=== PATIENT | male | born 1980 | race Caucasian/White ===

== ENCOUNTER 2018-07-23 23:06 | Inpatient (IN) | payer MEDICAID, OTHER ==
--- NOTE | 2018-07-23 23:46 | ED ---
General Adult HPI - General Chief complaint: Psychiatric Symptoms Stated complaint: Mental Health Time Seen by Provider: 07/23/18 23:26 Source: patient, RN notes reviewed Mode of arrival: ambulatory Limitations: no limitations - History of Present Illness Initial comments: 37-year-old male without any significant past medical history presents to the emergency department for a chief complaint of increased aggression and hallucinations. History is very fragmented and difficult to follow. Patient states over the past several months he has had increased stress in his life secondary to his significant other. States that this has caused him much stress in his life and has increased aggression. States that when he is arguing he feels like he is going to become physically aggressive but denies any other thoughts of harming anyone. Denies thoughts of harming himself. Does admit to suicidal thoughts on and off but does not think he would actually do this. Denies having a plan. Also states he has been hearing auditory hallucinations. States he has been hearing voices that have been insulting him. States he also feels like people are breaking into his house. His mother states that patient is frequently checking locks on all the doors and looking at the house to scan it for intruders. Patient has no other complaints at this time including shortness of breath, chest pain, abdominal pain, nausea or vomiting, headache, or visual changes. - Related Data Home Medications Medication Instructions Recorded Confirmed Multivitamins, Thera [Multivitamin 1 tab PO DAILY 07/24/18 07/24/18 (formulary)] Allergies Allergy/AdvReac Type Severity Reaction Status Date / Time amoxicillin Allergy Rash/Hives Verified 07/24/18 02:25 Review of Systems ROS Statement: Those systems with pertinent positive or pertinent negative responses have been documented in the HPI. ROS Other: All systems not noted in ROS Statement are negative. Past Medical History Past Medical History: No Reported History History of Any Multi-Drug Resistant Organisms: None Reported Additional Past Surgical History / Comment(s): cyst removed from chest Past Psychological History: No Psychological Hx Reported Smoking Status: Current every day smoker Past Alcohol Use History: Rare Past Drug Use History: Heroin, Opiates - Past Family History Mother Sister(s) Family Medical History: Cancer Additional Family Medical History / Comment(s): mother metastatic bone ca,. sister best away from breast, uterine ovarian 2014. Brother has colon CA General Exam Limitations: no limitations General appearance: alert, in no apparent distress Head exam: Present: atraumatic, normocephalic, normal inspection Eye exam: Present: normal appearance, PERRL, EOMI. Absent: scleral icterus, conjunctival injection, periorbital swelling ENT exam: Present: normal exam, mucous membranes moist Neck exam: Present: normal inspection, full ROM. Absent: tenderness, meningismus, lymphadenopathy Respiratory exam: Present: normal lung sounds bilaterally. Absent: respiratory distress, wheezes, rales, rhonchi, stridor Cardiovascular Exam: Present: regular rate, normal rhythm, normal heart sounds. Absent: systolic murmur, diastolic murmur, rubs, gallop, clicks Neurological exam: Present: alert, oriented X3, CN II-XII intact Psychiatric exam: Present: other (Disorganize conversation) Course Vital Signs 07/23/18 07/24/18 23:09 02:24 Temperature 98.5 F 96.7 F L Pulse Rate 113 H 90 Respiratory 20 16 Rate Blood Pressure 134/79 123/94 O2 Sat by Pulse 98 98 Oximetry Medical Decision Making - Medical Decision Making 37-year-old male presents to the emergency department for several complaints. Patient has been having auditory hallucinations as well as thoughts of people intruding into his house. Care was signed out to Dr. Mcnamara at midnight an EPS evaluation. - Lab Data Result diagrams: 07/25/18 08:00 07/25/18 08:00 Lab Results 07/24/18 Range/Units 00:22 Urine Opiates Screen Not Detected (NotDetected) Ur Oxycodone Screen Not Detected (NotDetected) Urine Methadone Screen Not Detected (NotDetected) Ur Propoxyphene Screen Not Detected (NotDetected) Ur Barbiturates Screen Not Detected (NotDetected) U Tricyclic Antidepress Not Detected (NotDetected) Ur Phencyclidine Scrn Not Detected (NotDetected) Ur Amphetamines Screen Detected H (NotDetected) U Methamphetamines Scrn Detected H (NotDetected) U Benzodiazepines Scrn Not Detected (NotDetected) Urine Cocaine Screen Not Detected (NotDetected) U Marijuana (THC) Screen Not Detected (NotDetected) Disposition Clinical Impression: Auditory hallucinations Disposition: ADMITTED IP TO THIS HOSP Condition: Fair Time of Disposition: 00:06
[2018-07-24 00:55] LABS: Amphetamine Screen,Urine Detected (NotDetected); Barbiturate Screen,Urine Not Detected (NotDetected); Benzodiazepines Screen,Urine Not Detected (NotDetected); Cocaine Screen,Urine Not Detected (NotDetected); Methadone Screen, Urine Not Detected (NotDetected); Opiate Screen,Urine Not Detected (NotDetected); Oxycodone Screen, Urine Not Detected (NotDetected); Phencyclidine Screen,Urine Not Detected (NotDetected); Tricyclic Antidepressant,Urine Not Detected (NotDetected); Urn Cannabinoid Scrn Not Detected (NotDetected)
[2018-07-24] MEDS ORDERED: ZIPRASIDONE 20 MG VIAL IM PRN (02:16)
[2018-07-24] MEDS ORDERED: MAGNESIUM HYDROXIDE 2,400 MG/10 ML CUP PO PRN (02:16)
[2018-07-24] MEDS ORDERED: LORazepam 1 MG TAB PO PRN (02:16)
[2018-07-24] MEDS ORDERED: MAG HYDROX/AL HYDROX/SIMETH 30 ML CUP PO PRN (02:16)
[2018-07-24] MEDS ORDERED: OLANZapine 5 MG TAB PO PRN (02:22)
[2018-07-24] MEDS ORDERED: OLANZapine 10 MG TAB PO SCH ×2 (02:22→21:00)
[2018-07-24] MEDS ORDERED: PNEUMOCOCCAL VACC-PNEUMOVAX 23 25 MCG/0.5 ML VIAL IM ONE (07:48)
[2018-07-24] MEDS: NICOTINE 21MG/24HR PATCH TRANSDERM SCH (09:41)
[2018-07-24] MEDS: MULTIVITAMINS, THERA 1 EACH TAB PO SCH (09:41)
[2018-07-24 13:03] VITALS: BMI 23.7
--- NOTE | 2018-07-24 14:31 | P.HPMEDMHU ---
History of Present Illness H&P Date: 07/24/18 Chief Complaint: MHU HPI The patient is a 37-year-old male with a past medical history of substance abuse with methamphetamines was admitted to the mental health unit after he presented to the ER with increased aggression and hallucinations, apparently the patient is complaining of increased stresses in his life with regards to the family and his job, he reports being increasingly paranoid about his partner having affairs, and increasingly paranoid that his neighbors are watching him. The patient reports increasing manic behaviors followed by depression. The patient denies any chronic medical issues he denies any chest pain or shortness of breath, denies any subjective fevers chills night sweats or cough. Denies any abdominal pain nausea or vomiting or change in bowel habits. Currently the patient denies any hallucinations or feeling paranoid, only complaining of Fatigue. In the ER the patient had a UDS was positive for methamphetamine. Review of Systems Pertinent positives per HPI, all other review of systems otherwise negative Past Medical History Past Medical History: No Reported History History of Any Multi-Drug Resistant Organisms: None Reported Additional Past Surgical History / Comment(s): cyst removed from chest Past Psychological History: No Psychological Hx Reported Smoking Status: Current every day smoker Past Alcohol Use History: Rare Past Drug Use History: Heroin, Opiates - Past Family History Mother Sister(s) Family Medical History: Cancer Additional Family Medical History / Comment(s): mother metastatic bone ca,. sis ter best away from breast, uterine ovarian 2014. Brother has colon CA Medications and Allergies Home Medications Medication Instructions Recorded Confirmed Type Multivitamins, Thera [Multivitamin 1 tab PO DAILY 07/24/18 07/24/18 History (formulary)] Allergies Allergy/AdvReac Type Severity Reaction Status Date / Time amoxicillin Allergy Rash/Hives Verified 07/24/18 02:25 Physical Exam Vitals: Vital Signs Temp Pulse Pulse Resp BP BP Pulse Ox 07/24/18 02:57 98.0 F 85 16 118/71 07/24/18 02:24 96.7 F L 90 16 123/94 98 07/23/18 23:09 98.5 F 113 H 20 134/79 98 Intake and Output 07/23/18 07/24/18 07/24/18 22:59 06:59 14:59 Other: Weight 79.379 kg 79.379 kg Constitutional: No acute distress, conversant, pleasant Eyes: Anicteric sclerae, moist conjunctiva, no lid-lag, PERRLA ENMT: NC/AT,Oropharynx clear, no erythema, exudates Neck:Supple, FROM, no masses, or JVD, No carotid bruits; No thyromegaly Lungs: Clear to auscultation, Clear to percussion, Normal respiratory effort, no accessory muscle use Cardiovascular: Heart regular in rate and rhythm, No murmurs, gallops, or rubs no peripheral edema Abdominal: Soft Nontender, nom distended, no guarding, no rebound or rigidity, Normoactive bowel sounds No hepatomegaly, No splenomegaly, No palpable mass No abdominal wall hernia noted Skin: Normal temperature, tone, texture, turgor, No induration No subcutaneous nodules, No rash, lesions, No ulcers Extremities:No digital cyanosis No clubbing, Pedal pulses intact and symmetrical Radial pulses intact and symmetrical Normal gait and station, No calf tenderness Psychiatric: Alert and oriented to person, place and time, flat affect Neuro: Muscles Strength 5/5 in all 4 extremities, Sensation to light touch grossly present throughout, Cranial nerves II-XII grossly intact. No focal sensory deficits Cranial Nerve Examination - Cranial Nerves Cranial Nerve II- Optic: Intact Cranial Nerve III- Oculomotor: Intact Cranial Nerve IV- Trochlear: Intact Cranial Nerve V- Trigeminal: Intact Cranial Nerve - Abducens: Intact Cranial Nerve VII- Facial: Intact Cranial Nerve VIII- Auditory: Intact Cranial Nerve IX- Glossopharyngeal: Intact Cranial Nerve X- Vagus: Intact Cranial Nerve XI- Accessory: Intact Cranial Nerve XII- Hypoglossal: Intact Results Labs: Abnormal Lab Results - Last 24 Hours (Table) 07/24/18 Range/Units 00:22 Ur Amphetamines Screen Detected H (NotDetected) U Methamphetamines Scrn Detected H (NotDetected) Thrombosis Risk Factor Assmnt - Choose All That Apply Any of the Below Risk Factors Present?: No Other Risk Factors: No Other congenital or acquired thrombophilia - If yes, enter type in comment: No Thrombosis Risk Factor Assessment Level: Very Low Risk Assessment and Plan (1) Methamphetamine abuse Current Visit: Yes Status: Acute Code(s): F15.10 - OTHER STIMULANT ABUSE, UNCOMPLICATED SNOMED Code(s): 509637977 (2) Methamphetamine-induced psychotic disorder Current Visit: Yes Status: Acute Code(s): F15.959 - OTH STIMULANT USE, UNSP W STIM-INDUCE PSYCH DISORDER, UNSP SNOMED Code(s): 50407105945675650 (3) Schizoaffective disorder Current Visit: Yes Status: Acute Code(s): F25.9 - SCHIZOAFFECTIVE DISORDER, UNSPECIFIED SNOMED Code(s): 51088361 Plan: The patient is admitted to the mental health unit we'll defer treatment to the acute inpatient psychiatry team regarding ongoing psychotropic medications and possible cognitive behavioral therapy for his 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 Initiate labs are still pending, the patient appears to be hemodynamically stable and is coming out of his methamphetamine toxemia. We will plan to sign off on this patient today. I appreciate the opportunity to be evolving ongoing care for this patient, for further questions please do not hesitate to contact the [facility] inpatient team
[2018-07-24] MEDS ORDERED: OLANZapine 5 MG TAB PO SCH (17:00)
[2018-07-24] MEDS ORDERED: OLANZapine 5 MG TAB PO ONE (17:35)
[2018-07-24] MEDS: OLANZapine 10 MG TAB PO SCH (20:59)
[2018-07-24] MEDS: ACETAMINOPHEN TAB 325 MG TAB PO PRN (21:02)
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
[2018-07-25 08:24] LABS: Anisocytosis Slight; Basophils % (A) 1 %; Eosinophils # (A) 0.2 k/uL (0-0.7); Eosinophils % (A) 2 %; HCT 44.2 % (39.0-53.0); HGB 14.3 gm/dL (13.0-17.5); Lymphocytes # (A) 1.1 k/uL (1.0-4.8); Lymphocytes % (A) 15 %; MCH 29.4 pg (25.0-35.0); MCHC 32.4 g/dL (31.0-37.0); MCV 90.7 fL (80.0-100.0); Mean Platelet Volume 7.9; Monocytes # (A) 0.3 k/uL (0-1.0); Monocytes % (A) 4 %; Neutrophils # (A) 5.5 k/uL (1.3-7.7); Neutrophils % (A) 76 %; Platelet Count 177 k/uL (150-450); RBC 4.87 m/uL (4.30-5.90); RDW 16.5 % (11.5-15.5); WBC 7.2 k/uL (3.8-10.6)
[2018-07-25] MEDS: NICOTINE 21MG/24HR PATCH TRANSDERM SCH (08:33)
[2018-07-25] MEDS: MULTIVITAMINS, THERA 1 EACH TAB PO SCH (08:33)
[2018-07-25] MEDS: OLANZapine 10 MG TAB PO SCH ×2 (08:33→21:17)
[2018-07-25] MEDS: ACETAMINOPHEN TAB 325 MG TAB PO PRN (08:35)
[2018-07-25 08:38] LABS: ALT 10 U/L (21-72); AST 12 U/L (17-59); African American GFR (CKD) >90 (>60 ml/min/1.73 sqM); Albumin 4.3 g/dL (3.5-5.0); Alkaline Phosphatase 53 U/L (38-126); Anion Gap 7 mmol/L; Blood Urea Nitrogen 17 mg/dL (9-20); Calcium 9.5 mg/dL (8.4-10.2); Carbon Dioxide 25 mmol/L (22-30); Chloride 109 mmol/L (98-107); Cholesterol 123 mg/dL (<200); Glucose 92 mg/dL (74-99); HDL Cholesterol 35 mg/dL (40-60); LDL Cholesterol,Calculated 72 mg/dL (0-99); Potassium 4.3 mmol/L (3.5-5.1); Sodium 141 mmol/L (137-145); Total Bilirubin 0.7 mg/dL (0.2-1.3); Triglycerides 80 mg/dL (<150)
--- NOTE | 2018-07-25 21:48 | PN ---
PROGRESS NOTE DATE OF SERVICE: 07/25/2018. CHIEF COMPLAINT: The patient had hallucinations and paranoid delusions, which he feels were set off by use of crystal meth over the last 3 months. INTERVAL HISTORY: Patient has been doing fair. He had a quiet evening last night. He tends to keep to himself. He does come out in the day area, though he does not interact too much with others. He slept fair last night. Today he has been up. Again, he tends to keep to himself. He has been cooperative with care. He notes no problems with his medications. He says that he thinks the Zyprexa has helped him feel a little calmer and a little clearer in his thoughts. It is noted that he continues to be fairly ambivalent about the issues relating to his home situation. We talked about the option of setting up a family meeting given that he has spent more time than not living with his mother over the last 3 months. The plan would be to try to set up a family meeting with her first. The next step might be to set up a family meeting with the patient's fiancee. He is struggling in that relationship. He has not had any issue of hallucinations or delusional thoughts. He tolerates his psychotropic medication. MENTAL STATUS: Patient gave fair eye contact. Psychomotor activity was slow. Speech was monotone and soft. He answered questions with brief responses. He did not say a lot. His thoughts were clear and coherent. His affect was flat. His mood depressed. He seemed moderately distressed. There was no outward evidence of thought disorder. Cognition was clear. ASSESSMENT: I will continue the current diagnosis and treatment plan. I will continue psychotropic medications the same. We will look to look to set up a family meeting with the patient's mother as a first step in addressing the discharge planning issues. We will continue to focus on stabilization and coordinating for outpatient followup. MMODL / IJN: [id number] /
[2018-07-26 08:57] LABS: Hemoglobin A1C 5.5 % (4.0-6.0)
[2018-07-26] MEDS: NICOTINE 21MG/24HR PATCH TRANSDERM SCH (09:11)
[2018-07-26] MEDS: MULTIVITAMINS, THERA 1 EACH TAB PO SCH (09:11)
[2018-07-26] MEDS: OLANZapine 10 MG TAB PO SCH (09:11)
[2018-07-26 09:16] LABS: T4, Free (Free Thyroxine) 1.5 ng/dL (0.78-2.19)
--- NOTE | 2018-07-26 11:19 | P.PN ---
Progress Note - Text Progress Note Date: 07/26/18 Interval History: Patient is a 37-year-old male who was seen today after being admitted due to increasing paranoia after using IV methamphetamine over the last 3 months. Patient states that he began using about a half a gram every other day IV for the last 3 months due to increasing stress at home. He states he was becoming increasingly depressed and tired and thought that the methamphetamine would increase his energy level. He states that over the last year he has thought that his fiance has been cheating on him but now no longer has those concerns. He states that he has a history of being addicted to opiates and has not used for the last 7 years and was using for 8 years IV heroin. Patient states that he is also been treated in the past for depression the first time was after he stopped his opiate use and he has been on Wellbutrin, Zoloft, Paxil and Celexa and complained of no energy on all of them and was uncertain what his response to Wellbutrin was. Patient states that he also set up an intake at [facility] for July 29 prior to his coming to the hospital. He reports that currently he is still feeling tired and depressed he is no longer having any paranoid ideation or auditory hallucinations but is now feeling sleepy and has not been attending groups but has been eating. He states that he sleeping most of the day and night Mental Status: Appearance/Attitude: Patient is neatly and appropriately dressed, makes good eye contact appears tired and is cooperative Behavior: Patient does not exhibit any psychomotor agitation or retardation Speech/Language: Patient's speech is spontaneous and normal volume and rhythm and he is coherent Thought Process: Patient is goal-directed there is no evidence of loose associations or flight of ideas Thought Content: Patient denies any current auditory or visual hallucinations and no delusions or paranoid ideation or elicited. Patient states he is no longer hearing voices or having paranoid ideation. He reports that he is currently feeling sedated during the day and has been sleeping day and night. He has not been attending groups but has been eating. States that he had been feeling depressed prior to coming into the hospital and tired and had also been suspicious that his fiance been having an affair. Suicidal/Homicidal Ideation: Patient denies any current suicidal or homicidal ideation Sensorium/Cognition: Patient is alert and oriented to person, place, and time and his recent and remote memory are grossly intact Mood/Affect: Patient's mood is depressed he appears somewhat sleepy and his affect is appropriate to his mood Insight/Judgment: Patient's insight and judgment are fair Assessment: Patient reports is no longer having paranoid thoughts or auditory hallucinations, he reports that he's been sleeping day and night and is feeling overly sedated during the day. He has been eating and states that he had set up an intake for July 29 at [facility], he reports having started using methamphetamine IV 3 months ago due to feeling depressed and tired as well as suspicious of his fiance having any an affair, patient states that he has now plan to live with his mother as he had been living with his fiance and her mother. 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 Patient has a history of prior opiate addiction as well as treatment for depression in the past. Plan: Will decrease the patient's Zyprexa to 7-1/2 mg at bedtime and continue to slowly taper this, as the patient's paranoid and auditory hallucinations have ceased and he is overly sedated during the day. Patient and I discussed his response to antidepressants in the past and he felt that the SSRIs made him too sleepy and so we will start Wellbutrin extended release 150 mg in the morning and I reviewed the use and side effects of the medication with him. Patient is still considering whether he wishes to follow-up with the intake at [facility] on July 29. Patient continues to require hospitalization to further stabilize h is mood.
[2018-07-26] MEDS: buPROPion XL 150 MG TAB.ER.24H PO SCH (12:14)
[2018-07-26] MEDS ORDERED: OLANZapine 2.5 MG TAB PO SCH (21:00)
[2018-07-27] MEDS: ACETAMINOPHEN TAB 325 MG TAB PO PRN ×2 (01:30→15:17)
[2018-07-27 01:47] VITALS: TEMP 98.4
[2018-07-27] MEDS: MULTIVITAMINS, THERA 1 EACH TAB PO SCH (09:04)
[2018-07-27] MEDS: buPROPion XL 150 MG TAB.ER.24H PO SCH (09:04)
[2018-07-27] MEDS: NICOTINE 21MG/24HR PATCH TRANSDERM SCH (09:04)
--- NOTE | 2018-07-27 12:41 | P.PN ---
Progress Note - Text Progress Note Date: 07/27/18 Interval History: Patient is a 37-year-old male who was seen today and reports that he is feeling less groggy however continues to feel sleepy. Patient states that he did sleep well and has had no return of the auditory hallucinations or paranoid ideation that he had at the time of admission. Patient states that he is unsure whether he wants to go to the intake at [facility] on stating that he was depressed and that was partly why he began using methamphetamines on the outside. He denies any suicidal ideation at this time. Mental Status: Appearance/Attitude: Patient is neatly and appropriately dressed, appears still slightly groggy, makes eye contact and is cooperative. Behavior: Patient does not display any psychomotor agitation or retardation. Speech/Language: Patient's speech is spontaneous of normal volume and rhythm and he is coherent Thought Process: Patient is goal-directed there is no evidence of loose association or flight of ideas Thought Content: Patient denies any auditory or visual hallucinations and no delusions or paranoid ideation or elicited. Patient states that he is still feeling slightly groggy during the day and states that he began using methamphetamine because he had been feeling depressed before he was admitted. Patient states that he still feeling that way. Patient has been sleeping and eating but has not been attending any groups. Suicidal/Homicidal Ideation: Patient denied any current suicidal or homicidal ideation Sensorium/Cognition: Patient is alert and oriented to person, place, and time and his recent and remote memory are grossly intact Mood/Affect: Patient's mood remains slightly depressed and his affect blunted Insight/Judgment: Patient's insight and judgment are fair Assessment: Patient and I discussed his going to [facility] and he is now delaying that stating that he was feeling depressed before and wants to stay in the hospital. Patient is not expressing any suicidal ideation. Expressing any psychotic symptoms at this time and continues to spend the day in bed stating that he is too sedated. Patient is sleeping and eating but not attending any groups or activities. Plan: Will decrease the patient's Zyprexa to 2-1/2 mg tonight and then discontinue the medication as he is no longer having any psychotic symptoms, will increase the patient's Wellbutrin to 300 mg extended-release tomorrow morning as the patient reports that he had been beneficial to him in the past and he states that he had been feeling depressed and one of the reasons that he had begun using methamphetamines. Patient was encouraged to attend groups and activities and we discussed a discharge later this week once his mood is more stable and I continue to encourage the patient to attend his intake at [facility]. Patient requires hospitalization to further stabilize his mood and observe off the antipsychotic for return of any psychotic symptoms.
[2018-07-27] MEDS ORDERED: OLANZapine 2.5 MG TAB PO SCH (21:00)
[2018-07-28] MEDS: ACETAMINOPHEN TAB 325 MG TAB PO PRN (00:53)
[2018-07-28 06:53] VITALS: BP 118/67; PULSE 76; RESP 16
[2018-07-28] MEDS: NICOTINE 21MG/24HR PATCH TRANSDERM SCH (08:30)
[2018-07-28] MEDS: MULTIVITAMINS, THERA 1 EACH TAB PO SCH (08:30)
[2018-07-28] MEDS ORDERED: buPROPion XL 300 MG TAB.ER.24H PO SCH (09:00)
--- NOTE | 2018-07-28 10:56 | P.DS ---
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 Patient states that he began using about a half a gram every other day for last 3 months due to increasing stress at home. He states that he had been increasingly depressed and tired and thought that methamphetamine would increase his energy level. He states that over the last year is also had concerns that his fiance was cheating on him but these concerns no longer exist. Patient states that he became increasingly aggressive and was having hallucinations. Patient reported hearing auditory hallucinations that are derogatory in nature, patient felt that people were breaking into his house and he is mother reported that he had been checking the locks and doors at the house looking for intruders. Patient states that he also had suicidal thoughts as well as a fear becoming aggressive. Patient reported that the paranoid delusions are becoming worse he had not been sleeping or eating. Patient states that he had moved in with his mother due to arguments with his fiance. Patient also been feeling increasingly depressed and had arranged as an outpatient prior to coming to the hospital for an intake at [place] for July 29. Patient reported that he had been feeling depressed about stress due to his relationship with his fiance, is having suicidal ideation had begun using methamphetamine because he was tired and then began to have auditory hallucinations as well as paranoid ideation. Patient reported that he had been treated in the past for depression. Patient had been an opiate user in the past but has not used for the last 7 years and stated that after he became sober off of his opiate use he had been on antidepressants for depression. He has not currently been on any medication. Hospital Course: Patient was admitted on a voluntary basis, placed on routine observation and group and activity therapy were ordered. Patient had routine laboratory studies ordered as well as a medical consultation. Patient was initially begun on Zyprexa to target his paranoid ideation and auditory hallucinations. Patient responded well to the medication was reporting feeling overly sedated and so the Zyprexa was slowly decreased to a dose of 2.5 mg on the night prior to his discharge. Patient reported no further auditory hallucinations or delusional ideation. Patient then discussed feeling depressed, with a lack of energy, he reported no current suicidal ideation but stated that he had been depressed feeling tired and unmotivated, not eating well or sleeping well. Patient reported that he had a good response to Wellbutrin in the past and not to the SSRIs. Patient was then started on Wellbutrin 150 mg extended release in the morning which was increased to 300 mg in the morning. Patient reported that he felt no side effects from the medication and as the dose of Zyprexa was decreased he reported less grogginess during the day. Patient signed a three-day notice on July 27 stating that he wished to leave the hospital so that he could keep his intake appointment on July 29 but wanted to spend the night at home before going to [facility]. Patient reported no furth er complaints of psychotic symptoms and felt that he was responding to the Wellbutrin. Patient states that he will go on living with his fiance for the one night prior to going to [place] to the intake that he had set up prior to coming to the hospital on July 29. As patient was no longer having any psychotic symptoms, denied any current suicidal ideation patient will be discharged to return home prior to going to [place] tomorrow for his intake. Allergies amoxicillin Allergy (Verified 07/24/18 02:25) Rash/Hives Laboratory Last Values WBC 7.2 k/uL (3.8-10.6) 07/25/18 08:00 RBC 4.87 m/uL (4.30-5.90) 07/25/18 08:00 Hgb 14.3 gm/dL (13.0-17.5) 07/25/18 08:00 Hct 44.2 % (39.0-53.0) 07/25/18 08:00 MCV 90.7 fL (80.0-100.0) 07/25/18 08:00 MCH 29.4 pg (25.0-35.0) 07/25/18 08:00 MCHC 32.4 g/dL (31.0-37.0) 07/25/18 08:00 RDW 16.5 % (11.5-15.5) H 07/25/18 08:00 Plt Count 177 k/uL (150-450) 07/25/18 08:00 Neutrophils % 76 % 07/25/18 08:00 Lymphocytes % 15 % 07/25/18 08:00 Monocytes % 4 % 07/25/18 08:00 Eosinophils % 2 % 07/25/18 08:00 Basophils % 1 % 07/25/18 08:00 Neutrophils # 5.5 k/uL (1.3-7.7) 07/25/18 08:00 Lymphocytes # 1.1 k/uL (1.0-4.8) 07/25/18 08:00 Monocytes # 0.3 k/uL (0-1.0) 07/25/18 08:00 Eosinophils # 0.2 k/uL (0-0.7) 07/25/18 08:00 Basophils # 0.0 k/uL (0-0.2) 07/25/18 08:00 Anisocytosis Slight 07/25/18 08:00 Sodium 141 mmol/L (137-145) 07/25/18 08:00 Potassium 4.3 mmol/L (3.5-5.1) 07/25/18 08:00 Chloride 109 mmol/L (98-107) H 07/25/18 08:00 Carbon Dioxide 25 mmol/L (22-30) 07/25/18 08:00 Anion Gap 7 mmol/L 07/25/18 08:00 BUN 17 mg/dL (9-20) 07/25/18 08:00 Creatinine 0.79 mg/dL (0.66-1.25) 07/25/18 08:00 Est GFR (CKD-EPI)AfAm >90 (>60 ml/min/1.73 sqM) 07/25/18 08:00 Est GFR (CKD-EPI)NonAf >90 (>60 ml/min/1.73 sqM) 07/25/18 08:00 Glucose 92 mg/dL (74-99) 07/25/18 08:[address] Glu mg/dL 111 07/25/18 08:00 Hemoglobin A1c 5.5 % (4.0-6.0) 07/25/18 08:00 Calcium 9.5 mg/dL (8.4-10.2) 07/25/18 08:00 Total Bilirubin 0.7 mg/dL (0.2-1.3) 07/25/18 08:00 AST 12 U/L (17-59) L 07/25/18 08:00 ALT 10 U/L (21-72) L 07/25/18 08:00 Alkaline Phosphatase 53 U/L (38-126) 07/25/18 08:00 Total Protein 7.0 g/dL (6.3-8.2) 07/25/18 08:00 Albumin 4.3 g/dL (3.5-5.0) 07/25/18 08:00 Triglycerides 80 mg/dL (<150) 07/25/18 08:00 Cholesterol 123 mg/dL (<200) 07/25/18 08:00 LDL Cholesterol, Calc 72 mg/dL (0-99) 07/25/18 08:00 HDL Cholesterol 35 mg/dL (40-60) L 07/25/18 08:00 TSH 0.248 mIU/L (0.465-4.680) L 07/25/18 08:00 Total T4 9.2 ug/dL (4.5 - 10.9) 07/25/18 08:00 Free T4 1.50 ng/dL (0.78-2.19) 07/25/18 08:00 Free T3 pg/mL 4.5 pg/ml (2.8-5.3) 07/25/18 08:00 Total T3 116.0 ng/dL (60.0-180.0) 07/25/18 08:00 Urine Opiates Screen Not Detected (NotDetected) 07/24/18 00:22 Ur Oxycodone Screen Not Detected (NotDetected) 07/24/18 00:22 Urine Methadone Screen Not Detected (NotDetected) 07/24/18 00:22 Ur Propoxyphene Screen Not Detected (NotDetected) 07/24/18 00:22 Ur Barbiturates Screen Not Detected (NotDetected) 07/24/18 00:22 U Tricyclic Antidepress Not Detected (NotDetected) 07/24/18 00:22 Ur Phencyclidine Scrn Not Detected (NotDetected) 07/24/18 00:22 Ur Amphetamines Screen Detected (NotDetected) H 07/24/18 00:22 U Methamphetamines Scrn Detected (NotDetected) H 07/24/18 00:22 U Benzodiazepines Scrn Not Detected (NotDetected) 07/24/18 00:22 Urine Cocaine Screen Not Detected (NotDetected) 07/24/18 00:22 U Marijuana (THC) Screen Not Detected (NotDetected) 07/24/18 00:22 Discharge Mental Status: Appearance/Attitude: Patient is neatly and appropriately dressed, makes good eye contact and is cooperative. Behavior: Patient does not exhibit any psychomotor agitation or retardation. Speech/Language: Patient's speech is spontaneous of normal volume and rhythm and he is coherent. Thought Process: Patient is goal-directed there is no evidence of loose association or flight of ideas Thought Content: Patient denies any auditory or visual hallucinations and no delusions or paranoid ideation or elicited. Patient reports that he is no longer having psychotic symptoms, is no longer feeling agitated or aggressive. He reports that he is feeling much less sedated on the lower dose of Zyprexa and has been eating and sleeping well. Patient has been intermittently attending groups. Patient states that he wants to go home before going to [facility] tomorrow for his intake. Suicidal/Homicidal Ideation: Patient denied any current suicidal or homicidal ideation Sensorium/Cognition: Patient is alert and oriented to person, place, and time and his recent and remote memory are grossly intact Mood/Affect: Patient's mood remains slightly depressed and his affect is appropriate to his mood Insight/Judgment: Patient's insight and judgment are fair Risk Assessment: Patient's risk for readmission was moderate should he return to using drugs and not be compliant with follow-up care and medications Discharge Plan: Patient will return to live with his fiance, he states he will keep his intake appointment tomorrow at [place], July 29. Patient will continue on Wellbutrin 300 mg extended release in the morning and was given a prescription for this. Patient was advised to be compliant with follow-up care and medications and to avoid all alcohol and drugs. Patient Condition at Discharge: Stable Plan - Discharge Summary Discharge Rx Participant: No New Discharge Prescriptions: New buPROPion XL [Wellbutrin XL] 300 mg PO DAILY #14 tab.er.24h Continue Multivitamins, Thera [Multivitamin (formulary)] 1 tab PO DAILY Discharge Medication List Multivitamins, Thera [Multivitamin (formulary)] 1 tab PO DAILY 07/24/18 [History] buPROPion XL [Wellbutrin XL] 300 mg PO DAILY #14 tab.er.24h 07/28/18 [Rx] Follow up Appointment(s)/Referral(s): [facility] [Outside] - 1 Week [facility] [NON-STAFF] - 07/29/18 10:15 am (07/29/18 at 1015 am with intake) Patient Instructions/Handouts: Schizoaffective Disorder (DC), Methamphetamine Abuse (DC), Suicide Prevention (DC) Activity/Diet/Wound Care/Special Instructions: Activity and diet as tolerated. Avoid the use of street drugs and alcohol. Take all medications as prescribed. When you are in need of refills on your medications please contact your medical provider and/or outpatient psychiatrist to have this done. Please go to scheduled outpatient appointment for aftercare treatment. If symptoms return or become worse, call the crisis line at and/or go to the nearest emergency room for evaluation. Discharge Disposition: HOME SELF-CARE
== END 2018-07-28 13:20 | disposition home or self-care (01) | DRG 897 ==
LOC: EC 23:06 → 3MHU 07-24 02:02
PROVIDERS: ADMIT Psychiatry & Neurology Psychiatry; ATTEND Psychiatry & Neurology Psychiatry
DX: F15.951 Other stimulant use, unspecified with stimulant-induced psychotic disorder with hallucinations (principal); F33.9 Major depressive disorder, recurrent, unspecified; R45.851 Suicidal ideations; F11.21 Opioid dependence, in remission; F15.950 Other stimulant use, unspecified with stimulant-induced psychotic disorder with delusions; F17.200 Nicotine dependence, unspecified, uncomplicated; F41.0 Panic disorder [episodic paroxysmal anxiety]; Z88.0 Allergy status to penicillin; Z59.8 Other problems related to housing and economic circumstances; Z80.0 Family history of malignant neoplasm of digestive organs; Z80.8 Family history of malignant neoplasm of other organs or systems
CPT/HCPCS: 80053; 80061; 80306; 82075; 83036; 84436; 84439; 84443; 84480; 84481; 85025; 90732; 99285

== ENCOUNTER 2021-11-21 21:39 | Inpatient (IN) | payer OTHER ==
[2021-11-21] MEDS ORDERED: ONDANSETRON 4 MG TAB PO STA (22:28)
[2021-11-21] MEDS ORDERED: LORazepam 1 MG TAB PO STA (22:28)
--- NOTE | 2021-11-21 22:33 | ED ---
General Adult HPI - General Chief complaint: Nausea/Vomiting/Diarrhea Stated complaint: Fall,Withdrawal, Mental Health Time Seen by Provider: 11/21/21 21:55 Source: patient Mode of arrival: wheelchair Limitations: no limitations - History of Present Illness Initial comments: Patient is a 41-year-old male presenting with withdrawal symptoms. Patient used heroin at 6 AM today. He is complaining of paresthesias, nausea, vomiting. Patient denies any recent injury or loss of consciousness. On nurse's reassessment, patient reveals that he had a fall down the stairs today. No abdominal pain, difficulty breathing, fever, chills, unilateral weakness, d ysphasia, difficulty swallowing, vision or hearing changes, headache, neck pain or stiffness. - Related Data Home Medications Medication Instructions Recorded Confirmed Ergocalciferol [Vitamin D2 (1250 1,250 mcg PO TU 12/06/21 12/06/21 Mcg = 58162 Iu)] Previous Rx's Medication Instructions Recorded Docusate [Colace] 100 mg PO BID PRN cap 12/02/21 Nicotine 21Mg/24Hr Patch [Habitrol] 1 patch TRANSDERM DAILY patch 12/02/21 Torsemide [Demadex] 40 mg PO DAILY tab 12/02/21 Famotidine [Pepcid] 20 mg PO BID #60 tablet 12/06/21 Heparin Sodium,Porcine [Heparin 5,000 unit SQ Q12HR 30 Days #60 12/06/21 Sodium] each Melatonin 3 mg PO HS tab 12/06/21 Ondansetron Odt [Zofran ODT] 4 mg PO Q8HR PRN #9 tab 12/06/21 Gabapentin [Neurontin] 100 mg PO TID #9 cap 12/10/21 HYDROcodone/APAP 5-325MG [[place] 1 tab PO Q6HR PRN 3 Days #6 tab 12/10/21 5-325] Allergies Allergy/AdvReac Type Severity Reaction Status Date / Time amoxicillin Allergy Rash/Hives Verified 12/06/21 19:40 Review of Systems ROS Statement: Those systems with pertinent positive or pertinent negative responses have been documented in the HPI. ROS Other: All systems not noted in ROS Statement are negative. Past Medical History Past Medical History: No Reported History History of Any Multi-Drug Resistant Organisms: None Reported Additional Past Surgical History / Comment(s): cyst removed from chest Past Psychological History: No Psychological Hx Reported Smoking Status: Current every day smoker Past Alcohol Use History: Rare Past Drug Use History: Heroin, Methamphetamine, Opiates - Past Family History Mother Sister(s) Family Medical History: Cancer Additional Family Medical History / Comment(s): mother metastatic bone ca,. sister best away from breast, uterine ovarian 2014. Brother has colon CA General Exam Limitations: no limitations General appearance: alert, anxious Head exam: Present: atraumatic, normocephalic, normal inspection Eye exam: Present: normal appearance, PERRL, EOMI. Absent: scleral icterus, conjunctival injection, periorbital swelling Neck exam: Present: normal inspection Respiratory exam: Present: normal lung sounds bilaterally. Absent: respiratory distress, wheezes, rales, rhonchi, stridor Cardiovascular Exam: Present: regular rate, normal rhythm, normal heart sounds. Absent: systolic murmur, diastolic murmur, rubs, gallop, clicks GI/Abdominal exam: Present: soft. Absent: distended, tenderness, guarding, rebound, rigid Extremities exam: Present: normal inspection, full ROM, normal capillary refill Neurological exam: Present: alert, oriented X3, CN II-XII intact Psychiatric exam: Present: normal affect, normal mood Skin exam: Present: warm, dry, intact, normal color. Absent: rash Course Vital Signs 11/21/21 11/21/21 11/22/21 21:45 23:20 06:00 Temperature 97.6 F Pulse Rate 98 92 109 H Respiratory 18 18 18 Rate Blood Pressure 110/82 129/87 161/101 O2 Sat by Pulse 100 97 100 Oximetry 11/22/21 11/22/21 11/22/21 07:10 08:10 09:00 Temperature 97.2 F L Pulse Rate 102 H 101 H 103 H Respiratory 20 16 11 L Rate Blood Pressure 181/94 175/105 150/92 O2 Sat by Pulse 100 100 99 Oximetry 11/22/21 11/22/21 11/22/21 10:00 11:00 12:00 Temperature Pulse Rate 103 H 101 H 105 H Respiratory 19 20 6 L Rate Blood Pressure 168/98 174/103 155/109 O2 Sat by Pulse 99 100 100 Oximetry 11/22/21 11/22/21 13:00 14:00 Temperature Pulse Rate 108 H 104 H Respiratory 3 L 18 Rate Blood Pressure 143/95 169/117 O2 Sat by Pulse 100 100 Oximetry Medical Decision Making - Medical Decision Making Patient is a 41-year-old female presenting with chief complaint of nausea, vomiting, paresthesias. Patient used heroin at 6 AM today. Physical examination is unremarkable. Patient will be given medications for symptoms. Patient's at bedside is requesting to petition the patient that he may be s een by psychiatry. Patient is petitioned and awaiting EPS evaluation. EMR was in downtime for the remainder of time. Patient later revealed to nurse that he fell down several stairs today, head and neck CT is ordered. Patient is endorsed to my attending Dr. Simon, at 00:00. - Lab Data Result diagrams: 11/28/21 18:00 12/05/21 07:36 Lab Results 11/22/21 11/22/21 11/22/21 Range/Units 01:18 02:30 02:30 WBC (3.8-10.6) k/uL RBC (4.30-5.90) m/uL Hgb (13.0-17.5) gm/dL Hct (39.0-53.0) % MCV (80.0-100.0) fL MCH (25.0-35.0) pg MCHC (31.0-37.0) g/dL RDW (11.5-15.5) % Plt Count (150-450) k/uL MPV Neutrophils % % Lymphocytes % % Monocytes % % Eosinophils % % Basophils % % Neutrophils # (1.3-7.7) k/uL Lymphocytes # (1.0-4.8) k/uL Monocytes # (0-1.0) k/uL Eosinophils # (0-0.7) k/uL Basophils # (0-0.2) k/uL Hypochromasia D-Dimer (<0.60) mg/L FEU Sodium 129 L (137-145) mmol/L Potassium 8.4 H* (3.5-5.1) mmol/L Chloride 94 L (98-107) mmol/L Carbon Dioxide 9 L* (22-30) mmol/L Anion Gap 26 mmol/L BUN 50 H (9-20) mg/dL Creatinine 5.37 H (0.66-1.25) mg/dL Est GFR (CKD-EPI)AfAm 14 (>60 ml/min/1.73 sqM) Est GFR (CKD-EPI)NonAf 12 (>60 ml/min/1.73 sqM) Glucose 155 H (74-99) mg/dL Calcium 6.6 L (8.4-10.2) mg/dL Phosphorus >13.0 H* (2.5-4.5) mg/dL Magnesium 3.1 H (1.6-2.3) mg/dL Total Bilirubin 1.3 (0.2-1.3) mg/dL Alkaline Phosphatase 100 (38-126) U/L CK-MB (CK-2) >400.0 H (0.0-2.4) ng/mL Troponin I 0.930 H* (0.000-0.034) ng/mL Total Protein 8.0 (6.3-8.2) g/dL Albumin 4.7 (3.5-5.0) g/dL Lipase 288 (23-300) U/L Urine Color Dark Brown Urine Appearance Turbid (Clear) Urine RBC 20 H (0-5) /hpf Urine WBC 56 H (0-5) /hpf Amorphous Sediment Many H (None) /hpf Urine Bacteria Many H (None) /hpf Hyaline Casts 47 H (0-2) /lpf Urine Mucus Moderate H (None) /hpf Urine Opiates Screen Not Detected (NotDetected) Ur Oxycodone Screen Not Detected (NotDetected) Urine Methadone Screen Not Detected (NotDetected) Ur Propoxyphene Screen Not Detected (NotDetected) Ur Barbiturates Screen Not Detected (NotDetected) U Tricyclic Antidepress Not Detected (NotDetected) Ur Phencyclidine Scrn Not Detected (NotDetected) Ur Amphetamines Screen Not Detected (NotDetected) U Methamphetamines Scrn Not Detected (NotDetected) U Benzodiazepines Scrn Not Detected (NotDetected) Urine Cocaine Screen Not Detected (NotDetected) U Marijuana (THC) Screen Not Detected (NotDetected) 11/22/21 11/22/21 Range/Units 02:30 04:14 WBC 11.3 H (3.8-10.6) k/uL RBC 4.75 (4.30-5.90) m/uL Hgb 14.9 (13.0-17.5) gm/dL Hct 45.5 (39.0-53.0) % MCV 95.7 (80.0-100.0) fL MCH 31.3 (25.0-35.0) pg MCHC 32.7 (31.0-37.0) g/dL RDW 14.8 (11.5-15.5) % Plt Count 166 (150-450) k/uL MPV 10.6 Neutrophils % 93 % Lymphocytes % 5 % Monocytes % 2 % Eosinophils % 0 % Basophils % 0 % Neutrophils # 10.5 H (1.3-7.7) k/uL Lymphocytes # 0.6 L (1.0-4.8) k/uL Monocytes # 0.2 (0-1.0) k/uL Eosinophils # 0.0 (0-0.7) k/uL Basophils # 0.0 (0-0.2) k/uL Hypochromasia Slight D-Dimer 6.18 H (<0.60) mg/L FEU Sodium (137-145) mmol/L Potassium (3.5-5.1) mmol/L Chloride (98-107) mmol/L Carbon Dioxide (22-30) mmol/L Anion Gap mmol/L BUN (9-20) mg/dL Creatinine (0.66-1.25) mg/dL Est GFR (CKD-EPI)AfAm (>60 ml/min/1.73 sqM) Est GFR (CKD-EPI)NonAf (>60 ml/min/1.73 sqM) Glucose (74-99) mg/dL Calcium (8.4-10.2) mg/dL Phosphorus (2.5-4.5) mg/dL Magnesium (1.6-2.3) mg/dL Total Bilirubin (0.2-1.3) mg/dL Alkaline Phosphatase (38-126) U/L CK-MB (CK-2) (0.0-2.4) ng/mL Troponin I (0.000-0.034) ng/mL Total Protein (6.3-8.2) g/dL Albumin (3.5-5.0) g/dL Lipase (23-300) U/L Urine Color Urine Appearance (Clear) Urine RBC (0-5) /hpf Urine WBC (0-5) /hpf Amorphous Sediment (None) /hpf Urine Bacteria (None) /hpf Hyaline Casts (0-2) /lpf Urine Mucus (None) /hpf Urine Opiates Screen (NotDetected) Ur Oxycodone Screen (NotDetected) Urine Methadone Screen (NotDetected) Ur Propoxyphene Screen (NotDetected) Ur Barbiturates Screen (NotDetected) U Tricyclic Antidepress (NotDetected) Ur Phencyclidine Scrn (NotDetected) Ur Amphetamines Screen (NotDetected) U Methamphetamines Scrn (NotDetected) U Benzodiazepines Scrn (NotDetected) Urine Cocaine Screen (NotDetected) U Marijuana (THC) Screen (NotDetected) Disposition Clinical Impression: Acute renal failure, Rhabdomyolysis Disposition: ADMITTED IP TO THIS [facility] Condition: Stable Is patient prescribed a controlled substance at d/c from ED?: No
[2021-11-21] MEDS: cloNIDine 0.2 MG/24HR PATCH TRANSDERM SCH (22:53)
[2021-11-22 06:05] LABS: Amorphous Sediment,Urine Many /hpf; Appearance,Urine Turbid (Clear); Bacteria,Urine Many /hpf; Color,Urine Dark Brown; Hyaline Casts,Urine 47 /lpf (0-2); Mucus,Urine Moderate /hpf; RBC,Urine 20 /hpf (0-5); WBC,Urine 56 /hpf (0-5)
[2021-11-22 06:07] LABS: Amphetamine Screen,Urine Not Detected (NotDetected); Barbiturate Screen,Urine Not Detected (NotDetected); Benzodiazepines Screen,Urine Not Detected (NotDetected); Cocaine Screen,Urine Not Detected (NotDetected); Methadone Screen, Urine Not Detected (NotDetected); Opiate Screen,Urine Not Detected (NotDetected); Oxycodone Screen, Urine Not Detected (NotDetected); Phencyclidine Screen,Urine Not Detected (NotDetected); Tricyclic Antidepressant,Urine Not Detected (NotDetected); Urn Cannabinoid Scrn Not Detected (NotDetected)
[2021-11-22 06:27] LABS: ALT 1146 U/L (4-49); AST 3484 U/L (17-59)
[2021-11-22 06:29] LABS: Creatine Kinase >160000 U/L (55-170)
[2021-11-22 06:34] LABS: Basophils % (A) 0 %; Eosinophils % (A) 0 %; HCT 45.5 % (39.0-53.0); HGB 14.9 gm/dL (13.0-17.5); Hypochromasia Slight; Lymphocytes # (A) 0.6 k/uL (1.0-4.8); Lymphocytes % (A) 5 %; MCH 31.3 pg (25.0-35.0); MCHC 32.7 g/dL (31.0-37.0); MCV 95.7 fL (80.0-100.0); Mean Platelet Volume 10.6; Monocytes # (A) 0.2 k/uL (0-1.0); Monocytes % (A) 2 %; Neutrophils # (A) 10.5 k/uL (1.3-7.7); Neutrophils % (A) 93 %; Platelet Count 166 k/uL (150-450); RBC 4.75 m/uL (4.30-5.90); RDW 14.8 % (11.5-15.5); WBC 11.3 k/uL (3.8-10.6)
[2021-11-22 06:42] LABS: Creatine Kinase MB >400.0 ng/mL (0.0-2.4)
[2021-11-22 06:44] LABS: African American GFR (CKD) 14 (>60 ml/min/1.73 sqM); Albumin 4.7 g/dL (3.5-5.0); Anion Gap 26 mmol/L; Blood Urea Nitrogen 50 mg/dL (9-20); Calcium 6.6 mg/dL (8.4-10.2); Chloride 94 mmol/L (98-107); Glucose 155 mg/dL (74-99); Lipase 288 U/L (23-300); Non-African American GFR(CKD) 12 (>60 ml/min/1.73 sqM); Sodium 129 mmol/L (137-145); Total Bilirubin 1.3 mg/dL (0.2-1.3)
[2021-11-22 06:45] LABS: Carbon Dioxide 9 mmol/L (22-30); Potassium 8.4 mmol/L (3.5-5.1)
[2021-11-22 06:47] LABS: Phosphorus >13.0 mg/dL (2.5-4.5)
[2021-11-22 06:48] LABS: Alkaline Phosphatase 100 U/L (38-126); Magnesium 3.1 mg/dL (1.6-2.3)
[2021-11-22] MEDS ORDERED: SODIUM BICARB 8.4% 50 ML SYR (1 MEQ/ML) IV STA ×2 (07:34→09:28)
[2021-11-22] MEDS ORDERED: SODIUM ZIRCONIUM CYCLOSILICATE 10 GM PACKET PO ONE ×2 (07:34→20:30)
[2021-11-22] MEDS: DEXTROSE 5% IN WATER 1,000 ML with SODIUM BICARB (1 MEQ/ML) 150 ML IV SCH ×3 (08:05→20:33)
[2021-11-22 08:33] LABS: INR 1.2 (<1.2)
[2021-11-22 08:34] LABS: Partial Thromboplastin Time 23.5 sec (22.0-30.0); Prothrombin Time 12.7 sec (9.0-12.0)
[2021-11-22 08:38] LABS: Albumin 3.2 g/dL (3.5-5.0); Alkaline Phosphatase 71 U/L (38-126); Anion Gap 14 mmol/L; Blood Urea Nitrogen 59 mg/dL (9-20); Carbon Dioxide 16 mmol/L (22-30); Chloride 100 mmol/L (98-107); Glucose 66 mg/dL (74-99); Sodium 130 mmol/L (137-145); Total Bilirubin 0.9 mg/dL (0.2-1.3); Total Protein 5.5 g/dL (6.3-8.2)
--- NOTE | 2021-11-22 08:41 | P.HPIM ---
History of Present Illness Pleasant 41 years old male with no significant past medical history presents with some withdrawal symptoms Patient is confused, opens eyes spontaneously and go back to sleep, does not follow commands and he is on restrains. Patient cannot provide history and information was obtained from his is here at bedside. Patient's states that he has history of depression, hallucinations, and sometimes he talks to the wall even when he is not on a drugs. He has history of drug addict with her when where he injects in his both forearms for the last 2 years on and off. His mother about 2 years ago. Over the last 3 months he was cleaned from any other drug abuse but he relapsed over the last 3 weeks when he has his sister and he went to visit his niece. Patient looks more with her daughter for babysitting her grandkids. She saw him 3 times over the last 3 months and all times he was high She talked to him night before asking her to come and visit him but she could not do so until 3 PM yesterday when she found him on the floor/stairs, and she brought him to the emergency room where he told her and emergency room staff he was been using her when since o'clock in the morning. No one knows what happened between 6 AM and 3 PM. denies 's previous history of suicidal attempts orientation but he has history of overdose. He has Collins catheter with darker brown muddy colored urine. Vitals are stable and patient is afebrile. Labs showing mild leukocytosis of 11.3. Evaluated d-dimer 6.18 Sodium is 129, potassium elevated 8.4. Creatinine elevated 5.3. Glucose 155. Lactic acid elevated 3.9. Low collar some 6.6. High phosphorus more than 13. Magnesium elevated to 3.1. Total bilirubin is normal 1.3. Elevated AST 348 for an ALT 1146. Elevated troponin 0.9. High creatinine kinase more than [id number]. Urine analysis showed RBCs elevated to 20 and WBCs elevated 56. Urine drug screen is negative EKG showing sinus tachycardia at 102. No significant ST-T changes. There is no imaging done Review of Systems ROS unobtainable: due to mental status Past Medical History Past Medical History: No Reported History History of Any Multi-Drug Resistant Organisms: None Reported Additional Past Surgical History / Comment(s): cyst removed from chest Past Psychological History: No Psychological Hx Reported Smoking Status: Current every day smoker Past Alcohol Use History: Rare Past Drug Use History: Heroin, Methamphetamine, Opiates - Past Family History Mother Sister(s) Family Medical History: Cancer Additional Family Medical History / Comment(s): mother metastatic bone ca,. sister best away from breast, uterine ovarian 2014. Brother has c olon CA Medications and Allergies Home Medications Medication Instructions Recorded Confirmed Type No Known Home Medications 11/22/21 11/22/21 History Allergies Allergy/AdvReac Type Severity Reaction Status Date / Time amoxicillin Allergy Rash/Hives Verified 11/22/21 07:28 Physical Exam Vitals: Vital Signs Temp Pulse Resp BP Pulse Ox 11/22/21 06:00 109 H 18 161/101 100 11/21/21 23:20 92 18 129/87 97 11/21/21 21:45 97.6 F 98 18 110/82 100 Intake and Output 11/21/21 11/21/21 11/22/21 14:59 22:59 06:59 Other: Weight 88.451 kg -GENERAL: The patient is confused and obtunded and could not provide information, not in any acute distress. Well developed, well nourished. Patient is in restraints HEENT: Pupils are round and equally reacting to light. EOMI. No scleral icterus. No conjunctival pallor. Normocephalic, atraumatic. No pharyngeal erythema. No thyromegaly. CARDIOVASCULAR: S1 and S2 present. No murmurs, rubs, or gallops. PULMONARY: Chest is clear to auscultation, no wheezing or crackles. ABDOMEN: Soft, nontender, nondistended, normoactive bowel sounds. No palpable organomegaly. MUSCULOSKELETAL: No joint swelling or deformity. EXTREMITIES: No cyanosis, clubbing, or pedal edema. NEUROLOGICAL: Gross neurological examination did not reveal any focal deficits. SKIN: No rashes. no petechiae. Results CBC & Chem 7: 11/22/21 04:14 11/22/21 02:30 Labs: Abnormal Lab Results - Last 24 Hours (Table) 11/22/21 11/22/21 11/22/21 Range/Units 01:18 02:30 02:30 WBC (3.8-10.6) k/uL Neutrophils # (1.3-7.7) k/uL Lymphocytes # (1.0-4.8) k/uL D-Dimer (<0.60) mg/L FEU Sodium 129 L (137-145) mmol/L Potassium 8.4 H* (3.5-5.1) mmol/L Chloride 94 L (98-107) mmol/L Carbon Dioxide 9 L* (22-30) mmol/L BUN 50 H (9-20) mg/dL Creatinine 5.37 H (0.66-1.25) mg/dL Glucose 155 H (74-99) mg/dL Plasma Lactic Acid Ranjeet (0.7-2.0) mmol/L Calcium 6.6 L (8.4-10.2) mg/dL Phosphorus >13.0 H* (2.5-4.5) mg/dL Magnesium 3.1 H (1.6-2.3) mg/dL AST (17-59) U/L ALT (4-49) U/L Creatine Kinase (55-170) U/L CK-MB (CK-2) >400.0 H (0.0-2.4) ng/mL Troponin I 0.930 H* (0.000-0.034) ng/mL Urine RBC 20 H (0-5) /hpf Urine WBC 56 H (0-5) /hpf Amorphous Sediment Many H (None) /hpf Urine Bacteria Many H (None) /hpf Hyaline Casts 47 H (0-2) /lpf Urine Mucus Moderate H (None) /hpf 11/22/21 11/22/21 11/22/21 Range/Units 02:30 04:14 04:49 WBC 11.3 H (3.8-10.6) k/uL Neutrophils # 10.5 H (1.3-7.7) k/uL Lymphocytes # 0.6 L (1.0-4.8) k/uL D-Dimer 6.18 H (<0.60) mg/L FEU Sodium (137-145) mmol/L Potassium (3.5-5.1) mmol/L Chloride (98-107) mmol/L Carbon Dioxide (22-30) mmol/L BUN (9-20) mg/dL Creatinine (0.66-1.25) mg/dL Glucose (74-99) mg/dL Plasma Lactic Acid Ranjeet 3.9 H* (0.7-2.0) mmol/L Calcium (8.4-10.2) mg/dL Phosphorus (2.5-4.5) mg/dL Magnesium (1.6-2.3) mg/dL AST (17-59) U/L ALT (4-49) U/L Creatine Kinase (55-170) U/L CK-MB (CK-2) (0.0-2.4) ng/mL Troponin I (0.000-0.034) ng/mL Urine RBC (0-5) /hpf Urine WBC (0-5) /hpf Amorphous Sediment (None) /hpf Urine Bacteria (None) /hpf Hyaline Casts (0-2) /lpf Urine Mucus (None) /hpf 11/22/21 Range/Units 04:49 WBC (3.8-10.6) k/uL Neutrophils # (1.3-7.7) k/uL Lymphocytes # (1.0-4.8) k/uL D-Dimer (<0.60) mg/L FEU Sodium (137-145) mmol/L Potassium (3.5-5.1) mmol/L Chloride (98-107) mmol/L Carbon Dioxide (22-30) mmol/L BUN (9-20) mg/dL Creatinine (0.66-1.25) mg/dL Glucose (74-99) mg/dL Plasma Lactic Acid Ranjeet (0.7-2.0) mmol/L Calcium (8.4-10.2) mg/dL Phosphorus (2.5-4.5) mg/dL Magnesium (1.6-2.3) mg/dL AST 3484 H (17-59) U/L ALT 1146 H (4-49) U/L Creatine Kinase >811845 H* (55-170) U/L CK-MB (CK-2) (0.0-2.4) ng/mL Troponin I (0.000-0.034) ng/mL Urine RBC (0-5) /hpf Urine WBC (0-5) /hpf Amorphous Sediment (None) /hpf Urine Bacteria (None) /hpf Hyaline Casts (0-2) /lpf Urine Mucus (None) /hpf Assessment and Plan Assessment: Altered mental status secondary to Metabolic/toxic encephalopathy, rule out intracranial lesions Acute kidney injury and hyperkalemia Drug abuse and heroin withdrawal depression with recent loss and family Nicotine dependence Rhabdomyolysis Transaminitis Elevated troponin, mild Plan: This is a pleasant 41 years old male who presents with acute kidney injury and heroin withdrawal and abuse Continue with IV hydration and monitor creatinine and electrolytes and input and output Symptomatic treatment for withdrawal symptoms Nephrology consult with plan for possible emergent dialysis follow-up hepatitis panel Follow-up CT of the brain, CT of the chest abdomen and pelvis. Psychiatric consulted Labs and medication were reviewed.. Continue same treatment. Continue with symptomatic treatment. Resume home medication. Monitor lytes and vitals. DVT and GI prophylaxis. Further recommendations as per clinical course of the patient DVT prophylaxis: Subcutaneous heparin ( if ct of brain is negative ) GI Prophylaxis: Pepcid Prognosis is guarded
[2021-11-22 08:44] LABS: African American GFR (CKD) 15 (>60 ml/min/1.73 sqM); Non-African American GFR(CKD) 13 (>60 ml/min/1.73 sqM)
[2021-11-22] MEDS ORDERED: FAMOTIDINE 20 MG/2 ML VIAL IV SCH (09:00)
[2021-11-22 09:01] LABS: ALT 1366 U/L (4-49); Calcium 6.3 mg/dL (8.4-10.2); Potassium 6.6 mmol/L (3.5-5.1)
[2021-11-22 09:14] LABS: AST 3780 U/L (17-59)
--- NOTE | 2021-11-22 09:17 | P.GSCN ---
History of Present Illness History of present illness: 41-year-old gentleman patient came to the emergency room with history of nausea vomiting anesthesia patient has a dark urine Eschen also has been using a running he he took 6 in the morning and he fell down using for a long time patient was seen by nephrology recommended urgent dialysis catheter No history of diabetes hypertension coronary artery disease Patient was seen in the emergency room patient is confused responding to painful stimuli Neck is supple no bruit appreciated Chest is clear good and both lungs first and second sound present Abdomen soft nontender Femorals are 1+ bilateral Plan is placement of urgent dialysis catheter risk and complication discussed Past Medical History Past Medical History: No Reported History History of Any Multi-Drug Resistant Organisms: None Reported Additional Past Surgical History / Comment(s): cyst removed from chest Past Psychological History: No Psychological Hx Reported Smoking Status: Current every day smoker Past Alcohol Use History: Rare Past Drug Use History: Heroin, Methamphetamine, Opiates - Past Family History Mother Sister(s) Family Medical History: Cancer Additional Family Medical History / Comment(s): mother metastatic bone ca,. sister best away from breast, uterine ovarian 2014. Brother has colon CA Medications and Allergies Home Medications Medication Instructions Recorded Confirmed Type No Known Home Medications 11/22/21 11/22/21 History Allergies Allergy/AdvReac Type Severity Reaction Status Date / Time amoxicillin Allergy Rash/Hives Verified 11/22/21 07:28 Surgical - Exam Vital Signs Temp Pulse Resp BP Pulse Ox 97.6 F 98 18 110/82 100 11/21/21 21:45 11/21/21 21:45 11/21/21 21:45 11/21/21 21:45 11/21/21 21:45 Results - Labs 11/22/21 04:14 11/22/21 08:00 Abnormal Lab Results - Last 24 Hours (Table) 11/22/21 11/22/21 11/22/21 Range/Units 01:18 02:30 02:30 WBC (3.8-10.6) k/uL Neutrophils # (1.3-7.7) k/uL Lymphocytes # (1.0-4.8) k/uL PT (9.0-12.0) sec INR (<1.2) D-Dimer (<0.60) mg/L FEU Sodium 129 L (137-145) mmol/L Potassium 8.4 H* (3.5-5.1) mmol/L Chloride 94 L (98-107) mmol/L Carbon Dioxide 9 L* (22-30) mmol/L BUN 50 H (9-20) mg/dL Creatinine 5.37 H (0.66-1.25) mg/dL Glucose 155 H (74-99) mg/dL Plasma Lactic Acid Ranjeet (0.7-2.0) mmol/L Calcium 6.6 L (8.4-10.2) mg/dL Phosphorus >13.0 H* (2.5-4.5) mg/dL Magnesium 3.1 H (1.6-2.3) mg/dL AST (17-59) U/L ALT (4-49) U/L Creatine Kinase (55-170) U/L CK-MB (CK-2) >400.0 H (0.0-2.4) ng/mL Troponin I 0.930 H* (0.000-0.034) ng/mL Total Protein (6.3-8.2) g/dL Albumin (3.5-5.0) g/dL TSH (0.465-4.680) mIU/L Urine RBC 20 H (0-5) /hpf Urine WBC 56 H (0-5) /hpf Amorphous Sediment Many H (None) /hpf Urine Bacteria Many H (None) /hpf Hyaline Casts 47 H (0-2) /lpf Urine Mucus Moderate H (None) /hpf 11/22/21 11/22/21 11/22/21 Range/Units 02:30 04:14 04:49 WBC 11.3 H (3.8-10.6) k/uL Neutrophils # 10.5 H (1.3-7.7) k/uL Lymphocytes # 0.6 L (1.0-4.8) k/uL PT (9.0-12.0) sec INR (<1.2) D-Dimer 6.18 H (<0.60) mg/L FEU Sodium (137-145) mmol/L Potassium (3.5-5.1) mmol/L Chloride (98-107) mmol/L Carbon Dioxide (22-30) mmol/L BUN (9-20) mg/dL Creatinine (0.66-1.25) mg/dL Glucose (74-99) mg/dL Plasma Lactic Acid Ranjeet 3.9 H* (0.7-2.0) mmol/L Calcium (8.4-10.2) mg/dL Phosphorus (2.5-4.5) mg/dL Magnesium (1.6-2.3) mg/dL AST (17-59) U/L ALT (4-49) U/L Creatine Kinase (55-170) U/L CK-MB (CK-2) (0.0-2.4) ng/mL Troponin I (0.000-0.034) ng/mL Total Protein (6.3-8.2) g/dL Albumin (3.5-5.0) g/dL TSH (0.465-4.680) mIU/L Urine RBC (0-5) /hpf Urine WBC (0-5) /hpf Amorphous Sediment (None) /hpf Urine Bacteria (None) /hpf Hyaline Casts (0-2) /lpf Urine Mucus (None) /hpf 11/22/21 11/22/21 11/22/21 Range/Units 04:49 08:00 08:00 WBC (3.8-10.6) k/uL Neutrophils # (1.3-7.7) k/uL Lymphocytes # (1.0-4.8) k/uL PT 12.7 H (9.0-12.0) sec INR 1.2 H (<1.2) D-Dimer (<0.60) mg/L FEU Sodium 130 L (137-145) mmol/L Potassium 6.6 H* (3.5-5.1) mmol/L Chloride (98-107) mmol/L Carbon Dioxide 16 L (22-30) mmol/L BUN 59 H (9-20) mg/dL Creatinine 5.13 H (0.66-1.25) mg/dL Glucose 66 L (74-99) mg/dL Plasma Lactic Acid Ranjeet (0.7-2.0) mmol/L Calcium 6.3 L* (8.4-10.2) mg/dL Phosphorus (2.5-4.5) mg/dL Magnesium (1.6-2.3) mg/dL AST 3484 H (17-59) U/L ALT 1146 H 1366 H (4-49) U/L Creatine Kinase >623362 H* (55-170) U/L CK-MB (CK-2) (0.0-2.4) ng/mL Troponin I (0.000-0.034) ng/mL Total Protein 5.5 L (6.3-8.2) g/dL Albumin 3.2 L (3.5-5.0) g/dL TSH 7.070 H (0.465-4.680) mIU/L Urine RBC (0-5) /hpf Urine WBC (0-5) /hpf Amorphous Sediment (None) /hpf Urine Bacteria (None) /hpf Hyaline Casts (0-2) /lpf Urine Mucus (None) /hpf 11/22/21 Range/Units 08:00 WBC (3.8-10.6) k/uL Neutrophils # (1.3-7.7) k/uL Lymphocytes # (1.0-4.8) k/uL PT (9.0-12.0) sec INR (<1.2) D-Dimer (<0.60) mg/L FEU Sodium (137-145) mmol/L Potassium (3.5-5.1) mmol/L Chloride (98-107) mmol/L Carbon Dioxide (22-30) mmol/L BUN (9-20) mg/dL Creatinine (0.66-1.25) mg/dL Glucose (74-99) mg/dL Plasma Lactic Acid Ranjeet (0.7-2.0) mmol/L Calcium (8.4-10.2) mg/dL Phosphorus (2.5-4.5) mg/dL Magnesium (1.6-2.3) mg/dL AST (17-59) U/L ALT (4-49) U/L Creatine Kinase (55-170) U/L CK-MB (CK-2) (0.0-2.4) ng/mL Troponin I 0.632 H* (0.000-0.034) ng/mL Total Protein (6.3-8.2) g/dL Albumin (3.5-5.0) g/dL TSH (0.465-4.680) mIU/L Urine RBC (0-5) /hpf Urine WBC (0-5) /hpf Amorphous Sediment (None) /hpf Urine Bacteria (None) /hpf Hyaline Casts (0-2) /lpf Urine Mucus (None) /hpf Diabetes panel 11/22/21 11/22/21 11/22/21 Range/Units 02:30 04:49 08:00 Sodium 129 L 130 L (137-145) mmol/L Potassium 8.4 H* 6.6 H* (3.5-5.1) mmol/L Chloride 94 L 100 (98-107) mmol/L Carbon Dioxide 9 L* 16 L (22-30) mmol/L BUN 50 H 59 H (9-20) mg/dL Creatinine 5.37 H 5.13 H (0.66-1.25) mg/dL Glucose 155 H 66 L (74-99) mg/dL Calcium 6.6 L 6.3 L* (8.4-10.2) mg/dL AST 3484 H (17-59) U/L ALT 1146 H 1366 H (4-49) U/L Alkaline Phosphatase 100 71 (38-126) U/L Total Protein 8.0 5.5 L (6.3-8.2) g/dL Albumin 4.7 3.2 L (3.5-5.0) g/dL Thyroid panel 11/22/21 Range/Units 08:00 TSH 7.070 H (0.465-4.680) mIU/L Calcium panel 11/22/21 11/22/21 Range/Units 02:30 08:00 Calcium 6.6 L 6.3 L* (8.4-10.2) mg/dL Phosphorus >13.0 H* (2.5-4.5) mg/dL Albumin 4.7 3.2 L (3.5-5.0) g/dL Pituitary panel 11/22/21 11/22/21 Range/Units 02:30 08:00 Sodium 129 L 130 L (137-145) mmol/L Potassium 8.4 H* 6.6 H* (3.5-5.1) mmol/L Chloride 94 L 100 (98-107) mmol/L Carbon Dioxide 9 L* 16 L (22-30) mmol/L BUN 50 H 59 H (9-20) mg/dL Creatinine 5.37 H 5.13 H (0.66-1.25) mg/dL Glucose 155 H 66 L (74-99) mg/dL Calcium 6.6 L 6.3 L* (8.4-10.2) mg/dL TSH 7.070 H (0.465-4.680) mIU/L Adrenal panel 11/22/21 11/22/21 11/22/21 Range/Units 02:30 04:49 08:00 Sodium 129 L 130 L (137-145) mmol/L Potassium 8.4 H* 6.6 H* (3.5-5.1) mmol/L Chloride 94 L 100 (98-107) mmol/L Carbon Dioxide 9 L* 16 L (22-30) mmol/L BUN 50 H 59 H (9-20) mg/dL Creatinine 5.37 H 5.13 H (0.66-1.25) mg/dL Glucose 155 H 66 L (74-99) mg/dL Calcium 6.6 L 6.3 L* (8.4-10.2) mg/dL Total Bilirubin 1.3 0.9 (0.2-1.3) mg/dL AST 3484 H (17-59) U/L ALT 1146 H 1366 H (4-49) U/L Alkaline Phosphatase 100 71 (38-126) U/L Total Protein 8.0 5.5 L (6.3-8.2) g/dL Albumin 4.7 3.2 L (3.5-5.0) g/dL
[2021-11-22] MEDS ORDERED: LIDOCAINE 1% INJ 10MG/ML (30 ML VIAL-PF) IV ONE (09:23)
[2021-11-22] MEDS ORDERED: DEXTROSE 50% SYRINGE 50 ML IVP STA ×2 (09:24→19:59)
[2021-11-22] MEDS ORDERED: DEXTROSE 50% SYRINGE 50 ML IVP PRN (09:25)
[2021-11-22] MEDS ORDERED: CALCIUM GLUCONATE IN NACL 1 GM in SALINE 1 100ML.BAG IVPB ONE (09:28)
--- NOTE | 2021-11-22 09:33 | CT ---
EXAM: CT Head Without Intravenous Contrast CLINICAL HISTORY: FALL TECHNIQUE: Axial computed tomography images of the head/brain without intravenous contrast. CTDI is 45.2 mGy and DLP is 1059 mGy-cm. This CT exam was performed using one or more of the following dose reduction techniques: automated exposure control, adjustment of the mA and/or kV according to patient size, and/or use of iterative reconstruction technique. COMPARISON: No previous studies. FINDINGS: Brain: No abnormal extra-axial collection is noted. No hemorrhage. No significant white matter disease. Ventricles: The ventricular system is age appropriate. Bones/joints: Calvarium is within normal limits. No acute fracture. Soft tissues: 2.5 x 1 cm scalp hematoma noted at the vertex. Sinuses: Visualized sinuses are unremarkable. Mastoid air cells: Mastoid air cells are well pneumatized. IMPRESSION: 1. Scalp hematoma at the vertex. 2. Age appropriate changes. 3. No acute intracranial pathology is detected. 4. If there is concern for etiology such as early acute lacunar infarcts, MRI imaging of the brain with diffusion-weighted sequences should be performed. EXAM: CT Cervical Spine Without Intravenous Contrast CLINICAL HISTORY: FALL TECHNIQUE: Axial computed tomography images of the cervical spine without intravenous contrast. CTDI is 14.6 mGy and DLP is 409.5 mGy-cm. This CT exam was performed using one or more of the following dose reduction techniques: automated exposure control, adjustment of the mA and/or kV according to patient size, and/or use of iterative reconstruction technique. COMPARISON: No previous studies. FINDINGS: Vertebrae: Alignment of the cervical spine is within normal limits. Cervical and visualized thoracic vertebral bodies are maintained in height. Dextroscoliosis of the cervical spine. There is a normal relationship of C1 and C2. No acute fracture. Discs/spinal canal/neural foramina: Mild degenerative disc disease. Transaxial images of the cervical spine reveals posterior facet hypertrophy and disc osteophyte complexes. No spinal canal stenosis. Soft tissues: Paraspinal and regional soft tissues are unremarkable. Lung apices: Mild COPD. Other findings: Spinous processes are unremarkable. IMPRESSION: 1. Dextroscoliosis. 2. No acute injury to the cervical spine is detected.
--- NOTE | 2021-11-22 09:34 | P.PCN ---
Description of Procedure: Preoperative diagnoses is acute chronic renal failure Procedure placement of dialysis catheter ultrasound-guided right femoral approac h Patient brought to the [facility] right groin was prepped and draped applied sterile manner 1% lidocaine were infiltrated the groin area. Micropuncture guidewire was passed and 4-Portuguese dilator AND sharp scissor there will postero- regular guidewire and dilator were advanced top the guidewire then replaced a triple-lumen dialysis catheter flushed with heparin saline and Hep-Lock secured with 3-0 nylon dressing applied patient for the procedure well thank you very much
--- NOTE | 2021-11-22 09:36 | CT ---
EXAM: CT Chest Without Intravenous Contrast CLINICAL HISTORY: fall and withdrawal TECHNIQUE: Axial computed tomography images of the chest without intravenous contrast. CTDI is 15 mGy and DLP is 1047 mGy-cm. This CT exam was performed using one or more of the following dose reduction techniques: automated exposure control, adjustment of the mA and/or kV according to patient size, and/or use of iterative reconstruction technique. COMPARISON: No relevant prior studies available. FINDINGS: Lungs: Minimal dependent atelectasis. Pleural space: Unremarkable. No pneumothorax. No significant effusion. Heart: Unremarkable. No cardiomegaly. No significant pericardial effusion. No significant coronary artery calcifications. Bones/joints: No fracture visualized. No dislocation. Soft tissues: Unremarkable. Vasculature: Unremarkable. No thoracic aortic aneurysm. Lymph nodes: Unremarkable. No enlarged lymph nodes. Tubes, lines and devices: Soft tissue gas in the right neck supraclavicular region may relate to right IJ central venous catheter placement. Catheter tip is in the right atrium. IMPRESSION: 1. No evidence of internal traumatic injury based on somewhat limited noncontrast study. 2. Soft tissue gas in the right neck supraclavicular region may relate to right IJ central venous catheter placement. Catheter tip is in the right atrium. EXAM: CT Abdomen and Pelvis Without Intravenous Contrast CLINICAL HISTORY: fall and withdrawal TECHNIQUE: Axial computed tomography images of the abdomen and pelvis without intravenous contrast. CTDI is 15 mGy and DLP is 1047 mGy-cm. This CT exam was performed using one or more of the following dose reduction techniques: automated exposure control, adjustment of the mA and/or kV according to patient size, and/or use of iterative reconstruction technique. COMPARISON: No relevant prior studies available. FINDINGS: Artifacts: Artifact from patient's arms. Lung bases: Unremarkable. No mass. No consolidation. ABDOMEN: Liver: Unremarkable. Gallbladder and bile ducts: Unremarkable. No calcified stones. No ductal dilation. Pancreas: Unremarkable. No ductal dilation. Spleen: Unremarkable. No splenomegaly. Adrenals: Unremarkable. No mass. Kidneys and ureters: Unremarkable. No obstructing stones. No hydronephrosis. Stomach and bowel: Unremarkable. No obstruction. No mucosal thickening. PELVIS: Appendix: Normal appendix. Bladder: Collins catheter within decompressed urinary bladder. No stones. Reproductive: Unremarkable as visualized. ABDOMEN and PELVIS: Intraperitoneal space: Unremarkable. No free air. No significant fluid collection. Bones/joints: No acute fracture. No dislocation. Soft tissues: Unremarkable. Vasculature: Unremarkable. No abdominal aortic aneurysm. Lymph nodes: Unremarkable. No enlarged lymph nodes. IMPRESSION: No evidence of acute internal traumatic injury on somewhat limited noncontrast study.
--- NOTE | 2021-11-22 09:36 | P.NPCON ---
History of Present Illness - Reason for Consult acute renal failure, hyperkalemia - History of Present Illness Reason for consultation: Acute kidney injury and hyperkalemia History of present illness: Patient is a 41-year-old male seen in renal consultation for acute kidney injury and hyperkalemia. Patient was seen and examined in the emergency room. Patient presented to the hospital with nausea vomiting. It is noted the patient did heroin prior to admission. Patient is currently resting in bed and is quite drowsy. He is not a reliable historian. From the charting it is noted that patient does IV drugs on and off and has been doing so for the last 2 years. He did quit for 3 months but again started a few weeks ago after his sister . Patient's creatinine was 5.37 on admission and 5.13 this morning. Creatinine in July 2018 was 0.79. Potassium was elevated at 8.4 on admission and was medically treated. It is now 6.6. Patient was also noted to be severely acidotic with a bicarb level of 9 and is up to 16. Phosphorus was noted to be greater than 13. Patient's CK level was greater than 160,000. Collins catheter has been placed. Minimal urine output. Blood pressure is high. Unknown home medications. He is currently receiving bicarb drip running at 200 mL an hour. Patient is unable to take oral meds at this time. He did receive IV calcium, sodium bicarb IV push, IV insulin with D50 for hyperkalemia management. Vascular surgery has been consulted for emergent hemodialysis treatment. Vital signs are stable. General: Resting in bed. HEENT: On nasal cannula. LUNGS: Breath sounds decreased. HEART: Tachycardic. ABDOMEN: Soft, no distention. EXTREMITITES: No edema. Past Medical History Past Medical History: No Reported History History of Any Multi-Drug Resistant Organisms: None Reported Additional Past Surgical History / Comment(s): cyst removed from chest Past Psychological History: No Psychological Hx Reported Smoking Status: Current every day smoker Past Alcohol Use History: Rare Past Drug Use History: Heroin, Methamphetamine, Opiates - Past Family History Mother Sister(s) Family Medical History: Cancer Additional Family Medical History / Comment(s): mother metastatic bone ca,. sister best away from breast, uterine ovarian 2014. Brother has colon CA Medications and Allergies Home Medications Medication Instructions Recorded Confirmed Type No Known Home Medications 11/22/21 11/22/21 History Allergies Allergy/AdvReac Type Severity Reaction Status Date / Time amoxicillin Allergy Rash/Hives Verified 11/22/21 07:28 Physical Exam Vitals: Vital Signs Temp Pulse Resp BP Pulse Ox 11/22/21 08:10 97.2 F L 101 H 16 175/105 100 11/22/21 07:10 102 H 20 181/94 100 11/22/21 06:00 109 H 18 161/101 100 11/21/21 23:20 92 18 129/87 97 11/21/21 21:45 97.6 F 98 18 110/82 100 Intake and Output 11/21/21 11/22/21 11/22/21 22:59 06:59 14:59 Other: Weight 88.451 kg Results - Lab Results Most recent lab results Calcium 6.3 mg/dL (8.4-10.2) L* 11/22/21 08:00 Phosphorus >13.0 mg/dL (2.5-4.5) H* 11/22/21 02:30 Magnesium 3.1 mg/dL (1.6-2.3) H 11/22/21 02:30 11/22/21 04:14 11/22/21 08:00 Assessment and Plan Plan: Assessment: 1. Acute kidney injury secondary to ATN secondary to rhabdomyolysis. Creatinine 5.37 on admission and 5.13 as of this morning. Creatinine July 2018 was 0.79. Rule out obstructive uropathy. 2. Hyperkalemia secondary to acute kidney injury and metabolic acidosis. 3. Hyponatremia secondary to acute kidney injury. 4. Metabolic acidosis secondary to acute kidney injury and lactic acidosis. 5. Hyperphosphatemia secondary to acute kidney injury. 6. Hypocalcemia secondary to acute kidney injury. 7. IV drug abuse. 8. Rhabdomyolysis secondary to IV drug abuse and immobility. CK level greater than 160,000. 9. Transaminitis likely secondary to rhabdomyolysis. Plan: Maintain bicarb drip at 200 mL an hour. Repeat potassium 6.6. I will him 1 g of IV calcium gluconate and 2 A of sodium bicarb IV push now. Femoral catheter being placed now. Dialysis will be started within the next 15- 20 minutes. Repeat BMP 2 hours after dialysis. Plan for second treatment of hemodialysis tomorrow. Monitor CK levels. Check renal ultrasound. Strict I's and O's. Thank you for the consultation. I will continue to follow the patient with you during his hospital stay.
--- NOTE | 2021-11-22 09:36 | XR ---
EXAM: XR Chest, 1 View CLINICAL HISTORY: central line placement TECHNIQUE: Frontal view of the chest. COMPARISON: No relevant prior studies available. FINDINGS: Lungs: Unremarkable. No consolidation. Pleural space: Unremarkable. No pneumothorax. Heart: Unremarkable. No cardiomegaly. Mediastinum: Unremarkable. Bones/joints: Unremarkable. Tubes, lines and devices: Right IJ venous catheter with the tip at the cavoatrial junction. IMPRESSION: Right IJ venous catheter with the tip at the cavoatrial junction.
[2021-11-22 09:38] LABS: T4, Free (Free Thyroxine) 1.44 ng/dL (0.78-2.19)
[2021-11-22 11:09] LABS: Hepatitis A Antibody IgM Nonreactive (Nonreactive); Hepatitis B Core IgM Nonreactive (Nonreactive); Hepatitis B Surface Antigen Nonreactive (Nonreactive); Hepatitis C IgG Antibody Reactive (Nonreactive)
--- NOTE | 2021-11-22 12:07 | IR ---
EXAMINATION TYPE: IR cvc insert non tunneled DATE OF EXAM: 11/22/2021 COMPARISON: NONE HISTORY: Kidney failure Fluoroscopy support supplied to the referring clinician. See dictated report from vascular surgery, 0.1 minutes fluoroscopy time, 39 intraoperative images document the procedure
[2021-11-22 14:38] LABS: Glucose,Whole Blood 139 mg/dL (70-110)
[2021-11-22 15:30] LABS: Calcium 6.5 mg/dL (8.4-10.2)
[2021-11-22 15:37] LABS: Potassium 5.9 mmol/L (3.5-5.1)
--- NOTE | 2021-11-22 16:27 | P.CNPUL ---
History of Present Illness Consult date: 11/22/21 Chief complaint: Acute rhabdomyolysis History of present illness: This is a 41-year-old male patient, longtime heroin user, who came in with an a cute heroin overdose and the patient was found to be on the floor by the of an unknown time. The patient is not a reliable historian. He does IV heroin for many years. In the emergency, the patient was found to have an acute kidney injury. The patient's creatinine was at 5.37. The patient also had significant disturbance of electrolytes of the patient was found to have a sodium level of 129, potassium of 8.4, serum bicarb of 19, BUN of 50 with a creatinine of 5.37. Initial lactic acid level was 3.9. Phosphorus was 413. Calcium was 6.6. The patient had severe rhabdomyolysis with a significant level of more than 160,000. The troponin was at 0.5 pounds 0.6. The TSH was 7 with a free T4 of 1.4. Albumin was at 4.7 with a total protein of 8.0. D-dimer was at 6.12. Normal coagulation profile. The white cell count was 11.3 with hemoglobin of 14.9. The patient was treated with IV fluids and he received 4 L of normal saline in the emergency department and apparently is on a bicarbonate infusion running at 200 mL an hour. He received also bicarb a total of 4 doses of 25 mEq and also received some gluconate. Dialysis catheter was inserted in the emergency department and the patient was given his first session of hemodialysis. Subsequent values showed improvement in his potassium down to 5.9, creatinine is currently down to 4.4. Serum bicarb is up to 24. He turnout to have positive antibodies for hepatitis C. He is gradually waking up and he is much more awake at this point in time as he is being monitored in intensive care unit. He has not required any pressors. No reported aspiration. His Oxygen at Room Air. CAT Scan of the Chest Abdomen and Pelvis Was Done in the ED and It Showed No Acute Abnormalities. No Evidence of Any Trauma. CAT Scan of the Brain and the C-Spine Was Also Done That Showed No Acute Abnormalities Other Than a Scalp Hematoma at the Vertex. Is at the Bedside. The patient has not produced any urine output yet. He has a Collins catheter in place. Review of Systems ROS unobtainable: due to mental status Past Medical History Past Medical History: No Reported History Additional Past Medical History / Comment(s): Depression, Drug abuse (heroin, methamphetamine) History of Any Multi-Drug Resistant Organisms: None Reported Additional Past Surgical History / Comment(s): cyst removed from chest Past Psychological History: No Psychological Hx Reported Smoking Status: Current every day smoker Past Alcohol Use History: Rare Past Drug Use History: Heroin, Methamphetamine, Opiates - Past Family History Mother Sister(s) Family Medical History: Cancer Additional Family Medical History / Comment(s): mother metastatic bone ca,. sister best away from breast, uterine ovarian 2014. Brother has colon CA Medications and Allergies Home Medications Medication Instructions Recorded Confirmed Type No Known Home Medications 11/22/21 11/22/21 History Allergies Allergy/AdvReac Type Severity Reaction Status Date / Time amoxicillin Allergy Rash/Hives Verified 11/22/21 07:28 Physical Exam Vitals: Vital Signs Temp Pulse Resp BP Pulse Ox 11/22/21 15:00 99 22 146/98 98 11/22/21 14:00 104 H 18 169/117 100 11/22/21 13:00 108 H 3 L 143/95 100 11/22/21 12:00 105 H 6 L 155/109 100 11/22/21 11:00 101 H 20 174/103 100 11/22/21 10:00 103 H 19 168/98 99 11/22/21 09:00 103 H 11 L 150/92 99 11/22/21 08:10 97.2 F L 101 H 16 175/105 100 11/22/21 07:10 102 H 20 181/94 100 11/22/21 06:00 109 H 18 161/101 100 11/21/21 23:20 92 18 129/87 97 11/21/21 21:45 97.6 F 98 18 110/82 100 Intake and Output 11/22/21 11/22/21 11/22/21 06:59 14:59 22:59 Intake Total 500 Output Total 500 Balance 0 Intake: Hemodialysis 500 Output: Hemodialysis 500 Other: Weight 88.451 kg General appearance the patient is lethargic, easily arousable. He is regaining his consciousness back slowly. Head exam was generally normal. There was no scleral icterus or corneal arcus. Mucous membranes were moist. Neck was supple and without jugular venous distension, thyromegaly, or carotid bruits. Carotids were easily palpable bilaterally. There was no adenopathy. Lungs sounds are diminished bilaterally otherwise clear. Cardiac exam revealed the PMI to be normally situated and sized. The rhythm was regular and no extrasystoles were noted during several minutes of auscultation. The first and second heart sounds were normal and physiologic splitting of the second heart sound was noted. There were no murmurs, rubs, clicks, or gallops. Abdominal exam revealed normal bowel sounds. The abdomen was soft, non-tender, and without masses, organomegaly, or appreciable enlargement of the abdominal aorta. Examination of the extremities revealed easily palpable radial, femoral and pedal pulses. There was no cyanosis, clubbing or edema. The patient has track reyes in his antecubital areas bilaterally Examination of the skin revealed no evidence of significant rashes, suspicious appearing nevi or other concerning lesions. Neurologically he is withdrawing to painful stimulation all 4 extremities. He is lethargic . He does have some metabolic encephalopathy also. Neurologic exam is nonfocal. Results - Laboratory Findings CBC and BMP: 11/22/21 04:14 11/22/21 15:00 PT/INR, D-dimer PT 12.7 sec (9.0-12.0) H 11/22/21 08:00 INR 1.2 (<1.2) H 11/22/21 08:00 D-Dimer 6.18 mg/L FEU (<0.60) H 11/22/21 02:30 Abnormal lab findings: Abnormal Labs 11/22/21 11/22/21 11/22/21 01:18 02:30 02:30 WBC Neutrophils # Lymphocytes # PT INR D-Dimer Sodium 129 L Potassium 8.4 H* Chloride 94 L Carbon Dioxide 9 L* BUN 50 H Creatinine 5.37 H Glucose 155 H POC Glucose (mg/dL) Plasma Lactic Acid Ranjeet Calcium 6.6 L Phosphorus >13.0 H* Magnesium 3.1 H AST ALT Creatine Kinase CK-MB (CK-2) >400.0 H Troponin I 0.930 H* Total Protein Albumin TSH Urine RBC 20 H Urine WBC 56 H Amorphous Sediment Many H Urine Bacteria Many H Hyaline Casts 47 H Urine Mucus Moderate H Hep C IgG Ab 11/22/21 11/22/21 11/22/21 02:30 04:14 04:49 WBC 11.3 H Neutrophils # 10.5 H Lymphocytes # 0.6 L PT INR D-Dimer 6.18 H Sodium Potassium Chloride Carbon Dioxide BUN Creatinine Glucose POC Glucose (mg/dL) Plasma Lactic Acid Ranjeet 3.9 H* Calcium Phosphorus Magnesium AST ALT Creatine Kinase CK-MB (CK-2) Troponin I Total Protein Albumin TSH Urine RBC Urine WBC Amorphous Sediment Urine Bacteria Hyaline Casts Urine Mucus Hep C IgG Ab 11/22/21 11/22/21 11/22/21 04:49 04:49 08:00 WBC Neutrophils # Lymphocytes # PT 12.7 H INR 1.2 H D-Dimer Sodium Potassium Chloride Carbon Dioxide BUN Creatinine Glucose POC Glucose (mg/dL) Plasma Lactic Acid Ranjeet Calcium Phosphorus Magnesium AST 3484 H ALT 1146 H Creatine Kinase >648382 H* CK-MB (CK-2) Troponin I Total Protein Albumin TSH Urine RBC Urine WBC Amorphous Sediment Urine Bacteria Hyaline Casts Urine Mucus Hep C IgG Ab Reactive A 11/22/21 11/22/21 11/22/21 08:00 08:00 14:36 WBC Neutrophils # Lymphocytes # PT INR D-Dimer Sodium 130 L Potassium 6.6 H* Chloride Carbon Dioxide 16 L BUN 59 H Creatinine 5.13 H Glucose 66 L POC Glucose (mg/dL) 139 H Plasma Lactic Acid Ranjeet Calcium 6.3 L* Phosphorus Magnesium AST 3780 H ALT 1366 H Creatine Kinase CK-MB (CK-2) Troponin I 0.632 H* Total Protein 5.5 L Albumin 3.2 L TSH 7.070 H Urine RBC Urine WBC Amorphous Sediment Urine Bacteria Hyaline Casts Urine Mucus Hep C IgG Ab 11/22/21 15:00 WBC Neutrophils # Lymphocytes # PT INR D-Dimer Sodium 132 L Potassium 5.9 H Chloride 94 L Carbon Dioxide BUN 54 H Creatinine 4.41 H Glucose 133 H POC Glucose (mg/dL) Plasma Lactic Acid Ranjeet Calcium 6.5 L Phosphorus Magnesium AST ALT Creatine Kinase CK-MB (CK-2) Troponin I Total Protein Albumin TSH Urine RBC Urine WBC Amorphous Sediment Urine Bacteria Hyaline Casts Urine Mucus Hep C IgG Ab Assessment and Plan Plan: Acute heroin overdose Acute rhabdomyolysis as the patient was on the floor for an unknown period of time Acute kidney injury. The patient presented to us with significant metabolic abnormalities with acute hyperkalemia, acute metabolic acidosis, acute hyperphosphatemia and the patient was also oliguric. Based on that, the patient was treated accordingly and he was given a session of hemodialysis in the emergency department. Electrolyte balance is improved since. Severe metabolic acidosis, been a bicarb infusion. Serum bicarbonate is improving Acute hypokalemia, improving and a potassium level has dropped off to 5.9. Acute hyponatremia, improving Troponin elevation, and leak secondary to above Hepatitis C positive status secondary to IVDA Mild lactic acidosis, improving Plan Continue the bicarb infusion for now Keep the Collins catheter in place Monitor electrolytes and may need another session of hemodialysis by tomorrow Monitor CPK Monitor for any signs of heroin withdrawal. We'll treat accordingly depending on his symptoms. He may need some Zofran for nausea. 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
[2021-11-22] MEDS ORDERED: ONDANSETRON 4 MG/2 ML VIAL IVP PRN (16:37)
[2021-11-22 17:39] LABS: Glucose,Whole Blood 148 mg/dL (70-110)
--- NOTE | 2021-11-22 19:47 | US ---
EXAMINATION TYPE: US venous doppler duplex LE DATE OF EXAM: 11/22/2021 7:32 PM COMPARISON: NONE CLINICAL HISTORY: leg swelling. leg swelling SIDE PERFORMED: Bilateral TECHNIQUE: The lower extremity deep venous system is examined utilizing real time linear array sonog joseph with graded compression, doppler sonography and color-flow sonography. VESSELS IMAGED: Common Femoral Vein Deep Femoral Vein Greater Saphenous Vein * Femoral Vein Popliteal Vein Small Saphenous Vein * Proximal Calf Veins (* superficial vessels) Right Leg: Negative for DVT Left Leg: Edema noted throughout leg making it difficult to compress veins. There seemed to be good flow throughout leg. IMPRESSION: No evidence of deep vein thrombosis in the right leg. There is subcutaneous edema.
--- NOTE | 2021-11-22 19:53 | US ---
EXAMINATION TYPE: US kidneys/renal and bladder DATE OF EXAM: 11/22/2021 COMPARISON: CT: Today CLINICAL HISTORY: [email or web address] EXAM MEASUREMENTS: Right Kidney: 12.5 x 5.9 x 5.3 cm Left Kidney: 10.5 x 6.0 x 6.2 cm Right Kidney: No hydronephrosis or masses seen Left Kidney: Limited due to pt being in restraints. No obvious pathology noted. Bladder: Not well visualized due to kruse Bilateral Jets seen: No IMPRESSION: No evidence of renal mass or obstruction. There is a Kruse catheter in the urinary bladder. Bladder n ot evaluated.
[2021-11-22] MEDS ORDERED: FUROSEMIDE 10 MG/ML 10 ML VIAL IV STA (20:01)
[2021-11-22] MEDS: DEXMEDETOMIDINE/0.9% NACL(PMX) 400 MCG in EMPTY BAG 1 BAG IV SCH (20:08)
[2021-11-22] MEDS ORDERED: INSULIN REGULAR 100 UNIT/ML VIAL (IV) IV ONE (20:30)
[2021-11-22 23:43] LABS: Glucose,Whole Blood 184 mg/dL (70-110)
--- NOTE | 2021-11-23 01:41 | CONS ---
DATE OF SERVICE: 11/22/2021 CONSULTATION PURPOSE FOR CONSULTATION: Evaluate for substance use issues and hallucinations. HISTORY OF PRESENTING ILLNESS: The patient was in a confused and sedated state. All the information provided was from his who was with him at bedside. Also, information was provided by the nurse. It is noted that the patient had overdosed on heroin to become unconscious. His believes that there is a reasonable chance that he this may have been a suicide attempt. The patient has had a mcc history of heroin dependence of at least 20 years. He has had limited periods at best where he has been free of heroin. He his states that she started a relationship with him about 12 years ago. She was unaware of the heroin use at that time, though after that it became clear the issues he had with it. In more recent years, he has shown increasing problems with depression. She says that at least in this year, he has been very depressed, things got to a point where she moved out of the house because of his depression and odd behavior. He has persistent hallucinations where he can carry on extended conversations with himself, apparently talking to someone else who is not there. There have been some deaths in the family, which have apparently led to some significant grief issues. The patient entered [facility] in July for 2 weeks. Since then, he had been clean from heroin until he relapsed over the last 3 weeks. Since she has not been in the house, she was not able to give details about his functioning. Apparently, what led to his coming to the hospital is that he had shot up heroin and then about 6 in the morning he fell down steps and laid at the base of the steps until 3 in the afternoon. He has a telephone capability on his watch and was able to call his who came and got him to the hospital. The best she was able to tell is that he just laid in that spot at the base of the stairs over those 9 hours. MENTAL STATUS EXAM: The patient was lying in bed. He was mostly in a sedated state during the interview. When I would ask some questions on occasion, he would moan a little bit, though never spoke a words. Towards the end of the interview, he started becoming restless and then was repeating that he wanted to sit up. He did make one statement that he said he did not know where he was. The nurse came in for assistance. He was able to follow directions, though was not able to communicate in any meaningful way. ASSESSMENT: This 41-year-old male is diagnosed with heroin dependence, acute heroin withdrawal and depression. He is in a significantly confused state. There are no immediate needs from a psychiatric standpoint until he is clear from the apparent overdose. I would re- referred to Psychiatry as appropriate. CHARBEL / OLIVIA: [id number] / SAYD
[2021-11-23] MEDS: DEXTROSE 5% IN WATER 1,000 ML with SODIUM BICARB (1 MEQ/ML) 150 ML IV SCH ×2 (05:39→16:24)
[2021-11-23 06:13] LABS: Appearance,Urine Cloudy (Clear); Bacteria,Urine Rare /hpf; Bilirubin,Urine Negative (Negative); Blood,Urine Large (Negative); Color,Urine Light Red; Glucose,Urine (UA) 2+ (Negative); Ketones,Urine Negative (Negative); Leukocyte Esterase,Urine Large (Negative); Nitrite,Urine Negative (Negative); PH, Urine 5.5 (5.0-8.0); Protein,Urine 2+ (Negative); RBC,Urine 5 /hpf (0-5); Specific Gravity,Urine 1.019 (1.001-1.035); Squamous Epithelial Cell,Urine <1 /hpf (0-4); Urobilinogen,Urine <2.0 mg/dL (<2.0); WBC,Urine 93 /hpf (0-5)
[2021-11-23 06:39] LABS: Glucose,Whole Blood 159 mg/dL (70-110)
[2021-11-23 08:06] LABS: African American GFR (CKD) 14 (>60 ml/min/1.73 sqM); Anion Gap 13 mmol/L; Blood Urea Nitrogen 70 mg/dL (9-20); Carbon Dioxide 30 mmol/L (22-30); Chloride 86 mmol/L (98-107); Glucose 151 mg/dL (74-99); Non-African American GFR(CKD) 12 (>60 ml/min/1.73 sqM); Phosphorus 5.8 mg/dL (2.5-4.5); Potassium 4.6 mmol/L (3.5-5.1); Sodium 129 mmol/L (137-145)
[2021-11-23 08:57] LABS: Calcium 5.2 mg/dL (8.4-10.2); Creatine Kinase >160000 U/L (55-170)
[2021-11-23] MEDS ORDERED: LEVOFLOXACIN 500MG-D5W PMX 500 MG in DEXTROSE/WATER 1 100ML.BAG IVPB SCH (09:00)
[2021-11-23 09:08] LABS: Albumin 2.5 g/dL (3.5-5.0); Alkaline Phosphatase 46 U/L (38-126); Total Bilirubin 0.9 mg/dL (0.2-1.3); Total Protein 4.5 g/dL (6.3-8.2)
--- NOTE | 2021-11-23 09:10 | P.PN ---
Subjective Progress Note Date: 11/23/21 This is a 41-year-old male patient, longtime heroin user, who came in with an acute heroin overdose and the patient was found to be on the floor by the of an unknown time. The patient is not a reliable historian. He does IV heroin for many years. In the emergency, the patient was found to have an acute kidney injury. The patient's creatinine was at 5.37. The patient also had significant disturbance of electrolytes of the patient was found to have a sodium level of 129, potassium of 8.4, serum bicarb of 19, BUN of 50 with a creatinine of 5.37. Initial lactic acid level was 3.9. Phosphorus was 413. Calcium was 6.6. The patient had severe rhabdomyolysis with a significant level of more than 160,000. The troponin was at 0.5 pounds 0.6. The TSH was 7 with a free T4 of 1.4. Albumin was at 4.7 with a total protein of 8.0. D-dimer was at 6.12. Normal coagulation profile. The white cell count was 11.3 with hemoglobin of 14.9. The patient was treated with IV fluids and he received 4 L of normal saline in the emergency department and apparently is on a bicarbonate infusion running at 200 mL an hour. He received also bicarb a total of 4 doses of 25 mEq and also received some gluconate. Dialysis catheter was inserted in the emergency department and the patient was given his first session of hemodialysis. Subsequent values showed improvement in his potassium down to 5.9, creatinine is currently down to 4.4. Serum bicarb is up to 24. He turnout to have positive antibodies for hepatitis C. He is gradually waking up and he is much more awake at this point in time as he is being monitored in intensive care unit. He has not required any pressors. No reported aspiration. His Oxygen at Room Air. CAT Scan of the Chest Abdomen and Pelvis Was Done in the ED and It Showed No Acute Abnormalities. No Evidence of Any Trauma. CAT Scan of the Brain and the C-Spine Was Also Done That Showed No Acute Abnormalities Other Than a Scalp Hematoma at the Vertex. Is at the Bedside. The patient has not produced any urine output yet. He has a Collins catheter in place. On today's evaluation of 11/23/2021, the patient is lethargic yet arousable. Overnight, he became slightly agitated. I was going to start him on Precedex. Nevertheless, he improved and he became more calm and Precedex was not utilized. He is resting comfortably in bed. He is hemodynamically stable. He has a tense left thigh which is consistent with rhabdomyolysis and the patient has some limited pain in his left thigh. Pulses in the left lower extremity are present. Collins cath is in place. No urine output or marginal urine output for now. Meanwhile, he underwent a session of hemodialysis yesterday. CPK remains very high above 160,000. His sodium level is at 129, potassium is 4.6, serum bicarb is at 30, BUN is at 70 with a creatinine of 5.48. The calcium level is 5.2 which is low. Phosphorus level is at 5.8 which is up since yesterday. No signs of tetany or muscle cramps at this point in time. Pro-calcitonin is elevated probably related to underlying renal failure. UA showed +2 protein, large blood, 93 WBCs, 5 RBCs and urine drug screen is negative. He is currently on room air oxygen. Objective - Vital Signs Vital signs: Vital Signs Temp 98.2 F 11/23/21 08:00 Pulse 78 11/23/21 08:00 Resp 17 11/23/21 08:00 BP 129/73 11/23/21 08:00 Pulse Ox 97 11/23/21 08:00 FiO2 Intake & Output 11/22/21 11/23/21 11/23/21 18:59 06:59 18:59 Intake Total 1100 2600 320 Output Total 500 0 25 Balance 600 2600 295 Weight 101.1 kg Intake: IV 200 Dextrose 5% in Water 1, 200 000 ml @ 200 mls/hr IV . Q5H45M PATRICIO with Sodium Bicarb (1 Meq/ml) 150 ml Rx#:[id number] Intake, IV Titration 600 2600 Amount Dextrose 5% in Water 1, 600 2600 000 ml @ 200 mls/hr IV . Q5H45M PATRICIO with Sodium Bicarb (1 Meq/ml) 150 ml Rx#:[id number] Oral 120 Hemodialysis 500 Output: Urine 0 0 25 Hemodialysis 500 Other: Voiding Method Indwelling Catheter - Exam General appearance the patient is lethargic, easily arousable. He is regaining his consciousness back slowly. Head exam was generally normal. There was no scleral icterus or corneal arcus. Mucous membranes were moist. Neck was supple and without jugular venous distension, thyromegaly, or carotid bruits. Carotids were easily palpable bilaterally. There was no adenopathy. Lungs sounds are diminished bilaterally otherwise clear. Cardiac exam revealed the PMI to be normally situated and sized. The rhythm was regular and no extrasystoles were noted during several minutes of auscultation. The first and second heart sounds were normal and physiologic splitting of the second heart sound was noted. There were no murmurs, rubs, clicks, or gallops. Abdominal exam revealed normal bowel sounds. The abdomen was soft, non-tender, and without masses, organomegaly, or appreciable enlargement of the abdominal aorta. Examination of the extremities revealed easily palpable radial, femoral and pedal pulses. There was no cyanosis, clubbing or edema. The patient has track reyes in his antecubital areas bilaterally. The left thigh is quite tense compared to the right thigh. There is adequate pulses in lower exam is bilaterally involving the left foot. Examination of the skin revealed no evidence of significant rashes, suspicious appearing nevi or other concerning lesions. Neurologically he is withdrawing to painful stimulation all 4 extremities. He is lethargic . He does have some metabolic encephalopathy also. Neurologic exam is nonfocal. - Labs CBC & Chem 7: 11/22/21 04:14 11/23/21 07:12 Labs: Abnormal Lab Results - Last 24 Hours (Table) 11/22/21 11/22/21 11/22/21 Range/Units 04:49 08:00 08:00 Sodium 130 L (137-145) mmol/L Potassium 6.6 H* (3.5-5.1) mmol/L Chloride (98-107) mmol/L Carbon Dioxide 16 L (22-30) mmol/L BUN 59 H (9-20) mg/dL Creatinine 5.13 H (0.66-1.25) mg/dL Glucose 66 L (74-99) mg/dL POC Glucose (mg/dL) (70-110) mg/dL Calcium 6.3 L* (8.4-10.2) mg/dL AST 3780 H (17-59) U/L ALT 1366 H (4-49) U/L Troponin I 0.632 H* (0.000-0.034) ng/mL Total Protein 5.5 L (6.3-8.2) g/dL Albumin 3.2 L (3.5-5.0) g/dL Procalcitonin (0.02-0.09) ng/mL TSH 7.070 H (0.465-4.680) mIU/L Urine Protein (Negative) Urine Glucose (UA) (Negative) Urine Blood (Negative) Ur Leukocyte Esterase (Negative) Urine WBC (0-5) /hpf Urine WBC Clumps (None) /hpf Urine Bacteria (None) /hpf Hep C IgG Ab Reactive A (Nonreactive) 11/22/21 11/22/21 11/22/21 Range/Units 08:00 14:36 15:00 Sodium 132 L (137-145) mmol/L Potassium 5.9 H (3.5-5.1) mmol/L Chloride 94 L (98-107) mmol/L Carbon Dioxide (22-30) mmol/L BUN 54 H (9-20) mg/dL Creatinine 4.41 H (0.66-1.25) mg/dL Glucose 133 H (74-99) mg/dL POC Glucose (mg/dL) 139 H (70-110) mg/dL Calcium 6.5 L (8.4-10.2) mg/dL AST (17-59) U/L ALT (4-49) U/L Troponin I (0.000-0.034) ng/mL Total Protein (6.3-8.2) g/dL Albumin (3.5-5.0) g/dL Procalcitonin >100.00 H (0.02-0.09) ng/mL TSH (0.465-4.680) mIU/L Urine Protein (Negative) Urine Glucose (UA) (Negative) Urine Blood (Negative) Ur Leukocyte Esterase (Negative) Urine WBC (0-5) /hpf Urine WBC Clumps (None) /hpf Urine Bacteria (None) /hpf Hep C IgG Ab (Nonreactive) 11/22/21 11/22/21 11/22/21 Range/Units 16:45 17:38 23:42 Sodium (137-145) mmol/L Potassium 5.9 H (3.5-5.1) mmol/L Chloride (98-107) mmol/L Carbon Dioxide (22-30) mmol/L BUN (9-20) mg/dL Creatinine (0.66-1.25) mg/dL Glucose (74-99) mg/dL POC Glucose (mg/dL) 148 H 184 H (70-110) mg/dL Calcium (8.4-10.2) mg/dL AST (17-59) U/L ALT (4-49) U/L Troponin I (0.000-0.034) ng/mL Total Protein (6.3-8.2) g/dL Albumin (3.5-5.0) g/dL Procalcitonin (0.02-0.09) ng/mL TSH (0.465-4.680) mIU/L Urine Protein (Negative) Urine Glucose (UA) (Negative) Urine Blood (Negative) Ur Leukocyte Esterase (Negative) Urine WBC (0-5) /hpf Urine WBC Clumps (None) /hpf Urine Bacteria (None) /hpf Hep C IgG Ab (Nonreactive) 11/23/21 11/23/21 Range/Units 05:40 06:37 Sodium (137-145) mmol/L Potassium (3.5-5.1) mmol/L Chloride (98-107) mmol/L Carbon Dioxide (22-30) mmol/L BUN (9-20) mg/dL Creatinine (0.66-1.25) mg/dL Glucose (74-99) mg/dL POC Glucose (mg/dL) 159 H (70-110) mg/dL Calcium (8.4-10.2) mg/dL AST (17-59) U/L ALT (4-49) U/L Troponin I (0.000-0.034) ng/mL Total Protein (6.3-8.2) g/dL Albumin (3.5-5.0) g/dL Procalcitonin (0.02-0.09) ng/mL TSH (0.465-4.680) mIU/L Urine Protein 2+ H (Negative) Urine Glucose (UA) 2+ H (Negative) Urine Blood Large H (Negative) Ur Leukocyte Esterase Large H (Negative) Urine WBC 93 H (0-5) /hpf Urine WBC Clumps Few H (None) /hpf Urine Bacteria Rare H (None) /hpf Hep C IgG Ab (Nonreactive) Assessment and Plan Plan: Acute heroin overdose Acute rhabdomyolysis as the patient was on the floor for an unknown period of time, the patient has a very tense left thigh. No evidence of any compartmental syndrome. The CPK remains quite elevated above 160,000 indicative of ongoing rhabdomyolysis. The patient remained in a bicarb infusion. Acute kidney injury. The patient presented to us with significant metabolic abnormalities with acute hyperkalemia, acute metabolic acidosis, acute hyperphosphatemia and the patient was also oliguric. Based on that, the patient was treated accordingly and he was given a session of hemodialysis in the emergency department. Electrolyte balance is improved since. The patient remains on a bicarb infusion. Serum bicarb is up to 30. Nevertheless, the creatinine is on the rise and the patient remains anorexic at this point in time. Severe metabolic acidosis, been a bicarb infusion. Serum bicarbonate is improving Acute hypokalemia, improving and a potassium level has dropped off to 4.6 Acute hyponatremia, improving Troponin elevation, and leak secondary to above Hepatitis C positive status secondary to IVDA Mild lactic acidosis, improving Plan Continue the bicarb infusion for ongoing rhabdomyolysis Keep the Collins catheter in place Monitor electrolytes and may need another session of hemodialysis today Monitor CPK, levels remain high and there is no evidence of any compartmental syndrome and the patient has adequate pulses in the left lower extremity. Monitor for any signs of heroin withdrawal. We'll treat accordingly depending on his symptoms. He may need some Zofran for nausea. Precedex was ordered and was never used Give 2 mg of calcium gluconate Monitor neurologic functions size cutter on the case Heparin subcu for DVT prophylaxis May need another session of hemodialysis today. Case will be discussed with nephrology. There is ongoing rhabdomyolysis Monitor mental status Clonidine patch We'll continue to follow
[2021-11-23] MEDS ORDERED: CALCIUM GLUCONATE IN NACL 2 GM in SALINE 1 100ML.BAG IVPB ONE (09:33)
[2021-11-23] MEDS: HEPARIN SODIUM,PORCINE/PF 5,000 UNIT/0.5 ML SYRINGE SQ SCH ×2 (09:35→20:29)
[2021-11-23] MEDS: FAMOTIDINE 20 MG/2 ML VIAL IV SCH (09:35)
[2021-11-23 09:59] LABS: ALT 905 U/L (4-49); AST 1939 U/L (17-59)
--- NOTE | 2021-11-23 10:01 | US ---
EXAMINATION TYPE: US liver DATE OF EXAM: 11/23/2021 COMPARISON: CT 11/22/2021 CLINICAL HISTORY: HIGH ENZ. elevated liver enzymes TECHNIQUE: Multiple sonographic images of the right upper quadrant are obtained. FINDINGS: EXAM MEASUREMENTS: Liver Length: 17.1 cm Gallbladder Wall: 0.2 cm CBD: 0.6 cm Right Kidney: 12.4 x 4.7 x 5.5 cm RN HEMODIALYSIS CHARGE NOTES:*technical limitations due to large amount of overlying bowel content Pancreas: Obscured by bowel gas Liver: visualized portions appear wnl Gallbladder: no evidence of stones Evidence for sonographic Jackson's sign: no CBD: Mildly dilated Right Kidney: no evidence of hydronephrosis or mass There is no ascites. IMPRESSION: Exam is limited technically. Common bile duct appears mildly dilated.
[2021-11-23 10:42] LABS: HCT 42.3 % (39.0-53.0); HGB 14.4 gm/dL (13.0-17.5); MCH 30.9 pg (25.0-35.0); MCHC 34.1 g/dL (31.0-37.0); Mean Platelet Volume 9.7; Platelet Count 126 k/uL (150-450); RBC 4.68 m/uL (4.30-5.90); RDW 14.6 % (11.5-15.5)
[2021-11-23 10:58] LABS: MCV 90.5 fL (80.0-100.0)
[2021-11-23 11:55] LABS: Glucose,Whole Blood 136 mg/dL (70-110)
--- NOTE | 2021-11-23 12:05 | P.PN ---
Subjective Progress Note Date: 11/23/21 Principal diagnosis: This is a 41-year-old male seen in consultation because of rhabdomyolysis secondary to substance abuse and is on dialysis as of yesterday. Additionally had hyperkalemia. Remains and Anuric, sodium 129 potassium 4.6 bicarb 30 BUN is 70 creatinine 5.48. Calcium is 5.2 CK is greater than 160,000. Subjectively feeling fine except for aching muscles. No nausea vomiting no chest pain shortness of breath Objective - Vital Signs Vital signs: Vital Signs Temp 98.2 F 11/23/21 08:00 Pulse 77 11/23/21 11:00 Resp 19 11/23/21 11:00 BP 122/78 11/23/21 11:00 Pulse Ox 98 11/23/21 11:00 FiO2 Intake & Output 11/22/21 11/23/21 11/23/21 18:59 06:59 18:59 Intake Total 1100 2600 920 Output Total 500 0 35 Balance 600 2600 885 Weight 101.1 kg Intake: IV 800 Dextrose 5% in Water 1, 800 000 ml @ 200 mls/hr IV . Q5H45M PATRICIO with Sodium Bicarb (1 Meq/ml) 150 ml Rx#:[id number] Intake, IV Titration 600 2600 Amount Dextrose 5% in Water 1, 600 2600 000 ml @ 200 mls/hr IV . Q5H45M PATRICIO with Sodium Bicarb (1 Meq/ml) 150 ml Rx#:[id number] Oral 120 Hemodialysis 500 Output: Urine 0 0 35 Hemodialysis 500 Other: Voiding Method Indwelling Catheter Indwelling Catheter HEENT exam no JVP neck is supple no facial asymmetry Awake alert oriented Lungs clear to auscultation good air entry bilaterally Heart sounds unremarkable for any murmur rub gallop Abdomen soft nontender Extremity exam was no edema Neurologically awake alert oriented Muscle aches and tenderness - Labs CBC & Chem 7: 11/23/21 07:12 11/23/21 07:12 Labs: Abnormal Lab Results - Last 24 Hours (Table) 11/22/21 11/22/21 11/22/21 Range/Units 08:00 14:36 15:00 Plt Count (150-450) k/uL Sodium 132 L (137-145) mmol/L Potassium 5.9 H (3.5-5.1) mmol/L Chloride 94 L (98-107) mmol/L BUN 54 H (9-20) mg/dL Creatinine 4.41 H (0.66-1.25) mg/dL Glucose 133 H (74-99) mg/dL POC Glucose (mg/dL) 139 H (70-110) mg/dL Calcium 6.5 L (8.4-10.2) mg/dL Phosphorus (2.5-4.5) mg/dL AST (17-59) U/L ALT (4-49) U/L Creatine Kinase (55-170) U/L Total Protein (6.3-8.2) g/dL Albumin (3.5-5.0) g/dL Procalcitonin >100.00 H (0.02-0.09) ng/mL Urine Protein (Negative) Urine Glucose (UA) (Negative) Urine Blood (Negative) Ur Leukocyte Esterase (Negative) Urine WBC (0-5) /hpf Urine WBC Clumps (None) /hpf Urine Bacteria (None) /hpf 11/22/21 11/22/21 11/22/21 Range/Units 16:45 17:38 23:42 Plt Count (150-450) k/uL Sodium (137-145) mmol/L Potassium 5.9 H (3.5-5.1) mmol/L Chloride (98-107) mmol/L BUN (9-20) mg/dL Creatinine (0.66-1.25) mg/dL Glucose (74-99) mg/dL POC Glucose (mg/dL) 148 H 184 H (70-110) mg/dL Calcium (8.4-10.2) mg/dL Phosphorus (2.5-4.5) mg/dL AST (17-59) U/L ALT (4-49) U/L Creatine Kinase (55-170) U/L Total Protein (6.3-8.2) g/dL Albumin (3.5-5.0) g/dL Procalcitonin (0.02-0.09) ng/mL Urine Protein (Negative) Urine Glucose (UA) (Negative) Urine Blood (Negative) Ur Leukocyte Esterase (Negative) Urine WBC (0-5) /hpf Urine WBC Clumps (None) /hpf Urine Bacteria (None) /hpf 11/23/21 11/23/21 11/23/21 Range/Units 05:40 06:37 07:12 Plt Count (150-450) k/uL Sodium 129 L (137-145) mmol/L Potassium (3.5-5.1) mmol/L Chloride 86 L (98-107) mmol/L BUN 70 H (9-20) mg/dL Creatinine 5.48 H (0.66-1.25) mg/dL Glucose 151 H (74-99) mg/dL POC Glucose (mg/dL) 159 H (70-110) mg/dL Calcium 5.2 L* (8.4-10.2) mg/dL Phosphorus 5.8 H (2.5-4.5) mg/dL AST 1939 H (17-59) U/L ALT 905 H (4-49) U/L Creatine Kinase >691069 H* (55-170) U/L Total Protein 4.5 L (6.3-8.2) g/dL Albumin 2.5 L (3.5-5.0) g/dL Procalcitonin (0.02-0.09) ng/mL Urine Protein 2+ H (Negative) Urine Glucose (UA) 2+ H (Negative) Urine Blood Large H (Negative) Ur Leukocyte Esterase Large H (Negative) Urine WBC 93 H (0-5) /hpf Urine WBC Clumps Few H (None) /hpf Urine Bacteria Rare H (None) /hpf 11/23/21 11/23/21 Range/Units 07:12 11:42 Plt Count 126 L (150-450) k/uL Sodium (137-145) mmol/L Potassium (3.5-5.1) mmol/L Chloride (98-107) mmol/L BUN (9-20) mg/dL Creatinine (0.66-1.25) mg/dL Glucose (74-99) mg/dL POC Glucose (mg/dL) 136 H (70-110) mg/dL Calcium (8.4-10.2) mg/dL Phosphorus (2.5-4.5) mg/dL AST (17-59) U/L ALT (4-49) U/L Creatine Kinase (55-170) U/L Total Protein (6.3-8.2) g/dL Albumin (3.5-5.0) g/dL Procalcitonin (0.02-0.09) ng/mL Urine Protein (Negative) Urine Glucose (UA) (Negative) Urine Blood (Negative) Ur Leukocyte Esterase (Negative) Urine WBC (0-5) /hpf Urine WBC Clumps (None) /hpf Urine Bacteria (None) /hpf Microbiology - Last 24 Hours (Table) 11/23/21 05:40 Urine Culture - Preliminary Urine,Voided 11/22/21 08:00 Blood Culture - Preliminary Blood No Growth after 24 hours Assessment and Plan Assessment: Assessment: 1. Acute kidney injury secondary to ATN secondary to rhabdomyolysis. Started on dialysis yesterday 11/22/2021 Urine output is oliguric. CK remains high greater than 1 60,000 will be dialyzed today 2. Hyperkalemia secondary to acute kidney injury and metabolic acidosis. Resolved 3. Hyponatremia secondary to acute kidney injury. 129 today and will improve after dialysis 4. Metabolic acidosis secondary to acute kidney injury and lactic acidosis. Bicarbonate is 30, acidosis resolved 5. Hyperphosphatemia secondary to acute kidney injury. Phosphorus is improved to 5.8 asked to dialysis 6. Hypocalcemia secondary to acute kidney injury. Calcium remains low at 5.2 expected to improve after dialysis. Watch for rebound 7. IV drug abuse. 8. Rhabdomyolysis secondary to IV drug abuse and immobility. CK level greater than 160,000. 9. Transaminitis likely secondary to rhabdomyolysis. Plan: Discontinue bicarb drip Hemodialysis today. Monitor CK levels. Strict I's and O's. Monitor calcium and phosphorus tomorrow
[2021-11-23 12:23] LABS: Band Neutrophils % 5 %; Lymphocytes # (M) 0.98 k/uL (1.0-4.8); Neutrophils % (M) 71 %; Nucleated Red Blood Cells 0 /100 WBC (0-0); Total Cells Counted 100
[2021-11-23] MEDS ORDERED: LIDOCAINE 1% INJ 10MG/ML (20 ML MDV) ONE (14:38)
[2021-11-23] MEDS: DEXMEDETOMIDINE/0.9% NACL(PMX) 400 MCG in EMPTY BAG 1 BAG IV SCH (20:26)
[2021-11-23] MEDS: NICOTINE 21MG/24HR PATCH TRANSDERM SCH (20:29)
[2021-11-23 20:47] LABS: Glucose,Whole Blood 130 mg/dL (70-110)
--- NOTE | 2021-11-23 21:45 | P.PN ---
Subjective Pleasant 41 years old male with no significant past medical history presents with some withdrawal symptoms Patient is confused, opens eyes spontaneously and go back to sleep, does not follow commands and he is on restrains. Patient cannot provide history and information was obtained from his is here at bedside. Patient's states that he has history of depression, hallucinations, and sometimes he talks to the wall even when he is not on a drugs. He has history of drug addict with her when where he injects in his both forearms for the last 2 years on and off. His mother about 2 years ago. Over the last 3 months he was cleaned from any other drug abuse but he relapsed over the last 3 weeks when he has his sister and he went to visit his niece. Patient looks more with her daughter for babysitting her grandkids. She saw him 3 times over the last 3 months and all times he was high She talked to him night before asking her to come and visit him but she could not do so until 3 PM yesterday when she found him on the floor/stairs, and she brought him to the emergency room where he told her and emergency room staff he was been using her when since o'clock in the morning. No one knows what happene d between 6 AM and 3 PM. denies 's previous history of suicidal attempts orientation but he has history of overdose. He has Collins catheter with darker brown muddy colored urine. Vitals are stable and patient is afebrile. Labs showing mild leukocytosis of 11.3. Evaluated d-dimer 6.18 Sodium is 129, potassium elevated 8.4. Creatinine elevated 5.3. Glucose 155. Lactic acid elevated 3.9. Low collar some 6.6. High phosphorus more than 13. Magnesium elevated to 3.1. Total bilirubin is normal 1.3. Elevated AST 348 for an ALT 1146. Elevated troponin 0.9. High creatinine kinase more than [id number]. Urine analysis showed RBCs elevated to 20 and WBCs elevated 56. Urine drug screen is negative EKG showing sinus tachycardia at 102. No significant ST-T changes. There is no imaging done 11-23-21 A clinically awake and alert, no evidence of cellulitis, patient does not have specific complaints. No significant hematoma of the scalp. He still has elevated creatine kinase with rhabdomyolysis with acute kidney injury requiring hemodialysis. Patient may need to go for another hemodialysis today per her drag out worker. He is an anuric and making very little urine output No chest pain or dyspnea no other specific complaints. His urine analysis is slightly abnormal, no urinary symptoms, Pro-calcitonin is elevated but is trending down. His liver enzymes significantly improving, liver ultrasound showing no specific abnormality. Most likely secondary to his rhabdomyolysis. Patient and are aware of patient diagnosis of hep C IgG positive Patient does not looks depressed or suicidal. Objective - Vital Signs Vital signs: Vital Signs Temp 97.6 F 11/23/21 12:00 Pulse 82 11/23/21 12:00 Resp 10 L 11/23/21 12:00 BP 122/69 11/23/21 12:00 Pulse Ox 97 11/23/21 12:00 FiO2 Intake & Output 11/22/21 11/23/21 11/23/21 18:59 06:59 18:59 Intake Total 1100 2600 1120 Output Total 500 0 47 Balance 600 2600 1073 Weight 101.1 kg Intake: IV 1000 Dextrose 5% in Water 1, 1000 000 ml @ 200 mls/hr IV . Q5H45M PATRICIO with Sodium Bicarb (1 Meq/ml) 150 ml Rx#:[id number] Intake, IV Titration 600 2600 Amount Dextrose 5% in Water 1, 600 2600 000 ml @ 200 mls/hr IV . Q5H45M PATRICIO with Sodium Bicarb (1 Meq/ml) 150 ml Rx#:[id number] Oral 120 Hemodialysis 500 Output: Urine 0 0 47 Hemodialysis 500 Other: Voiding Method Indwelling Catheter Indwelling Catheter - Exam GENERAL: The patient is alert and oriented x3, not in any acute distress. Well developed, well nourished. HEENT: Pupils are round and equally reacting to light. EOMI. No scleral icterus. No conjunctival pallor. Normocephalic, atraumatic. No pharyngeal erythema. No thyromegaly. CARDIOVASCULAR: S1 and S2 present. No murmurs, rubs, or gallops. PULMONARY: Chest is clear to auscultation, no wheezing or crackles. ABDOMEN: Soft, nontender, nondistended, normoactive bowel sounds. No palpable organomegaly. MUSCULOSKELETAL: No joint swelling or deformity. EXTREMITIES: No cyanosis, clubbing, or pedal edema. NEUROLOGICAL: Gross neurological examination did not reveal any focal deficits. SKIN: No rashes. no petechiae. - Labs CBC & Chem 7: 11/23/21 07:12 11/23/21 07:12 Labs: Abnormal Lab Results - Last 24 Hours (Table) 11/22/21 11/22/21 11/22/21 Range/Units 08:00 14:36 15:00 Plt Count (150-450) k/uL Lymphocytes # (Manual) (1.0-4.8) k/uL Sodium 132 L (137-145) mmol/L Potassium 5.9 H (3.5-5.1) mmol/L Chloride 94 L (98-107) mmol/L BUN 54 H (9-20) mg/dL Creatinine 4.41 H (0.66-1.25) mg/dL Glucose 133 H (74-99) mg/dL POC Glucose (mg/dL) 139 H (70-110) mg/dL Calcium 6.5 L (8.4-10.2) mg/dL Phosphorus (2.5-4.5) mg/dL AST (17-59) U/L ALT (4-49) U/L Creatine Kinase (55-170) U/L Total Protein (6.3-8.2) g/dL Albumin (3.5-5.0) g/dL Procalcitonin >100.00 H (0.02-0.09) ng/mL Urine Protein (Negative) Urine Glucose (UA) (Negative) Urine Blood (Negative) Ur Leukocyte Esterase (Negative) Urine WBC (0-5) /hpf Urine WBC Clumps (None) /hpf Urine Bacteria (None) /hpf 11/22/21 11/22/21 11/22/21 Range/Units 16:45 17:38 23:42 Plt Count (150-450) k/uL Lymphocytes # (Manual) (1.0-4.8) k/uL Sodium (137-145) mmol/L Potassium 5.9 H (3.5-5.1) mmol/L Chloride (98-107) mmol/L BUN (9-20) mg/dL Creatinine (0.66-1.25) mg/dL Glucose (74-99) mg/dL POC Glucose (mg/dL) 148 H 184 H (70-110) mg/dL Calcium (8.4-10.2) mg/dL Phosphorus (2.5-4.5) mg/dL AST (17-59) U/L ALT (4-49) U/L Creatine Kinase (55-170) U/L Total Protein (6.3-8.2) g/dL Albumin (3.5-5.0) g/dL Procalcitonin (0.02-0.09) ng/mL Urine Protein (Negative) Urine Glucose (UA) (Negative) Urine Blood (Negative) Ur Leukocyte Esterase (Negative) Urine WBC (0-5) /hpf Urine WBC Clumps (None) /hpf Urine Bacteria (None) /hpf 11/23/21 11/23/21 11/23/21 Range/Units 05:40 06:37 07:12 Plt Count (150-450) k/uL Lymphocytes # (Manual) (1.0-4.8) k/uL Sodium 129 L (137-145) mmol/L Potassium (3.5-5.1) mmol/L Chloride 86 L (98-107) mmol/L BUN 70 H (9-20) mg/dL Creatinine 5.48 H (0.66-1.25) mg/dL Glucose 151 H (74-99) mg/dL POC Glucose (mg/dL) 159 H (70-110) mg/dL Calcium 5.2 L* (8.4-10.2) mg/dL Phosphorus 5.8 H (2.5-4.5) mg/dL AST 1939 H (17-59) U/L ALT 905 H (4-49) U/L Creatine Kinase >186656 H* (55-170) U/L Total Protein 4.5 L (6.3-8.2) g/dL Albumin 2.5 L (3.5-5.0) g/dL Procalcitonin (0.02-0.09) ng/mL Urine Protein 2+ H (Negative) Urine Glucose (UA) 2+ H (Negative) Urine Blood Large H (Negative) Ur Leukocyte Esterase Large H (Negative) Urine WBC 93 H (0-5) /hpf Urine WBC Clumps Few H (None) /hpf Urine Bacteria Rare H (None) /hpf 11/23/21 11/23/21 Range/Units 07:12 11:42 Plt Count 126 L (150-450) k/uL Lymphocytes # (Manual) 0.98 L (1.0-4.8) k/uL Sodium (137-145) mmol/L Potassium (3.5-5.1) mmol/L Chloride (98-107) mmol/L BUN (9-20) mg/dL Creatinine (0.66-1.25) mg/dL Glucose (74-99) mg/dL POC Glucose (mg/dL) 136 H (70-110) mg/dL Calcium (8.4-10.2) mg/dL Phosphorus (2.5-4.5) mg/dL AST (17-59) U/L ALT (4-49) U/L Creatine Kinase (55-170) U/L Total Protein (6.3-8.2) g/dL Albumin (3.5-5.0) g/dL Procalcitonin (0.02-0.09) ng/mL Urine Protein (Negative) Urine Glucose (UA) (Negative) Urine Blood (Negative) Ur Leukocyte Esterase (Negative) Urine WBC (0-5) /hpf Urine WBC Clumps (None) /hpf Urine Bacteria (None) /hpf Microbiology - Last 24 Hours (Table) 11/23/21 05:40 Urine Culture - Preliminary Urine,Voided 11/22/21 08:00 Blood Culture - Preliminary Blood No Growth after 24 hours Assessment and Plan Assessment: Rhabdomyolysis Altered mental status secondary to Metabolic/toxic encephalopathy, improved Acute kidney injury and hyperkalemia secondary to rhabdomyolysis Drug abuse and heroin withdrawal depression with recent loss and family Nicotine dependence Transaminitis, improving Elevated troponin, mild Plan: This is a pleasant 41 years old male who presents with acute kidney injury and heroin withdrawal and abuse Continue with IV hydration and monitor creatinine and electrolytes and input and output Symptomatic treatment for withdrawal symptoms Nephrology consult with plan for possible more hemodialysis Start patient on Levaquin, suspicion of infection is low. We will discontinue biotic if urine culture is negative Labs and medication were reviewed.. Continue same treatment. Continue with symptomatic treatment. Resume home medication. Monitor lytes and vitals. DVT and GI prophylaxis. Further recommendations as per clinical course of the patient DVT prophylaxis: Subcutaneous heparin ( if ct of brain is negative ) GI Prophylaxis: Pepcid Prognosis is guarded
[2021-11-23] MEDS ORDERED: ACETAMINOPHEN TAB 325 MG TAB PO PRN (23:40)
[2021-11-23] MEDS: ONDANSETRON 4 MG/2 ML VIAL IVP PRN (23:56)
[2021-11-24 05:56] LABS: Basophils % (A) 0 %; Eosinophils % (A) 1 %; HCT 35.5 % (39.0-53.0); HGB 12.4 gm/dL (13.0-17.5); Lymphocytes # (A) 0.8 k/uL (1.0-4.8); Lymphocytes % (A) 15 %; MCH 31.1 pg (25.0-35.0); MCHC 34.8 g/dL (31.0-37.0); MCV 89.2 fL (80.0-100.0); Mean Platelet Volume 9.3; Monocytes # (A) 0.5 k/uL (0-1.0); Monocytes % (A) 10 %; Neutrophils # (A) 3.5 k/uL (1.3-7.7); Neutrophils % (A) 70 %; RBC 3.98 m/uL (4.30-5.90); RDW 14.5 % (11.5-15.5)
[2021-11-24 06:10] LABS: Albumin 2.5 g/dL (3.5-5.0); Magnesium 2.1 mg/dL (1.6-2.3); Phosphorus 5.8 mg/dL (2.5-4.5); Potassium 4.2 mmol/L (3.5-5.1); Total Bilirubin 0.8 mg/dL (0.2-1.3); Total Protein 4.4 g/dL (6.3-8.2)
[2021-11-24 06:44] LABS: Glucose,Whole Blood 126 mg/dL (70-110)
[2021-11-24 06:47] LABS: Calcium 5.4 mg/dL (8.4-10.2)
[2021-11-24 06:53] LABS: Platelet Count 95 k/uL (150-450)
[2021-11-24] MEDS ORDERED: CALCIUM GLUCONATE IN NACL 2 GM in SALINE 1 100ML.BAG IVPB ONE (07:00)
--- NOTE | 2021-11-24 07:31 | XR ---
EXAMINATION TYPE: XR chest 1V portable DATE OF EXAM: 11/24/2021 COMPARISON: Chest x-ray 11/22/2021, CT chest 11/22/2021 HISTORY: Trauma, withdrawal, abnormal chest CT, rule out pneumonia TECHNIQUE: Single frontal view of the chest is obtained. FINDINGS: There is no focal air space opacity, pleural effusion, or pneumothorax seen. The cardiac silhouette size is within normal limits. Right internal jugular central venous catheter shows the dis zan tip at the cavoatrial junction level. There are overlying leads. The osseous structures are inta ct. IMPRESSION: No acute process.
[2021-11-24] MEDS: MIDAZOLAM 2 MG/2 ML VIAL IV ONE ×2 (07:44→07:56)
[2021-11-24] MEDS ORDERED: LIDOCAINE 1% INJ 10MG/ML (30 ML VIAL-PF) SQ ONE (07:45)
[2021-11-24] MEDS ORDERED: IOPAMIDOL-250 100ML BTL IV ONE (07:48)
[2021-11-24] MEDS ORDERED: CLINDAMYCIN 900 MG in DEXTROSE 5% IN WATER 50 ML IVPB STA ×2 (07:50)
[2021-11-24] MEDS ORDERED: IV FLUID CONTINUATION 400 ML IV ONE (07:56)
[2021-11-24] MEDS: FAMOTIDINE 20 MG/2 ML VIAL IV SCH (08:38)
[2021-11-24] MEDS: NICOTINE 21MG/24HR PATCH TRANSDERM SCH (08:38)
[2021-11-24] MEDS: HEPARIN SODIUM,PORCINE/PF 5,000 UNIT/0.5 ML SYRINGE SQ SCH ×2 (08:38→20:35)
--- NOTE | 2021-11-24 09:00 | IR ---
EXAMINATION TYPE: IR cvc insert non tunneled DATE OF EXAM: 11/24/2021 COMPARISON: NONE HISTORY: Dialysis catheter placement Fluoroscopy support supplied to the referring clinician. See dictated report from vascular surgery, 0.2 minutes fluoroscopy time, 151 intraoperative images document the procedure
--- NOTE | 2021-11-24 09:36 | P.PN ---
Subjective Progress Note Date: 11/24/21 This is a 41-year-old male patient, longtime heroin user, who came in with an acute heroin overdose and the patient was found to be on the floor by the of an unknown time. The patient is not a reliable historian. He does IV heroin for many years. In the emergency, the patient was found to have an acute kidney injury. The patient's creatinine was at 5.37. The patient also had significant disturbance of electrolytes of the patient was found to have a sodium level of 129, potassium of 8.4, serum bicarb of 19, BUN of 50 with a creatinine of 5.37. Initial lactic acid level was 3.9. Phosphorus was 413. Calcium was 6.6. The patient had severe rhabdomyolysis with a significant level of more than 160,000. The troponin was at 0.5 pounds 0.6. The TSH was 7 with a free T4 of 1.4. Albumin was at 4.7 with a total protein of 8.0. D-dimer was at 6.12. Normal coagulation profile. The white cell count was 11.3 with hemoglobin of 14.9. The patient was treated with IV fluids and he received 4 L of normal saline in the emergency department and apparently is on a bicarbonate infusion running at 200 mL an hour. He received also bicarb a total of 4 doses of 25 mEq and also received some gluconate. Dialysis catheter was inserted in the emergency department and the patient was given his first session of hemodialysis. Subsequent values showed improvement in his potassium down to 5.9, creatinine is currently down to 4.4. Serum bicarb is up to 24. He turnout to have positive antibodies for hepatitis C. He is gradually waking up and he is much more awake at this point in time as he is being monitored in intensive care unit. He has not required any pressors. No reported aspiration. His Oxygen at Room Air. CAT Scan of the Chest Abdomen and Pelvis Was Done in the ED and It Showed No Acute Abnormalities. No Evidence of Any Trauma. CAT Scan of the Brain and the C-Spine Was Also Done That Showed No Acute Abnormalities Other Than a Scalp Hematoma at the Vertex. Is at the Bedside. The patient has not produced any urine output yet. He has a Collins catheter in place. On today's evaluation of 11/23/2021, the patient is lethargic yet arousable. Overnight, he became slightly agitated. I was going to start him on Precedex. Nevertheless, he improved and he became more calm and Precedex was not utilized. He is resting comfortably in bed. He is hemodynamically stable. He has a tense left thigh which is consistent with rhabdomyolysis and the patient has some limited pain in his left thigh. Pulses in the left lower extremity are present. Collins cath is in place. No urine output or marginal urine output for now. Meanwhile, he underwent a session of hemodialysis yesterday. CPK remains very high above 160,000. His sodium level is at 129, potassium is 4.6, serum bicarb is at 30, BUN is at 70 with a creatinine of 5.48. The calcium level is 5.2 which is low. Phosphorus level is at 5.8 which is up since yesterday. No signs of tetany or muscle cramps at this point in time. Pro-calcitonin is elevated probably related to underlying renal failure. UA showed +2 protein, large blood, 93 WBCs, 5 RBCs and urine drug screen is negative. He is currently on room air oxygen. 11/24/2021, the patient is a session of the same, lethargic yet arousable. Ches t x-ray remains clear. He remains on room air oxygen. Unable to complete hemodialysis yesterday due to catheter-related complications. Annual longer hemodialysis catheter was inserted today without any major complications and hemodialysis is to follow. The left thigh is still swollen and it is quite tense. A repeat CPK still pending for now. Meanwhile, his blood work electrolytes reveal a rise in his creatinine which is up to 7.1 with a BUN of 84. His sodium level down to 126, potassium is at 4.2. His AST is still elevated at 1605. His white cell count as of 5 with a hemoglobin of 12.4 and a platelet count of 95. Does not show any signs of any allopurinol. He was tolerating his diet. He was taken off the right carb infusion yesterday. Objective - Vital Signs Vital signs: Vital Signs Temp 98 F 11/24/21 08:50 Pulse 73 11/24/21 08:50 Resp 12 11/24/21 08:50 BP 119/99 11/24/21 08:50 Pulse Ox 98 11/24/21 08:50 FiO2 Intake & Output 11/23/21 11/24/21 11/24/21 18:59 06:59 18:59 Intake Total 1540 240 176 Output Total 79 130 35 Balance 1461 110 141 Weight 100.6 kg Intake: IV 1120 240 176 0.9 Sodium Chloride 120 240 70 Dextrose 5% in Water 1, 1000 000 ml @ 200 mls/hr IV . Q5H45M PATRICIO with Sodium Bicarb (1 Meq/ml) 150 ml Rx#:[id number] Oral 120 Hemodialysis 300 Output: Urine 79 130 35 Hemodialysis 0 Other: Voiding Method Indwelling Catheter Indwelling Catheter Indwelling Catheter # Bowel Movements 1 - Exam General appearance the patient is lethargic, easily arousable. He is regaining his consciousness back slowly. Head exam was generally normal. There was no scleral icterus or corneal arcus. Mucous membranes were moist. Neck was supple and without jugular venous distension, thyromegaly, or carotid bruits. Carotids were easily palpable bilaterally. There was no adenopathy. Lungs sounds are diminished bilaterally otherwise clear. Cardiac exam revealed the PMI to be normally situated and sized. The rhythm was regular and no extrasystoles were noted during several minutes of auscultation. The first and second heart sounds were normal and physiologic splitting of the second heart sound was noted. There were no murmurs, rubs, clicks, or gallops. Abdominal exam revealed normal bowel sounds. The abdomen was soft, non-tender, and without masses, organomegaly, or appreciable enlargement of the abdominal aorta. Examination of the extremities revealed easily palpable radial, femoral and pedal pulses. There was no cyanosis, clubbing or edema. The patient has track reyes in his antecubital areas bilaterally. The left thigh is quite tense compared to the right thigh. There is adequate pulses in lower exam is bilaterally involving the left foot. Examination of the skin revealed no evidence of significant rashes, suspicious appearing nevi or other concerning lesions. Neurologically he is withdrawing to painful stimulation all 4 extremities. He is lethargic . He does have some metabolic encephalopathy also. Neurologic exam is nonfocal. - Labs CBC & Chem 7: 11/24/21 05:05 11/24/21 05:05 Labs: Abnormal Lab Results - Last 24 Hours (Table) 11/23/21 11/23/21 11/23/21 Range/Units 02:10 07:12 07:12 RBC (4.30-5.90) m/uL Hgb (13.0-17.5) gm/dL Hct (39.0-53.0) % Plt Count 126 L (150-450) k/uL Lymphocytes # (1.0-4.8) k/uL Lymphocytes # (Manual) 0.98 L (1.0-4.8) k/uL Sodium (137-145) mmol/L Chloride (98-107) mmol/L Carbon Dioxide (22-30) mmol/L BUN (9-20) mg/dL Creatinine (0.66-1.25) mg/dL Glucose (74-99) mg/dL POC Glucose (mg/dL) (70-110) mg/dL Calcium (8.4-10.2) mg/dL Phosphorus (2.5-4.5) mg/dL AST 1939 H (17-59) U/L ALT 905 H (4-49) U/L Total Protein (6.3-8.2) g/dL Albumin (3.5-5.0) g/dL Procalcitonin 74.90 H (0.02-0.09) ng/mL 11/23/21 11/23/21 11/24/21 Range/Units 11:42 20:45 05:05 RBC (4.30-5.90) m/uL Hgb (13.0-17.5) gm/dL Hct (39.0-53.0) % Plt Count (150-450) k/uL Lymphocytes # (1.0-4.8) k/uL Lymphocytes # (Manual) (1.0-4.8) k/uL Sodium 126 L (137-145) mmol/L Chloride 82 L (98-107) mmol/L Carbon Dioxide 31 H (22-30) mmol/L BUN 84 H (9-20) mg/dL Creatinine 7.13 H* (0.66-1.25) mg/dL Glucose 107 H (74-99) mg/dL POC Glucose (mg/dL) 136 H 130 H (70-110) mg/dL Calcium 5.4 L* (8.4-10.2) mg/dL Phosphorus 5.8 H (2.5-4.5) mg/dL AST 1605 H (17-59) U/L ALT 689 H (4-49) U/L Total Protein 4.4 L (6.3-8.2) g/dL Albumin 2.5 L (3.5-5.0) g/dL Procalcitonin (0.02-0.09) ng/mL 11/24/21 11/24/21 Range/Units 05:05 06:43 RBC 3.98 L (4.30-5.90) m/uL Hgb 12.4 L (13.0-17.5) gm/dL Hct 35.5 L (39.0-53.0) % Plt Count 95 L (150-450) k/uL Lymphocytes # 0.8 L (1.0-4.8) k/uL Lymphocytes # (Manual) (1.0-4.8) k/uL Sodium (137-145) mmol/L Chloride (98-107) mmol/L Carbon Dioxide (22-30) mmol/L BUN (9-20) mg/dL Creatinine (0.66-1.25) mg/dL Glucose (74-99) mg/dL POC Glucose (mg/dL) 126 H (70-110) mg/dL Calcium (8.4-10.2) mg/dL Phosphorus (2.5-4.5) mg/dL AST (17-59) U/L ALT (4-49) U/L Total Protein (6.3-8.2) g/dL Albumin (3.5-5.0) g/dL Procalcitonin (0.02-0.09) ng/mL Microbiology - Last 24 Hours (Table) 11/23/21 05:40 Urine Culture - Preliminary Urine,Voided 11/22/21 08:00 Blood Culture - Preliminary Blood No Growth after 24 hours Assessment and Plan Plan: Acute heroin overdose, no signs of any withdrawals other than diarrhea Acute rhabdomyolysis as the patient was on the floor for an unknown period of time, the patient has a very tense left thigh. No evidence of any compartmental syndrome. The CPK remains quite elevated above 160,000 indicative of ongoing rhabdomyolysis. The patient is currently off the bicarbonate infusion and repeat CPK level is pending Acute kidney injury. The patient had another dialysis catheter inserted and the patient will need another session of hemodialysis today. They're not with remains low Severe metabolic acidosis, been a bicarb infusion. Serum bicarbonate is improving Acute hypokalemia, improving and a potassium level has dropped Acute hyponatremia, improving Troponin elevation, and leak secondary to above Hepatitis C positive status secondary to IVDA Mild lactic acidosis, improving Plan Repeat CPK levels Keep the Collins catheter in place Hemodialysis catheter was inserted Monitor electrolytes and may need another session of hemodialysis today Monitor CPK, levels remain high and there is no evidence of any compartmental syndrome and the patient has adequate pulses in the left lower extremity. Monitor for any signs of heroin withdrawal. We'll treat accordingly depending on his symptoms. He may need some Zofran for nausea. give him a Give 2 mg of calcium gluconate Monitor neurologic functions yard conductor on the case Heparin subcu for DVT prophylaxis May need another session of hemodialysis today. Case will be discussed with nephrology. There is ongoing rhabdomyolysis Monitor mental status Clonidine patch We'll continue to follow
--- NOTE | 2021-11-24 11:06 | P.PN ---
Subjective Progress Note Date: 11/24/21 Principal diagnosis: This is a 41-year-old male seen in consultation because of rhabdomyolysis secondary to substance abuse and is on dialysis starting 11/22/2021 and was dialyzed yesterday as well, 2 days in a row. Subjectively feeling fine except for aching muscles. No nausea vomiting no chest pain shortness of breath. Urine output is 209 mL. He is on room air otherwise comfortable poor appetite Objective - Vital Signs Vital signs: Vital Signs Temp 98 F 11/24/21 08:50 Pulse 73 11/24/21 08:50 Resp 12 11/24/21 08:50 BP 119/99 11/24/21 08:50 Pulse Ox 98 11/24/21 08:50 FiO2 Intake & Output 11/23/21 11/24/21 11/24/21 18:59 06:59 18:59 Intake Total 1540 240 176 Output Total 79 130 35 Balance 1461 110 141 Weight 100.6 kg Intake: IV 1120 240 176 0.9 Sodium Chloride 120 240 70 Dextrose 5% in Water 1, 1000 000 ml @ 200 mls/hr IV . Q5H45M PATRICIO with Sodium Bicarb (1 Meq/ml) 150 ml Rx#:[id number] Oral 120 Hemodialysis 300 Output: Urine 79 130 35 Hemodialysis 0 Other: Voiding Method Indwelling Catheter Indwelling Catheter Indwelling Catheter # Bowel Movements 1 HEENT exam no JVP neck is supple no facial asymmetry Awake alert oriented Lungs clear to auscultation good air entry bilaterally Heart sounds unremarkable for any murmur rub gallop Abdomen soft nontender Extremity exam was no edema Neurologically awake alert oriented Muscle aches and tenderness - Labs CBC & Chem 7: 11/24/21 05:05 11/24/21 05:05 Labs: Abnormal Lab Results - Last 24 Hours (Table) 11/23/21 11/23/21 11/23/21 Range/Units 02:10 07:12 11:42 RBC (4.30-5.90) m/uL Hgb (13.0-17.5) gm/dL Hct (39.0-53.0) % Plt Count 126 L (150-450) k/uL Lymphocytes # (1.0-4.8) k/uL Lymphocytes # (Manual) 0.98 L (1.0-4.8) k/uL Sodium (137-145) mmol/L Chloride (98-107) mmol/L Carbon Dioxide (22-30) mmol/L BUN (9-20) mg/dL Creatinine (0.66-1.25) mg/dL Glucose (74-99) mg/dL POC Glucose (mg/dL) 136 H (70-110) mg/dL Calcium (8.4-10.2) mg/dL Phosphorus (2.5-4.5) mg/dL AST (17-59) U/L ALT (4-49) U/L Total Protein (6.3-8.2) g/dL Albumin (3.5-5.0) g/dL Procalcitonin 74.90 H (0.02-0.09) ng/mL 11/23/21 11/24/21 11/24/21 Range/Units 20:45 05:05 05:05 RBC 3.98 L (4.30-5.90) m/uL Hgb 12.4 L (13.0-17.5) gm/dL Hct 35.5 L (39.0-53.0) % Plt Count 95 L (150-450) k/uL Lymphocytes # 0.8 L (1.0-4.8) k/uL Lymphocytes # (Manual) (1.0-4.8) k/uL Sodium 126 L (137-145) mmol/L Chloride 82 L (98-107) mmol/L Carbon Dioxide 31 H (22-30) mmol/L BUN 84 H (9-20) mg/dL Creatinine 7.13 H* (0.66-1.25) mg/dL Glucose 107 H (74-99) mg/dL POC Glucose (mg/dL) 130 H (70-110) mg/dL Calcium 5.4 L* (8.4-10.2) mg/dL Phosphorus 5.8 H (2.5-4.5) mg/dL AST 1605 H (17-59) U/L ALT 689 H (4-49) U/L Total Protein 4.4 L (6.3-8.2) g/dL Albumin 2.5 L (3.5-5.0) g/dL Procalcitonin (0.02-0.09) ng/mL 11/24/21 Range/Units 06:43 RBC (4.30-5.90) m/uL Hgb (13.0-17.5) gm/dL Hct (39.0-53.0) % Plt Count (150-450) k/uL Lymphocytes # (1.0-4.8) k/uL Lymphocytes # (Manual) (1.0-4.8) k/uL Sodium (137-145) mmol/L Chloride (98-107) mmol/L Carbon Dioxide (22-30) mmol/L BUN (9-20) mg/dL Creatinine (0.66-1.25) mg/dL Glucose (74-99) mg/dL POC Glucose (mg/dL) 126 H (70-110) mg/dL Calcium (8.4-10.2) mg/dL Phosphorus (2.5-4.5) mg/dL AST (17-59) U/L ALT (4-49) U/L Total Protein (6.3-8.2) g/dL Albumin (3.5-5.0) g/dL Procalcitonin (0.02-0.09) ng/mL Microbiology - Last 24 Hours (Table) 11/23/21 05:40 Urine Culture - Final Urine,Voided 11/22/21 08:00 Blood Culture - Preliminary Blood No Growth after 48 hours Assessment and Plan Assessment: Assessment: 1. Acute kidney injury secondary to ATN secondary to rhabdomyolysis. Started on dialysis on 11/22/2021, also dialyze yesterday 11/23/2021 Urine output is oliguric. CK remains high greater than 1 60,000 as of yester day, 2. Hyperkalemia secondary to acute kidney injury and metabolic acidosis. Resolved 3. Hyponatremia secondary to acute kidney injury. 129 > 126 today 4. Metabolic acidosis secondary to acute kidney injury and lactic acidosis. Bicarbonate is 31, acidosis resolved 5. Hyperphosphatemia secondary to acute kidney injury. Phosphorus is improved to 5.8 post dialysis 6. Hypocalcemia secondary to acute kidney injury. Calcium remains low at 5.2 > 5.4 expected to improve after dialysis. Watch for rebound increase as his rhabdomyolysis resolves 7. IV drug abuse. 8. Rhabdomyolysis secondary to IV drug abuse and immobility. CK level greater than 160,000. 9. Transaminitis likely secondary to rhabdomyolysis. Plan: Dialysis tomorrow. Monitor CK levels. Strict I's and O's. Monitor calcium and phosphorus tomorrow
[2021-11-24 11:39] LABS: Glucose,Whole Blood 94 mg/dL (70-110)
[2021-11-24] MEDS: ACETAMINOPHEN IV (For NPO) 1,000 MG in EMPTY BAG 1 BAG IVPB PRN ×3 (12:18→23:39)
[2021-11-24] MEDS: ONDANSETRON 4 MG/2 ML VIAL IVP PRN ×2 (12:23→23:51)
--- NOTE | 2021-11-24 15:01 | CA ---
Transthoracic Echo Report Name: Alonzo Cole Age: 41 Gender: M : 1980 Exam Date: 11/23/2021 11:24 Exam Location: [place] [facility] Ht (in): 73 Wt (lb): 222 Ordering Physician: Kamar Billings MD Attending/Referring Phys: [id number], [employer] Aisha Livingston, RDCS Procedure CPT: Indications: IVDA , suspect infection Cardiac Hx: Technical Quality: Good Contrast 1: Total Dose (mL): Contrast 2: Total Dose (mL): MEASUREMENTS (Male / Female) Normal Values 2D ECHO LV Diastolic Diameter PLAX 4.4 cm 4.2 - 5.9 / 3.9 - 5.3 cm LV Systolic Diameter PLAX 2.6 cm IVS Diastolic Thickness 1.5 cm 0.6 - 1.0 / 0.6 - 0.9 cm LVPW Diastolic Thickness 1.3 cm 0.6 - 1.0 / 0.6 - 0.9 cm LV Relative Wall Thickness 0.6 RV Internal Dim ED PLAX 3.6 cm LA Systolic Diameter LX 3.6 cm 3.0 - 4.0 / 2.7 - 3.8 cm LA Volume 35.0 cm??? 18 - 58 / 22 - 52 cm??? M-MODE Aortic Root Diameter MM 3.5 cm MV E Point Septal Separation 0.7 cm AV Cusp Separation MM 2.7 cm DOPPLER AV Peak Velocity 136.2 cm/s AV Peak Gradient 7.4 mmHg MV Area PHT 2.2 cm??? Mitral E Point Velocity 51.3 cm/s Mitral A Point Velocity 58.3 cm/s Mitral E to A Ratio 0.9 MV Deceleration Time 343.1 ms MV E' Velocity 8.5 cm/s Mitral E to MV E' Ratio 6.0 TR Peak Velocity 176.7 cm/s TR Peak Gradient 12.5 mmHg Right Ventricular Systolic Press 17.5 mmHg FINDINGS Left Ventricle Left ventricular ejection fraction is estimated at 60-65 %. Left ventricular cavity size normal. Moderately increased septal wall thickness. Right Ventricle Mild right ventricular dilatation. Right ventricular systolic pressure within normal limits. Right Atrium Normal right atrial size. Left Atrium Normal left atrial size. No evidence for an atrial septal defect. Mitral Valve Structurally normal mitral valve. No evidence for mitral valve prolapse. Trace mitral regurgitation. Aortic Valve Trileaflet aortic valve. No aortic valve stenosis or regurgitation. Tricuspid Valve Trace to mild tricuspid regurgitation. Pulmonic Valve Structurally normal pulmonic valve. Pericardium Normal pericardium. No pericardial effusion. Aorta Normal size aortic root and proximal ascending aorta. CONCLUSIONS LVH with preserved systolic function Mildly dilated right ventricle with preserved systolic function Previewed by: Dr. Johan Evans MD (Electronically Signed) Final Date: 24 November 2021 15:00
[2021-11-24] MEDS: DEXMEDETOMIDINE/0.9% NACL(PMX) 400 MCG in EMPTY BAG 1 BAG IV SCH (20:02)
[2021-11-24] MEDS: MORPHINE SULFATE 2 MG/ML SYRINGE IVP PRN (20:35)
[2021-11-24] MEDS: MELATONIN 3 MG TABLET PO SCH ×2 (20:41→23:39)
--- NOTE | 2021-11-24 22:09 | PCN ---
PROCEDURE NOTE PREOPERATIVE DIAGNOSES: Acute on chronic renal failure, malfunctioning right femoral dialysis catheter. PROCEDURES PERFORMED: 1. Inferior vena cavogram. 2. Placement of a 28 cm dialysis catheter, permanent through the right femoral vein. DESCRIPTION OF PROCEDURE: This patient was brought to the label printer. Right groin was prepped and draped in appropriate sterile manner. 500 mg of clindamycin given IV. After that, right groin was prepped and draped in appropriate sterile manner. The patient had a dialysis catheter placed, which was not functioning. We passed a guidewire and placed a dilator on the top of the guidewire, and an inferior vena cavogram was performed. Iliac veins were patent. Vena cava was found to be patent. After that, we created a tunnel, and through the tunnel, we brought 28 cm cuffed catheter. A guidewire was passed and the sheath was advanced on top of the guidewire. Through the sheath, we introduced catheter. Tip of the catheter was in the inferior vena cava, flushed with heparin saline and hep-locked, secured with 3-0 nylon. The patient tolerated the procedure well. MMODL / IJN: [id number] /
[2021-11-25] MEDS: MORPHINE SULFATE 2 MG/ML SYRINGE IVP PRN ×3 (01:20→21:02)
[2021-11-25] MEDS: ONDANSETRON 4 MG/2 ML VIAL IVP PRN ×3 (05:59→17:01)
[2021-11-25] MEDS ORDERED: MORPHINE SULFATE 4 MG/ML SYRINGE IVP STA (07:21)
--- NOTE | 2021-11-25 08:11 | P.PN ---
Subjective Pleasant 41 years old male with no significant past medical history presents with some withdrawal symptoms Patient is confused, opens eyes spontaneously and go back to sleep, does not follow commands and he is on restrains. Patient cannot provide history and information was obtained from his is here at bedside. Patient's states that he has history of depression, hallucinations, and sometimes he talks to the wall even when he is not on a drugs. He has history of drug addict with her when where he injects in his both forearms for the last 2 years on and off. His mother about 2 years ago. Over the last 3 months he was cleaned from any other drug abuse but he relapsed over the last 3 weeks when he has his sister and he went to visit his niece. Patient looks more with her daughter for babysitting her grandkids. She saw him 3 times over the last 3 months and all times he was high She talked to him night before asking her to come and visit him but she could not do so until 3 PM yesterday when she found him on the floor/stairs, and she brought him to the emergency room where he told her and emergency room staff he was been using her when since o'clock in the morning. No one knows what happene d between 6 AM and 3 PM. denies 's previous history of suicidal attempts orientation but he has history of overdose. He has Collins catheter with darker brown muddy colored urine. Vitals are stable and patient is afebrile. Labs showing mild leukocytosis of 11.3. Evaluated d-dimer 6.18 Sodium is 129, potassium elevated 8.4. Creatinine elevated 5.3. Glucose 155. Lactic acid elevated 3.9. Low collar some 6.6. High phosphorus more than 13. Magnesium elevated to 3.1. Total bilirubin is normal 1.3. Elevated AST 348 for an ALT 1146. Elevated troponin 0.9. High creatinine kinase more than [id number]. Urine analysis showed RBCs elevated to 20 and WBCs elevated 56. Urine drug screen is negative EKG showing sinus tachycardia at 102. No significant ST-T changes. There is no imaging done 11-23-21 A clinically awake and alert, no evidence of cellulitis, patient does not have specific complaints. No significant hematoma of the scalp. He still has elevated creatine kinase with rhabdomyolysis with acute kidney injury requiring hemodialysis. Patient may need to go for another hemodialysis today per her child welfare counselor. He is an anuric and making very little urine output No chest pain or dyspnea no other specific complaints. His urine analysis is slightly abnormal, no urinary symptoms, Pro-calcitonin is elevated but is trending down. His liver enzymes significantly improving, liver ultrasound showing no specific abnormality. Most likely secondary to his rhabdomyolysis. Patient and are aware of patient diagnosis of hep C IgG positive Patient does not looks depressed or suicidal. 11-25-21 Patient is awake and alert, however overnight started having severe pain in his left thigh, morphine 2 mg every 4 hours was added blood pain is not controlled this morning, does increase for milligram every 4 hours. Most likely patient has worsening lower extremity swelling secondary to renal failure. His left side looks more swollen and tense compared to the right side however there is no rash or discoloration, both extremities are warm to touch and left dorsalis pedis is present , however is not as sensitive measure and in view of persistent rhabdomyolysis we will need to rule out compartment syndrome, therefore x-ray of the left thigh and hip is ordered but compartment syndrome can happen even without fracture (leg is not shortened or rotated), however his left thigh is not like hard wood tense . Also there is no evidence of crush injury. Orthopedic team were consulted. Also patient increasing pain could be part of his heroine withdrawal. Patient reports increased loose stool and some abdominal discomfort but there is no increased lacrimation or vomiting, patient has dry mouth. He does not look anxious but is in distress due to thigh pain Patient clinically and see the patient he was gone for placement of dialysis catheter Plan for hemodialysis today. Active Medications Generic Name Dose Route Start Last Admin Trade Name Hetal PRN Reason Stop Dose Admin Clonidine HCl 1 patch 11/21/21 22:30 11/21/21 22:53 Clonidine 0.2 Mg/24hr Patch TRANSDERM 1 patch Q7D PATRICIO Administration Dextrose/Water 50 ml 11/22/21 09:25 Dextrose 50% Syringe 50 Ml IVP 12/02/21 09:26 ONCE PRN Blood Sugar - Low Famotidine 20 mg 11/23/21 09:00 11/24/21 08:38 Famotidine 20 Mg/2 Ml Vial IV 20 mg DAILY PATRICIO Administration Heparin Sodium (Porcine) 5,000 unit 11/23/21 09:15 11/24/21 20:35 Heparin Sodium,Porcine/Pf 5,000 Unit/0.5 Ml Syringe SQ 5,000 unit Q12HR PATRICIO Administration Dexmedetomidine HCl 400 mcg/ 100 mls @ 4.423 mls/hr 11/22/21 18:15 11/24/21 20:02 IV Solution IV Not Given .[id number] PATRICIO Protocol 0.2 MCG/KG/HR Melatonin 3 mg 11/24/21 21:00 11/24/21 23:39 Melatonin 3 Mg Tablet PO 3 mg HS PATRICIO Administration Morphine Sulfate 4 mg 11/25/21 07:20 Morphine Sulfate 4 Mg/Ml Syringe IVP Q4HR PRN Pain/Discomfort Nicotine 1 patch 11/23/21 20:30 11/24/21 08:38 Nicotine 21mg/24hr Patch TRANSDERM 1 patch DAILY PATRICIO Administration Ondansetron HCl 4 mg 11/23/21 23:40 11/25/21 05:59 Ondansetron 4 Mg/2 Ml Vial IVP 4 mg Q6HR PRN Administration Nausea And Vomiting Objective - Vital Signs Vital signs: Vital Signs Temp 97.9 F 11/25/21 00:00 Pulse 68 11/25/21 06:00 Resp 20 11/25/21 06:00 BP 120/85 11/25/21 06:00 Pulse Ox 96 11/25/21 06:00 FiO2 Intake & Output 11/24/21 11/25/21 11/25/21 18:59 06:59 18:59 Intake Total 606 360 Output Total 215 300 Balance 391 60 Weight 106.4 kg Intake: IV 356 360 0.9 Sodium Chloride 250 260 ACETAMINOPHEN IV (For NPO 100 ) 1,000 mg In Empty Bag 1 bag @ 400 mls/hr IVPB Q6HR PRN Rx#:[id number] Oral 250 Output: Urine 215 300 Other: Voiding Method Indwelling Catheter Indwelling Catheter # Bowel Movements 1 - Exam -GENERAL: The patient is alert and oriented x3, in mild distress due to left- sided pain . Well developed, well nourished. HEENT: Pupils are round and equally reacting to light. EOMI. No scleral icterus. No conjunctival pallor. Normocephalic, atraumatic. No pharyngeal erythema. No t hyromegaly. CARDIOVASCULAR: S1 and S2 present. No murmurs, rubs, or gallops. PULMONARY: Chest is clear to auscultation, no wheezing or crackles. ABDOMEN: Soft, nontender, nondistended, normoactive bowel sounds. No palpable organomegaly. MUSCULOSKELETAL: No joint swelling or deformity. -EXTREMITIES: No cyanosis, clubbing, . Left thigh swelling and tenderness, and to lesser extent right side. Dorsalis pedis is present NEUROLOGICAL: Gross neurological examination did not reveal any focal deficits. SKIN: No rashes. no petechiae. - Labs CBC & Chem 7: 11/24/21 05:05 11/24/21 05:05 Labs: Abnormal Lab Results - Last 24 Hours (Table) 11/24/21 Range/Units 05:05 Creatine Kinase >307737 H* (55-170) U/L Microbiology - Last 24 Hours (Table) 11/23/21 05:40 Urine Culture - Final Urine,Voided 11/22/21 08:00 Blood Culture - Preliminary Blood No Growth after 48 hours Assessment and Plan Assessment: Rhabdomyolysis Altered mental status secondary to Metabolic/toxic encephalopathy, improved Acute kidney injury and hyperkalemia secondary to rhabdomyolysis Left thigh as well as extremity swelling secondary to renal failure. Rule out left lower extremity compartment syndrome Drug abuse and heroin withdrawal depression with recent loss and family Nicotine dependence Transaminitis, improving Elevated troponin, mild Plan: This is a pleasant 41 years old male who presents with acute kidney injury and heroin withdrawal and abuse Continue hemodialysis as recommended by her child welfare counselor Continue monitoring creatinine kinase X-ray of the left femur and hip, consult orthopedic team Symptomatic treatment for withdrawal symptoms Nephrology consult with plan for possible more hemodialysis Start patient on Levaquin, suspicion of infection is low. We will discontinue biotic if urine culture is negative Labs and medication were reviewed.. Continue same treatment. Continue with s ymptomatic treatment. Resume home medication. Monitor lytes and vitals. DVT and GI prophylaxis. Further recommendations as per clinical course of the patient DVT prophylaxis: Already on Subcutaneous heparin GI Prophylaxis: Pepcid Prognosis is guarded
[2021-11-25] MEDS: NICOTINE 21MG/24HR PATCH TRANSDERM SCH (09:08)
[2021-11-25] MEDS: FAMOTIDINE 20 MG/2 ML VIAL IV SCH (09:08)
[2021-11-25] MEDS: HEPARIN SODIUM,PORCINE/PF 5,000 UNIT/0.5 ML SYRINGE SQ SCH ×2 (09:08→20:01)
[2021-11-25 09:28] LABS: HCT 36.7 % (39.0-53.0); HGB 12.8 gm/dL (13.0-17.5); MCH 31.1 pg (25.0-35.0); MCHC 34.8 g/dL (31.0-37.0); MCV 89.4 fL (80.0-100.0); Mean Platelet Volume 9.3; Platelet Count 116 k/uL (150-450); RBC 4.11 m/uL (4.30-5.90); RDW 14.5 % (11.5-15.5); WBC 6.4 k/uL (3.8-10.6)
[2021-11-25 09:45] LABS: Albumin 2.7 g/dL (3.5-5.0); Potassium 5.2 mmol/L (3.5-5.1); Total Protein 4.8 g/dL (6.3-8.2)
[2021-11-25] MEDS: SODIUM CHLORIDE 0.9% 1,000 ML IV SCH ×3 (10:09→20:04)
[2021-11-25 10:15] LABS: Calcium 6.1 mg/dL (8.4-10.2)
--- NOTE | 2021-11-25 10:41 | XR ---
Left hip Limited and left femur 2 views of the left hip, frontal lateral views of the left femur on 4 additional images No comparisons Bone mineralization, joint spaces and alignment are maintained. IMPRESSION: No fracture or dislocation.
[2021-11-25] MEDS: MORPHINE SULFATE 4 MG/ML SYRINGE IVP PRN ×3 (11:08→17:00)
--- NOTE | 2021-11-25 11:26 | P.PN ---
Subjective Progress Note Date: 11/25/21 Principal diagnosis: Acute rhabdomyolysis This is a 41-year-old male patient, longtime heroin user, who came in with an acute heroin overdose and the patient was found to be on the floor by the of an unknown time. The patient is not a reliable historian. He does IV heroin for many years. In the emergency, the patient was found to have an acute kidney injury. The patient's creatinine was at 5.37. The patient also had significant disturbance of electrolytes of the patient was found to have a sodium level of 129, potassium of 8.4, serum bicarb of 19, BUN of 50 with a creatinine of 5.37. Initial lactic acid level was 3.9. Phosphorus was 413. Calcium was 6.6. The patient had severe rhabdomyolysis with a significant level of more than 160,000. The troponin was at 0.5 pounds 0.6. The TSH was 7 with a free T4 of 1.4. Albumin was at 4.7 with a total protein of 8.0. D-dimer was at 6.12. Normal coagulation profile. The white cell count was 11.3 with hemoglobin of 14.9. The patient was treated with IV fluids and he received 4 L of normal saline in the emergency department and apparently is on a bicarbonate infusion running at 200 mL an hour. He received also bicarb a total of 4 doses of 25 mEq and also received some gluconate. Dialysis catheter was inserted in the emergency department and the patient was given his first session of hemodialysis. Subsequent values showed improvement in his potassium down to 5.9, creatinine is currently down to 4.4. Serum bicarb is up to 24. He turnout to have positive antibodies for hepatitis C. He is gradually waking up and he is much more awake at this point in time as he is being monitored in intensive care unit. He has not required any pressors. No reported aspiration. His Oxygen at Room Air. CA T Scan of the Chest Abdomen and Pelvis Was Done in the ED and It Showed No Acute Abnormalities. No Evidence of Any Trauma. CAT Scan of the Brain and the C- Spine Was Also Done That Showed No Acute Abnormalities Other Than a Scalp Hematoma at the Vertex. Is at the Bedside. The patient has not produced any urine output yet. He has a Collins catheter in place. On today's evaluation of 11/23/2021, the patient is lethargic yet arousable. Overnight, he became slightly agitated. I was going to start him on Precedex. Nevertheless, he improved and he became more calm and Precedex was not utilized. He is resting comfortably in bed. He is hemodynamically stable. He has a tense left thigh which is consistent with rhabdomyolysis and the patient has some limited pain in his left thigh. Pulses in the left lower extremity are present. Collins cath is in place. No urine output or marginal urine output for now. Meanwhile, he underwent a session of hemodialysis yesterday. CPK remains very high above 160,000. His sodium level is at 129, potassium is 4.6, serum bicarb is at 30, BUN is at 70 with a creatinine of 5.48. The calcium level is 5.2 which is low. Phosphorus level is at 5.8 which is up since yesterday. No signs of tetany or muscle cramps at this point in time. Pro-calcitonin is elevated probably related to underlying renal failure. UA showed +2 protein, large blood, 93 WBCs, 5 RBCs and urine drug screen is negative. He is currently on room air oxygen. 11/24/2021, the patient is a session of the same, lethargic yet arousable. Chest x-ray remains clear. He remains on room air oxygen. Unable to complete hemodialysis yesterday due to catheter-related complications. Annual longer hemodialysis catheter was inserted today without any major complications and hem odialysis is to follow. The left thigh is still swollen and it is quite tense. A repeat CPK still pending for now. Meanwhile, his blood work electrolytes reveal a rise in his creatinine which is up to 7.1 with a BUN of 84. His sodium level down to 126, potassium is at 4.2. His AST is still elevated at 1605. His white cell count as of 5 with a hemoglobin of 12.4 and a platelet count of 95. Does not show any signs of any allopurinol. He was tolerating his diet. He was taken off the right carb infusion yesterday. Reevaluated today on 11/25/21, patient remains in the ICU, continues to have pain and discomfort in the left thigh region. His left thigh remains swollen and edematous, tender to palpation, but no mottling, and no compromised distal circulation as a concealed his distal pulses/dorsalis pedis and posterior tibial pulse. Continues to have significantly elevated CPK, patient had a dialysis catheter placed, and he developed obviously is acute kidney injury from his rhabdomyolysis. Looking back at the history, patient had a down time of 9 hours after he fell down the stairs. And there is obviously documentation of heroin use. Patient is hemodynamically stable, he is on room air, he is off Precedex. Renal functioning seems to be worsening today. Sodium is still low at 127. Liver enzymes remain elevated but improving. Orthopedic consultation is pending Objective - Vital Signs Vital signs: Vital Signs Temp 97.9 F 11/25/21 08:00 Pulse 72 11/25/21 10:00 Resp 18 11/25/21 10:00 BP 122/70 11/25/21 10:00 Pulse Ox 96 11/25/21 10:00 FiO2 Intake & Output 11/24/21 11/25/21 11/25/21 18:59 06:59 18:59 Intake Total 606 360 140 Output Total 215 300 40 Balance 391 60 100 Weight 106.4 kg Intake: IV 356 360 140 0.9 Sodium Chloride 250 260 140 ACETAMINOPHEN IV (For NPO 100 ) 1,000 mg In Empty Bag 1 bag @ 400 mls/hr IVPB Q6HR PRN Rx#:[id number] Oral 250 Output: Urine 215 300 40 Other: Voiding Method Indwelling Catheter Indwelling Catheter # Bowel Movements 1 1 ABP, PAP, CO, CI - Last Documented Arterial Blood Pressure 139/42 - Exam Physical Exam: Revealed 41-year-old white male in no distress. Head: Atraumatic, normocephalic. HEENT:[Neck is supple.] [No neck masses.] [No thyromegaly.] [No JVD.] Chest: [Clear throughout, no crackles, no rhonchi, no wheezes.] Cardiac Exam: [Normal S1 and S2, no S3 gallop, no murmur.] Abdomen: [Soft, nontender, no megaly, no rebound, no guarding, normal bowel sounds.] Extremities: Continues to have swollen left thigh, slightly tender to palpation, no changes in color, no mottling, good distal pulses noted bilaterally. Neurological Exam: [No focal neurologic deficit.] Alert oriented 3 Psychiatric: Normal mood affect and normal mental status. Skin: No rashes - Labs CBC & Chem 7: 11/25/21 08:42 11/25/21 08:42 Labs: Abnormal Lab Results - Last 24 Hours (Table) 11/25/21 11/25/21 11/25/21 Range/Units 08:42 08:42 08:42 RBC 4.11 L (4.30-5.90) m/uL Hgb 12.8 L (13.0-17.5) gm/dL Hct 36.7 L (39.0-53.0) % Plt Count 116 L (150-450) k/uL Sodium 127 L (137-145) mmol/L Potassium 5.2 H (3.5-5.1) mmol/L Chloride 83 L (98-107) mmol/L Carbon Dioxide 32 H (22-30) mmol/L BUN 99 H (9-20) mg/dL Creatinine 9.28 H* (0.66-1.25) mg/dL Calcium 6.1 L* (8.4-10.2) mg/dL AST 1358 H (17-59) U/L ALT 621 H (4-49) U/L CK-MB (CK-2) 25.8 H (0.0-2.4) ng/mL Total Protein 4.8 L (6.3-8.2) g/dL Albumin 2.7 L (3.5-5.0) g/dL Microbiology - Last 24 Hours (Table) 11/22/21 08:00 Blood Culture - Preliminary Blood No Growth after 72 hours 11/23/21 05:40 Urine Culture - Final Urine,Voided Assessment and Plan Assessment: Impression: Acute rhabdomyolysis secondary to fall and left thigh injury Acute heroin overdose Hepatitis C positive secondary to IVDA Acute kidney injury Electrolytes imbalance secondary to acute kidney injury Severe metabolic acidosis secondary to acute kidney injury and acute rhabdomyolysis Recommendation: Continue to monitor in the ICU Start IV fluid at 100 mL per hour Consult orthopedics to evaluate for possible compartment syndrome, clinically felt to be less likely Continue DVT prophylaxis continue hemodialysis Address different abnormal electrolytes accordingly. Continue clonidine patch Continue to monitor mental status and watch for any potential heroin withdrawal. We will continue to follow. Prognosis is guarded. Time with Patient: Less than 30
--- NOTE | 2021-11-25 12:31 | P.PN ---
Subjective Patient is seen for follow-up for acute kidney injury currently hemodialysis dependent. Etiology is severe rhabdomyolysis. Patient was also severely hyperkalemic on initial admission. Started on hemodialysis on 11/22/2081. Seen on hemodialysis today. Tolerating his treatment well Urine output at 10-15 mL an hour Patient is awake, comfortable not in any acute distress. Complaining of nausea. Trying to increase oral intake. Objective - Vital Signs Vital signs: Vital Signs Temp 97.9 F 11/25/21 08:00 Pulse 68 11/25/21 11:00 Resp 14 11/25/21 11:00 BP 115/63 11/25/21 11:00 Pulse Ox 98 11/25/21 11:00 FiO2 Intake & Output 11/24/21 11/25/21 11/25/21 18:59 06:59 18:59 Intake Total 606 360 240 Output Total 215 300 55 Balance 391 60 185 Weight 106.4 kg Intake: IV 356 360 240 0.9 Sodium Chloride 250 260 240 ACETAMINOPHEN IV (For NPO 100 ) 1,000 mg In Empty Bag 1 bag @ 400 mls/hr IVPB Q6HR PRN Rx#:[id number] Oral 250 Output: Urine 215 300 55 Other: Voiding Method Indwelling Catheter Indwelling Catheter Indwelling Catheter # Bowel Movements 1 1 ABP, PAP, CO, CI - Last Documented Arterial Blood Pressure 139/42 - Exam Awake, comfortable, not in any acute distress Alert oriented 3 Examination of the heart S1 and S2 Examination lungs bilateral breath sounds are heard Abdomen is soft nontender Examination of lower extremities shows no significant edema 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 - Labs CBC & Chem 7: 11/25/21 08:42 11/25/21 08:42 Labs: Abnormal Lab Results - Last 24 Hours (Table) 11/25/21 11/25/21 11/25/21 Range/Units 08:42 08:42 08:42 RBC 4.11 L (4.30-5.90) m/uL Hgb 12.8 L (13.0-17.5) gm/dL Hct 36.7 L (39.0-53.0) % Plt Count 116 L (150-450) k/uL Sodium 127 L (137-145) mmol/L Potassium 5.2 H (3.5-5.1) mmol/L Chloride 83 L (98-107) mmol/L Carbon Dioxide 32 H (22-30) mmol/L BUN 99 H (9-20) mg/dL Creatinine 9.28 H* (0.66-1.25) mg/dL Calcium 6.1 L* (8.4-10.2) mg/dL AST 1358 H (17-59) U/L ALT 621 H (4-49) U/L CK-MB (CK-2) 25.8 H (0.0-2.4) ng/mL Total Protein 4.8 L (6.3-8.2) g/dL Albumin 2.7 L (3.5-5.0) g/dL Microbiology - Last 24 Hours (Table) 11/22/21 08:00 Blood Culture - Preliminary Blood No Growth after 72 hours 11/23/21 05:40 Urine Culture - Final Urine,Voided Assessment and Plan Assessment: 1. Acute kidney injury secondary to ATN secondary to rhabdomyolysis. Started on dialysis on 11/22/2021, also dialyze yesterday 11/23/2021 Urine output is oliguric. [place] at 976693 today 2. Hyperkalemia secondary to acute kidney injury and metabolic acidosis. Resolved 3. Hyponatremia secondary to acute kidney injury. 129 > 127 today 4. Metabolic acidosis secondary to acute kidney injury and lactic acidosis. Bicarbonate is 31, acidosis resolved 5. Hyperphosphatemia secondary to acute kidney injury. Phosphorus is improved to 5.8 post dialysis 6. Hypocalcemia secondary to acute kidney injury. Calcium remains low at 5.2 > 5.4 expected to improve after dialysis. Watch for rebound increase as his rhabdomyolysis resolves. Rule out nutritional vitamin D deficiency 7. IV drug abuse. 8. Rhabdomyolysis secondary to IV drug abuse and immobility. CK level greater than 160,000. 9. Transaminitis likely secondary to rhabdomyolysis with release of enzymes from muscle cells Plan: Hemodialysis today Evaluate for need for hemodialysis tomorrow otherwise we will maintain on a Thursday schedule Check 25-hydroxy vitamin D level
[2021-11-25 12:38] LABS: Glucose,Whole Blood 82 mg/dL (70-110)
--- NOTE | 2021-11-25 13:06 | P.CNOR ---
History of Present Illness - [facility] Consult date: 11/25/21 Consult reason: other (Left thigh swelling) History of present illness: This is a 41-year-old gentleman who was admitted and approximately 10:00 in the evening on 11/21/2021 after being found on the floor after a heroin overdose. The patient had been lying on his left side on the floor for approximately 9 hours before he was found by family. He reportedly had injected heroin at about 6 AM that day. On presentation to the emergency department he was found to be in rhabdomyolysis and was admitted to the intensive care unit. He has been experiencing some left thigh pain and swelling. We were consulted early this morning for possible compartment syndrome. It is now been 4 days since his admission. . Past Medical History Past Medical History: No Reported History Additional Past Medical History / Comment(s): Depression, Drug abuse (heroin, methamphetamine) History of Any Multi-Drug Resistant Organisms: None Reported Additional Past Surgical History / Comment(s): cyst removed from chest Past Psychological History: No Psychological Hx Reported Smoking Status: Current every day smoker Past Alcohol Use History: Rare Past Drug Use History: Heroin, Methamphetamine, Opiates - Past Family History Mother Sister(s) Family Medical History: Cancer Additional Family Medical History / Comment(s): mother metastatic bone ca,. sister best away from breast, uterine ovarian 2014. Brother has colon CA Medications and Allergies Home Medications Medication Instructions Recorded Confirmed Type No Known Home Medications 11/22/21 11/22/21 History Allergies Allergy/AdvReac Type Severity Reaction Status Date / Time amoxicillin Allergy Rash/Hives Verified 11/22/21 07:28 Physical Examination This is a pleasant 41-year-old in no acute distress. He is alert and oriented at this time. His is present at bedside. Exam of the left lower extremity reveals significant swelling. The compartments are compressible but tight. There is no erythema or ecchymosis to the thigh. Patient is able to actively flex his knee to about 30. He is unable to perform a straight leg raise. He is unable to dorsiflex the foot and ankle without assistance. Pedal pulses +2/4. Capillary refill to the toes is less than 3 seconds. Results X-rays of the pelvis and left femur reveal no obvious fracture. No bony abnormality is noted. Soft tissue swelling is noted on x-ray. - Labs Labs: Abnormal Lab Results - Last 24 Hours (Table) 11/25/21 11/25/21 11/25/21 Range/Units 08:42 08:42 08:42 RBC 4.11 L (4.30-5.90) m/uL Hgb 12.8 L (13.0-17.5) gm/dL Hct 36.7 L (39.0-53.0) % Plt Count 116 L (150-450) k/uL Sodium 127 L (137-145) mmol/L Potassium 5.2 H (3.5-5.1) mmol/L Chloride 83 L (98-107) mmol/L Carbon Dioxide 32 H (22-30) mmol/L BUN 99 H (9-20) mg/dL Creatinine 9.28 H* (0.66-1.25) mg/dL Calcium 6.1 L* (8.4-10.2) mg/dL AST 1358 H (17-59) U/L ALT 621 H (4-49) U/L Creatine Kinase (55-170) U/L CK-MB (CK-2) 25.8 H (0.0-2.4) ng/mL Total Protein 4.8 L (6.3-8.2) g/dL Albumin 2.7 L (3.5-5.0) g/dL 11/25/21 Range/Units 08:42 RBC (4.30-5.90) m/uL Hgb (13.0-17.5) gm/dL Hct (39.0-53.0) % Plt Count (150-450) k/uL Sodium (137-145) mmol/L Potassium (3.5-5.1) mmol/L Chloride (98-107) mmol/L Carbon Dioxide (22-30) mmol/L BUN (9-20) mg/dL Creatinine (0.66-1.25) mg/dL Calcium (8.4-10.2) mg/dL AST (17-59) U/L ALT (4-49) U/L Creatine Kinase 757113 H* (55-170) U/L CK-MB (CK-2) (0.0-2.4) ng/mL Total Protein (6.3-8.2) g/dL Albumin (3.5-5.0) g/dL Microbiology - Last 24 Hours (Table) 11/22/21 08:00 Blood Culture - Preliminary Blood No Growth after 72 hours 11/23/21 05:40 Urine Culture - Final Urine,Voided H & H 11/22/21 11/23/21 11/24/21 Range/Units 04:14 07:12 05:05 Hgb 14.9 14.4 12.4 L (13.0-17.5) gm/dL Hct 45.5 42.3 35.5 L (39.0-53.0) % 11/25/21 Range/Units 08:42 Hgb 12.8 L (13.0-17.5) gm/dL Hct 36.7 L (39.0-53.0) % Coagulation 11/22/21 Range/Units 08:00 INR 1.2 H (<1.2) Result Diagrams: 11/25/21 08:42 11/25/21 08:42 Assessment and Plan (1) Swelling of left lower extremity Current Visit: Yes Status: Acute Code(s): M79.89 - OTHER SPECIFIED SOFT TISSUE DISORDERS SNOMED Code(s): 997409335 (2) ARF (acute renal failure) Current Visit: Yes Status: Acute Code(s): N17.9 - ACUTE KIDNEY FAILURE, UNSPECIFIED SNOMED Code(s): 85443537 (3) Rhabdomyolysis Current Visit: Yes Status: Acute Code(s): M62.82 - RHABDOMYOLYSIS SNOMED Code(s): 465239765 (4) Methamphetamine abuse Current Visit: No Status: Acute Code(s): F15.10 - OTHER STIMULANT ABUSE, UNCOMPLICATED SNOMED Code(s): 822454925 Plan: The clinical and x-ray findings are discussed with the patient, his and nursing staff. He does seem to have significant swelling to the thigh, however, compartments are still compressible. Since it has been over 4 days since injury to the thigh, surgical intervention would be contraindicated for a possible compartment syndrome. I do not have a high suspicion for compartment syndrome at this time. I have wrapped the thigh in a compressive Dawood wrap for the swelling. We will continue to follow peripherally.
[2021-11-25] MEDS: DEXMEDETOMIDINE/0.9% NACL(PMX) 400 MCG in EMPTY BAG 1 BAG IV SCH (14:31)
[2021-11-25 16:35] LABS: Glucose,Whole Blood 80 mg/dL (70-110)
[2021-11-25] MEDS: MELATONIN 3 MG TABLET PO SCH (20:01)
[2021-11-26] MEDS: MORPHINE SULFATE 2 MG/ML SYRINGE IVP PRN ×6 (01:05→21:05)
[2021-11-26] MEDS: SODIUM CHLORIDE 0.9% 1,000 ML IV SCH (04:54)
[2021-11-26] MEDS: ONDANSETRON 4 MG/2 ML VIAL IVP PRN ×3 (05:05→20:11)
[2021-11-26 06:41] LABS: HCT 37.8 % (39.0-53.0); HGB 12.8 gm/dL (13.0-17.5); MCH 31.4 pg (25.0-35.0); MCHC 33.8 g/dL (31.0-37.0); MCV 92.9 fL (80.0-100.0); Mean Platelet Volume 8.7; Platelet Count 108 k/uL (150-450); RBC 4.07 m/uL (4.30-5.90); RDW 14.7 % (11.5-15.5); WBC 7.7 k/uL (3.8-10.6)
[2021-11-26 06:57] LABS: Albumin 2.2 g/dL (3.5-5.0); Calcium 6.9 mg/dL (8.4-10.2); Potassium 5.1 mmol/L (3.5-5.1); Total Bilirubin 0.9 mg/dL (0.2-1.3); Total Protein 4.2 g/dL (6.3-8.2)
[2021-11-26] MEDS: FAMOTIDINE 20 MG/2 ML VIAL IV SCH (08:25)
[2021-11-26] MEDS: HEPARIN SODIUM,PORCINE/PF 5,000 UNIT/0.5 ML SYRINGE SQ SCH ×2 (08:25→20:11)
[2021-11-26] MEDS: NICOTINE 21MG/24HR PATCH TRANSDERM SCH (08:25)
[2021-11-26] MEDS: ERGOCALCIFEROL 1,250 MCG (50,000 IU) CAPSULE PO SCH (10:51)
--- NOTE | 2021-11-26 11:11 | P.PN ---
Subjective Patient is seen for follow-up for acute kidney injury currently hemodialysis dependent. Etiology is severe rhabdomyolysis. Patient was also severely hyperkalemic on initial admission. Started on hemodialysis on 11/22/2081. Urine output at 10-15 mL an hour Tolerated dialysis well yesterday Patient is awake, comfortable not in any acute distress. Trying to increase oral intake. [place]a [place] [address] Objective - Vital Signs Vital signs: Vital Signs Temp 98.3 F 11/26/21 08:00 Pulse 63 11/26/21 11:00 Resp 18 11/26/21 08:00 BP 122/62 11/26/21 09:00 Pulse Ox 95 11/26/21 08:00 FiO2 Intake & Output 11/25/21 11/26/21 11/26/21 18:59 06:59 18:59 Intake Total 1340 1100 300 Output Total 1180 200 45 Balance 160 900 255 Weight 114 kg Intake: IV 1040 1100 300 0.9 Sodium Chloride 1040 1100 300 Hemodialysis 300 Output: Urine 180 200 45 Hemodialysis 1000 Other: Voiding Method Indwelling Catheter Indwelling Catheter Indwelling Catheter # Bowel Movements 1 ABP, PAP, CO, CI - Last Documented Arterial Blood Pressure 139/42 - Exam Awake, comfortable, not in any acute distress Alert oriented 3 Examination of the heart S1 and S2 Examination lungs bilateral breath sounds are heard Abdomen is soft nontender Examination of lower extremities shows trace edema 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 grossly intact - Labs CBC & Chem 7: 11/26/21 06:26 11/26/21 06:26 Labs: Abnormal Lab Results - Last 24 Hours (Table) 11/25/21 11/25/21 11/25/21 Range/Units 08:42 08:42 08:42 RBC (4.30-5.90) m/uL Hgb (13.0-17.5) gm/dL Hct (39.0-53.0) % Plt Count (150-450) k/uL Sodium (137-145) mmol/L Chloride (98-107) mmol/L BUN (9-20) mg/dL Creatinine (0.66-1.25) mg/dL Glucose (74-99) mg/dL Calcium (8.4-10.2) mg/dL AST (17-59) U/L ALT (4-49) U/L Creatine Kinase 083735 H* (55-170) U/L Total Protein (6.3-8.2) g/dL Albumin (3.5-5.0) g/dL Vitamin D 25-Hydroxy 24.0 L (30.0-100.0) ng/mL Procalcitonin 18.20 H (0.02-0.09) ng/mL 11/26/21 11/26/21 Range/Units 06:26 06:26 RBC 4.07 L (4.30-5.90) m/uL Hgb 12.8 L (13.0-17.5) gm/dL Hct 37.8 L (39.0-53.0) % Plt Count 108 L (150-450) k/uL Sodium 129 L (137-145) mmol/L Chloride 95 L (98-107) mmol/L BUN 72 H (9-20) mg/dL Creatinine 7.86 H* (0.66-1.25) mg/dL Glucose 110 H (74-99) mg/dL Calcium 6.9 L (8.4-10.2) mg/dL AST 746 H (17-59) U/L ALT 434 H (4-49) U/L Creatine Kinase 45566 H* (55-170) U/L Total Protein 4.2 L (6.3-8.2) g/dL Albumin 2.2 L (3.5-5.0) g/dL Vitamin D 25-Hydroxy (30.0-100.0) ng/mL Procalcitonin (0.02-0.09) ng/mL Microbiology - Last 24 Hours (Table) 11/22/21 08:00 Blood Culture - Preliminary Blood No Growth after 96 hours Assessment and Plan Assessment: 1. Acute kidney injury secondary to ATN secondary to rhabdomyolysis. Started on dialysis on 11/22/2021 [place] [address] today 2. Hyperkalemia secondary to acute kidney injury and metabolic acidosis. Resolved 3. Hyponatremia secondary to acute kidney injury. 4. Metabolic acidosis secondary to acute kidney injury and lactic acidosis, resolved 5. Hyperphosphatemia secondary to acute kidney injury. Phosphorus is improved 6. Hypocalcemia secondary to acute kidney injury. Calcium remains low at 5.2 > 5.4 expected to improve after dialysis. Watch for rebound increase as his rhabdomyolysis resolves. Rule out nutritional vitamin D deficiency 7. IV drug abuse. 8. Rhabdomyolysis secondary to IV drug abuse and immobility. CK level greater than 160,000. 9. Transaminitis likely secondary to rhabdomyolysis with release of enzymes from muscle cells Plan: Hemodialysis in a.m. Decrease IV fluids Continue to encourage increased oral intake Start vitamin D supplementation
--- NOTE | 2021-11-26 11:27 | P.PN ---
Subjective Progress Note Date: 11/26/21 Principal diagnosis: Acute rhabdomyolysis This is a 41-year-old male patient, longtime heroin user, who came in with an acute heroin overdose and the patient was found to be on the floor by the of an unknown time. The patient is not a reliable historian. He does IV heroin for many years. In the emergency, the patient was found to have an acute kidney injury. The patient's creatinine was at 5.37. The patient also had significant disturbance of electrolytes of the patient was found to have a sodium level of 129, potassium of 8.4, serum bicarb of 19, BUN of 50 with a creatinine of 5.37. Initial lactic acid level was 3.9. Phosphorus was 413. Calcium was 6.6. The patient had severe rhabdomyolysis with a significant level of more than 160,000. The troponin was at 0.5 pounds 0.6. The TSH was 7 with a free T4 of 1.4. Albumin was at 4.7 with a total protein of 8.0. D-dimer was at 6.12. Normal coagulation profile. The white cell count was 11.3 with hemoglobin of 14.9. The patient was treated with IV fluids and he received 4 L of normal saline in the emergency department and apparently is on a bicarbonate infusion running at 200 mL an hour. He received also bicarb a total of 4 doses of 25 mEq and also received some gluconate. Dialysis catheter was inserted in the emergency department and the patient was given his first session of hemodialysis. Subsequent values showed improvement in his potassium down to 5.9, creatinine is currently down to 4.4. Serum bicarb is up to 24. He turnout to have positive antibodies for hepatitis C. He is gradually waking up and he is much more awake at this point in time as he is being monitored in intensive care unit. He has not required any pressors. No reported aspiration. His Oxygen at Room Air. CA T Scan of the Chest Abdomen and Pelvis Was Done in the ED and It Showed No Acute Abnormalities. No Evidence of Any Trauma. CAT Scan of the Brain and the C- Spine Was Also Done That Showed No Acute Abnormalities Other Than a Scalp Hematoma at the Vertex. Is at the Bedside. The patient has not produced any urine output yet. He has a Collins catheter in place. On today's evaluation of 11/23/2021, the patient is lethargic yet arousable. Overnight, he became slightly agitated. I was going to start him on Precedex. Nevertheless, he improved and he became more calm and Precedex was not utilized. He is resting comfortably in bed. He is hemodynamically stable. He has a tense left thigh which is consistent with rhabdomyolysis and the patient has some limited pain in his left thigh. Pulses in the left lower extremity are present. Collins cath is in place. No urine output or marginal urine output for now. Meanwhile, he underwent a session of hemodialysis yesterday. CPK remains very high above 160,000. His sodium level is at 129, potassium is 4.6, serum bicarb is at 30, BUN is at 70 with a creatinine of 5.48. The calcium level is 5.2 which is low. Phosphorus level is at 5.8 which is up since yesterday. No signs of tetany or muscle cramps at this point in time. Pro-calcitonin is elevated probably related to underlying renal failure. UA showed +2 protein, large blood, 93 WBCs, 5 RBCs and urine drug screen is negative. He is currently on room air oxygen. 11/24/2021, the patient is a session of the same, lethargic yet arousable. Chest x-ray remains clear. He remains on room air oxygen. Unable to complete hemodialysis yesterday due to catheter-related complications. Annual longer hemodialysis catheter was inserted today without any major complications and hem odialysis is to follow. The left thigh is still swollen and it is quite tense. A repeat CPK still pending for now. Meanwhile, his blood work electrolytes reveal a rise in his creatinine which is up to 7.1 with a BUN of 84. His sodium level down to 126, potassium is at 4.2. His AST is still elevated at 1605. His white cell count as of 5 with a hemoglobin of 12.4 and a platelet count of 95. Does not show any signs of any allopurinol. He was tolerating his diet. He was taken off the right carb infusion yesterday. Reevaluated today on 11/25/21, patient remains in the ICU, continues to have pain and discomfort in the left thigh region. His left thigh remains swollen and edematous, tender to palpation, but no mottling, and no compromised distal circulation as a concealed his distal pulses/dorsalis pedis and posterior tibial pulse. Continues to have significantly elevated CPK, patient had a dialysis catheter placed, and he developed obviously is acute kidney injury from his rhabdomyolysis. Looking back at the history, patient had a down time of 9 hours after he fell down the stairs. And there is obviously documentation of heroin use. Patient is hemodynamically stable, he is on room air, he is off Precedex. Renal functioning seems to be worsening today. Sodium is still low at 127. Liver enzymes remain elevated but improving. Orthopedic consultation is pending Reevaluated today on 11/26/21, patient is doing better today, continues to have pain in his left thigh, patient was started on IV fluid yesterday, remains on hemodialysis, his CPK is down to 63,000 compared to over 160,000 yesterday. WBC count is 7.7 hemoglobin is 12.8, sodium is 129 BUN is 72 creatinine 7.86. Liver enzymes are also improving, seems to be trending down. Objective - Vital Signs Vital signs: Vital Signs Temp 98.3 F 11/26/21 08:00 Pulse 63 11/26/21 11:00 Resp 18 11/26/21 08:00 BP 122/62 11/26/21 09:00 Pulse Ox 95 11/26/21 08:00 FiO2 Intake & Output 11/25/21 11/26/21 11/26/21 18:59 06:59 18:59 Intake Total 1340 1100 300 Output Total 1180 200 45 Balance 160 900 255 Weight 114 kg Intake: IV 1040 1100 300 0.9 Sodium Chloride 1040 1100 300 Hemodialysis 300 Output: Urine 180 200 45 Hemodialysis 1000 Other: Voiding Method Indwelling Catheter Indwelling Catheter Indwelling Catheter # Bowel Movements 1 ABP, PAP, CO, CI - Last Documented Arterial Blood Pressure 139/42 - Exam Physical Exam: Revealed 41-year-old white male in no distress. Head: Atraumatic, normocephalic. HEENT:[Neck is supple.] [No neck masses.] [No thyromegaly.] [No JVD.] Chest: [Clear throughout, no crackles, no rhonchi, no wheezes.] Cardiac Exam: [Normal S1 and S2, no S3 gallop, no murmur.] Abdomen: [Soft, nontender, no megaly, no rebound, no guarding, normal bowel sounds.] Extremities: Continues to have swollen left thigh, and slightly tender Neurological Exam: [No focal neurologic deficit.] Alert oriented 3 Psychiatric: Normal mood affect and normal mental status. Skin: No rashes - Labs CBC & Chem 7: 11/26/21 06:26 11/26/21 06:26 Labs: Abnormal Lab Results - Last 24 Hours (Table) 11/25/21 11/25/21 11/25/21 Range/Units 08:42 08:42 08:42 RBC (4.30-5.90) m/uL Hgb (13.0-17.5) gm/dL Hct (39.0-53.0) % Plt Count (150-450) k/uL Sodium (137-145) mmol/L Chloride (98-107) mmol/L BUN (9-20) mg/dL Creatinine (0.66-1.25) mg/dL Glucose (74-99) mg/dL Calcium (8.4-10.2) mg/dL AST (17-59) U/L ALT (4-49) U/L Creatine Kinase [id number] H* (55-170) U/L Total Protein (6.3-8.2) g/dL Albumin (3.5-5.0) g/dL Vitamin D 25-Hydroxy 24.0 L (30.0-100.0) ng/mL Procalcitonin 18.20 H (0.02-0.09) ng/mL 11/26/21 11/26/21 Range/Units 06:26 06:26 RBC 4.07 L (4.30-5.90) m/uL Hgb 12.8 L (13.0-17.5) gm/dL Hct 37.8 L (39.0-53.0) % Plt Count 108 L (150-450) k/uL Sodium 129 L (137-145) mmol/L Chloride 95 L (98-107) mmol/L BUN 72 H (9-20) mg/dL Creatinine 7.86 H* (0.66-1.25) mg/dL Glucose 110 H (74-99) mg/dL Calcium 6.9 L (8.4-10.2) mg/dL AST 746 H (17-59) U/L ALT 434 H (4-49) U/L Creatine Kinase 82195 H* (55-170) U/L Total Protein 4.2 L (6.3-8.2) g/dL Albumin 2.2 L (3.5-5.0) g/dL Vitamin D 25-Hydroxy (30.0-100.0) ng/mL Procalcitonin (0.02-0.09) ng/mL Microbiology - Last 24 Hours (Table) 11/22/21 08:00 Blood Culture - Preliminary Blood No Growth after 96 hours Assessment and Plan Assessment: Impression: Acute rhabdomyolysis secondary to fall and left thigh injury Acute heroin overdose Hepatitis C positive secondary to IVDA Acute kidney injury Electrolytes imbalance secondary to acute kidney injury Severe metabolic acidosis secondary to acute kidney injury and acute rhabdomyolysis Recommendation: Transfer patient to regular medical floor today. And continue to monitor CPK daily as well as renal profile daily Continue IV fluids, 0.9 normal saline at 1 25 mL per hour Transfer patient out of the ICU to regular medical floor Orthopedic consultation was noted and appreciated. Continue DVT prophylaxis continue hemodialysis Continue to monitor mental status and watch for any potential heroin withdrawal. We will continue to follow. Time with Patient: Less than 30
[2021-11-26] MEDS: MELATONIN 3 MG TABLET PO SCH (20:11)
--- NOTE | 2021-11-26 22:41 | P.PN ---
Subjective Pleasant 41 years old male with no significant past medical history presents with some withdrawal symptoms Patient is confused, opens eyes spontaneously and go back to sleep, does not follow commands and he is on restrains. Patient cannot provide history and information was obtained from his is here at bedside. Patient's states that he has history of depression, hallucinations, and sometimes he talks to the wall even when he is not on a drugs. He has history of drug addict with her when where he injects in his both forearms for the last 2 years on and off. His mother about 2 years ago. Over the last 3 months he was cleaned from any other drug abuse but he relapsed over the last 3 weeks when he has his sister and he went to visit his niece. Patient looks more with her daughter for babysitting her grandkids. She saw him 3 times over the last 3 months and all times he was high She talked to him night before asking her to come and visit him but she could not do so until 3 PM yesterday when she found him on the floor/stairs, and she brought him to the emergency room where he told her and emergency room staff he was been using her when since o'clock in the morning. No one knows what happene d between 6 AM and 3 PM. denies 's previous history of suicidal attempts orientation but he has history of overdose. He has Collins catheter with darker brown muddy colored urine. Vitals are stable and patient is afebrile. Labs showing mild leukocytosis of 11.3. Evaluated d-dimer 6.18 Sodium is 129, potassium elevated 8.4. Creatinine elevated 5.3. Glucose 155. Lactic acid elevated 3.9. Low collar some 6.6. High phosphorus more than 13. Magnesium elevated to 3.1. Total bilirubin is normal 1.3. Elevated AST 348 for an ALT 1146. Elevated troponin 0.9. High creatinine kinase more than [id number]. Urine analysis showed RBCs elevated to 20 and WBCs elevated 56. Urine drug screen is negative EKG showing sinus tachycardia at 102. No significant ST-T changes. There is no imaging done 11-23-21 A clinically awake and alert, no evidence of cellulitis, patient does not have specific complaints. No significant hematoma of the scalp. He still has elevated creatine kinase with rhabdomyolysis with acute kidney injury requiring hemodialysis. Patient may need to go for another hemodialysis today per her spareribs trimmer. He is an anuric and making very little urine output No chest pain or dyspnea no other specific complaints. His urine analysis is slightly abnormal, no urinary symptoms, Pro-calcitonin is elevated but is trending down. His liver enzymes significantly improving, liver ultrasound showing no specific abnormality. Most likely secondary to his rhabdomyolysis. Patient and are aware of patient diagnosis of hep C IgG positive Patient does not looks depressed or suicidal. 11-25-21 Patient is awake and alert, however overnight started having severe pain in his left thigh, morphine 2 mg every 4 hours was added blood pain is not controlled this morning, does increase for milligram every 4 hours. Most likely patient has worsening lower extremity swelling secondary to renal failure. His left side looks more swollen and tense compared to the right side however there is no rash or discoloration, both extremities are warm to touch and left dorsalis pedis is present , however is not as sensitive measure and in view of persistent rhabdomyolysis we will need to rule out compartment syndrome, therefore x-ray of the left thigh and hip is ordered but compartment syndrome can happen even without fracture (leg is not shortened or rotated), however his left thigh is not like hard wood tense . Also there is no evidence of crush injury. Orthopedic team were consulted. Also patient increasing pain could be part of his heroine withdrawal. Patient reports increased loose stool and some abdominal discomfort but there is no increased lacrimation or vomiting, patient has dry mouth. He does not look anxious but is in distress due to thigh pain Patient clinically and see the patient he was gone for placement of dialysis catheter Plan for hemodialysis today. 11/26/2021 Patient continued to improve and he feels better today his pain is better controlled and his left thigh is is wrapped and placed a swollen Patient has no compartment syndrome, per orthopedic team Patient continues undergoing hemodialysis, creatinine is still elevated 7.8. Liver enzymes and creatinine kinase are trending down, creatinine kinase 63,000. Vision continue on IV fluids Patient will be transferred to general medical floor today Objective - Vital Signs Vital signs: Vital Signs Temp 98.3 F 11/26/21 08:00 Pulse 69 11/26/21 12:00 Resp 14 11/26/21 12:00 BP 122/62 11/26/21 09:00 Pulse Ox 96 11/26/21 12:00 FiO2 Intake & Output 11/25/21 11/26/21 11/26/21 18:59 06:59 18:59 Intake Total 1340 1100 300 Output Total 1180 200 45 Balance 160 900 255 Weight 114 kg Intake: IV 1040 1100 300 0.9 Sodium Chloride 1040 1100 300 Hemodialysis 300 Output: Urine 180 200 45 Hemodialysis 1000 Other: Voiding Method Indwelling Catheter Indwelling Catheter Indwelling Catheter # Bowel Movements 1 ABP, PAP, CO, CI - Last Documented Arterial Blood Pressure 139/42 - Exam -GENERAL: The patient is alert and oriented x3, in mild distress due to left- sided pain . Well developed, well nourished. HEENT: Pupils are round and equally reacting to light. EOMI. No scleral icterus. No conjunctival pallor. Normocephalic, atraumatic. No pharyngeal erythema. No thyromegaly. CARDIOVASCULAR: S1 and S2 present. No murmurs, rubs, or gallops. PULMONARY: Chest is clear to auscultation, no wheezing or crackles. ABDOMEN: Soft, nontender, nondistended, normoactive bowel sounds. No palpable organomegaly. MUSCULOSKELETAL: No joint swelling or deformity. -EXTREMITIES: No cyanosis, clubbing, . Left thigh swelling and tenderness, and to lesser extent right side. Dorsalis pedis is present NEUROLOGICAL: Gross neurological examination did not reveal any focal deficits. SKIN: No rashes. no petechiae. - Labs CBC & Chem 7: 11/26/21 06:26 11/26/21 06:26 Labs: Abnormal Lab Results - Last 24 Hours (Table) 11/25/21 11/25/21 11/26/21 Range/Units 08:42 08:42 06:26 RBC 4.07 L (4.30-5.90) m/uL Hgb 12.8 L (13.0-17.5) gm/dL Hct 37.8 L (39.0-53.0) % Plt Count 108 L (150-450) k/uL Sodium (137-145) mmol/L Chloride (98-107) mmol/L BUN (9-20) mg/dL Creatinine (0.66-1.25) mg/dL Glucose (74-99) mg/dL Calcium (8.4-10.2) mg/dL AST (17-59) U/L ALT (4-49) U/L Creatine Kinase (55-170) U/L Total Protein (6.3-8.2) g/dL Albumin (3.5-5.0) g/dL Vitamin D 25-Hydroxy 24.0 L (30.0-100.0) ng/mL Procalcitonin 18.20 H (0.02-0.09) ng/mL 11/26/21 Range/Units 06:26 RBC (4.30-5.90) m/uL Hgb (13.0-17.5) gm/dL Hct (39.0-53.0) % Plt Count (150-450) k/uL Sodium 129 L (137-145) mmol/L Chloride 95 L (98-107) mmol/L BUN 72 H (9-20) mg/dL Creatinine 7.86 H* (0.66-1.25) mg/dL Glucose 110 H (74-99) mg/dL Calcium 6.9 L (8.4-10.2) mg/dL AST 746 H (17-59) U/L ALT 434 H (4-49) U/L Creatine Kinase 65543 H* (55-170) U/L Total Protein 4.2 L (6.3-8.2) g/dL Albumin 2.2 L (3.5-5.0) g/dL Vitamin D 25-Hydroxy (30.0-100.0) ng/mL Procalcitonin (0.02-0.09) ng/mL Microbiology - Last 24 Hours (Table) 11/22/21 08:00 Blood Culture - Preliminary Blood No Growth after 96 hours Assessment and Plan Assessment: Rhabdomyolysis Altered mental status secondary to Metabolic/toxic encephalopathy, improved Acute kidney injury and hyperkalemia secondary to rhabdomyolysis Left thigh as well as extremity swelling secondary to renal failure. Compartment syndrome ruled out Drug abuse and heroin withdrawal depression with recent loss and family Nicotine dependence Transaminitis, improving Elevated troponin, mild, secondary to leak troponin, acute coronary syndrome rul ed out. Patient with no chest pain Plan: This is a pleasant 41 years old male who presents with acute kidney injury and heroin withdrawal and abuse Continue hemodialysis as recommended by her spareribs trimmer Continue monitoring creatinine kinase X-ray of the left femur and hip, consult orthopedic team Symptomatic treatment for withdrawal symptoms Nephrology consult with plan for possible more hemodialysis Start patient on Levaquin, suspicion of infection is low. We will discontinue biotic if urine culture is negative Labs and medication were reviewed.. Continue same treatment. Continue with symptomatic treatment. Resume home medication. Monitor lytes and vitals. DVT and GI prophylaxis. Further recommendations as per clinical course of the patient DVT prophylaxis: Already on Subcutaneous heparin GI Prophylaxis: Pepcid Prognosis is guarded
[2021-11-27] MEDS: SODIUM CHLORIDE 0.9% 1,000 ML IV SCH ×2 (01:14→15:17)
[2021-11-27] MEDS: MORPHINE SULFATE 2 MG/ML SYRINGE IVP PRN ×6 (01:14→22:29)
[2021-11-27 08:29] LABS: HCT 39.7 % (39.0-53.0); HGB 13.9 gm/dL (13.0-17.5); MCH 30.9 pg (25.0-35.0); MCHC 34.9 g/dL (31.0-37.0); MCV 88.4 fL (80.0-100.0); Platelet Count 96 k/uL (150-450); RBC 4.49 m/uL (4.30-5.90); RDW 14.7 % (11.5-15.5); WBC 8.3 k/uL (3.8-10.6)
[2021-11-27] MEDS: NICOTINE 21MG/24HR PATCH TRANSDERM SCH (08:51)
[2021-11-27] MEDS: HEPARIN SODIUM,PORCINE/PF 5,000 UNIT/0.5 ML SYRINGE SQ SCH ×2 (08:51→19:59)
[2021-11-27] MEDS: FAMOTIDINE 20 MG/2 ML VIAL IV SCH (08:51)
[2021-11-27 11:41] LABS: Albumin 2.2 g/dL (3.5-5.0); Total Bilirubin 1.2 mg/dL (0.2-1.3); Total Protein 4.1 g/dL (6.3-8.2)
[2021-11-27 12:11] LABS: Potassium 6.2 mmol/L (3.5-5.1)
--- NOTE | 2021-11-27 12:55 | P.PN ---
Subjective Progress Note Date: 11/27/21 Principal diagnosis: Left thigh swelling. Renal failure. This is a 41-year-old male who we are following regarding his left leg swelling. He continues to receive dialysis treatments for his acute renal failure. He states that his leg is feeling better. He has no new complaints or concerns today. Vital signs are stable. Objective - Vital Signs Vital signs: Vital Signs Temp 97.4 F L 11/27/21 09:02 Pulse 76 11/27/21 09:02 Resp 18 11/27/21 09:02 BP 149/65 11/27/21 09:02 Pulse Ox 97 11/27/21 09:02 FiO2 Intake & Output 11/26/21 11/27/21 11/27/21 18:59 06:59 18:59 Intake Total 1100 225 118 Output Total 200 3150 Balance 900 -2925 118 Intake: IV 1100 0.9 Sodium Chloride 1100 Intake, IV Titration 225 Amount Sodium Chloride 0.9% 1, 225 000 ml @ 70 mls/hr IV . [id number] [facility] Rx#:[id number] Oral 118 Output: Urine 200 3150 Other: Voiding Method Indwelling Catheter Indwelling Catheter Indwelling Catheter ABP, PAP, CO, CI - Last Documented Arterial Blood Pressure 139/42 - Exam This is a pleasant 41-year-old male in no acute distress. He is alert and oriented 3. Exam of the left lower extremity reveals soft tissue swelling which is improving. Compartments are compressible. He is able to flex and extend the knee from about 40-0. He continues to lack dorsiflexion of the foot. Pedal pulse is +2/4. He has normal sensation to the toes. - Labs CBC & Chem 7: 11/27/21 07:57 11/27/21 11:01 Labs: Abnormal Lab Results - Last 24 Hours (Table) 11/27/21 11/27/21 Range/Units 07:57 11:01 Plt Count 96 L (150-450) k/uL Sodium 125 L (137-145) mmol/L Potassium 6.2 H* (3.5-5.1) mmol/L Chloride 92 L (98-107) mmol/L BUN 91 H (9-20) mg/dL Creatinine 9.58 H* (0.66-1.25) mg/dL Glucose 103 H (74-99) mg/dL Calcium 7.0 L (8.4-10.2) mg/dL AST 544 H (17-59) U/L ALT 341 H (4-49) U/L Total Protein 4.1 L (6.3-8.2) g/dL Albumin 2.2 L (3.5-5.0) g/dL Microbiology - Last 24 Hours (Table) 11/22/21 08:00 Blood Culture - Preliminary Blood No Growth after 120 hours Assessment and Plan (1) Swelling of left lower extremity Current Visit: Yes Status: Acute Code(s): M79.89 - OTHER SPECIFIED SOFT TISSUE DISORDERS SNOMED Code(s): 807003339 (2) ARF (acute renal failure) Current Visit: Yes Status: Acute Code(s): N17.9 - ACUTE KIDNEY FAILURE, UNSPECIFIED SNOMED Code(s): 39344556 (3) Rhabdomyolysis Current Visit: Yes Status: Acute Code(s): M62.82 - RHABDOMYOLYSIS SNOMED Code(s): 076302630 (4) Methamphetamine abuse Current Visit: No Status: Acute Code(s): F15.10 - OTHER STIMULANT ABUSE, UNCOMPLICATED SNOMED Code(s): 763781224 Plan: The clinical findings are discussed with the patient. We discussed the potential for slow progression of function Return to the left lower extremity. We will not know for quite some time as to the extent of muscle and nerve damage from the injury. We'll continue follow peripherally. When he improves medically and would recommend physical therapy.
--- NOTE | 2021-11-27 13:25 | P.PN ---
Subjective Progress Note Date: 11/27/21 Principal diagnosis: Acute rhabdomyolysis This is a 41-year-old male patient, longtime heroin user, who came in with an acute heroin overdose and the patient was found to be on the floor by the of an unknown time. The patient is not a reliable historian. He does IV heroin for many years. In the emergency, the patient was found to have an acute kidney injury. The patient's creatinine was at 5.37. The patient also had significant disturbance of electrolytes of the patient was found to have a sodium level of 129, potassium of 8.4, serum bicarb of 19, BUN of 50 with a creatinine of 5.37. Initial lactic acid level was 3.9. Phosphorus was 413. Calcium was 6.6. The patient had severe rhabdomyolysis with a significant level of more than 160,000. The troponin was at 0.5 pounds 0.6. The TSH was 7 with a free T4 of 1.4. Albumin was at 4.7 with a total protein of 8.0. D-dimer was at 6.12. Normal coagulation profile. The white cell count was 11.3 with hemoglobin of 14.9. The patient was treated with IV fluids and he received 4 L of normal saline in the emergency department and apparently is on a bicarbonate infusion running at 200 mL an hour. He received also bicarb a total of 4 doses of 25 mEq and also received some gluconate. Dialysis catheter was inserted in the emergency department and the patient was given his first session of hemodialysis. Subsequent values showed improvement in his potassium down to 5.9, creatinine is currently down to 4.4. Serum bicarb is up to 24. He turnout to have positive antibodies for hepatitis C. He is gradually waking up and he is much more awake at this point in time as he is being monitored in intensive care unit. He has not required any pressors. No reported aspiration. His Oxygen at Room Air. CA T Scan of the Chest Abdomen and Pelvis Was Done in the ED and It Showed No Acute Abnormalities. No Evidence of Any Trauma. CAT Scan of the Brain and the C- Spine Was Also Done That Showed No Acute Abnormalities Other Than a Scalp Hematoma at the Vertex. Is at the Bedside. The patient has not produced any urine output yet. He has a Collins catheter in place. On today's evaluation of 11/23/2021, the patient is lethargic yet arousable. Overnight, he became slightly agitated. I was going to start him on Precedex. Nevertheless, he improved and he became more calm and Precedex was not utilized. He is resting comfortably in bed. He is hemodynamically stable. He has a tense left thigh which is consistent with rhabdomyolysis and the patient has some limited pain in his left thigh. Pulses in the left lower extremity are present. Collins cath is in place. No urine output or marginal urine output for now. Meanwhile, he underwent a session of hemodialysis yesterday. CPK remains very high above 160,000. His sodium level is at 129, potassium is 4.6, serum bicarb is at 30, BUN is at 70 with a creatinine of 5.48. The calcium level is 5.2 which is low. Phosphorus level is at 5.8 which is up since yesterday. No signs of tetany or muscle cramps at this point in time. Pro-calcitonin is elevated probably related to underlying renal failure. UA showed +2 protein, large blood, 93 WBCs, 5 RBCs and urine drug screen is negative. He is currently on room air oxygen. 11/24/2021, the patient is a session of the same, lethargic yet arousable. Chest x-ray remains clear. He remains on room air oxygen. Unable to complete hemodialysis yesterday due to catheter-related complications. Annual longer hemodialysis catheter was inserted today without any major complications and hem odialysis is to follow. The left thigh is still swollen and it is quite tense. A repeat CPK still pending for now. Meanwhile, his blood work electrolytes reveal a rise in his creatinine which is up to 7.1 with a BUN of 84. His sodium level down to 126, potassium is at 4.2. His AST is still elevated at 1605. His white cell count as of 5 with a hemoglobin of 12.4 and a platelet count of 95. Does not show any signs of any allopurinol. He was tolerating his diet. He was taken off the right carb infusion yesterday. Reevaluated today on 11/25/21, patient remains in the ICU, continues to have pain and discomfort in the left thigh region. His left thigh remains swollen and edematous, tender to palpation, but no mottling, and no compromised distal circulation as a concealed his distal pulses/dorsalis pedis and posterior tibial pulse. Continues to have significantly elevated CPK, patient had a dialysis catheter placed, and he developed obviously is acute kidney injury from his rhabdomyolysis. Looking back at the history, patient had a down time of 9 hours after he fell down the stairs. And there is obviously documentation of heroin use. Patient is hemodynamically stable, he is on room air, he is off Precedex. Renal functioning seems to be worsening today. Sodium is still low at 127. Liver enzymes remain elevated but improving. Orthopedic consultation is pending Reevaluated today on 11/26/21, patient is doing better today, continues to have pain in his left thigh, patient was started on IV fluid yesterday, remains on hemodialysis, his CPK is down to 63,000 compared to over 160,000 yesterday. WBC count is 7.7 hemoglobin is 12.8, sodium is 129 BUN is 72 creatinine 7.86. Liver enzymes are also improving, seems to be trending down. Reevaluated today on 11/27/21, patient is feeling better, continues to have some pain in the left thigh, but improved compared to his initial presentation. No pulmonary symptoms no cough no wheezing no shortness of breath. However the patient was noted to have worsening renal profile, elevated potassium and low sodium that being addressed by nephrology on the case, CPK is coming down to 41,006, liver enzymes are also improving. Hence I will sign off and see the patient on when necessary basis. Objective - Vital Signs Vital signs: Vital Signs Temp 97.4 F L 11/27/21 13:19 Pulse 75 11/27/21 13:19 Resp 18 11/27/21 13:19 BP 146/72 11/27/21 13:19 Pulse Ox 96 11/27/21 13:19 FiO2 Intake & Output 11/26/21 11/27/21 11/27/21 18:59 06:59 18:59 Intake Total 1100 225 118 Output Total 200 3150 Balance 900 -2925 118 Intake: IV 1100 0.9 Sodium Chloride 1100 Intake, IV Titration 225 Amount Sodium Chloride 0.9% 1, 225 000 ml @ 70 mls/hr IV . [id number] [facility] Rx#:[id number] Oral 118 Output: Urine 200 3150 Other: Voiding Method Indwelling Catheter Indwelling Catheter Indwelling Catheter ABP, PAP, CO, CI - Last Documented Arterial Blood Pressure 139/42 - Exam Physical Exam: Revealed 41-year-old white male in no distress. Head: Atraumatic, normocephalic. HEENT:[Neck is supple.] [No neck masses.] [No thyromegaly.] [No JVD.] Chest: [Clear throughout, no crackles, no rhonchi, no wheezes.] Cardiac Exam: [Normal S1 and S2, no S3 gallop, no murmur.] Abdomen: [Soft, nontender, no megaly, no rebound, no guarding, normal bowel sounds.] Extremities: Continues to have swollen left thigh, and slightly tender Neurological Exam: [No focal neurologic deficit.] Alert oriented 3 Psychiatric: Normal mood affect and normal mental status. Skin: No rashes - Labs CBC & Chem 7: 11/27/21 07:57 11/27/21 11:01 Labs: Abnormal Lab Results - Last 24 Hours (Table) 11/27/21 11/27/21 Range/Units 07:57 11:01 Plt Count 96 L (150-450) k/uL Sodium 125 L (137-145) mmol/L Potassium 6.2 H* (3.5-5.1) mmol/L Chloride 92 L (98-107) mmol/L BUN 91 H (9-20) mg/dL Creatinine 9.58 H* (0.66-1.25) mg/dL Glucose 103 H (74-99) mg/dL Calcium 7.0 L (8.4-10.2) mg/dL AST 544 H (17-59) U/L ALT 341 H (4-49) U/L Creatine Kinase 20531 H* (55-170) U/L Total Protein 4.1 L (6.3-8.2) g/dL Albumin 2.2 L (3.5-5.0) g/dL Microbiology - Last 24 Hours (Table) 11/22/21 08:00 Blood Culture - Preliminary Blood No Growth after 120 hours Assessment and Plan Assessment: Impression: Acute rhabdomyolysis secondary to fall and left thigh injury Acute heroin overdose Hepatitis C positive secondary to IVDA Acute kidney injury Electrolytes imbalance secondary to acute kidney injury Severe metabolic acidosis secondary to acute kidney injury and acute rhabdomyolysis Recommendation: Nephrology to address his abnormal electrolytes including low sodium and high potassium continue hemodialysis Continue to monitor mental status and watch for any potential heroin withdrawal. We'll sign off and see the patient on when necessary basis Time with Patient: Less than 30
[2021-11-27] MEDS: ONDANSETRON 4 MG/2 ML VIAL IVP PRN (13:46)
--- NOTE | 2021-11-27 16:05 | P.PN ---
Subjective Patient is seen for follow-up for acute kidney injury currently hemodialysis dependent. Etiology is severe rhabdomyolysis. Patient was also severely hyperkalemic on initial admission. Started on hemodialysis on 11/22/2081. Urine output charted at 3.3 L for 24 hours. I'm not sure if this is accurate. This is significant improvement in urine output Patient is awake, comfortable not in any acute distress. Trying to increase oral intake. [place] [address] Objective - Vital Signs Vital signs: Vital Signs Temp 97.4 F L 11/27/21 13:19 Pulse 75 11/27/21 13:19 Resp 18 11/27/21 13:19 BP 146/72 11/27/21 13:19 Pulse Ox 96 11/27/21 13:19 FiO2 Intake & Output 11/26/21 11/27/21 11/27/21 18:59 06:59 18:59 Intake Total 1100 225 118 Output Total 200 3150 Balance 900 -2925 118 Intake: IV 1100 0.9 Sodium Chloride 1100 Intake, IV Titration 225 Amount Sodium Chloride 0.9% 1, 225 000 ml @ 70 mls/hr IV . [id number] [facility] Rx#:[id number] Oral 118 Output: Urine 200 3150 Other: Voiding Method Indwelling Catheter Indwelling Catheter Indwelling Catheter ABP, PAP, CO, CI - Last Documented Arterial Blood Pressure 139/42 - Exam Awake, comfortable, not in any acute distress Alert oriented 3 Examination of the heart S1 and S2 Examination lungs bilateral breath sounds are heard Abdomen is soft nontender Examination of lower extremities shows trace edema [employer] exam grossly intact - Labs CBC & Chem 7: 11/27/21 07:57 11/27/21 11:01 Labs: Abnormal Lab Results - Last 24 Hours (Table) 11/27/21 11/27/21 Range/Units 07:57 11:01 Plt Count 96 L (150-450) k/uL Sodium 125 L (137-145) mmol/L Potassium 6.2 H* (3.5-5.1) mmol/L Chloride 92 L (98-107) mmol/L BUN 91 H (9-20) mg/dL Creatinine 9.58 H* (0.66-1.25) mg/dL Glucose 103 H (74-99) mg/dL Calcium 7.0 L (8.4-10.2) mg/dL AST 544 H (17-59) U/L ALT 341 H (4-49) U/L Creatine Kinase 83112 H* (55-170) U/L Total Protein 4.1 L (6.3-8.2) g/dL Albumin 2.2 L (3.5-5.0) g/dL Microbiology - Last 24 Hours (Table) 11/22/21 08:00 Blood Culture - Preliminary Blood No Growth after 120 hours Assessment and Plan Assessment: 1. Acute kidney injury secondary to ATN secondary to rhabdomyolysis. Started on dialysis on 11/22/2021 [place] [address] today 2. Hyperkalemia secondary to acute kidney injury and metabolic acidosis. Resolved 3. Hyponatremia secondary to acute kidney injury. 4. Metabolic acidosis secondary to acute kidney injury and lactic acidosis, resolved 5. Hyperphosphatemia secondary to acute kidney injury. Phosphorus is improved 6. Hypocalcemia secondary to acute kidney injury. Calcium remains low at 5.2 > 5.4 expected to improve after dialysis. Watch for rebound increase as his rhabdomyolysis resolves. Rule out nutritional vitamin D deficiency 7. IV drug abuse. 8. Rhabdomyolysis secondary to IV drug abuse and immobility. CK level greater than 160,000. 9. Transaminitis likely secondary to rhabdomyolysis with release of enzymes from muscle cells Plan: Hemodialysis today Patient may need it again tomorrow as his creatinine has increased significantly since yesterday.
[2021-11-27] MEDS: MELATONIN 3 MG TABLET PO SCH (19:59)
--- NOTE | 2021-11-27 20:01 | P.PN ---
Subjective Pleasant 41 years old male with no significant past medical history presents with some withdrawal symptoms Patient is confused, opens eyes spontaneously and go back to sleep, does not follow commands and he is on restrains. Patient cannot provide history and information was obtained from his is here at bedside. Patient's states that he has history of depression, hallucinations, and sometimes he talks to the wall even when he is not on a drugs. He has history of drug addict with her when where he injects in his both forearms for the last 2 years on and off. His mother about 2 years ago. Over the last 3 months he was cleaned from any other drug abuse but he relapsed over the last 3 weeks when he has his sister and he went to visit his niece. Patient looks more with her daughter for babysitting her grandkids. She saw him 3 times over the last 3 months and all times he was high She talked to him night before asking her to come and visit him but she could not do so until 3 PM yesterday when she found him on the floor/stairs, and she brought him to the emergency room where he told her and emergency room staff he was been using her when since o'clock in the morning. No one knows what happene d between 6 AM and 3 PM. denies 's previous history of suicidal attempts orientation but he has history of overdose. He has Collins catheter with darker brown muddy colored urine. Vitals are stable and patient is afebrile. Labs showing mild leukocytosis of 11.3. Evaluated d-dimer 6.18 Sodium is 129, potassium elevated 8.4. Creatinine elevated 5.3. Glucose 155. Lactic acid elevated 3.9. Low collar some 6.6. High phosphorus more than 13. Magnesium elevated to 3.1. Total bilirubin is normal 1.3. Elevated AST 348 for an ALT 1146. Elevated troponin 0.9. High creatinine kinase more than 903163. Urine analysis showed RBCs elevated to 20 and WBCs elevated 56. Urine drug screen is negative EKG showing sinus tachycardia at 102. No significant ST-T changes. There is no imaging done 11-23-21 A clinically awake and alert, no evidence of cellulitis, patient does not have specific complaints. No significant hematoma of the scalp. He still has elevated creatine kinase with rhabdomyolysis with acute kidney injury requiring hemodialysis. Patient may need to go for another hemodialysis today per her director of emergency nursing. He is an anuric and making very little urine output No chest pain or dyspnea no other specific complaints. His urine analysis is slightly abnormal, no urinary symptoms, Pro-calcitonin is elevated but is trending down. His liver enzymes significantly improving, liver ultrasound showing no specific abnormality. Most likely secondary to his rhabdomyolysis. Patient and are aware of patient diagnosis of hep C IgG positive Patient does not looks depressed or suicidal. 11-25-21 Patient is awake and alert, however overnight started having severe pain in his left thigh, morphine 2 mg every 4 hours was added blood pain is not controlled this morning, does increase for milligram every 4 hours. Most likely patient has worsening lower extremity swelling secondary to renal failure. His left side looks more swollen and tense compared to the right side however there is no rash or discoloration, both extremities are warm to touch and left dorsalis pedis is present , however is not as sensitive measure and in view of persistent rhabdomyolysis we will need to rule out compartment syndrome, therefore x-ray of the left thigh and hip is ordered but compartment syndrome can happen even without fracture (leg is not shortened or rotated), however his left thigh is not like hard wood tense . Also there is no evidence of crush injury. Orthopedic team were consulted. Also patient increasing pain could be part of his heroine withdrawal. Patient reports increased loose stool and some abdominal discomfort but there is no increased lacrimation or vomiting, patient has dry mouth. He does not look anxious but is in distress due to thigh pain Patient clinically and see the patient he was gone for placement of dialysis catheter Plan for hemodialysis today. 11/26/2021 Patient continued to improve and he feels better today his pain is better controlled and his left thigh is is wrapped and placed a swollen Patient has no compartment syndrome, per orthopedic team Patient continues undergoing hemodialysis, creatinine is still elevated 7.8. Liver enzymes and creatinine kinase are trending down, creatinine kinase 63,000. Vision continue on IV fluids Patient will be transferred to general medical floor 11/28/2019 Pain and swelling of his lower extremity is improving History of complaining of from some pain mostly secondary to his medical problems on the top of his heroine withdrawal. Risks and benefits explained for him. Continue with hemodialysis Objective - Vital Signs Vital signs: Vital Signs Temp 97.4 F L 11/27/21 13:19 Pulse 75 11/27/21 13:19 Resp 18 11/27/21 13:19 BP 146/72 11/27/21 13:19 Pulse Ox 96 11/27/21 13:19 FiO2 Intake & Output 11/26/21 11/27/21 11/27/21 18:59 06:59 18:59 Intake Total 1100 225 118 Output Total 200 3150 Balance 900 -2925 118 Intake: IV 1100 0.9 Sodium Chloride 1100 Intake, IV Titration 225 Amount Sodium Chloride 0.9% 1, 225 000 ml @ 70 mls/hr IV . [id number] [facility] Rx#:[id number] Oral 118 Output: Urine 200 3150 Other: Voiding Method Indwelling Catheter Indwelling Catheter Indwelling Catheter ABP, PAP, CO, CI - Last Documented Arterial Blood Pressure 139/42 - Exam -GENERAL: The patient is alert and oriented x3, in mild distress due to left- sided pain . Well developed, well nourished. HEENT: Pupils are round and equally reacting to light. EOMI. No scleral icterus. No conjunctival pallor. Normocephalic, atraumatic. No pharyngeal erythema. No thyromegaly. CARDIOVASCULAR: S1 and S2 present. No murmurs, rubs, or gallops. PULMONARY: Chest is clear to auscultation, no wheezing or crackles. ABDOMEN: Soft, nontender, nondistended, normoactive bowel sounds. No palpable organomegaly. MUSCULOSKELETAL: No joint swelling or deformity. -EXTREMITIES: No cyanosis, clubbing, . Left thigh swelling and tenderness, and to lesser extent right side. Dorsalis pedis is present NEUROLOGICAL: Gross neurological examination did not reveal any focal deficits. SKIN: No rashes. no petechiae. - Labs CBC & Chem 7: 11/27/21 07:57 11/27/21 11:01 Labs: Abnormal Lab Results - Last 24 Hours (Table) 11/27/21 11/27/21 Range/Units 07:57 11:01 Plt Count 96 L (150-450) k/uL Sodium 125 L (137-145) mmol/L Potassium 6.2 H* (3.5-5.1) mmol/L Chloride 92 L (98-107) mmol/L BUN 91 H (9-20) mg/dL Creatinine 9.58 H* (0.66-1.25) mg/dL Glucose 103 H (74-99) mg/dL Calcium 7.0 L (8.4-10.2) mg/dL AST 544 H (17-59) U/L ALT 341 H (4-49) U/L Creatine Kinase 45279 H* (55-170) U/L Total Protein 4.1 L (6.3-8.2) g/dL Albumin 2.2 L (3.5-5.0) g/dL Microbiology - Last 24 Hours (Table) 11/22/21 08:00 Blood Culture - Preliminary Blood No Growth after 120 hours Assessment and Plan Assessment: Rhabdomyolysis Altered mental status secondary to Metabolic/toxic encephalopathy, improved Acute kidney injury and hyperkalemia secondary to rhabdomyolysis Left thigh as well as extremity swelling secondary to renal failure. Compartment syndrome ruled out Drug abuse and heroin withdrawal depression with recent loss and family Nicotine dependence Transaminitis, improving Elevated troponin, mild, secondary to leak troponin, acute coronary syndrome ruled out. Patient with no chest pain Plan: This is a pleasant 41 years old male who presents with acute kidney injury and heroin withdrawal and abuse Continue hemodialysis as recommended by her director of emergency nursing Continue monitoring creatinine kinase X-ray of the left femur and hip, consult orthopedic team Symptomatic treatment for withdrawal symptoms Nephrology consult with plan for possible more hemodialysis Start patient on Levaquin, suspicion of infection is low. We will discontinue biotic if urine culture is negative Labs and medication were reviewed.. Continue same treatment. Continue with symptomatic treatment. Resume home medication. Monitor lytes and vitals. DVT and GI prophylaxis. Further recommendations as per clinical course of the patient DVT prophylaxis: Already on Subcutaneous heparin GI Prophylaxis: Pepcid Prognosis is guarded
[2021-11-28] MEDS: SODIUM CHLORIDE 0.9% 1,000 ML IV SCH (02:58)
[2021-11-28] MEDS: MORPHINE SULFATE 2 MG/ML SYRINGE IVP PRN ×5 (02:58→20:34)
[2021-11-28] MEDS: HEPARIN SODIUM,PORCINE/PF 5,000 UNIT/0.5 ML SYRINGE SQ SCH ×2 (08:39→20:34)
[2021-11-28] MEDS: FAMOTIDINE 20 MG/2 ML VIAL IV SCH (08:40)
[2021-11-28] MEDS: NICOTINE 21MG/24HR PATCH TRANSDERM SCH (08:40)
[2021-11-28] MEDS: ONDANSETRON 4 MG/2 ML VIAL IVP PRN ×2 (11:44→20:34)
[2021-11-28 12:15] LABS: Calcium 7.3 mg/dL (8.4-10.2)
--- NOTE | 2021-11-28 13:31 | P.PN ---
Subjective Patient is seen for follow-up for acute kidney injury currently hemodialysis dependent. Etiology is severe rhabdomyolysis. Patient was also severely hyperkalemic on initial admission. Started on hemodialysis on 11/22/2081. Urine output has improved. Patient is awake, comfortable not in any acute distress. Trying to increase oral intake. Nausea has improved. CK level is decreasing. Complaining of significant scrotal swelling. Objective - Vital Signs Vital signs: Vital Signs Temp 98.6 F 11/28/21 08:35 Pulse 75 11/28/21 08:35 Resp 18 11/28/21 08:35 BP 147/74 11/28/21 08:35 Pulse Ox 97 11/28/21 08:35 FiO2 Intake & Output 11/27/21 11/28/21 11/28/21 18:59 06:59 18:59 Intake Total 503 0 Output Total 150 Balance 503 -150 0 Weight 114 kg Intake: IV 385 0.9 Sodium Chloride 385 Oral 118 0 Output: Urine 150 Other: Voiding Method Indwelling Catheter Indwelling Catheter Indwelling Catheter # Bowel Movements 1 ABP, PAP, CO, CI - Last Documented Arterial Blood Pressure 139/42 - Exam Awake, comfortable, not in any acute distress Alert oriented 3 Examination of the heart S1 and S2 Examination lungs bilateral breath sounds are heard Abdomen is soft nontender Examination of lower extremities shows 2+ edema with significant scrotal edema HIMS CODER exam grossly intact - Labs CBC & Chem 7: 11/27/21 07:57 11/28/21 11:39 Labs: Abnormal Lab Results - Last 24 Hours (Table) 11/28/21 Range/Units 11:39 Sodium 126 L (137-145) mmol/L Potassium 6.0 H (3.5-5.1) mmol/L Chloride 95 L (98-107) mmol/L BUN 77 H (9-20) mg/dL Creatinine 8.15 H* (0.66-1.25) mg/dL Glucose 105 H (74-99) mg/dL Calcium 7.3 L (8.4-10.2) mg/dL Microbiology - Last 24 Hours (Table) 11/22/21 08:00 Blood Culture - Final Blood No Growth after 144 hours Assessment and Plan Assessment: 1. Acute kidney injury secondary to ATN secondary to rhabdomyolysis. Started on dialysis on 11/22/2021 [place] [address] today 2. Hyperkalemia secondary to acute kidney injury and metabolic acidosis. Resolved 3. Hyponatremia secondary to acute kidney injury. 4. Metabolic acidosis secondary to acute kidney injury and lactic acidosis, resolved 5. Hyperphosphatemia secondary to acute kidney injury. Phosphorus is improved 6. Hypocalcemia secondary to acute kidney injury. Calcium remains low at 5.2 > 5.4 expected to improve after dialysis. Watch for rebound increase as his rha bdomyolysis resolves. Rule out nutritional vitamin D deficiency 7. IV drug abuse. 8. Rhabdomyolysis secondary to IV drug abuse and immobility. CK level greater than 160,000. 9. Transaminitis likely secondary to rhabdomyolysis with release of enzymes from muscle cells Plan: DC IV fluids Hemodialysis today and then again in a.m. Add IV Lasix
[2021-11-28] MEDS ORDERED: DOCUSATE 100 MG CAP PO PRN (16:18)
--- NOTE | 2021-11-28 16:22 | P.PN ---
Subjective Pleasant 41 years old male with no significant past medical history presents with some withdrawal symptoms Patient is confused, opens eyes spontaneously and go back to sleep, does not follow commands and he is on restrains. Patient cannot provide history and information was obtained from his is here at bedside. Patient's states that he has history of depression, hallucinations, and sometimes he talks to the wall even when he is not on a drugs. He has history of drug addict with her when where he injects in his both forearms for the last 2 years on and off. His mother about 2 years ago. Over the last 3 months he was cleaned from any other drug abuse but he relapsed over the last 3 weeks when he has his sister and he went to visit his niece. Patient looks more with her daughter for babysitting her grandkids. She saw him 3 times over the last 3 months and all times he was high She talked to him night before asking her to come and visit him but she could not do so until 3 PM yesterday when she found him on the floor/stairs, and she brought him to the emergency room where he told her and emergency room staff he was been using her when since o'clock in the morning. No one knows what happene d between 6 AM and 3 PM. denies 's previous history of suicidal attempts orientation but he has history of overdose. He has Collins catheter with darker brown muddy colored urine. Vitals are stable and patient is afebrile. Labs showing mild leukocytosis of 11.3. Evaluated d-dimer 6.18 Sodium is 129, potassium elevated 8.4. Creatinine elevated 5.3. Glucose 155. Lactic acid elevated 3.9. Low collar some 6.6. High phosphorus more than 13. Magnesium elevated to 3.1. Total bilirubin is normal 1.3. Elevated AST 348 for an ALT 1146. Elevated troponin 0.9. High creatinine kinase more than 146297. Urine analysis showed RBCs elevated to 20 and WBCs elevated 56. Urine drug screen is negative EKG showing sinus tachycardia at 102. No significant ST-T changes. There is no imaging done 11-23-21 A clinically awake and alert, no evidence of cellulitis, patient does not have specific complaints. No significant hematoma of the scalp. He still has elevated creatine kinase with rhabdomyolysis with acute kidney injury requiring hemodialysis. Patient may need to go for another hemodialysis today per her software configuration specialist. He is an anuric and making very little urine output No chest pain or dyspnea no other specific complaints. His urine analysis is slightly abnormal, no urinary symptoms, Pro-calcitonin is elevated but is trending down. His liver enzymes significantly improving, liver ultrasound showing no specific abnormality. Most likely secondary to his rhabdomyolysis. Patient and are aware of patient diagnosis of hep C IgG positive Patient does not looks depressed or suicidal. 11-25-21 Patient is awake and alert, however overnight started having severe pain in his left thigh, morphine 2 mg every 4 hours was added blood pain is not controlled this morning, does increase for milligram every 4 hours. Most likely patient has worsening lower extremity swelling secondary to renal failure. His left side looks more swollen and tense compared to the right side however there is no rash or discoloration, both extremities are warm to touch and left dorsalis pedis is present , however is not as sensitive measure and in view of persistent rhabdomyolysis we will need to rule out compartment syndrome, therefore x-ray of the left thigh and hip is ordered but compartment syndrome can happen even without fracture (leg is not shortened or rotated), however his left thigh is not like hard wood tense . Also there is no evidence of crush injury. Orthopedic team were consulted. Also patient increasing pain could be part of his heroine withdrawal. Patient reports increased loose stool and some abdominal discomfort but there is no increased lacrimation or vomiting, patient has dry mouth. He does not look anxious but is in distress due to thigh pain Patient clinically and see the patient he was gone for placement of dialysis catheter Plan for hemodialysis today. 11/26/2021 Patient continued to improve and he feels better today his pain is better controlled and his left thigh is is wrapped and placed a swollen Patient has no compartment syndrome, per orthopedic team Patient continues undergoing hemodialysis, creatinine is still elevated 7.8. Liver enzymes and creatinine kinase are trending down, creatinine kinase 63,000. Vision continue on IV fluids Patient will be transferred to general medical floor 11/28/2019 Pain and swelling of his lower extremity is improving History of complaining of from some pain mostly secondary to his medical problems on the top of his heroine withdrawal. Risks and benefits explained for him. Continue with hemodialysis 11/28/2021 Patient is awake and alert Distal complaining of from pain and swelling in his both lower extremities related to his rhabdomyolysis,. It is extensive but improving gradually and slowly. CK is trending down Patient creatinine and potassium still elevated despite hemodialysis, he underw ent hemodialysis today and one more tomorrow. He had no bowel movement 2 days. We will add Colace as needed. Objective - Vital Signs Vital signs: Vital Signs Temp 98.6 F 11/28/21 08:35 Pulse 75 11/28/21 08:35 Resp 18 11/28/21 08:35 BP 147/74 11/28/21 08:35 Pulse Ox 97 11/28/21 08:35 FiO2 Intake & Output 11/27/21 11/28/21 11/28/21 18:59 06:59 18:59 Intake Total 503 0 Output Total 150 175 Balance 503 -150 -175 Weight 114 kg Intake: IV 385 0.9 Sodium Chloride 385 Oral 118 0 Output: Urine 150 175 Other: Voiding Method Indwelling Catheter Indwelling Catheter Indwelling Catheter # Bowel Movements 1 ABP, PAP, CO, CI - Last Documented Arterial Blood Pressure 139/42 - Exam -GENERAL: The patient is alert and oriented x3, in mild distress due to left- sided pain . Well developed, well nourished. HEENT: Pupils are round and equally reacting to light. EOMI. No scleral icterus. No conjunctival pallor. Normocephalic, atraumatic. No pharyngeal erythema. No thyromegaly. CARDIOVASCULAR: S1 and S2 present. No murmurs, rubs, or gallops. PULMONARY: Chest is clear to auscultation, no wheezing or crackles. ABDOMEN: Soft, nontender, nondistended, normoactive bowel sounds. No palpable organomegaly. MUSCULOSKELETAL: No joint swelling or deformity. -EXTREMITIES: No cyanosis, clubbing, . Left thigh swelling and tenderness, and to lesser extent right side. Dorsalis pedis is present NEUROLOGICAL: Gross neurological examination did not reveal any focal deficits. SKIN: No rashes. no petechiae. - Labs CBC & Chem 7: 11/27/21 07:57 11/28/21 11:39 Labs: Abnormal Lab Results - Last 24 Hours (Table) 11/28/21 Range/Units 11:39 Sodium 126 L (137-145) mmol/L Potassium 6.0 H (3.5-5.1) mmol/L Chloride 95 L (98-107) mmol/L BUN 77 H (9-20) mg/dL Creatinine 8.15 H* (0.66-1.25) mg/dL Glucose 105 H (74-99) mg/dL Calcium 7.3 L (8.4-10.2) mg/dL Microbiology - Last 24 Hours (Table) 11/22/21 08:00 Blood Culture - Final Blood No Growth after 144 hours Assessment and Plan Assessment: Rhabdomyolysis Altered mental status secondary to Metabolic/toxic encephalopathy, improved Acute kidney injury and hyperkalemia secondary to rhabdomyolysis Left thigh as well as extremity swelling secondary to renal failure. Compartment syndrome ruled out Drug abuse and heroin withdrawal depression with recent loss and family Nicotine dependence Transaminitis, improving Elevated troponin, mild, secondary to leak troponin, acute coronary syndrome ruled out. Patient with no chest pain Plan: This is a pleasant 41 years old male who presents with acute kidney injury and heroin withdrawal and abuse Continue hemodialysis as recommended by her software configuration specialist Continue monitoring creatinine kinase X-ray of the left femur and hip, consult orthopedic team Start Colace Continue with IV Lasix Labs and medication were reviewed.. Continue same treatment. Continue with symptomatic treatment. Resume home medication. Monitor lytes and vitals. DVT and GI prophylaxis. Further recommendations as per clinical course of the patient DVT prophylaxis: Already on Subcutaneous heparin GI Prophylaxis: Pepcid Prognosis is guarded
[2021-11-28 18:58] LABS: HCT 38.3 % (39.0-53.0); HGB 13.3 gm/dL (13.0-17.5); MCHC 34.9 g/dL (31.0-37.0); MCV 88.8 fL (80.0-100.0); Mean Platelet Volume 9.5; Platelet Count 108 k/uL (150-450); RBC 4.31 m/uL (4.30-5.90); RDW 15.6 % (11.5-15.5); WBC 12.7 k/uL (3.8-10.6)
[2021-11-28 19:05] LABS: Calcium 7.5 mg/dL (8.4-10.2); Potassium 4.6 mmol/L (3.5-5.1)
[2021-11-28] MEDS: FUROSEMIDE 10 MG/ML 10 ML VIAL IV SCH (20:33)
[2021-11-28] MEDS: MELATONIN 3 MG TABLET PO SCH (20:34)
[2021-11-28] MEDS: cloNIDine 0.2 MG/24HR PATCH TRANSDERM SCH (22:11)
[2021-11-29] MEDS: MORPHINE SULFATE 2 MG/ML SYRINGE IVP PRN ×6 (00:40→22:23)
[2021-11-29] MEDS: ONDANSETRON 4 MG/2 ML VIAL IVP PRN (08:35)
--- NOTE | 2021-11-29 10:26 | P.PN ---
Subjective Pleasant 41 years old male with no significant past medical history presents with some withdrawal symptoms Patient is confused, opens eyes spontaneously and go back to sleep, does not follow commands and he is on restrains. Patient cannot provide history and information was obtained from his is here at bedside. Patient's states that he has history of depression, hallucinations, and sometimes he talks to the wall even when he is not on a drugs. He has history of drug addict with her when where he injects in his both forearms for the last 2 years on and off. His mother about 2 years ago. Over the last 3 months he was cleaned from any other drug abuse but he relapsed over the last 3 weeks when he has his sister and he went to visit his niece. Patient looks more with her daughter for babysitting her grandkids. She saw him 3 times over the last 3 months and all times he was high She talked to him night before asking her to come and visit him but she could not do so until 3 PM yesterday when she found him on the floor/stairs, and she brought him to the emergency room where he told her and emergency room staff he was been using her when since o'clock in the morning. No one knows what happene d between 6 AM and 3 PM. denies 's previous history of suicidal attempts orientation but he has history of overdose. He has Collins catheter with darker brown muddy colored urine. Vitals are stable and patient is afebrile. Labs showing mild leukocytosis of 11.3. Evaluated d-dimer 6.18 Sodium is 129, potassium elevated 8.4. Creatinine elevated 5.3. Glucose 155. Lactic acid elevated 3.9. Low collar some 6.6. High phosphorus more than 13. Magnesium elevated to 3.1. Total bilirubin is normal 1.3. Elevated AST 348 for an ALT 1146. Elevated troponin 0.9. High creatinine kinase more than [id number]. Urine analysis showed RBCs elevated to 20 and WBCs elevated 56. Urine drug screen is negative EKG showing sinus tachycardia at 102. No significant ST-T changes. There is no imaging done 11-23-21 A clinically awake and alert, no evidence of cellulitis, patient does not have specific complaints. No significant hematoma of the scalp. He still has elevated creatine kinase with rhabdomyolysis with acute kidney injury requiring hemodialysis. Patient may need to go for another hemodialysis today per her financial compliance examiner. He is an anuric and making very little urine output No chest pain or dyspnea no other specific complaints. His urine analysis is slightly abnormal, no urinary symptoms, Pro-calcitonin is elevated but is trending down. His liver enzymes significantly improving, liver ultrasound showing no specific abnormality. Most likely secondary to his rhabdomyolysis. Patient and are aware of patient diagnosis of hep C IgG positive Patient does not looks depressed or suicidal. 11-25-21 Patient is awake and alert, however overnight started having severe pain in his left thigh, morphine 2 mg every 4 hours was added blood pain is not controlled this morning, does increase for milligram every 4 hours. Most likely patient has worsening lower extremity swelling secondary to renal failure. His left side looks more swollen and tense compared to the right side however there is no rash or discoloration, both extremities are warm to touch and left dorsalis pedis is present , however is not as sensitive measure and in view of persistent rhabdomyolysis we will need to rule out compartment syndrome, therefore x-ray of the left thigh and hip is ordered but compartment syndrome can happen even without fracture (leg is not shortened or rotated), however his left thigh is not like hard wood tense . Also there is no evidence of crush injury. Orthopedic team were consulted. Also patient increasing pain could be part of his heroine withdrawal. Patient reports increased loose stool and some abdominal discomfort but there is no increased lacrimation or vomiting, patient has dry mouth. He does not look anxious but is in distress due to thigh pain Patient clinically and see the patient he was gone for placement of dialysis catheter Plan for hemodialysis today. 11/26/2021 Patient continued to improve and he feels better today his pain is better controlled and his left thigh is is wrapped and placed a swollen Patient has no compartment syndrome, per orthopedic team Patient continues undergoing hemodialysis, creatinine is still elevated 7.8. Liver enzymes and creatinine kinase are trending down, creatinine kinase 63,000. Vision continue on IV fluids Patient will be transferred to general medical floor 11/28/2019 Pain and swelling of his lower extremity is improving History of complaining of from some pain mostly secondary to his medical problems on the top of his heroine withdrawal. Risks and benefits explained for him. Continue with hemodialysis 11/28/2021 Patient is awake and alert Distal complaining of from pain and swelling in his both lower extremities related to his rhabdomyolysis,. It is extensive but improving gradually and slowly. CK is trending down Patient creatinine and potassium still elevated despite hemodialysis, he underw ent hemodialysis today and one more tomorrow. He had no bowel movement 2 days. We will add Colace as needed. 11/29/2021 Patient is improving every day slowly and gradually. He still have significant pain in his lower extremity more on the left side than the right side however patient states that is improving Swelling also in the left lower extremity is also coming down. Patient still have difficulty moving his left leg because of severe pain in the thigh when he tries to do that of the muscle area. Most likely related to his significant severe rhabdomyolysis. His pain and tenderness more on the left side but it is bilateral and symmetrical. Associated with numbness in both toes and both fingers. There is no evidence of back pain. Patient could move his lower extremity but is limited by significant pain and tenderness which limits examination as well. Patient is having bowel movement once a day. He continue on IV Lasix and getting hemodialysis. Objective - Vital Signs Vital signs: Vital Signs Temp 97.7 F 11/29/21 04:43 Pulse 72 11/29/21 09:39 Resp 16 11/29/21 08:00 BP 130/60 11/29/21 08:00 Pulse Ox 97 11/29/21 08:00 FiO2 Intake & Output 11/28/21 11/29/21 11/29/21 18:59 06:59 18:59 Intake Total 1078 240 118 Output Total 175 150 Balance 903 90 118 Weight 114 kg Intake: Oral 1078 240 118 Output: Urine 175 150 Other: Voiding Method Indwelling Catheter Indwelling Catheter Indwelling Catheter # Bowel Movements 1 ABP, PAP, CO, CI - Last Documented Arterial Blood Pressure 139/42 - Exam -GENERAL: The patient is alert and oriented x3, in mild distress due to left- sided pain . Well developed, well nourished. HEENT: Pupils are round and equally reacting to light. EOMI. No scleral icterus. No conjunctival pallor. Normocephalic, atraumatic. No pharyngeal erythema. No thyromegaly. CARDIOVASCULAR: S1 and S2 present. No murmurs, rubs, or gallops. PULMONARY: Chest is clear to auscultation, no wheezing or crackles. ABDOMEN: Soft, nontender, nondistended, normoactive bowel sounds. No palpable organomegaly. MUSCULOSKELETAL: No joint swelling or deformity. -EXTREMITIES: No cyanosis, clubbing, . Left thigh swelling and tenderness, and to lesser extent right side. Dorsalis pedis is present NEUROLOGICAL: Gross neurological examination did not reveal any focal deficits. SKIN: No rashes. no petechiae. - Labs CBC & Chem 7: 11/28/21 18:00 11/28/21 18:00 Labs: Abnormal Lab Results - Last 24 Hours (Table) 11/28/21 11/28/21 11/28/21 Range/Units 11:39 18:00 18:00 WBC 12.7 H (3.8-10.6) k/uL Hct 38.3 L (39.0-53.0) % RDW 15.6 H (11.5-15.5) % Plt Count 108 L (150-450) k/uL Sodium 126 L 130 L (137-145) mmol/L Potassium 6.0 H (3.5-5.1) mmol/L Chloride 95 L 95 L (98-107) mmol/L BUN 77 H 47 H (9-20) mg/dL Creatinine 8.15 H* 5.46 H (0.66-1.25) mg/dL Glucose 105 H 113 H (74-99) mg/dL Calcium 7.3 L 7.5 L (8.4-10.2) mg/dL Creatine Kinase (55-170) U/L 11/28/21 Range/Units 18:00 WBC (3.8-10.6) k/uL Hct (39.0-53.0) % RDW (11.5-15.5) % Plt Count (150-450) k/uL Sodium (137-145) mmol/L Potassium (3.5-5.1) mmol/L Chloride (98-107) mmol/L BUN (9-20) mg/dL Creatinine (0.66-1.25) mg/dL Glucose (74-99) mg/dL Calcium (8.4-10.2) mg/dL Creatine Kinase 49836 H* (55-170) U/L Microbiology - Last 24 Hours (Table) 11/22/21 08:00 Blood Culture - Final Blood No Growth after 144 hours Assessment and Plan Assessment: Severe Rhabdomyolysis, present on admission Altered mental status secondary to Metabolic/toxic encephalopathy, improved Acute kidney injury and hyperkalemia secondary to rhabdomyolysis Left thigh as well as extremity swelling secondary to renal failure. Compart ment syndrome ruled out Drug abuse and heroin withdrawal depression with recent loss and family Nicotine dependence Transaminitis, improving Elevated troponin, mild, secondary to leak troponin, acute coronary syndrome ruled out. Patient with no chest pain Plan: This is a pleasant 41 years old male who presents with acute kidney injury and heroin withdrawal and abuse Continue hemodialysis as recommended by her financial compliance examiner Continue monitoring creatinine kinase Continue with IV Lasix Labs and medication were reviewed.. Continue same treatment. Continue with sym ptomatic treatment. Resume home medication. Monitor lytes and vitals. DVT and GI prophylaxis. Further recommendations as per clinical course of the patient DVT prophylaxis: Already on Subcutaneous heparin GI Prophylaxis: Pepcid Prognosis is guarded
--- NOTE | 2021-11-29 11:49 | P.PN ---
Subjective Patient is seen for follow-up for acute kidney injury currently hemodialysis dependent. Etiology is severe rhabdomyolysis. Patient was also severely hyperkalemic on initial admission. Started on hemodialysis on 11/22/2081. Urine output has improved. Patient is awake, comfortable not in any acute distress. Trying to increase oral intake. Nausea has improved. CK level is decreasing. Complaining of significant scrotal swelling. Seen on hemodialysis today. Tolerating treatment well. Objective - Vital Signs Vital signs: Vital Signs Temp 97.7 F 11/29/21 04:43 Pulse 72 11/29/21 09:39 Resp 16 11/29/21 08:00 BP 130/60 11/29/21 08:00 Pulse Ox 97 11/29/21 08:00 FiO2 Intake & Output 11/28/21 11/29/21 11/29/21 18:59 06:59 18:59 Intake Total 1078 240 118 Output Total 175 150 Balance 903 90 118 Weight 114 kg Intake: Oral 1078 240 118 Output: Urine 175 150 Other: Voiding Method Indwelling Catheter Indwelling Catheter Indwelling Catheter # Bowel Movements 1 ABP, PAP, CO, CI - Last Documented Arterial Blood Pressure 139/42 - Exam Awake, comfortable, not in any acute distress Alert oriented 3 Examination of the heart S1 and S2 Examination lungs bilateral breath sounds are heard Abdomen is soft nontender Examination of lower extremities shows 2+ edema with significant scrotal edema PLATE INSPECTOR exam grossly intact - Labs CBC & Chem 7: 11/28/21 18:00 11/28/21 18:00 Labs: Abnormal Lab Results - Last 24 Hours (Table) 11/28/21 11/28/21 11/28/21 Range/Units 11:39 18:00 18:00 WBC 12.7 H (3.8-10.6) k/uL Hct 38.3 L (39.0-53.0) % RDW 15.6 H (11.5-15.5) % Plt Count 108 L (150-450) k/uL Sodium 126 L 130 L (137-145) mmol/L Potassium 6.0 H (3.5-5.1) mmol/L Chloride 95 L 95 L (98-107) mmol/L BUN 77 H 47 H (9-20) mg/dL Creatinine 8.15 H* 5.46 H (0.66-1.25) mg/dL Glucose 105 H 113 H (74-99) mg/dL Calcium 7.3 L 7.5 L (8.4-10.2) mg/dL Creatine Kinase (55-170) U/L 11/28/21 Range/Units 18:00 WBC (3.8-10.6) k/uL Hct (39.0-53.0) % RDW (11.5-15.5) % Plt Count (150-450) k/uL Sodium (137-145) mmol/L Potassium (3.5-5.1) mmol/L Chloride (98-107) mmol/L BUN (9-20) mg/dL Creatinine (0.66-1.25) mg/dL Glucose (74-99) mg/dL Calcium (8.4-10.2) mg/dL Creatine Kinase [id number] H* (55-170) U/L Microbiology - Last 24 Hours (Table) 11/22/21 08:00 Blood Culture - Final Blood No Growth after 144 hours Assessment and Plan Assessment: 1. Acute kidney injury secondary to ATN secondary to rhabdomyolysis. Started on dialysis on 11/22/2021 [place] [id number] today 2. Hyperkalemia secondary to acute kidney injury and metabolic acidosis. Resolved 3. Hyponatremia secondary to acute kidney injury. 4. Metabolic acidosis secondary to acute kidney injury and lactic acidosis, resolved 5. Hyperphosphatemia secondary to acute kidney injury. Phosphorus is improved 6. Hypocalcemia secondary to acute kidney injury. Calcium remains low at 5.2 > 5.4 expected to improve after dialysis. Watch for rebound increase as his rhabdomyolysis resolves. Rule out nutritional vitamin D deficiency 7. IV drug abuse. 8. Rhabdomyolysis secondary to IV drug abuse and immobility. CK level greater than 160,000. 9. Transaminitis likely secondary to rhabdomyolysis with release of enzymes from muscle cells Plan: Hemodialysis in a.m. for volume overload. Continue with IV Lasix
[2021-11-29] MEDS: NICOTINE 21MG/24HR PATCH TRANSDERM SCH (12:39)
[2021-11-29] MEDS: FAMOTIDINE 20 MG/2 ML VIAL IV SCH (12:40)
[2021-11-29] MEDS: FUROSEMIDE 10 MG/ML 10 ML VIAL IV SCH ×2 (12:40→20:30)
[2021-11-29] MEDS: HEPARIN SODIUM,PORCINE/PF 5,000 UNIT/0.5 ML SYRINGE SQ SCH ×2 (12:40→20:30)
[2021-11-29] MEDS: MELATONIN 3 MG TABLET PO SCH (20:30)
[2021-11-30] MEDS: MORPHINE SULFATE 2 MG/ML SYRINGE IVP PRN ×5 (03:53→22:42)
[2021-11-30] MEDS: HEPARIN SODIUM,PORCINE/PF 5,000 UNIT/0.5 ML SYRINGE SQ SCH ×2 (08:16→19:44)
[2021-11-30] MEDS: FAMOTIDINE 20 MG/2 ML VIAL IV SCH (08:17)
[2021-11-30] MEDS: FUROSEMIDE 10 MG/ML 10 ML VIAL IV SCH ×2 (08:17→19:44)
[2021-11-30] MEDS: NICOTINE 21MG/24HR PATCH TRANSDERM SCH (08:18)
--- NOTE | 2021-11-30 11:22 | P.PN ---
Subjective Patient is seen in follow-up for acute kidney injury, currently hemodialysis dependent. Tolerating dialysis well. CK levels trending down. Awake and alert. Denies chest pain or shortness of breath. Urine output documented as 350 mL in the last 24 hours. Vital signs are stable. General: Awake. No acute distress. HEENT: Head exam is unremarkable. LUNGS: Breath sounds decreased. HEART: Rate and Rhythm are regular. ABDOMEN: Soft, no distention. EXTREMITITES: 1+ edema. Objective - Vital Signs Vital signs: Vital Signs Temp 98.3 F 11/30/21 00:11 Pulse 86 11/30/21 08:31 Resp 16 11/30/21 08:31 BP 115/55 11/30/21 08:31 Pulse Ox 98 11/30/21 08:31 FiO2 Intake & Output 11/29/21 11/30/21 11/30/21 18:59 06:59 18:59 Intake Total 472 180 Output Total 3000 350 Balance -2528 -350 180 Weight 116 kg Intake: Oral 472 180 Output: Urine 350 Hemodialysis 3000 Other: Voiding Method Indwelling Catheter Indwelling Catheter Indwelling Catheter # Bowel Movements 0 ABP, PAP, CO, CI - Last Documented Arterial Blood Pressure 139/42 - Labs CBC & Chem 7: 11/28/21 18:00 11/28/21 18:00 Assessment and Plan Plan: Assessment: 1. Acute kidney injury secondary to ATN secondary to rhabdomyolysis. Started on hemodialysis November 22, 2021. Creatinine July 2018 was 0.79. Rule out obstructive uropathy. 2. Hyperkalemia secondary to acute kidney injury and metabolic acidosis. Improved postdialysis. 3. Hyponatremia secondary to acute kidney injury. Improved postdialysis. Hypervolemic. 4. Metabolic acidosis secondary to acute kidney injury and lactic acidosis. Better. 5. Hyperphosphatemia secondary to acute kidney injury. Phosphorus 5.8 dated 11/24/2021. 6. Hypocalcemia secondary to acute kidney injury. Replaced. Better. 7. IV drug abuse. 8. Rhabdomyolysis secondary to IV drug abuse and immobility. CK level greater than 160,000 initially. Trending down. 9. Transaminitis likely secondary to rhabdomyolysis. Improving. 10. Volume overload. Plan: Maintain IV Lasix. Currently seen while undergoing hemodialysis. Next treatment on Thursday. Repeat phosphorus level. Continue to monitor renal function and urine output. Monitor for renal recovery.
[2021-11-30] MEDS: MELATONIN 3 MG TABLET PO SCH (19:44)
[2021-11-30] MEDS: GABAPENTIN 100 MG CAP PO SCH (19:44)
--- NOTE | 2021-11-30 21:23 | P.PN ---
Subjective Pleasant 41 years old male with no significant past medical history presents with some withdrawal symptoms Patient is confused, opens eyes spontaneously and go back to sleep, does not follow commands and he is on restrains. Patient cannot provide history and information was obtained from his is here at bedside. Patient's states that he has history of depression, hallucinations, and sometimes he talks to the wall even when he is not on a drugs. He has history of drug addict with her when where he injects in his both forearms for the last 2 years on and off. His mother about 2 years ago. Over the last 3 months he was cleaned from any other drug abuse but he relapsed over the last 3 weeks when he has his sister and he went to visit his niece. Patient looks more with her daughter for babysitting her grandkids. She saw him 3 times over the last 3 months and all times he was high She talked to him night before asking her to come and visit him but she could not do so until 3 PM yesterday when she found him on the floor/stairs, and she brought him to the emergency room where he told her and emergency room staff he was been using her when since o'clock in the morning. No one knows what happene d between 6 AM and 3 PM. denies 's previous history of suicidal attempts orientation but he has history of overdose. He has Collins catheter with darker brown muddy colored urine. Vitals are stable and patient is afebrile. Labs showing mild leukocytosis of 11.3. Evaluated d-dimer 6.18 Sodium is 129, potassium elevated 8.4. Creatinine elevated 5.3. Glucose 155. Lactic acid elevated 3.9. Low collar some 6.6. High phosphorus more than 13. Magnesium elevated to 3.1. Total bilirubin is normal 1.3. Elevated AST 348 for an ALT 1146. Elevated troponin 0.9. High creatinine kinase more than [id number]. Urine analysis showed RBCs elevated to 20 and WBCs elevated 56. Urine drug screen is negative EKG showing sinus tachycardia at 102. No significant ST-T changes. There is no imaging done 11-23-21 A clinically awake and alert, no evidence of cellulitis, patient does not have specific complaints. No significant hematoma of the scalp. He still has elevated creatine kinase with rhabdomyolysis with acute kidney injury requiring hemodialysis. Patient may need to go for another hemodialysis today per her location manager. He is an anuric and making very little urine output No chest pain or dyspnea no other specific complaints. His urine analysis is slightly abnormal, no urinary symptoms, Pro-calcitonin is elevated but is trending down. His liver enzymes significantly improving, liver ultrasound showing no specific abnormality. Most likely secondary to his rhabdomyolysis. Patient and are aware of patient diagnosis of hep C IgG positive Patient does not looks depressed or suicidal. 11-25-21 Patient is awake and alert, however overnight started having severe pain in his left thigh, morphine 2 mg every 4 hours was added blood pain is not controlled this morning, does increase for milligram every 4 hours. Most likely patient has worsening lower extremity swelling secondary to renal failure. His left side looks more swollen and tense compared to the right side however there is no rash or discoloration, both extremities are warm to touch and left dorsalis pedis is present , however is not as sensitive measure and in view of persistent rhabdomyolysis we will need to rule out compartment syndrome, therefore x-ray of the left thigh and hip is ordered but compartment syndrome can happen even without fracture (leg is not shortened or rotated), however his left thigh is not like hard wood tense . Also there is no evidence of crush injury. Orthopedic team were consulted. Also patient increasing pain could be part of his heroine withdrawal. Patient reports increased loose stool and some abdominal discomfort but there is no increased lacrimation or vomiting, patient has dry mouth. He does not look anxious but is in distress due to thigh pain Patient clinically and see the patient he was gone for placement of dialysis catheter Plan for hemodialysis today. 11/26/2021 Patient continued to improve and he feels better today his pain is better controlled and his left thigh is is wrapped and placed a swollen Patient has no compartment syndrome, per orthopedic team Patient continues undergoing hemodialysis, creatinine is still elevated 7.8. Liver enzymes and creatinine kinase are trending down, creatinine kinase 63,000. Vision continue on IV fluids Patient will be transferred to general medical floor 11/28/2019 Pain and swelling of his lower extremity is improving History of complaining of from some pain mostly secondary to his medical problems on the top of his heroine withdrawal. Risks and benefits explained for him. Continue with hemodialysis 11/28/2021 Patient is awake and alert Distal complaining of from pain and swelling in his both lower extremities related to his rhabdomyolysis,. It is extensive but improving gradually and slowly. CK is trending down Patient creatinine and potassium still elevated despite hemodialysis, he underw ent hemodialysis today and one more tomorrow. He had no bowel movement 2 days. We will add Colace as needed. 11/29/2021 Patient is improving every day slowly and gradually. He still have significant pain in his lower extremity more on the left side than the right side however patient states that is improving Swelling also in the left lower extremity is also coming down. Patient still have difficulty moving his left leg because of severe pain in the thigh when he tries to do that of the muscle area. Most likely related to his significant severe rhabdomyolysis. His pain and tenderness more on the left side but it is bilateral and symmetrical. Associated with numbness in both toes and both fingers. There is no evidence of back pain. Patient could move his lower extremity but is limited by significant pain and tenderness which limits examination as well. Patient is having bowel movement once a day. He continue on IV Lasix and getting hemodialysis. 11/30/2021 Patient looks comfortable in bed. Distal complaining from pain in his legs especially the left leg but not as severe as the first few days. He is still complaining from weakness in his lower extremity, he's barely can move his legs off the bed, he barely could move his toes and this is since admission and actually it is improving every day. Most likely secondary to severe rhabdomyolysis which was more severe swelling from the beginning on the left lower extremity. Because of the slow improvement he wanted to rule out any neurological contributing factor therefore I consult a neurologist today. Who added tran pentin. And I discussed the case with him and most likely secondary to severe rhabdomyolysis from heroin overdose. We will continue monitoring Objective - Vital Signs Vital signs: Vital Signs Temp 97.7 F 11/30/21 15:01 Pulse 77 11/30/21 15:01 Resp 16 11/30/21 15:01 BP 101/54 11/30/21 15:01 Pulse Ox 99 11/30/21 14:18 FiO2 Intake & Output 11/29/21 11/30/21 11/30/21 18:59 06:59 18:59 Intake Total 472 680 Output Total 3000 350 2700 Weight 116 kg Intake: Oral 472 180 Hemodialysis 500 Output: Urine 350 200 Hemodialysis 3000 2500 Other: Voiding Method Indwelling Catheter Indwelling Catheter Indwelling Catheter # Bowel Movements 0 ABP, PAP, CO, CI - Last Documented Arterial Blood Pressure 139/42 - Exam -GENERAL: The patient is alert and oriented x3, in mild distress due to left- sided pain . Well developed, well nourished. HEENT: Pupils are round and equally reacting to light. EOMI. No scleral icterus. No conjunctival pallor. Normocephalic, atraumatic. No pharyngeal erythema. No thyromegaly. CARDIOVASCULAR: S1 and S2 present. No murmurs, rubs, or gallops. PULMONARY: Chest is clear to auscultation, no wheezing or crackles. ABDOMEN: Soft, nontender, nondistended, normoactive bowel sounds. No palpable organomegaly. MUSCULOSKELETAL: No joint swelling or deformity. -EXTREMITIES: No cyanosis, clubbing, . Left thigh swelling and tenderness, and to lesser extent right side. Dorsalis pedis is present NEUROLOGICAL: Gross neurological examination did not reveal any focal deficits. SKIN: No rashes. no petechiae. - Labs CBC & Chem 7: 11/28/21 18:00 11/28/21 18:00 Assessment and Plan Assessment: Severe Rhabdomyolysis, present on admission Altered mental status secondary to Metabolic/toxic encephalopathy, improved Acute kidney injury and hyperkalemia secondary to rhabdomyolysis Left thigh as well as extremity swelling secondary to renal failure. Compartment syndrome ruled out Drug abuse and heroin withdrawal depression with recent loss and family Nicotine dependence Transaminitis, improving Elevated troponin, mild, secondary to leak troponin, acute coronary syndrome ruled out. Patient with no chest pain Plan: This is a pleasant 41 years old male who presents with acute kidney injury and heroin withdrawal and abuse Continue hemodialysis as recommended by her location manager Continue monitoring creatinine kinase Continue with IV Lasix Labs and medication were reviewed.. Continue same treatment. Continue with symptomatic treatment. Resume home medication. Monitor lytes and vitals. DVT and GI prophylaxis. Further recommendations as per clinical course of the patient DVT prophylaxis: Already on Subcutaneous heparin GI Prophylaxis: Pepcid Prognosis is guarded
[2021-12-01] MEDS: MORPHINE SULFATE 2 MG/ML SYRINGE IVP PRN ×4 (05:03→20:29)
[2021-12-01] MEDS: HEPARIN SODIUM,PORCINE/PF 5,000 UNIT/0.5 ML SYRINGE SQ SCH ×2 (09:10→20:29)
[2021-12-01] MEDS: FAMOTIDINE 20 MG/2 ML VIAL IV SCH (09:10)
[2021-12-01] MEDS: GABAPENTIN 100 MG CAP PO SCH ×2 (09:10→20:28)
[2021-12-01] MEDS: NICOTINE 21MG/24HR PATCH TRANSDERM SCH (09:10)
[2021-12-01] MEDS: FUROSEMIDE 10 MG/ML 10 ML VIAL IV SCH ×2 (09:11→23:29)
--- NOTE | 2021-12-01 10:15 | P.PN ---
Subjective Patient is seen in follow-up for acute kidney injury, currently hemodialysis dependent. Tolerated dialysis well yesterday with 2.5 L ultrafiltration. CK levels trending down. Awake and alert. Denies chest pain or shortness of breath. Urine output documented as 550 mL in the last 24 hours. Vital signs are stable. General: Awake. No acute distress. HEENT: Head exam is unremarkable. LUNGS: Breath sounds decreased. HEART: Rate and Rhythm are regular. ABDOMEN: Soft, no distention. EXTREMITITES: 1+ edema. Objective - Vital Signs Vital signs: Vital Signs Temp 99.2 F 12/01/21 09:29 Pulse 76 12/01/21 09:29 Resp 16 12/01/21 09:29 BP 107/57 12/01/21 09:29 Pulse Ox 100 12/01/21 09:29 FiO2 Intake & Output 11/30/21 12/01/21 12/01/21 18:59 06:59 18:59 Intake Total 680 Output Total 2700 300 Balance -[id number] Intake: Oral 180 Hemodialysis 500 Output: Urine 200 300 Hemodialysis 2500 Other: Voiding Method Indwelling Catheter Indwelling Catheter ABP, PAP, CO, CI - Last Documented Arterial Blood Pressure 139/42 - Labs CBC & Chem 7: 11/28/21 18:00 11/28/21 18:00 Assessment and Plan Plan: Assessment: 1. Acute kidney injury secondary to ATN secondary to rhabdomyolysis. Started on hemodialysis November 22, 2021. Creatinine July 2018 was 0.79. No hydronephrosis noted on kidney ultrasound. Left kidney was not properly visualized. 2. Hyperkalemia secondary to acute kidney injury and metabolic acidosis. Improved postdialysis. 3. Hyponatremia secondary to acute kidney injury. Improved postdialysis. Hypervolemic. 4. Metabolic acidosis secondary to acute kidney injury and lactic acidosis. Better. 5. Hyperphosphatemia secondary to acute kidney injury. Phosphorus 5.8 dated 11/24/2021. Phosphorus level 4.3 dated 11/30/2021. 6. Hypocalcemia secondary to acute kidney injury. Replaced. Better. 7. IV drug abuse. 8. Rhabdomyolysis secondary to IV drug abuse and immobility. CK level greater than 160,000 initially. Trending down. 9. Transaminitis likely secondary to rhabdomyolysis. Improving. 10. Volume overload. 11. Hep C IgG Ab reactive. Consider GI eval. Plan: Maintain IV Lasix. Hemodialysis tomorrow. Continue to monitor renal function and urine output. Monitor for renal recovery. Awaits Pcath insertion and removal of femoral catheter. Due to history of IV drug abuse, check serologies as well. Will also consider kidney biopsy if no recovery of renal function.
[2021-12-01] MEDS ORDERED: CLINDAMYCIN 600 MG in DEXTROSE 5% IN WATER 50 ML IVPB STA ×2 (12:00)
[2021-12-01] MEDS ORDERED: SODIUM CHLORIDE 0.9% 1,000 ML IV ONE (12:19)
--- NOTE | 2021-12-01 12:26 | P.CNNES ---
History of Present Illness Consult date: 11/30/21 Requesting physician: Kamar Billings Reason for Consult: b/l lower ext weakness History of Present Illness: Patient is a 41-year-old right-handed male with history of substance abuse, came to the hospital after he fell off stairs, and laid there for 9 hours before his found him and brought him to the hospital on 11/21/2021 at 9:39 PM. Patient states that at around 6 AM earlier that day he did IV drug use, which he believes was heroin. Subsequently he fell down carpeted stairs to the bottom of the stairs and then passed out. When he came to, he found himself laying on the floor in a position on left side, and his hands and feet for purple. He couldn't get up. He crawled to the bedroom by scooting backwards. Patient's came in at 3 PM and it took some extra time for him to come to the hospital as she could not convincing. She lifted him on her back and help him get into the car and brought to the ER. He had significant swelling of his left leg more than the right. Patient in the ER developed black color urine and was diagnosed with acute rhabdomyolysis and acute kidney injury. His initial blood test shows normal hemoglobin with a BC 11.3. D-dimer was 6.18. Sodium 129, potassium 8.4, BUN 50, creatinine 5.37. Calcium was 6.6, phosphorous > 13, CK-MB > 400, troponin was elevated 0.930. Urine drug screen negative. Blood alcohol level not checked. Hepatitis panel was positive for IgG antibodies. CK was > 160,000. Patient's most recent CK was 74.90. Patient had hypocalcemia with calcium 5.2 on 11/23/2021. Patient's BUN went up to 99 and creatinine 9.28. Patient was started on hemodialysis 11/22/2021. His CPK is coming down, and most recent was 19,617 on 11/28/2021. TSH is elevated 7.07 with normal free T4 of 1.44. Most recent calcium is much improved 7.5. Leg ultrasound negative for DVT although the left leg was difficult study because of significant edema. 2-D echo revealed left ventricular hypertrophy with preserved systolic function 60-65%. Moderately increased septal wall thickness. Left atrial size is normal. Mildly dilated right ventricle with preserved systolic function. X-ray of the hip and femur reported as no fracture. Patient's CT head showed scalp hematoma in the vertex. Age appropriate changes. No acute intracranial process. CT of the cervical spine showed dextroscoliosis. No acute injury.. CT of abdomen pelvis was negative. Patient developed very significant swelling of the entire left leg, more than the right leg. Also involves swelling involving the lower abdominal region, and scrotal region. The swelling is getting better. At present patient states that when he moves his legs, is painful, left more than right. It hurts to touch on his foot. Patient states his legs are numb from knees down to the foot, part icularly ankles down. His thigh region is painful to touch bilaterally. Left side is worse. Patient also has pain in lower abdominal region besides the thighs. His testicles are swollen. Patient has history of drug abuse with heroin IV, fentanyl. He states that he did ice in the past, none for last 5 years. He does cocaine once in a great while, not done since last 6 months. Also does smoke pot once or twice a year only. He states that he has been doing IV heroin off and on for last 20 years. He states that he does heroin almost daily. He has no history of drinking Patient has some diarrhea, C. difficile antibodies negative. Denies any incontinence. He has been catheterized. Review of Systems Constitutional: Denies chills, Denies fever Eyes: denies blurred vision, denies pain Ears, nose, mouth and throat: Denies headache, Denies sore throat Cardiovascular: Denies chest pain, Denies shortness of breath Respiratory: Denies cough, Denies hemoptysis Gastrointestinal: Reports diarrhea, Denies abdominal pain, Denies nausea, Denies vomiting Genitourinary: Reports genital pain, Reports testicular pain Musculoskeletal: Reports leg numbness/tingling, Reports muscle weakness, Reports myalgias, Reports shooting leg pain, Denies low back pain, Denies neck pain Integumentary: Denies pruritus, Denies rash Neurological: Reports as per HPI Psychiatric: Denies anxiety, Denies depression Endocrine: Reports weight change, Denies fatigue Hematologic/Lymphatic: Denies easy bruising Past Medical History Past Medical History: No Reported History Additional Past Medical History / Comment(s): Depression, Drug abuse (heroin, methamphetamine) History of Any Multi-Drug Resistant Organisms: None Reported Additional Past Surgical History / Comment(s): cyst removed from chest Past Psychological History: No Psychological Hx Reported Smoking Status: Current every day smoker Past Alcohol Use History: Rare Past Drug Use History: Heroin, Methamphetamine, Opiates - Past Family History Mother Sister(s) Family Medical History: Cancer Additional Family Medical History / Comment(s): mother metastatic bone ca,. sister best away from breast, uterine ovarian 2014. Brother has colon CA Medications and Allergies Home Medications Medication Instructions Recorded Confirmed Type No Known Home Medications 11/22/21 11/22/21 History Allergies Allergy/AdvReac Type Severity Reaction Status Date / Time amoxicillin Allergy Rash/Hives Verified 11/22/21 07:28 Physical Examination - Vital Signs Vital Signs: Vital Signs Temp Pulse Resp BP Pulse Ox 11/30/21 15:01 97.7 F 77 16 101/54 11/30/21 14:18 77 14 117/52 99 11/30/21 08:31 86 16 115/55 98 11/30/21 08:15 86 16 11/30/21 00:11 98.3 F 78 16 110/64 97 11/29/21 20:45 18 11/29/21 20:06 98.3 F 85 16 107/55 98 11/29/21 16:59 96.6 F L 85 18 120/58 Intake and Output 11/30/21 11/30/21 11/30/21 06:59 14:59 22:59 Intake Total 180 500 Output Total 350 2500 Balance -350 180 -2000 Intake: Oral 180 Hemodialysis 500 Output: Urine 350 Hemodialysis 2500 Other: Voiding Method Indwelling Catheter Weight 116 kg Patient is a young male, in no acute distress. Patient is alert awake oriented to time place and person. Speech and language functions are normal. Patient can name and repeat very well. No aphasia or dysarthria. Attention, concentration and fund of knowledge is adequate. On cranial nerve examination, pupils are equal, round and reacting to light, visual syed are full on confrontation, with no neglect on double simultaneous stimulation. Extraocular muscles are intact with no nystagmus. Face is symmetric, tongue protrudes to the midline. Palatal elevation and sensation normal, hearing and shoulder shrug normal, facial sensation normal. On muscle strength testing, there is no pronator drift and the strength is normal in arms distally and proximally. In the lower limbs (right/left) hip flexion 4+/2, knee extension 5/3, ankle dorsiflexion 0/0, inversion trace/0, pernei 0/0, toe extension 1/0, toe flexion 1/0. Deep tendon reflexes are symmetric biceps 2, brachioradialis 2, knees 3, ankles 0 and plantar is downgoing on the right, flat on the left. Sensory to touch is decreased in bilateral lower limbs from knees down, particularly the right L4 dermatome, and circumferentially involving the left lower leg knee down. Cerebellar function showed no ataxia for [id number] testing. Cannot perform [id number] testing on either side. Tone and bulk of muscles normal. Left thigh is swollen. Gait deferred.. On general examination, there is no carotid bruit or murmur, S1-S2 audible. Chest is clear on consultation. Abdomen is soft nontender. No organomegaly, bowel sounds present. Patient has significant peripheral edema. Significant scrotal swelling. Results - Laboratory Findings CBC and BMP: 11/28/21 18:00 11/28/21 18:00 Abnormal Lab Findings: Abnormal Labs 11/22/21 11/22/21 11/22/21 01:18 02:30 02:30 WBC RBC Hgb Hct RDW Plt Count Neutrophils # Lymphocytes # Lymphocytes # (Manual) PT INR D-Dimer Sodium 129 L Potassium 8.4 H* Chloride 94 L Carbon Dioxide 9 L* BUN 50 H Creatinine 5.37 H Glucose 155 H POC Glucose (mg/dL) Plasma Lactic Acid Ranjeet Calcium 6.6 L Phosphorus >13.0 H* Magnesium 3.1 H AST ALT Creatine Kinase CK-MB (CK-2) >400.0 H Troponin I 0.930 H* Total Protein Albumin Vitamin D 25-Hydroxy Procalcitonin TSH Urine Protein Urine Glucose (UA) Urine Blood Ur Leukocyte Esterase Urine RBC 20 H Urine WBC 56 H Urine WBC Clumps Amorphous Sediment Many H Urine Bacteria Many H Hyaline Casts 47 H Urine Mucus Moderate H Hep C IgG Ab 11/22/21 11/22/21 11/22/21 02:30 04:14 04:49 WBC 11.3 H RBC Hgb Hct RDW Plt Count Neutrophils # 10.5 H Lymphocytes # 0.6 L Lymphocytes # (Manual) PT INR D-Dimer 6.18 H Sodium Potassium Chloride Carbon Dioxide BUN Creatinine Glucose POC Glucose (mg/dL) Plasma Lactic Acid Ranjeet 3.9 H* Calcium Phosphorus Magnesium AST ALT Creatine Kinase CK-MB (CK-2) Troponin I Total Protein Albumin Vitamin D 25-Hydroxy Procalcitonin TSH Urine Protein Urine Glucose (UA) Urine Blood Ur Leukocyte Esterase Urine RBC Urine WBC Urine WBC Clumps Amorphous Sediment Urine Bacteria Hyaline Casts Urine Mucus Hep C IgG Ab 11/22/21 11/22/21 11/22/21 04:49 04:49 08:00 WBC RBC Hgb Hct RDW Plt Count Neutrophils # Lymphocytes # Lymphocytes # (Manual) PT 12.7 H INR 1.2 H D-Dimer Sodium Potassium Chloride Carbon Dioxide BUN Creatinine Glucose POC Glucose (mg/dL) Plasma Lactic Acid Rajneet Calcium Phosphorus Magnesium AST 3484 H ALT 1146 H Creatine Kinase >069857 H* CK-MB (CK-2) Troponin I Total Protein Albumin Vitamin D 25-Hydroxy Procalcitonin TSH Urine Protein Urine Glucose (UA) Urine Blood Ur Leukocyte Esterase Urine RBC Urine WBC Urine WBC Clumps Amorphous Sediment Urine Bacteria Hyaline Casts Urine Mucus Hep C IgG Ab Reactive A 11/22/21 11/22/21 11/22/21 08:00 08:00 08:00 WBC RBC Hgb Hct RDW Plt Count Neutrophils # Lymphocytes # Lymphocytes # (Manual) PT INR D-Dimer Sodium 130 L Potassium 6.6 H* Chloride Carbon Dioxide 16 L BUN 59 H Creatinine 5.13 H Glucose 66 L POC Glucose (mg/dL) Plasma Lactic Acid Ranjeet Calcium 6.3 L* Phosphorus Magnesium AST 3780 H ALT 1366 H Creatine Kinase CK-MB (CK-2) Troponin I 0.632 H* Total Protein 5.5 L Albumin 3.2 L Vitamin D 25-Hydroxy Procalcitonin >100.00 H TSH 7.070 H Urine Protein Urine Glucose (UA) Urine Blood Ur Leukocyte Esterase Urine RBC Urine WBC Urine WBC Clumps Amorphous Sediment Urine Bacteria Hyaline Casts Urine Mucus Hep C IgG Ab 11/22/21 11/22/21 11/22/21 14:36 15:00 16:45 WBC RBC Hgb Hct RDW Plt Count Neutrophils # Lymphocytes # Lymphocytes # (Manual) PT INR D-Dimer Sodium 132 L Potassium 5.9 H 5.9 H Chloride 94 L Carbon Dioxide BUN 54 H Creatinine 4.41 H Glucose 133 H POC Glucose (mg/dL) 139 H Plasma Lactic Acid Ranjeet Calcium 6.5 L Phosphorus Magnesium AST ALT Creatine Kinase CK-MB (CK-2) Troponin I Total Protein Albumin Vitamin D 25-Hydroxy Procalcitonin TSH Urine Protein Urine Glucose (UA) Urine Blood Ur Leukocyte Esterase Urine RBC Urine WBC Urine WBC Clumps Amorphous Sediment Urine Bacteria Hyaline Casts Urine Mucus Hep C IgG Ab 11/22/21 11/22/21 11/23/21 17:38 23:42 02:10 WBC RBC Hgb Hct RDW Plt Count Neutrophils # Lymphocytes # Lymphocytes # (Manual) PT INR D-Dimer Sodium Potassium Chloride Carbon Dioxide BUN Creatinine Glucose POC Glucose (mg/dL) 148 H 184 H Plasma Lactic Acid Ranjeet Calcium Phosphorus Magnesium AST ALT Creatine Kinase CK-MB (CK-2) Troponin I Total Protein Albumin Vitamin D 25-Hydroxy Procalcitonin 74.90 H TSH Urine Protein Urine Glucose (UA) Urine Blood Ur Leukocyte Esterase Urine RBC Urine WBC Urine WBC Clumps Amorphous Sediment Urine Bacteria Hyaline Casts Urine Mucus Hep C IgG Ab 11/23/21 11/23/21 11/23/21 05:40 06:37 07:12 WBC RBC Hgb Hct RDW Plt Count Neutrophils # Lymphocytes # Lymphocytes # (Manual) PT INR D-Dimer Sodium 129 L Potassium Chloride 86 L Carbon Dioxide BUN 70 H Creatinine 5.48 H Glucose 151 H POC Glucose (mg/dL) 159 H Plasma Lactic Acid Ranjeet Calcium 5.2 L* Phosphorus 5.8 H Magnesium AST 1939 H ALT 905 H Creatine Kinase >407545 H* CK-MB (CK-2) Troponin I Total Protein 4.5 L Albumin 2.5 L Vitamin D 25-Hydroxy Procalcitonin TSH Urine Protein 2+ H Urine Glucose (UA) 2+ H Urine Blood Large H Ur Leukocyte Esterase Large H Urine RBC Urine WBC 93 H Urine WBC Clumps Few H Amorphous Sediment Urine Bacteria Rare H Hyaline Casts Urine Mucus Hep C IgG Ab 11/23/21 11/23/21 11/23/21 07:12 11:42 20:45 WBC RBC Hgb Hct RDW Plt Count 126 L Neutrophils # Lymphocytes # Lymphocytes # (Manual) 0.98 L PT INR D-Dimer Sodium Potassium Chloride Carbon Dioxide BUN Creatinine Glucose POC Glucose (mg/dL) 136 H 130 H Plasma Lactic Acid Ranjeet Calcium Phosphorus Magnesium AST ALT Creatine Kinase CK-MB (CK-2) Troponin I Total Protein Albumin Vitamin D 25-Hydroxy Procalcitonin TSH Urine Protein Urine Glucose (UA) Urine Blood Ur Leukocyte Esterase Urine RBC Urine WBC Urine WBC Clumps Amorphous Sediment Urine Bacteria Hyaline Casts Urine Mucus Hep C IgG Ab 11/24/21 11/24/21 11/24/21 05:05 05:05 05:05 WBC RBC 3.98 L Hgb 12.4 L Hct 35.5 L RDW Plt Count 95 L Neutrophils # Lymphocytes # 0.8 L Lymphocytes # (Manual) PT INR D-Dimer Sodium 126 L Potassium Chloride 82 L Carbon Dioxide 31 H BUN 84 H Creatinine 7.13 H* Glucose 107 H POC Glucose (mg/dL) Plasma Lactic Acid Ranjeet Calcium 5.4 L* Phosphorus 5.8 H Magnesium AST 1605 H ALT 689 H Creatine Kinase >373749 H* CK-MB (CK-2) Troponin I Total Protein 4.4 L Albumin 2.5 L Vitamin D 25-Hydroxy Procalcitonin TSH Urine Protein Urine Glucose (UA) Urine Blood Ur Leukocyte Esterase Urine RBC Urine WBC Urine WBC Clumps Amorphous Sediment Urine Bacteria Hyaline Casts Urine Mucus Hep C IgG Ab 11/24/21 11/25/21 11/25/21 06:43 08:42 08:42 WBC RBC 4.11 L Hgb 12.8 L Hct 36.7 L RDW Plt Count 116 L Neutrophils # Lymphocytes # Lymphocytes # (Manual) PT INR D-Dimer Sodium 127 L Potassium 5.2 H Chloride 83 L Carbon Dioxide 32 H BUN 99 H Creatinine 9.28 H* Glucose POC Glucose (mg/dL) 126 H Plasma Lactic Acid Ranjeet Calcium 6.1 L* Phosphorus Magnesium AST 1358 H ALT 621 H Creatine Kinase CK-MB (CK-2) Troponin I Total Protein 4.8 L Albumin 2.7 L Vitamin D 25-Hydroxy Procalcitonin TSH Urine Protein Urine Glucose (UA) Urine Blood Ur Leukocyte Esterase Urine RBC Urine WBC Urine WBC Clumps Amorphous Sediment Urine Bacteria Hyaline Casts Urine Mucus Hep C IgG Ab 11/25/21 11/25/21 11/25/21 08:42 08:42 08:42 WBC RBC Hgb Hct RDW Plt Count Neutrophils # Lymphocytes # Lymphocytes # (Manual) PT INR D-Dimer Sodium Potassium Chloride Carbon Dioxide BUN Creatinine Glucose POC Glucose (mg/dL) Plasma Lactic Acid Ranjeet Calcium Phosphorus Magnesium AST ALT Creatine Kinase 752700 H* CK-MB (CK-2) 25.8 H Troponin I Total Protein Albumin Vitamin D 25-Hydroxy Procalcitonin 18.20 H TSH Urine Protein Urine Glucose (UA) Urine Blood Ur Leukocyte Esterase Urine RBC Urine WBC Urine WBC Clumps Amorphous Sediment Urine Bacteria Hyaline Casts Urine Mucus Hep C IgG Ab 11/25/21 11/26/21 11/26/21 08:42 06:26 06:26 WBC RBC 4.07 L Hgb 12.8 L Hct 37.8 L RDW Plt Count 108 L Neutrophils # Lymphocytes # Lymphocytes # (Manual) PT INR D-Dimer Sodium 129 L Potassium Chloride 95 L Carbon Dioxide BUN 72 H Creatinine 7.86 H* Glucose 110 H POC Glucose (mg/dL) Plasma Lactic Acid Ranjeet Calcium 6.9 L Phosphorus Magnesium AST 746 H ALT 434 H Creatine Kinase 16969 H* CK-MB (CK-2) Troponin I Total Protein 4.2 L Albumin 2.2 L Vitamin D 25-Hydroxy 24.0 L Procalcitonin TSH Urine Protein Urine Glucose (UA) Urine Blood Ur Leukocyte Esterase Urine RBC Urine WBC Urine WBC Clumps Amorphous Sediment Urine Bacteria Hyaline Casts Urine Mucus Hep C IgG Ab 11/27/21 11/27/21 11/28/21 07:57 11:01 11:39 WBC RBC Hgb Hct RDW Plt Count 96 L Neutrophils # Lymphocytes # Lymphocytes # (Manual) PT INR D-Dimer Sodium 125 L 126 L Potassium 6.2 H* 6.0 H Chloride 92 L 95 L Carbon Dioxide BUN 91 H 77 H Creatinine 9.58 H* 8.15 H* Glucose 103 H 105 H POC Glucose (mg/dL) Plasma Lactic Acid Ranjeet Calcium 7.0 L 7.3 L Phosphorus Magnesium AST 544 H ALT 341 H Creatine Kinase 83552 H* CK-MB (CK-2) Troponin I Total Protein 4.1 L Albumin 2.2 L Vitamin D 25-Hydroxy Procalcitonin TSH Urine Protein Urine Glucose (UA) Urine Blood Ur Leukocyte Esterase Urine RBC Urine WBC Urine WBC Clumps Amorphous Sediment Urine Bacteria Hyaline Casts Urine Mucus Hep C IgG Ab 11/28/21 11/28/21 11/28/21 18:00 18:00 18:00 WBC 12.7 H RBC Hgb Hct 38.3 L RDW 15.6 H Plt Count 108 L Neutrophils # Lymphocytes # Lymphocytes # (Manual) PT INR D-Dimer Sodium 130 L Potassium Chloride 95 L Carbon Dioxide BUN 47 H Creatinine 5.46 H Glucose 113 H POC Glucose (mg/dL) Plasma Lactic Acid Ranjeet Calcium 7.5 L Phosphorus Magnesium AST ALT Creatine Kinase 10612 H* CK-MB (CK-2) Troponin I Total Protein Albumin Vitamin D 25-Hydroxy Procalcitonin TSH Urine Protein Urine Glucose (UA) Urine Blood Ur Leukocyte Esterase Urine RBC Urine WBC Urine WBC Clumps Amorphous Sediment Urine Bacteria Hyaline Casts Urine Mucus Hep C IgG Ab Assessment and Plan Assessment: * Bilateral lower extremity weakness, distally and proximally, left more than right. Probably due to acute rhabdomyolysis, myoedema. * Acute renal failure due to rhabdomyolysis, on hemodialysis * Significant electrolyte imbalance, improved. * Elevated cardiac enzymes, cardiology on board. * Hypothyroidism * Hepatitis C positive * Polysubstance abuse. * Transaminitis, improving Plan: * Patient has bilateral leg weakness, left more than right. Appears to be due to acute muscle injury due to rhabdomyolysis. Knee reflexes are preserved. However ankle reflexes are absent. Possible some degree of lumbosacral plexopathy cannot be ruled out from prolonged extrinsic compression. * Patient has significant pain in bilateral lower limbs, especially with movement. We will start low-dose Neurontin 100 mg twice a day (adjusted for renal failure) to see if it helps with the pain. * We will consider EEG for prolonged episode of unresponsiveness. * Patient may need EMG and nerve conductions of lower extremities as an outpatient. * Follow serial CKs. * We will follow clinically. Thank you for the consult. Time with Patient: Greater than 30
[2021-12-01] MEDS ORDERED: MIDAZOLAM 2 MG/2 ML VIAL IV ONE ×2 (12:31→12:43)
[2021-12-01] MEDS ORDERED: LIDOCAINE 1% INJ 10MG/ML (30 ML VIAL-PF) SQ ONE ×3 (12:31→13:12)
[2021-12-01] MEDS ORDERED: HEPARIN SODIUM 1,000 UN/ML (10ML VL) IV ONE (12:56)
--- NOTE | 2021-12-01 13:58 | IR ---
EXAMINATION TYPE: IR cvc insert central tunneled DATE OF EXAM: 12/01/2021 CLINICAL HISTORY: Failed dialysis TECHNIQUE: Fluoroscopy. COMPARISON: None. FINDINGS: Fluoroscopic guidance was provided during right internal jugular dialysis catheter inserti on procedure performed by Dr. Franco. A total of 120 seconds of fluoroscopic time was utilized duri ng the procedure and 1000 spot images was acquired. Images acquired show eventual placement of right internal jugular large bore central venous catheter and smaller left groin femoral venous catheter. IMPRESSION: As Above.
--- NOTE | 2021-12-01 14:46 | XR ---
EXAMINATION TYPE: XR chest 1V confirm line [facility] DATE OF EXAM: 12/01/2021 COMPARISON: 11/24/2021 HISTORY: Line placement TECHNIQUE: FINDINGS: Heart and mediastinum are normal. Lungs are clear of infiltrate. There is right jugular cat heter with tip in the superior vena cava. No pleural effusion. No pneumothorax. There are chest leads . IMPRESSION: No active cardiopulmonary disease. Normal heart. No change.
--- NOTE | 2021-12-01 17:02 | P.PN ---
Subjective Pleasant 41 years old male with no significant past medical history presents with some withdrawal symptoms Patient is confused, opens eyes spontaneously and go back to sleep, does not follow commands and he is on restrains. Patient cannot provide history and information was obtained from his is here at bedside. Patient's states that he has history of depression, hallucinations, and sometimes he talks to the wall even when he is not on a drugs. He has history of drug addict with her when where he injects in his both forearms for the last 2 years on and off. His mother about 2 years ago. Over the last 3 months he was cleaned from any other drug abuse but he relapsed over the last 3 weeks when he has his sister and he went to visit his niece. Patient looks more with her daughter for babysitting her grandkids. She saw him 3 times over the last 3 months and all times he was high She talked to him night before asking her to come and visit him but she could not do so until 3 PM yesterday when she found him on the floor/stairs, and she brought him to the emergency room where he told her and emergency room staff he was been using her when since o'clock in the morning. No one knows what happene d between 6 AM and 3 PM. denies 's previous history of suicidal attempts orientation but he has history of overdose. He has Collins catheter with darker brown muddy colored urine. Vitals are stable and patient is afebrile. Labs showing mild leukocytosis of 11.3. Evaluated d-dimer 6.18 Sodium is 129, potassium elevated 8.4. Creatinine elevated 5.3. Glucose 155. Lactic acid elevated 3.9. Low collar some 6.6. High phosphorus more than 13. Magnesium elevated to 3.1. Total bilirubin is normal 1.3. Elevated AST 348 for an ALT 1146. Elevated troponin 0.9. High creatinine kinase more than [id number]. Urine analysis showed RBCs elevated to 20 and WBCs elevated 56. Urine drug screen is negative EKG showing sinus tachycardia at 102. No significant ST-T changes. There is no imaging done 11-23-21 A clinically awake and alert, no evidence of cellulitis, patient does not have specific complaints. No significant hematoma of the scalp. He still has elevated creatine kinase with rhabdomyolysis with acute kidney injury requiring hemodialysis. Patient may need to go for another hemodialysis today per her publications writer. He is an anuric and making very little urine output No chest pain or dyspnea no other specific complaints. His urine analysis is slightly abnormal, no urinary symptoms, Pro-calcitonin is elevated but is trending down. His liver enzymes significantly improving, liver ultrasound showing no specific abnormality. Most likely secondary to his rhabdomyolysis. Patient and are aware of patient diagnosis of hep C IgG positive Patient does not looks depressed or suicidal. 11-25-21 Patient is awake and alert, however overnight started having severe pain in his left thigh, morphine 2 mg every 4 hours was added blood pain is not controlled this morning, does increase for milligram every 4 hours. Most likely patient has worsening lower extremity swelling secondary to renal failure. His left side looks more swollen and tense compared to the right side however there is no rash or discoloration, both extremities are warm to touch and left dorsalis pedis is present , however is not as sensitive measure and in view of persistent rhabdomyolysis we will need to rule out compartment syndrome, therefore x-ray of the left thigh and hip is ordered but compartment syndrome can happen even without fracture (leg is not shortened or rotated), however his left thigh is not like hard wood tense . Also there is no evidence of crush injury. Orthopedic team were consulted. Also patient increasing pain could be part of his heroine withdrawal. Patient reports increased loose stool and some abdominal discomfort but there is no increased lacrimation or vomiting, patient has dry mouth. He does not look anxious but is in distress due to thigh pain Patient clinically and see the patient he was gone for placement of dialysis catheter Plan for hemodialysis today. 11/26/2021 Patient continued to improve and he feels better today his pain is better controlled and his left thigh is is wrapped and placed a swollen Patient has no compartment syndrome, per orthopedic team Patient continues undergoing hemodialysis, creatinine is still elevated 7.8. Liver enzymes and creatinine kinase are trending down, creatinine kinase 63,000. Vision continue on IV fluids Patient will be transferred to general medical floor 11/28/2019 Pain and swelling of his lower extremity is improving History of complaining of from some pain mostly secondary to his medical problems on the top of his heroine withdrawal. Risks and benefits explained for him. Continue with hemodialysis 11/28/2021 Patient is awake and alert Distal complaining of from pain and swelling in his both lower extremities related to his rhabdomyolysis,. It is extensive but improving gradually and slowly. CK is trending down Patient creatinine and potassium still elevated despite hemodialysis, he underw ent hemodialysis today and one more tomorrow. He had no bowel movement 2 days. We will add Colace as needed. 11/29/2021 Patient is improving every day slowly and gradually. He still have significant pain in his lower extremity more on the left side than the right side however patient states that is improving Swelling also in the left lower extremity is also coming down. Patient still have difficulty moving his left leg because of severe pain in the thigh when he tries to do that of the muscle area. Most likely related to his significant severe rhabdomyolysis. His pain and tenderness more on the left side but it is bilateral and symmetrical. Associated with numbness in both toes and both fingers. There is no evidence of back pain. Patient could move his lower extremity but is limited by significant pain and tenderness which limits examination as well. Patient is having bowel movement once a day. He continue on IV Lasix and getting hemodialysis. 11/30/2021 Patient looks comfortable in bed. Distal complaining from pain in his legs especially the left leg but not as severe as the first few days. He is still complaining from weakness in his lower extremity, he's barely can move his legs off the bed, he barely could move his toes and this is since admission and actually it is improving every day. Most likely secondary to severe rhabdomyolysis which was more severe swelling from the beginning on the left lower extremity. Because of the slow improvement he wanted to rule out any neurological contributing factor therefore I consult a neurologist today. Who added tran pentin. And I discussed the case with him and most likely secondary to severe rhabdomyolysis from heroin overdose. We will continue monitoring 12/01/2021 patient improving slowly and gradually He still having renal failure and dialysis catheter to be placed today by surgery team Plan for hemodialysis tomorrow Also on the posterior considering renal biopsy if no improvement Patient have severe weakness in the lower extremities more on the left leg secondary to severe rhabdomyolysis, neurological causes ruled out Of note his urine drug screen was negative on admission because he was anuric de spite his extensive history of heroin abuse on admission. Case discussed with the neurologist service to the Objective - Vital Signs Vital signs: Vital Signs Temp 99.2 F 12/01/21 09:29 Pulse 76 12/01/21 09:29 Resp 16 12/01/21 09:29 BP 107/57 12/01/21 09:29 Pulse Ox 100 12/01/21 09:29 FiO2 Intake & Output 11/30/21 12/01/21 12/01/21 18:59 06:59 18:59 Intake Total 680 Output Total 2700 300 Balance -2019 - Intake: Oral 180 Hemodialysis 500 Output: Urine 200 300 Hemodialysis 2500 Other: Voiding Method Indwelling Catheter Indwelling Catheter Indwelling Catheter ABP, PAP, CO, CI - Last Documented Arterial Blood Pressure 139/42 - Exam -GENERAL: The patient is alert and oriented x3, in mild distress due to left- sided pain . Well developed, well nourished. HEENT: Pupils are round and equally reacting to light. EOMI. No scleral icterus. No conjunctival pallor. Normocephalic, atraumatic. No pharyngeal erythema. No thyromegaly. CARDIOVASCULAR: S1 and S2 present. No murmurs, rubs, or gallops. PULMONARY: Chest is clear to auscultation, no wheezing or crackles. ABDOMEN: Soft, nontender, nondistended, normoactive bowel sounds. No palpable organomegaly. MUSCULOSKELETAL: No joint swelling or deformity. -EXTREMITIES: No cyanosis, clubbing, . Left thigh swelling and tenderness, and to lesser extent right side. Dorsalis pedis is present NEUROLOGICAL: Gross neurological examination did not reveal any focal deficits. SKIN: No rashes. no petechiae. - Labs CBC & Chem 7: 11/28/21 18:00 11/28/21 18:00 Assessment and Plan Assessment: Severe Rhabdomyolysis, present on admission Altered mental status secondary to Metabolic/toxic encephalopathy, improved Acute kidney injury and hyperkalemia secondary to rhabdomyolysis Left thigh as well as extremity swelling secondary to renal failure. Compartment syndrome ruled out Drug abuse and heroin withdrawal depression with recent loss and family Nicotine dependence Transaminitis, improving Elevated troponin, mild, secondary to leak troponin, acute coronary syndrome ruled out. Patient with no chest pain Plan: This is a pleasant 41 years old male who presents with acute kidney injury and heroin withdrawal and abuse Continue hemodialysis as recommended by her publications writer Continue monitoring creatinine kinase Continue with IV Lasix Labs and medication were reviewed.. Continue same treatment. Continue with symptomatic treatment. Resume home medication. Monitor lytes and vitals. DVT and GI prophylaxis. Further recommendations as per clinical course of the patient DVT prophylaxis: Already on Subcutaneous heparin GI Prophylaxis: Pepcid Prognosis is guarded
[2021-12-01] MEDS: MELATONIN 3 MG TABLET PO SCH (20:28)
[2021-12-01 21:02] LABS: Protein, Total 4.3 g/dL (6.2-8.2)
[2021-12-02] MEDS: MORPHINE SULFATE 2 MG/ML SYRINGE IVP PRN ×4 (00:52→20:49)
--- NOTE | 2021-12-02 00:58 | P.PN ---
Subjective Progress Note Date: 12/01/21 Patient was seen for a follow-up. Patient states his feeling better day by day. His right leg is getting stronger. Even able to move his left knee better than yesterday. Pain is improved. No new neurological symptoms. Patient denies any low back pain. No neck or mid back pain. The swelling has improved. Objective - Vital Signs Vital signs: Vital Signs Temp 98.5 F 12/01/21 20:00 Pulse 76 12/01/21 09:29 Resp 16 12/01/21 20:00 BP 121/58 12/01/21 20:00 Pulse Ox 100 12/01/21 20:00 FiO2 Intake & Output 12/01/21 12/01/21 12/02/21 06:59 18:59 06:59 Intake Total 154 318 Output Total 300 300 550 Balance -300 -146 -232 Intake: IV 154 Oral 318 Output: Urine 300 300 550 Uretheral (Collins) 550 Other: Voiding Method Indwelling Catheter Indwelling Catheter Indwelling Catheter ABP, PAP, CO, CI - Last Documented Arterial Blood Pressure 139/42 - Exam Patient is a young male, in no acute distress. Patient is alert awake oriented to time place and person. Speech and language functions are normal. Patient can name and repeat very well. No aphasia or dysarthria. Attention, concentration and fund of knowledge is adequate. On cranial nerve examination, pupils are equal, round and reacting to light, visual syed are full on confrontation, with no neglect on double simultaneous stimulation. Extraocular muscles are intact with no nystagmus. Face is symmetric, tongue protrudes to the midline. Palatal elevation and sensation normal, hearing and shoulder shrug normal, facial sensation normal. On muscle strength testing, there is no pronator drift and the strength is normal in arms distally and proximally. In the lower limbs (right/left) hip flexion 4+/2, knee extension 5/3, ankle dorsiflexion 0/0, inversion trace/0, pernei 0/0, toe extension 1-2/0, toe flexion 1-2/0. Deep tendon reflexes are symmetric biceps 2, brachioradialis 2, knees 3, ankles 0 and plantar is downgoing on the right, flat on the left. Sensory to touch is decreased in bilateral lower limbs from knees down, particularly the right L4 dermatome, and circumferentially involving the left lower leg knee down. Vibration is absent at the toes, almost normal at the ankles bilaterally. No obvious sensory level noted on the trunk, front or the back. Cerebellar function showed no ataxia for [id number] testing. Cannot perform [id number] testing on either side. Tone and bulk of muscles normal. Bilateral thighs are sore and, left more than right. Gait patient not ambulatory at this time. On general examination, there is no carotid bruit or murmur, S1-S2 audible. Chest is clear on consultation. Abdomen is soft nontender. No organomegaly, bowel sounds present. Patient has significant peripheral edema. Significant scrotal swelling. - Labs CBC & Chem 7: 11/28/21 18:00 11/28/21 18:00 Labs: Abnormal Lab Results - Last 24 Hours (Table) 12/01/21 Range/Units 11:34 Total Protein (PEP) 4.3 L (6.2-8.2) g/dL Assessment and Plan Assessment: * Bilateral lower extremity weakness, distally and proximally, left more than right. Probably due to acute rhabdomyolysis, myoedema. * Prolonged episode of loss of consciousness (for hours) following IV drug use, resulting in rhabdomyolysis. * Acute renal failure due to rhabdomyolysis, on hemodialysis * Significant electrolyte imbalance, improved. * Elevated cardiac enzymes, cardiology on board. * Hypothyroidism * Hepatitis C positive * Polysubstance abuse. * Transaminitis, improving Plan: * Patient has bilateral leg weakness, left more than right. Appears to be due to acute muscle injury due to rhabdomyolysis. Knee reflexes are preserved. However ankle reflexes are absent. Possible some degree of lumbosacral plexopathy cannot be ruled out from prolonged extrinsic compression. * Patient has significant pain in bilateral lower limbs, especially with movement. We will start low-dose Neurontin 100 mg twice a day (adjusted for renal failure) to see if it helps with the pain. * Check EEG for prolonged episode of unresponsiveness. * Patient may need EMG and nerve conductions of lower extremities as an outpatie nt. * Follow serial CKs. Repeat Chem-7. * Dr. Shayne Munoz Will resume neurology service in the morning.
[2021-12-02] MEDS: ONDANSETRON 4 MG/2 ML VIAL IVP PRN (04:11)
[2021-12-02 07:49] LABS: Calcium 7.4 mg/dL (8.4-10.2); Magnesium 2.2 mg/dL (1.6-2.3); Potassium 5.1 mmol/L (3.5-5.1)
[2021-12-02] MEDS: HEPARIN SODIUM,PORCINE/PF 5,000 UNIT/0.5 ML SYRINGE SQ SCH ×2 (08:33→20:49)
[2021-12-02] MEDS: GABAPENTIN 100 MG CAP PO SCH ×2 (08:33→20:48)
[2021-12-02] MEDS: FAMOTIDINE 20 MG/2 ML VIAL IV SCH (08:33)
[2021-12-02] MEDS: FUROSEMIDE 10 MG/ML 10 ML VIAL IV SCH (08:33)
[2021-12-02] MEDS: NICOTINE 21MG/24HR PATCH TRANSDERM SCH (08:34)
--- NOTE | 2021-12-02 09:43 | P.PN ---
Subjective Patient is seen in follow-up for acute kidney injury, currently hemodialysis dependent. CK levels trending down. Awake and alert. Denies chest pain or shortness of breath. Urine output about 600 mL in the last 24 hours. On IV Lasix. Still states unable to walk due to weakness. Vital signs are stable. General: Awake. No acute distress. HEENT: Head exam is unremarkable. LUNGS: Breath sounds decreased. HEART: Rate and Rhythm are regular. ABDOMEN: Soft, no distention. EXTREMITITES: 1+ edema. Objective - Vital Signs Vital signs: Vital Signs Temp 97.8 F 12/02/21 02:00 Pulse 76 12/01/21 09:29 Resp 16 12/02/21 02:00 BP 118/58 12/02/21 02:00 Pulse Ox 98 12/02/21 02:00 FiO2 Intake & Output 12/01/21 12/02/21 12/02/21 18:59 06:59 18:59 Intake Total 154 318 240 Output Total 300 550 Balance -146 -232 240 Weight 112.5 kg Intake: IV 154 Oral 318 240 Output: Urine 300 550 Uretheral (Collins) 550 Other: Voiding Method Indwelling Catheter Indwelling Catheter ABP, PAP, CO, CI - Last Documented Arterial Blood Pressure 139/42 - Labs CBC & Chem 7: 11/28/21 18:00 12/02/21 07:06 Labs: Abnormal Lab Results - Last 24 Hours (Table) 12/01/21 12/02/21 Range/Units 11:34 07:06 Sodium 129 L (137-145) mmol/L Chloride 95 L (98-107) mmol/L BUN 69 H (9-20) mg/dL Creatinine 7.62 H* (0.66-1.25) mg/dL Calcium 7.4 L (8.4-10.2) mg/dL Creatine Kinase 3167 H* (55-170) U/L Total Protein (PEP) 4.3 L (6.2-8.2) g/dL Assessment and Plan Plan: Assessment: 1. Acute kidney injury secondary to ATN secondary to rhabdomyolysis. Rule out GN. Started on hemodialysis November 22, 2021. Creatinine July 2018 was 0.79. No hydronephrosis noted on kidney ultrasound. Left kidney was not properly visualized. 2. Hyperkalemia secondary to acute kidney injury and metabolic acidosis. Improved postdialysis. 3. Hyponatremia secondary to acute kidney injury. Improved postdialysis. Hypervolemic. 4. Metabolic acidosis secondary to acute kidney injury and lactic acidosis. Better. 5. Hyperphosphatemia secondary to acute kidney injury. Phosphorus 5.8 dated 11/24/2021. Phosphorus level 4.3 dated 11/30/2021. 6. Hypocalcemia secondary to acute kidney injury. Replaced. Better. 7. IV drug abuse. 8. Rhabdomyolysis secondary to IV drug abuse and immobility. CK level greater than 160,000 initially. Trending down. 9. Transaminitis likely secondary to rhabdomyolysis. Improving. 10. Volume overload. 11. Hep C IgG Ab reactive. GI consulted. States hep C has not been treated. Plan: Stop IV Lasix. Add torsemide 40 mg once daily. Hemodialysis today. Maintain on Thursday schedule. Continue to monitor renal function and urine output. Monitor for renal recovery. Peak cath placed 12/01/2021. Follow-up serologies. Will also consider kidney biopsy if no recovery of renal function. This was discussed with the patient. States he will consider.
[2021-12-02] MEDS ORDERED: cloNIDine 0.1 MG/24HR PATCH TRANSDERM SCH (12:30)
[2021-12-02 13:33] LABS: Anti-DNA, DS unit <1.0 IU/mL; DNA Double-Stranded NEGATIVE (NEGATIVE)
[2021-12-02 15:03] LABS: C-ANCA <1:20 Titer (<1:20)
--- NOTE | 2021-12-02 15:44 | P.PN ---
Subjective Patient is admitted the of acute renal failure, heroine withdrawal, drug abuse. Patient does have history of hepatitis C. Patient was initially treated on hemodialysis during this hospitalization patient doesn't have much of urine output at this time. Patient was believed to have rhabdomyolysis and acute tubal necrosis secondary to rhabdomyolysis patient was hyperkalemic secondary to that. Patient is presently undergoing hemodialysis. Patient was cleared by nephrology to be discharged physical to the occupational therapy will evaluate the patient patient probably will need subacute rehabilitation and patient will need prior authorization. Constitutional: Denied any fatigue denied any fever. Cardio vascular: denied any chest pain, palpitations Gastrointestinal denied any nausea vomiting Pulmonary: Denied any shortness of breath cough Neurologic denied any new focal deficits All inpatient medications were reviewed and appropriate changes in these medications as dictated in the interval history and assessment and plan. PHYSICAL EXAMINATION: GENERAL: The patient is alert and oriented x3, not in any acute distress. Well developed, well nourished. HEENT: Pupils are round and equally reacting to light. EOMI. No scleral icterus. No conjunctival pallor. Normocephalic, atraumatic. No pharyngeal erythema. No thyromegaly. CARDIOVASCULAR: S1 and S2 present. No murmurs, rubs, or gallops. PULMONARY: Chest is clear to auscultation, no wheezing or crackles. ABDOMEN: Soft, nontender, nondistended, normoactive bowel sounds. No palpable organomegaly. MUSCULOSKELETAL: No joint swelling or deformity. EXTREMITIES: No cyanosis, clubbing, or pedal edema. NEUROLOGICAL: Gross neurological examination did not reveal any focal deficits. SKIN: No rashes. Assessment and plan -Acute renal failure secondary to acute tubal necrosis secondary to rhabdomyolysis patient is undergoing hemodialysis patient was started on hemodialysis during this hospitalization. -Hypokalemia improved at this times after hemodialysis -Metabolic acidosis secondary to acute renal failure -History of hepatitis C -Transaminitis: Secondary to chronic hep C. -Volume overload secondary to renal failure patient is on diuretics and is undergoing hemodialysis at this time -History of heroine abuse and drug abuse patient was treated for withdrawals DVT prophylaxis: Subcutaneous heparin Objective - Vital Signs Vital signs: Vital Signs Temp 98.0 F 12/02/21 14:12 Pulse 80 12/02/21 11:45 Resp 20 12/02/21 14:12 BP 118/56 12/02/21 14:12 Pulse Ox 97 12/02/21 11:45 FiO2 Intake & Output 12/01/21 12/02/21 12/02/21 18:59 06:59 18:59 Intake Total 154 318 540 Output Total 521 016 9756 Balance -146 -828 -8348 Weight 112.5 kg 112.5 kg Intake: IV 154 Oral 318 240 Hemodialysis 300 Output: Urine 066 908 1270 Uretheral (Collins) 550 Hemodialysis 2800 Other: Voiding Method Indwelling Catheter Indwelling Catheter Indwelling Catheter ABP, PAP, CO, CI - Last Documented Arterial Blood Pressure 139/42 - Labs CBC & Chem 7: 11/28/21 18:00 12/02/21 07:06 Labs: Abnormal Lab Results - Last 24 Hours (Table) 12/01/21 12/02/21 Range/Units 11:34 07:06 Sodium 129 L (137-145) mmol/L Chloride 95 L (98-107) mmol/L BUN 69 H (9-20) mg/dL Creatinine 7.62 H* (0.66-1.25) mg/dL Calcium 7.4 L (8.4-10.2) mg/dL Creatine Kinase 3167 H* (55-170) U/L Total Protein (PEP) 4.3 L (6.2-8.2) g/dL
[2021-12-02] MEDS: TORSEMIDE 20 MG TAB PO SCH (16:28)
--- NOTE | 2021-12-02 16:41 | P.PN ---
Subjective Progress Note Date: 12/02/21 I am seeing the patient for the first time during this admission. Neurology is following-up patient for bilateral lower extremity weakness. Patient stated he had heroin use about 10 days ago and afterwards notices this. Denies any lower back pain. He has been having significant edema in lowers as well weakness. He feels weakness is improving compared to initial presentation. Objective - Vital Signs Vital signs: Vital Signs Temp 97.8 F 12/02/21 02:00 Pulse 76 12/01/21 09:29 Resp 16 12/02/21 02:00 BP 118/58 12/02/21 02:00 Pulse Ox 98 12/02/21 02:00 FiO2 Intake & Output 12/01/21 12/02/21 12/02/21 18:59 06:59 18:59 Intake Total 154 318 240 Output Total 300 550 Balance -146 -232 240 Weight 112.5 kg 112.5 kg Intake: IV 154 Oral 318 240 Output: Urine 300 550 Uretheral (Collins) 550 Other: Voiding Method Indwelling Catheter Indwelling Catheter ABP, PAP, CO, CI - Last Documented Arterial Blood Pressure 139/42 - Exam GENERAL: The patient is lying in bed and is not in acute distress. NEUROLOGICAL: Higher mental function: The patient is awake, alert, oriented to self, place and time. Patient is following commands. No aphasia and no neglect. Cranial nerves: The pupils are round, equal and reactive to light and accommodation. Visual syed are full to confrontation throughout. Extraocular movement is intact no nystagmus is noted. Facial sensation is normal to touch throughout. The facial strength is normal throughout. Tongue is midline and moved [id number] without any difficulty. No dysarthria is noted. Shoulder shrug is normal bilaterally. Motor: The strength is 5 over 5 throughout uppers. Lowers: Is able to lift right lowers above gravity proximally while left lower he is able to move side to side proximally and ?minimally lift above gravity. Distally 0 bilaterally. Has edema in lowers. Normal bulk. Sensation: Sensation is normal to touch throughout. Reflexes (right/left):2+ throughout except ankles are 0 bilaterally. Plantars are mute bilaterally. - Labs CBC & Chem 7: 11/28/21 18:00 12/02/21 07:06 Labs: Abnormal Lab Results - Last 24 Hours (Table) 12/01/21 12/02/21 Range/Units 11:34 07:06 Sodium 129 L (137-145) mmol/L Chloride 95 L (98-107) mmol/L BUN 69 H (9-20) mg/dL Creatinine 7.62 H* (0.66-1.25) mg/dL Calcium 7.4 L (8.4-10.2) mg/dL Creatine Kinase 3167 H* (55-170) U/L Total Protein (PEP) 4.3 L (6.2-8.2) g/dL Assessment and Plan Assessment: * Bilateral lower extremity weakness, distally and proximally, left more than right. Probably due to acute rhabdomyolysis, myoedema. * Prolonged episode of loss of consciousness (for hours) following IV drug use, resulting in rhabdomyolysis. * Acute renal failure due to rhabdomyolysis, on hemodialysis---CK trending down * Significant electrolyte imbalance--improving * Elevated cardiac enzymes, cardiology on board. * Hypothyroidism * Hepatitis C positive * Polysubstance abuse. * Transaminitis, improving Plan: * Patient has bilateral leg weakness, left more than right. Appears to be due to acute muscle injury due to rhabdomyolysis. Knee reflexes are preserved. However ankle reflexes are absent. Possible some degree of lumbosacral plexopathy cannot be ruled out from prolonged extrinsic compression. Patient may need EMG and nerve conductions of lower extremities as an outpatient. In meantime, ordered MRI Lumbar spine to rule out other causes. * CK level today is 3K (trending down). Recommend serial CK. * Patient has significant pain in bilateral lower limbs, especially with movement. On low-dose Neurontin 100 mg twice a day (adjusted for renal failure) to see if it helps with the pain. * Routine EEG ordered for prolonged episode of unresponsiveness: Preliminary report is normal. * TSH: 7.07 (elevated) and free T4 1.44 (normal). Will defer management to Primary team. * Will defer electrolyte derangement correction to nephrology team. * Otherwise will defer the rest of medical management to the primary team. Time with Patient: Less than 30
[2021-12-02] MEDS: MELATONIN 3 MG TABLET PO SCH (20:48)
[2021-12-03] MEDS: MORPHINE SULFATE 2 MG/ML SYRINGE IVP PRN ×6 (00:45→23:24)
--- NOTE | 2021-12-03 01:57 | EEG ---
ELECTROENCEPHALOGRAM REPORT CLINICAL HISTORY: This is a 41-year-old gentleman with reported episode of prolonged loss of consciousness and history of polysubstance use. The video EEG is obtained to evaluate for seizure epileptiform activity. RELEVANT MEDICATION: Gabapentin. EEG TYPE: A routine 21-channel EEG is performed with video using the 10/20 electrode placement system. DESCRIPTION: Wakefulness is obtained. During awake state, the posterior-dominant rhythm consists of [id number] voltage of 8.5 to 9 hertz activity. There is no physiological sleep architecture seen. There is no focal slowing. Interictal and ictal is none. ACTIVATION PROCEDURE: Photic stimulation did not evoke a posterior driving response. There is no abnormality during photic stimulation. Hyperventilation is not performed. CLINICAL INTERPRETATION: This is a normal routine EEG. There is no focal slowing, epileptiform discharge, or seizure on the EEG. Clinical correlation is recommended. CHARBEL / OLIVIA: [id number] / MTDD
[2021-12-03] MEDS: ONDANSETRON 4 MG/2 ML VIAL IVP PRN (05:08)
[2021-12-03] MEDS: GABAPENTIN 100 MG CAP PO SCH ×2 (09:17→20:21)
[2021-12-03] MEDS: FAMOTIDINE 20 MG/2 ML VIAL IV SCH (09:17)
[2021-12-03] MEDS: NICOTINE 21MG/24HR PATCH TRANSDERM SCH (09:18)
[2021-12-03] MEDS: HEPARIN SODIUM,PORCINE/PF 5,000 UNIT/0.5 ML SYRINGE SQ SCH ×2 (09:18→20:22)
[2021-12-03] MEDS: TORSEMIDE 20 MG TAB PO SCH (09:25)
--- NOTE | 2021-12-03 11:49 | P.PN ---
Subjective Patient is seen in follow-up for acute kidney injury, currently hemodialysis dependent. CK levels trending down. Awake and alert. Denies chest pain or shortness of breath. Urine output about 550 mL in the last 24 hours. On oral torsemide. No changes overnight. Vital signs are stable. General: Awake. No acute distress. HEENT: Head exam is unremarkable. LUNGS: Breath sounds decreased. HEART: Rate and Rhythm are regular. ABDOMEN: Soft, no distention. EXTREMITITES: 1+ edema. Objective - Vital Signs Vital signs: Vital Signs Temp 98.4 F 12/03/21 07:50 Pulse 95 12/03/21 08:00 Resp 17 12/03/21 08:00 BP 130/61 12/03/21 07:50 Pulse Ox 97 12/03/21 07:50 FiO2 Intake & Output 12/02/21 12/03/21 12/03/21 18:59 06:59 18:59 Intake Total 658 384 Output Total 3800 1225 Balance -3142 -1225 384 Weight 112.5 kg 113 kg Intake: Oral 358 384 Hemodialysis 300 Output: Urine 1000 1225 Hemodialysis 2800 Other: Voiding Method Indwelling Catheter Indwelling Catheter Indwelling Catheter ABP, PAP, CO, CI - Last Documented Arterial Blood Pressure 139/42 - Labs CBC & Chem 7: 11/28/21 18:00 12/02/21 07:06 Assessment and Plan Plan: Assessment: 1. Acute kidney injury secondary to ATN secondary to rhabdomyolysis. Rule out GN. Started on hemodialysis November 22, 2021. Creatinine July 2018 was 0.79. No hydronephrosis noted on kidney ultrasound. Left kidney was not properly visualized. 2. Hyperkalemia secondary to acute kidney injury and metabolic acidosis. Improved postdialysis. 3. Hyponatremia secondary to acute kidney injury. Hypervolemic. Expect improvement post dialysis and ultrafiltration. 4. Metabolic acidosis secondary to acute kidney injury and lactic acidosis. Better. 5. Hyperphosphatemia secondary to acute kidney injury. Phosphorus 5.8 dated 11/24/2021. Phosphorus level 4.3 dated 11/30/2021. 6. Hypocalcemia secondary to acute kidney injury. Replaced. Better. 7. IV drug abuse. 8. Rhabdomyolysis secondary to IV drug abuse and immobility. CK level greater than 160,000 initially. Trending down. 9. Transaminitis likely secondary to rhabdomyolysis. Improving. 10. Volume overload. Improving with ultrafiltration. 11. Hep C IgG Ab reactive. GI consulted. States hep C has not been treated. 12. Lower extremity weakness. Neurology following. MRI pending. Plan: Obtain torsemide 40 mg once daily. Hemodialysis tomorrow. Maintain on Thursday schedule. Continue to monitor renal function and urine output. Monitor for renal recovery. Peak cath placed 12/01/2021. Follow-up serologies - negative so far. Will also consider kidney biopsy if no recovery of renal function. This was discussed with the patient. States he will consider.
--- NOTE | 2021-12-03 12:06 | P.PN ---
Subjective Progress Note Date: 12/03/21 The patient is seen at bedside and feels about the same. Denies of any new neurological issues. Objective - Vital Signs Vital signs: Vital Signs Temp 98.4 F 12/03/21 07:50 Pulse 95 12/03/21 08:00 Resp 17 12/03/21 08:00 BP 130/61 12/03/21 07:50 Pulse Ox 97 12/03/21 07:50 FiO2 Intake & Output 12/02/21 12/03/21 12/03/21 18:59 06:59 18:59 Intake Total 658 384 Output Total 3800 1225 Balance -3142 -1225 384 Weight 112.5 kg 113 kg Intake: Oral 358 384 Hemodialysis 300 Output: Urine 1000 1225 Hemodialysis 2800 Other: Voiding Method Indwelling Catheter Indwelling Catheter Indwelling Catheter ABP, PAP, CO, CI - Last Documented Arterial Blood Pressure 139/42 - Exam GENERAL: The patient is lying in bed and is not in acute distress. NEUROLOGICAL: Higher mental function: The patient is awake, alert, oriented to self, place and time. Patient is following commands. No aphasia and no neglect. Cranial nerves: The pupils are round, equal and reactive to light and accommodation. Visual syed are full to confrontation throughout. Extraocular movement is intact no nystagmus is noted. Facial sensation is normal to touch t hroughout. The facial strength is normal throughout. Tongue is midline and moved [id number] without any difficulty. No dysarthria is noted. Shoulder shrug is normal bilaterally. Motor: The strength is 5 over 5 throughout uppers. Lowers: Is able to lift right lowers above gravity proximally while left lower he is able to move side to side proximally and ?minimally lift above gravity. Distally 0 bilaterally. Has edema in lowers. Normal bulk. Sensation: Sensation is normal to touch throughout. Reflexes (right/left):2+ throughout except ankles are 0 bilaterally. Plantars are mute bilaterally. - Labs CBC & Chem 7: 11/28/21 18:00 12/02/21 07:06 Assessment and Plan Assessment: * Bilateral lower extremity weakness, distally and proximally, left more than right. Probably due to acute rhabdomyolysis, myoedema. * Prolonged episode of loss of consciousness (for hours) following IV drug use, resulting in rhabdomyolysis. * Acute renal failure due to rhabdomyolysis, on hemodialysis---CK trending down * Significant electrolyte imbalance--improving * Elevated cardiac enzymes, cardiology on board. * Hypothyroidism * Hepatitis C positive * Polysubstance abuse. * Transaminitis, improving Plan: * Patient has bilateral leg weakness, left more than right. Appears to be due to acute muscle injury due to rhabdomyolysis. Knee reflexes are preserved. However ankle reflexes are absent. Possible some degree of lumbosacral plexopathy cannot be ruled out from prolonged extrinsic compression. Patient may need EMG and nerve conductions of lower extremities as an outpatient. In meantime, ordered MRI Lumbar spine to rule out other causes. * CK level today is 3K (trending down). Recommend serial CK. * Patient has significant pain in bilateral lower limbs, especially with movement. On low-dose Neurontin 100 mg twice a day (adjusted for renal failure) to see if it helps with the pain. * Routine EEG ordered for prolonged episode of unresponsiveness: Is normal. * TSH: 7.07 (elevated) and free T4 1.44 (normal). Will defer management to Primary team. * Will defer electrolyte derangement correction to nephrology team. * Otherwise will defer the rest of medical management to the primary team. Time with Patient: Less than 30
--- NOTE | 2021-12-03 12:09 | P.PN ---
Subjective Patient is admitted the of acute renal failure, heroine withdrawal, drug abuse. Patient does have history of hepatitis C. Patient was initially treated on hemodialysis during this hospitalization patient doesn't have much of urine output at this time. Patient was believed to have rhabdomyolysis and acute tubal necrosis secondary to rhabdomyolysis patient was hyperkalemic secondary to that. Patient is presently undergoing hemodialysis. Patient was cleared by nephrology to be discharged physical to the occupational therapy will evaluate the patient patient probably will need subacute rehabilitation and patient will need prior authorization. 12/03/2021 Patient is clinically doing well awaiting placement Constitutional: Denied any fatigue denied any fever. Cardio vascular: denied any chest pain, palpitations Gastrointestinal denied any nausea vomiting Pulmonary: Denied any shortness of breath cough Neurologic denied any new focal deficits All inpatient medications were reviewed and appropriate changes in these medications as dictated in the interval history and assessment and plan. PHYSICAL EXAMINATION: GENERAL: The patient is alert and oriented x3, not in any acute distress. Well developed, well nourished. HEENT: Pupils are round and equally reacting to light. EOMI. No scleral icterus. No conjunctival pallor. Normocephalic, atraumatic. No pharyngeal erythema. No thyromegaly. CARDIOVASCULAR: S1 and S2 present. No murmurs, rubs, or gallops. PULMONARY: Chest is clear to auscultation, no wheezing or crackles. ABDOMEN: Soft, nontender, nondistended, normoactive bowel sounds. No palpable organomegaly. MUSCULOSKELETAL: No joint swelling or deformity. EXTREMITIES: No cyanosis, clubbing, or pedal edema. NEUROLOGICAL: Gross neurological examination did not reveal any focal deficits. SKIN: No rashes. Assessment and plan -Acute renal failure secondary to acute tubal necrosis secondary to rhabdomyolysis patient is undergoing hemodialysis patient was started on hemodialysis during this hospitalization. -Hypokalemia improved at this times after hemodialysis -Metabolic acidosis secondary to acute renal failure -History of hepatitis C -Transaminitis: Secondary to chronic hep C. -Volume overload secondary to renal failure patient is on diuretics and is undergoing hemodialysis at this time -History of heroine abuse and drug abuse patient was treated for withdrawals DVT prophylaxis: Subcutaneous heparin Objective - Vital Signs Vital signs: Vital Signs Temp 98.4 F 12/03/21 07:50 Pulse 95 12/03/21 08:00 Resp 17 12/03/21 08:00 BP 130/61 10/25/22 07:50 Pulse Ox 97 12/03/21 07:50 FiO2 Intake & Output 12/02/21 12/03/21 12/03/21 18:59 06:59 18:59 Intake Total 658 384 Output Total 3800 1225 Balance -3142 -1225 384 Weight 112.5 kg 113 kg Intake: Oral 358 384 Hemodialysis 300 Output: Urine 1000 1225 Hemodialysis 2800 Other: Voiding Method Indwelling Catheter Indwelling Catheter Indwelling Catheter ABP, PAP, CO, CI - Last Documented Arterial Blood Pressure 139/42 - Labs CBC & Chem 7: 11/28/21 18:00 12/02/21 07:06
[2021-12-03] MEDS: ERGOCALCIFEROL 1,250 MCG (50,000 IU) CAPSULE PO SCH (13:36)
--- NOTE | 2021-12-03 15:32 | MR ---
EXAMINATION TYPE: MR lspine/sacrum wo con DATE OF EXAM: 12/03/2021 COMPARISON: CT 11/22/2021 HISTORY: Leg weakness TECHNIQUE: Multiplanar, multisequence imaging of the lumbar spine is performed without IV contrast. FINDINGS: There is artifact present. Prior lumbar spinal canal is not well seen. Sagittal images of the lumbar spine show vertebral body heights and alignment to appear satisfactory. The intervertebral discs demonstrate normal heights and hydration with exception of some loss of dis c height and signal at L2-3. The conus medullaris is normal in position and signal. The bone marrow signal intensity is remarkable for increased signal in the inferior endplate of L1 posteriorly to th e right of midline.. Suspect some marrow reconversion. There is no spinal canal stenosis, neural foraminal narrowing, or evidence of nerve root compromise. Sacrum shows some marrow reconversion, fatty marrow signal is present distally, sacroiliac joints are intact IMPRESSION: Correlate for possible anemia. No evident canal stenosis or sizable disc herniation, ther e is extensive artifact present.
[2021-12-03 16:38] LABS: Albumin 2.13 g/dL (3.80-4.90); Gamma Globulin 0.58 g/dL (0.70-1.50)
[2021-12-03] MEDS: MELATONIN 3 MG TABLET PO SCH (20:21)
[2021-12-04] MEDS: MORPHINE SULFATE 2 MG/ML SYRINGE IVP PRN ×4 (04:20→21:38)
[2021-12-04 09:19] LABS: Calcium 7.7 mg/dL (8.4-10.2); Potassium 5.1 mmol/L (3.5-5.1)
[2021-12-04] MEDS: HEPARIN SODIUM,PORCINE/PF 5,000 UNIT/0.5 ML SYRINGE SQ SCH ×2 (09:31→20:02)
[2021-12-04] MEDS: NICOTINE 21MG/24HR PATCH TRANSDERM SCH (09:34)
--- NOTE | 2021-12-04 11:07 | P.PN ---
Subjective Patient is seen in follow-up for acute kidney injury, currently hemodialysis dependent. CK levels trending down. Awake and alert. Denies chest pain or shortness of breath. Urine output improved. On oral torsemide. No changes overnight. Vital signs are stable. General: Awake. No acute distress. HEENT: Head exam is unremarkable. LUNGS: Breath sounds decreased. HEART: Rate and Rhythm are regular. ABDOMEN: Soft, no distention. EXTREMITITES: 1+ edema. Objective - Vital Signs Vital signs: Vital Signs Temp 98.2 F 12/04/21 08:00 Pulse 78 12/04/21 08:00 Resp 12 12/04/21 08:00 BP 115/64 12/04/21 08:00 Pulse Ox 96 12/04/21 08:00 FiO2 Intake & Output 12/03/21 12/04/21 12/04/21 18:59 06:59 18:59 Intake Total 606 120 Output Total 800 1850 Balance -194 -1850 120 Intake: Oral 606 120 Output: Urine 800 1850 Other: Voiding Method Indwelling Catheter Indwelling Catheter Indwelling Catheter ABP, PAP, CO, CI - Last Documented Arterial Blood Pressure 139/42 - Labs CBC & Chem 7: 11/28/21 18:00 12/04/21 07:45 Labs: Abnormal Lab Results - Last 24 Hours (Table) 12/01/21 12/04/21 Range/Units 11:34 07:45 Sodium 130 L (137-145) mmol/L Chloride 97 L (98-107) mmol/L BUN 79 H (9-20) mg/dL Creatinine 8.18 H* (0.66-1.25) mg/dL Glucose 113 H (74-99) mg/dL Calcium 7.7 L (8.4-10.2) mg/dL Creatine Kinase 1439 H* (55-170) U/L Albumin (PEP) 2.13 L (3.80-4.90) g/dL [id number] 0.49 H (0.10-0.40) g/dL Beta Globulins 0.49 L (0.60-1.30) g/dL Gamma Globulins 0.58 L (0.70-1.50) g/dL Assessment and Plan Plan: Assessment: 1. Acute kidney injury secondary to ATN secondary to rhabdomyolysis. Rule out GN. Started on hemodialysis November 22, 2021. Creatinine July 2018 was 0.79. No hydronephrosis noted on kidney ultrasound. Left kidney was not properly visualized. 2. Hyperkalemia secondary to acute kidney injury and metabolic acidosis. Improved postdialysis. 3. Hyponatremia secondary to acute kidney injury. Hypervolemic. Expect improvement post dialysis and ultrafiltration. Better. 4. Metabolic acidosis secondary to acute kidney injury and lactic acidosis. Better. 5. Hyperphosphatemia secondary to acute kidney injury. Phosphorus 5.8 dated 11/24/2021. Phosphorus level 4.3 dated 11/30/2021. 6. Hypocalcemia secondary to acute kidney injury. Replaced. Better. 7. IV drug abuse. 8. Rhabdomyolysis secondary to IV drug abuse and immobility. CK level greater than 160,000 initially. Trending down. 9. Transaminitis likely secondary to rhabdomyolysis. Improving. 10. Volume overload. Improving with ultrafiltration and diuresis. 11. Hep C IgG Ab reactive. GI consulted. States hep C has not been treated. 12. Lower extremity weakness. Neurology following. Plan: Maintain torsemide 40 mg once daily. Hemodialysis today. Maintain on Thursday schedule. Continue to monitor renal function and urine output. Monitor for renal recovery. Urine output has improved but creatinine 8.18 today. Pcath placed 12/01/2021. Serologies have been negative. Will also consider kidney biopsy if no recovery of renal function. This was discussed with the patient. States he will consider. Outpatient dialysis set up by casey saw operator. Okay to DC Collins catheter from nephrology standpoint. Monitor bladder scan to make sure no urinary retention.
--- NOTE | 2021-12-04 12:28 | P.PN ---
Subjective Progress Note Date: 12/04/21 Patient seen at bedside and he continues weakness over the lower extremity but he feels some improvement on a daily basis. Objective - Vital Signs Vital signs: Vital Signs Temp 98.2 F 12/04/21 08:00 Pulse 78 12/04/21 08:00 Resp 12 12/04/21 08:00 BP 115/64 12/04/21 08:00 Pulse Ox 96 12/04/21 08:00 FiO2 Intake & Output 12/03/21 12/04/21 12/04/21 18:59 06:59 18:59 Intake Total 606 120 Output Total 800 1850 Balance -194 -1850 120 Intake: Oral 606 120 Output: Urine 800 1850 Other: Voiding Method Indwelling Catheter Indwelling Catheter Indwelling Catheter ABP, PAP, CO, CI - Last Documented Arterial Blood Pressure 139/42 - Exam GENERAL: The patient is lying in bed and is not in acute distress. NEUROLOGICAL: Higher mental function: The patient is awake, alert, oriented to self, place and time. Patient is following commands. No aphasia and no neglect. Cranial nerves: The pupils are round, equal and reactive to light and accommodation. Visual syed are full to confrontation throughout. Extraocular movement is intact no nystagmus is noted. Facial sensation is normal to touch throughout. The facial strength is normal throughout. Tongue is midline and moved [id number] without any difficulty. No dysarthria is noted. Shoulder shrug is normal bilaterally. Motor: The strength is 5 over 5 throughout uppers. Lowers: Is able to lift right lowers above gravity proximally while left lower he is able to move side to side proximally and ?minimally lift above gravity. Distally 0 bilaterally. Has edema in lowers. Normal bulk. Sensation: Sensation is normal to touch throughout. Reflexes (right/left):2+ throughout except ankles are 0 bilaterally. Plantars are mute bilaterally. - Labs CBC & Chem 7: 11/28/21 18:00 12/04/21 07:45 Labs: Abnormal Lab Results - Last 24 Hours (Table) 12/01/21 12/04/21 Range/Units 11:34 07:45 Sodium 130 L (137-145) mmol/L Chloride 97 L (98-107) mmol/L BUN 79 H (9-20) mg/dL Creatinine 8.18 H* (0.66-1.25) mg/dL Glucose 113 H (74-99) mg/dL Calcium 7.7 L (8.4-10.2) mg/dL Creatine Kinase 1439 H* (55-170) U/L Albumin (PEP) 2.13 L (3.80-4.90) g/dL Mwykr-1-[id number] 0.49 H (0.10-0.40) g/dL Beta Globulins 0.49 L (0.60-1.30) g/dL Gamma Globulins 0.58 L (0.70-1.50) g/dL Assessment and Plan Assessment: * Bilateral lower extremity weakness, distally and proximally, left more than right. Probably due to acute rhabdomyolysis, myoedema. * Prolonged episode of loss of consciousness (for hours) following IV drug use, resulting in rhabdomyolysis. * Acute renal failure due to rhabdomyolysis, on hemodialysis---CK trending down * Significant electrolyte imbalance--improving * Elevated cardiac enzymes, cardiology on board. * Hypothyroidism * Hepatitis C positive * Polysubstance abuse. * Transaminitis, improving Plan: * Patient has bilateral leg weakness, left more than right. Appears to be due to acute muscle injury due to rhabdomyolysis. Knee reflexes are preserved. However ankle reflexes are absent. Possible some degree of lumbosacral plexopathy cannot be ruled out from prolonged extrinsic compression. Patient may need EMG and nerve conductions of lower extremities as an outpatient. * MRI of the lumbar spine is reported as correlate for possible anemia. No evident canal stenosis or sizable disc herniation. There is extensive artifact present. * CK level today is 3K (trending down). Recommend serial CK. * Patient has significant pain in bilateral lower limbs, especially with movement. On low-dose Neurontin 100 mg twice a day (adjusted for renal f ailure) to see if it helps with the pain. * Routine EEG ordered for prolonged episode of unresponsiveness: Is normal. * TSH: 7.07 (elevated) and free T4 1.44 (normal). Will defer management to Primary team. * PT and OT are consulted * Will defer electrolyte derangement correction to nephrology team. * Otherwise will defer the rest of medical management to the primary team. Otherwise no additional neurological workup is needed. Time with Patient: Less than 30
[2021-12-04] MEDS: GABAPENTIN 100 MG CAP PO SCH ×2 (17:23→20:02)
[2021-12-04] MEDS: TORSEMIDE 20 MG TAB PO SCH (17:23)
[2021-12-04] MEDS: FAMOTIDINE 20 MG/2 ML VIAL IV SCH (17:23)
[2021-12-04] MEDS: MELATONIN 3 MG TABLET PO SCH (20:02)
--- NOTE | 2021-12-05 05:44 | P.PN ---
Subjective Progress Note Date: 12/04/21 Patient is admitted the of acute renal failure, heroine withdrawal, drug abuse. Patient does have history of hepatitis C. Patient was initially treated on hemodialysis during this hospitalization patient doesn't have much of urine output at this time. Patient was believed to have rhabdomyolysis and acute tubal necrosis secondary to rhabdomyolysis patient was hyperkalemic secondary to that. Patient is presently undergoing hemodialysis. Patient was cleared by nephrology to be discharged physical to the occupational therapy will evaluate the patient patient probably will need subacute rehabilitation and patient will need prior authorization. 12/03/2021 Patient is clinically doing well awaiting placement 12/04/2021 Patient is seen today with nephrology and neurology following. Patient has received permacath and arranged for outpatient dialysis. Neurology following and testing has been negative for any acute process. Immobility most likely related to rhabdomyelysis. Will need outpatient emg testing. Working with PT/OT therapy daily and was able to stand at bedside today. Recommend PT daily. Social work following and given patients history of drug use with heroin, no accepted ECF in the area and patient is not willing to go to [place] for ECF. May need home care arranged. Has no pcp currently. Reports skin feels tight around the left side of the abdomen and is to receive dialysis today. Maintained on torsemide. Review of systems: Constitutional: Denied any fatigue denied any fever. Cardio vascular: denied any chest pain, palpitations Gastrointestinal denied any nausea vomiting Pulmonary: Denied any shortness of breath cough Neurologic reports weakness of lower extremities and tight skin All inpatient medications were reviewed and appropriate changes in these medications as dictated in the interval history and assessment and plan. PHYSICAL EXAMINATION: GENERAL: The patient is alert and oriented x3, not in any acute distress. Well developed, well nourished. HEENT: Pupils are round and equally reacting to light. EOMI. No scleral icterus. No conjunctival pallor. Normocephalic, atraumatic. No pharyngeal erythema. No thyromegaly. CARDIOVASCULAR: S1 and S2 present. No murmurs, rubs, or gallops. PULMONARY: Chest is clear to auscultation, no wheezing or crackles. ABDOMEN: Soft, nontender, nondistended, normoactive bowel sounds. No palpable organomegaly. MUSCULOSKELETAL: No joint swelling or deformity. EXTREMITIES: No cyanosis, clubbing, or pedal edema. NEUROLOGICAL: Gross neurological examination did not reveal any focal deficits. SKIN: No rashes. Assessment and plan -Acute renal failure secondary to acute tubal necrosis secondary to rhabdomyoly sis, patient is undergoing hemodialysis patient was started on hemodialysis during this hospitalization. Has received his permacath and outpatient dialysis is arranged -Hypokalemia improved at this times after hemodialysis -Metabolic acidosis secondary to acute renal failure -History of hepatitis C -Transaminitis: Secondary to chronic hep C. -Volume overload secondary to renal failure patient is on diuretics and is undergoing hemodialysis at this time -History of heroine abuse and drug abuse patient was treated for withdrawals -DVT prophylaxis: Subcutaneous heparin -full code Plan: Continue with hemodialysis and current medications. Maintain torsemide Recommend daily PT/OT therapy Social work following and outpatient dialysis is arranged No accepting ecf in the area and patient is not willing to go to [place] for rehab Possible home with home care. Recommend to dc kruse catheter Recommend repeat am labs Possible discharge in 24-48 hours The impression and plan of care has been dictated by Laura Millard, Nurse Practitioner as directed. Dr. Gopi MD I have performed a history and examination and MDM of this patient, discussed the same with the dictator, and agree with the dictator's assessment and plan as written ,documented as a scribe. Based on total visit time, I have performed more than 50% of the visit. Objective - Vital Signs Vital signs: Vital Signs Temp 98.2 F 12/04/21 08:00 Pulse 78 12/04/21 08:00 Resp 12 12/04/21 08:00 BP 115/64 12/04/21 08:00 Pulse Ox 96 12/04/21 08:00 FiO2 Intake & Output 12/03/21 12/04/21 12/04/21 18:59 06:59 18:59 Intake Total 606 120 Output Total 800 1850 Balance -194 -1850 120 Intake: Oral 606 120 Output: Urine 800 1850 Other: Voiding Method Indwelling Catheter Indwelling Catheter ABP, PAP, CO, CI - Last Documented Arterial Blood Pressure 139/42 - Labs CBC & Chem 7: 11/28/21 18:00 12/04/21 07:45 Labs: Abnormal Lab Results - Last 24 Hours (Table) 12/01/21 12/04/21 Range/Units 11:34 07:45 Sodium 130 L (137-145) mmol/L Chloride 97 L (98-107) mmol/L BUN 79 H (9-20) mg/dL Creatinine 8.18 H* (0.66-1.25) mg/dL Glucose 113 H (74-99) mg/dL Calcium 7.7 L (8.4-10.2) mg/dL Creatine Kinase 1439 H* (55-170) U/L Albumin (PEP) 2.13 L (3.80-4.90) g/dL Kfinr-5-Arjhejmbo 0.49 H (0.10-0.40) g/dL Beta Globulins 0.49 L (0.60-1.30) g/dL Gamma Globulins 0.58 L (0.70-1.50) g/dL
[2021-12-05] MEDS: MORPHINE SULFATE 2 MG/ML SYRINGE IVP PRN ×4 (06:56→22:00)
[2021-12-05 08:59] LABS: Potassium 5.2 mmol/L (3.5-5.1)
[2021-12-05] MEDS: NICOTINE 21MG/24HR PATCH TRANSDERM SCH ×2 (09:19→18:45)
[2021-12-05] MEDS: HEPARIN SODIUM,PORCINE/PF 5,000 UNIT/0.5 ML SYRINGE SQ SCH ×2 (09:19→21:58)
--- NOTE | 2021-12-05 09:59 | P.PN ---
Subjective Patient is seen in follow-up for acute kidney injury, currently hemodialysis dependent. CK levels trending down. Awake and alert. Denies chest pain or shortness of breath. Urine output improved. On oral torsemide. No changes overnight. Vital signs are stable. General: Awake. No acute distress. HEENT: Head exam is unremarkable. LUNGS: Breath sounds decreased. HEART: Rate and Rhythm are regular. ABDOMEN: Soft, no distention. EXTREMITITES: 2+ edema. Scrotal edema noted. Objective - Vital Signs Vital signs: Vital Signs Temp 97.8 F 12/04/21 17:14 Pulse 72 12/05/21 04:00 Resp 19 12/05/21 04:00 BP 113/65 12/05/21 04:00 Pulse Ox 98 12/05/21 04:00 FiO2 Intake & Output 12/04/21 12/05/21 12/05/21 18:59 06:59 18:59 Intake Total 420 0 Output Total 3300 1900 Balance -2880 -1900 0 Weight 112 kg Intake: Oral 120 0 Hemodialysis 300 Output: Urine 1100 1900 Hemodialysis 2200 Other: Voiding Method Indwelling Catheter Indwelling Catheter ABP, PAP, CO, CI - Last Documented Arterial Blood Pressure 139/42 - Labs CBC & Chem 7: 11/28/21 18:00 12/05/21 07:36 Labs: Abnormal Lab Results - Last 24 Hours (Table) 12/05/21 Range/Units 07:36 Sodium 133 L (137-145) mmol/L Potassium 5.2 H (3.5-5.1) mmol/L BUN 56 H (9-20) mg/dL Creatinine 6.02 H (0.66-1.25) mg/dL Glucose 108 H (74-99) mg/dL Calcium 8.0 L (8.4-10.2) mg/dL Creatine Kinase 1058 H* (55-170) U/L Assessment and Plan Plan: Assessment: 1. Acute kidney injury secondary to ATN secondary to rhabdomyolysis. Rule out GN. Started on hemodialysis November 22, 2021. Creatinine July 2018 was 0.79. No hydronephrosis noted on kidney ultrasound. Left kidney was not properly visualized. 2. Hyperkalemia secondary to acute kidney injury and metabolic acidosis. Improved postdialysis. 3. Hyponatremia secondary to acute kidney injury. Hypervolemic. Expect improvement post dialysis and ultrafiltration. Better. 4. Metabolic acidosis secondary to acute kidney injury and lactic acidosis. Better. 5. Hyperphosphatemia secondary to acute kidney injury. Phosphorus 5.8 dated 11/24/2021. Phosphorus level 4.3 dated 11/30/2021. 6. Hypocalcemia secondary to acute kidney injury. Replaced. Better. 7. IV drug abuse. 8. Rhabdomyolysis secondary to IV drug abuse and immobility. CK level greater than 160,000 initially. Trending down. 9. Transaminitis likely secondary to rhabdomyolysis. Improved. 10. Volume overload. Improving with ultrafiltration and diuresis. 11. Hep C IgG Ab reactive. GI not available in the hospital at this time. States hep C has not been treated. 12. Lower extremity weakness. Neurology following. Plan: Maintain torsemide 40 mg once daily. Extra treatment of hemodialysis today mostly for ultrafiltration. Maintain on Thursday schedule. Continue to monitor renal function and urine output. Monitor for renal recovery. Urine output has improved but creatinine 8.18 today. Pcath placed 12/01/2021. Serologies have been negative. Will also consider kidney biopsy if no recovery of renal function. This was discussed with the patient. States he will consider. Outpatient dialysis set up by case finisher. Okay to DC Collins catheter from nephrology standpoint. Monitor bladder scan to make sure no urinary retention. DC clonidine patch as blood pressure is on the lower side.
--- NOTE | 2021-12-05 11:14 | P.PN ---
Subjective Progress Note Date: 12/05/21 The patient is seen at bedside and continues to have weakness in the legs (left > right). He is having numbness from the left knee and down and the right ankle. He is having difficulty ambulating. Denies any weakness or numbness of uppers extremities. Denies any visual disturbance, difficulty getting his words out. Objective - Vital Signs Vital signs: Vital Signs Temp 97.8 F 12/04/21 17:14 Pulse 72 12/05/21 04:00 Resp 19 12/05/21 04:00 BP 113/65 12/05/21 04:00 Pulse Ox 98 12/05/21 04:00 FiO2 Intake & Output 12/04/21 12/05/21 12/05/21 18:59 06:59 18:59 Intake Total 420 0 Output Total 3300 1900 Balance -2880 -1900 0 Weight 112 kg Intake: Oral 120 0 Hemodialysis 300 Output: Urine 1100 1900 Hemodialysis 2200 Other: Voiding Method Indwelling Catheter Indwelling Catheter ABP, PAP, CO, CI - Last Documented Arterial Blood Pressure 139/42 - Exam GENERAL: The patient is lying in bed and is not in acute distress. NEUROLOGICAL: Higher mental function: The patient is awake, alert, oriented to self, place and time. Patient is following commands. No aphasia and no neglect. Cranial nerves: The pupils are round, equal and reactive to light and accommodation. Visual syed are full to confrontation throughout. Extraocular movement is intact no nystagmus is noted. Facial sensation is normal to touch throughout. The facial strength is normal throughout. Tongue is midline and moved [id number] without any difficulty. No dysarthria is noted. Shoulder shrug is normal bilaterally. Motor: The strength is 5 over 5 throughout uppers. Right lower Is able to lift proximal and knee above gravity 3 while right ankle dorsiflexion and plantar flexion is 0-1, Able to wiggle some toes of the right foot. Left lower proximally is 2 and knee is 2 to very weak 3 with support of picking up thigh. Left ankle is 0. Decrease tone more on the left than right. Normal bulk. Sensation: Sensation is decrease to touch from the left knee down and right ankle to touch. Reflexes (right/left):2+ throughout except patellar are 3+ and ankles are 0 bilaterally. Plantars are mute bilaterally. - Labs CBC & Chem 7: 10/20/22 18:00 12/05/21 07:36 Labs: Abnormal Lab Results - Last 24 Hours (Table) 12/05/21 Range/Units 07:36 Sodium 133 L (137-145) mmol/L Potassium 5.2 H (3.5-5.1) mmol/L BUN 56 H (9-20) mg/dL Creatinine 6.02 H (0.66-1.25) mg/dL Glucose 108 H (74-99) mg/dL Calcium 8.0 L (8.4-10.2) mg/dL Creatine Kinase 1058 H* (55-170) U/L Assessment and Plan Assessment: * Bilateral lower extremity weakness, distally and proximally, left more than right and patellar seems brisk. Rule out thoracic myelopathy/stroke due to IV drug use (heroin). MRI Lumbar w/o is unremarkable. * Prolonged episode of loss of consciousness (for hours) following IV drug use, resulting in rhabdomyolysis. * Acute renal failure due to rhabdomyolysis, on hemodialysis---CK trending down * Significant electrolyte imbalance--improving * Elevated cardiac enzymes, cardiology on board. * Hypothyroidism * Hepatitis C positive * Polysubstance abuse. * Transaminitis, improving Plan: * I ordered MRI Thoracic w/o to rule out thoracic myelopathy. * Patient has bilateral leg weakness, left more than right. Appears to be due to acute muscle injury due to rhabdomyolysis. Knee reflexes are preserved. However ankle reflexes are absent. Possible some degree of lumbosacral plexopathy cannot be ruled out from prolonged extrinsic compression. Patient may need EMG and nerve conductions of lower extremities as an outpatient. * MRI of the lumbar spine is reported as correlate for possible anemia. No evident canal stenosis or sizable disc herniation. There is extensive artifact present. * CK level today is 3K (trending down). Recommend serial CK. * Patient has significant pain in bilateral lower limbs, especially with movement. On low-dose Neurontin 100 mg twice a day (adjusted for renal failure) to see if it helps with the pain. * Routine EEG ordered for prolonged episode of unresponsiveness: Is normal. * TSH: 7.07 (elevated) and free T4 1.44 (normal). Will defer management to Primary team. * PT and OT are consulted * Will defer electrolyte derangement correction to nephrology team. * Otherwise will defer the rest of medical management to the primary team. The patient is discussed with patient and his nurse. Beside MRI Thoracic spine, no additional work-up is needed. Time with Patient: Less than 30
--- NOTE | 2021-12-05 16:11 | MR ---
EXAMINATION TYPE: MR thoracic spine wo con DATE OF EXAM: 12/05/2021 COMPARISON: NONE HISTORY: Leg weakness TECHNIQUE: Multiplanar, multisequence imaging of thoracic spine is performed without contrast FINDINGS: Coronal images show slight dextroconvex scoliotic curvature. Spinal cord shows normal gaurav javier and signal as it courses the thoracic spine. Vertebral body heights and alignment are satisfacto ry. Disc space heights are maintained. Bone marrow signal intensity is preserved. No large posterior disc herniations on sagittal images. Review of the axial images shows no significant spinal canal stenosis or neural foraminal narrowing at any thoracic level. Visualized thorax and upper abdomen show no suspicious abnormality. IMPRESSION: Slight scoliotic curvature otherwise unremarkable study. Spinal cord shows normal calibe r without abnormal signal identified.
[2021-12-05] MEDS: FAMOTIDINE 20 MG/2 ML VIAL IV SCH (17:07)
[2021-12-05] MEDS: TORSEMIDE 20 MG TAB PO SCH (17:07)
[2021-12-05] MEDS: GABAPENTIN 100 MG CAP PO SCH ×2 (17:07→22:00)
[2021-12-05] MEDS: MELATONIN 3 MG TABLET PO SCH (22:00)
[2021-12-06] MEDS: MORPHINE SULFATE 2 MG/ML SYRINGE IVP PRN ×3 (04:10→13:56)
--- NOTE | 2021-12-06 05:05 | P.CONS ---
History of Present Illness - Chief Complaint Gait disturbance - History of Present Illness I had the opportunity to see patient for inpatient rehab consultation with regard to gait disturbance. Patient admitted to Dr. ruslan Agustin, November 21 with nausea, emesis, paresthesias, mental status change. Patient apparently fell downstairs and IV chair when. Diagnosed with rhabdomyolysis and toxic encephalopathy. Seen by Dr. march for placement of central line. Seen by Dr. Schwarz who notes acute kidney injury and requiring some hemodialysis. Seen by Dr. Miller for intensive care. Seen by neurology, Dr. Etienne, who notes rhabdo myoedema in the legs. Diagnostic tests head CT with scalp hematoma only. Venous Doppler with left leg edema and negative for DVT left or right leg. Abdominal ultrasound negative for renal obstruction. Liver ultrasound shows common bile duct dilatation mild. Left hip and femur x-ray negative for fracture. Chest x-ray negative. Lumbar MRI with sclerotic and disc desiccation changes L1, 2 seen by therapy. PT reports moderate assistance bed mobility 2 person maximal assistance for transfers. Really unable to stand or take steps. OT reports independent with feeding and grooming supervision for upper dressing. Total assistance for lower dressing and toileting, maximal assistance for bathing and two-person total assistance for toilet transfer. Previous functional history as elicited from patient: 41-year-old right-handed white male who is lives and 2 floor home with . Reports that he is unemployed due to current problems. Reports both he and to cooking, laundry, driving. Patient dependent with standing shower and gait without d evice. Does not have PCP. Smokes a pack per day and denies alcohol. Review of Systems Review of systems: ENT: Denies sneezes or discharge. Eyes: Denies discharge or photophobia. Cardiac: Denies chest pain or palpitation. Pulmonary: Denies cough or shortness of breath. Gastrointestinal: Denies nausea, emesis, constipation, diarrhea. Genitourinary: Denies discharge or frequency. Musculoskeletal: General body aches especially back. Lower extremity edema. Neurologic: Weakness legs more than arms. Endocrine: Denies shakes or sweats. Oncology: Denies cancers. Dermatologic: Denies rash, itching, pruritus. ALLERGY/immunology: Denies sneezes, rashes. Past Medical History Past Medical History: No Reported History Additional Past Medical History / Comment(s): Depression, Drug abuse (heroin, methamphetamine) History of Any Multi-Drug Resistant Organisms: None Reported Additional Past Surgical History / Comment(s): cyst removed from chest Past Psychological History: No Psychological Hx Reported Smoking Status: Current every day smoker Past Alcohol Use History: Rare Past Drug Use History: Heroin, Methamphetamine, Opiates - Past Family History Mother Sister(s) Family Medical History: Cancer Additional Family Medical History / Comment(s): mother metastatic bone ca,. sister best away from breast, uterine ovarian 2014. Brother has colon CA Medications and Allergies Home Medications Medication Instructions Recorded Confirmed Type Docusate [Colace] 100 mg PO BID PRN cap 12/02/21 Rx Ergocalciferol [Vitamin D2 (1250 1,250 mcg PO Q7D cap 12/02/21 Rx Mcg = [id number] Iu)] Gabapentin [Neurontin] 100 mg PO BID #10 cap 12/02/21 Rx Nicotine 21Mg/24Hr Patch [Habitrol] 1 patch TRANSDERM DAILY patch 12/02/21 Rx Torsemide [Demadex] 40 mg PO DAILY tab 12/02/21 Rx Allergies Allergy/AdvReac Type Severity Reaction Status Date / Time amoxicillin Allergy Rash/Hives Verified 11/22/21 07:28 Physical Exam Vitals: Vital Signs Temp Pulse Resp BP Pulse Ox 12/06/21 04:00 82 19 132/69 98 12/05/21 23:50 92 18 122/62 99 12/05/21 21:02 87 12/05/21 20:55 99.1 F 87 19 118/57 98 12/05/21 16:41 99.3 F 82 17 125/63 100 12/05/21 14:00 82 18 12/05/21 08:00 98.5 F 82 18 122/59 82 L Intake and Output 12/05/21 12/05/21 12/06/21 14:59 22:59 06:59 Intake Total 180 Output Total 2500 350 900 Balance -2320 -350 -900 Intake: Oral 180 Output: Urine 350 900 Uretheral (Collins) 200 Hemodialysis 2500 Other: Voiding Method Indwelling Catheter Urinal Urinal Weight 109.5 kg Skin: Good color, texture, turgor. General: Medium build and comfortable appearance. Head: Normocephalic, atraumatic. Eyes: Symmetric. Pupils equal round. Ears: Symmetric. Hearing within normal limits. Mouth: Clear. Neck: Supple. Carotid without bruit. Cardiac: Regular rate and rhythm. Lungs: Clear anteriorly and posteriorly. Abdomen: Soft active nontender. Extremities: Normal tone in arms. Lower extremity edema 1-2+. Neurological: Mental status: Alert, cooperative, pleasant. Cranial nerves: Symmetric facial tone and trapezius. Motor: Can actively elevate arms and legs off the bed. Arms are at least antigravity in legs are at best antigravity. Sensation: Intact throughout. DTRs: Symmetric and equal throughout. Mobility: Did not attempt to sit or stand myself this early a.m. Results CBC & Chem 7: 11/28/21 18:00 12/05/21 07:36 Labs: Abnormal Lab Results - Last 24 Hours (Table) 12/05/21 Range/Units 07:36 Sodium 133 L (137-145) mmol/L Potassium 5.2 H (3.5-5.1) mmol/L BUN 56 H (9-20) mg/dL Creatinine 6.02 H (0.66-1.25) mg/dL Glucose 108 H (74-99) mg/dL Calcium 8.0 L (8.4-10.2) mg/dL Creatine Kinase 1058 H* (55-170) U/L Assessment and Plan (1) ARF (acute renal failure) Current Visit: Yes Status: Acute Code(s): N17.9 - ACUTE KIDNEY FAILURE, UNSPECIFIED SNOMED Code(s): 70185471 (2) Rhabdomyolysis Current Visit: Yes Status: Acute Code(s): M62.82 - RHABDOMYOLYSIS SNOMED Code(s): 608127395 (3) Swelling of left lower extremity Current Visit: Yes Status: Acute Code(s): M79.89 - OTHER SPECIFIED SOFT TISSUE DISORDERS SNOMED Code(s): 583976760 (4) Methamphetamine-induced psychotic disorder Current Visit: No Status: Acute Code(s): F15.959 - OTH STIMULANT USE, UNSP W STIM-INDUCE PSYCH DISORDER, UNSP SNOMED Code(s): 22610884792290114 (5) Schizoaffective disorder Current Visit: No Status: Acute Code(s): F25.9 - SCHIZOAFFECTIVE DISORDER, UNSPECIFIED SNOMED Code(s): 70646427 Plan: Comments and plan: Patient also has toxic encephalopathy related to diagnoses noted above. Patient currently with multiple aches especially back and much lower extremity weakness with inability to stand at all. At this time do not believe patient can tolerate a full inpatient rehab program recommend a slower paced program.
--- NOTE | 2021-12-06 06:15 | P.PN ---
Subjective Progress Note Date: 12/05/21 Patient is admitted the of acute renal failure, heroine withdrawal, drug abuse. Patient does have history of hepatitis C. Patient was initially treated on hemodialysis during this hospitalization patient doesn't have much of urine output at this time. Patient was believed to have rhabdomyolysis and acute tubal necrosis secondary to rhabdomyolysis patient was hyperkalemic secondary to that. Patient is presently undergoing hemodialysis. Patient was cleared by nephrology to be discharged physical to the occupational therapy will evaluate the patient patient probably will need subacute rehabilitation and patient will need prior authorization. 12/03/2021 Patient is clinically doing well awaiting placement 12/04/2021 Patient is seen today with nephrology and neurology following. Patient has received permacath and arranged for outpatient dialysis. Neurology following and testing has been negative for any acute process. Immobility most likely related to rhabdomyelysis. Will need outpatient emg testing. Working with PT/OT therapy daily and was able to stand at bedside today. Recommend PT daily. Social work following and given patients history of drug use with heroin, no accepted ECF in the area and patient is not willing to go to [place] for ECF. May need home care arranged. Has no pcp currently. Reports skin feels tight around the left side of the abdomen and is to receive dialysis today. Maintained on torsemide. 12/05/2021 Patient is seen today and continued on dialysis. Patient is to receive an additional dose of it today and continue with tomorrow. Patient is extremely e dematous. Consult placed to inpatient rehab and Dr. Scott consulted. Social work following and working on accepting ecf although no accepting facilities in the area. Continue PT/OT daily and will follow up on consult to [facility]. Afebrile and denies chest pain or shortness of breath. Continued on torsemide. Review of systems: Constitutional: Denied any fatigue denied any fever. Cardio vascular: denied any chest pain, palpitations Gastrointestinal denied any nausea vomiting Pulmonary: Denied any shortness of breath cough Neurologic reports weakness of lower extremities and tight skin All inpatient medications were reviewed and appropriate changes in these medications as dictated in the interval history and assessment and plan. PHYSICAL EXAMINATION: GENERAL: The patient is alert and oriented x3, not in any acute distress. Well developed, well nourished. HEENT: Pupils are round and equally reacting to light. EOMI. No scleral icterus. No conjunctival pallor. Normocephalic, atraumatic. No pharyngeal erythema. No thyromegaly. CARDIOVASCULAR: S1 and S2 present. No murmurs, rubs, or gallops. PULMONARY: Chest is clear to auscultation, no wheezing or crackles. ABDOMEN: Soft, nontender, nondistended, normoactive bowel sounds. No palpable organomegaly. MUSCULOSKELETAL: No joint swelling or deformity. EXTREMITIES: No cyanosis, clubbing, or pedal edema. NEUROLOGICAL: Gross neurological examination did not reveal any focal deficits. SKIN: No rashes. generalized edema noted throughout Assessment and plan -Acute renal failure secondary to acute tubal necrosis secondary to rhab domyolysis, patient is undergoing hemodialysis patient was started on hemodialysis during this hospitalization. Has received his permacath and outpatient dialysis is arranged -Hypokalemia improved at this times after hemodialysis -Metabolic acidosis secondary to acute renal failure -History of hepatitis C -Transaminitis: Secondary to chronic hep C. -Volume overload secondary to renal failure patient is on diuretics and is undergoing hemodialysis at this time -History of heroine abuse and drug abuse patient was treated for withdrawals -DVT prophylaxis: Subcutaneous heparin -full code Plan: Continue with hemodialysis and current medications. Maintain torsemide. Patient to receive an additional dialysis today Recommend daily PT/OT therapy Social work following and outpatient dialysis is arranged No accepting ecf in the area and patient is not willing to go to [place] for rehab, Dr. Scott consulted and pending for possible [facility] Possible home with home care. Recommend to dc kruse catheter Recommend repeat am labs Possible discharge in 24-48 hours The impression and plan of care has been dictated by Laura Millard, Nurse Practitioner as directed. Dr. Gopi MD I have performed a history and examination and MDM of this patient, discussed the same with the dictator, and agree with the dictator's assessment and plan as written ,documented as a scribe. Based on total visit time, I have performed more than 50% of the visit. Objective - Vital Signs Vital signs: Vital Signs Temp 97.8 F 12/04/21 17:14 Pulse 72 12/05/21 04:00 Resp 19 12/05/21 04:00 BP 113/65 12/05/21 04:00 Pulse Ox 98 12/05/21 04:00 FiO2 Intake & Output 12/04/21 12/05/21 12/05/21 18:59 06:59 18:59 Intake Total 420 0 Output Total 3300 1900 Balance -2880 -1900 0 Weight 112 kg Intake: Oral 120 0 Hemodialysis 300 Output: Urine 1100 1900 Hemodialysis 2200 Other: Voiding Method Indwelling Catheter Indwelling Catheter ABP, PAP, CO, CI - Last Documented Arterial Blood Pressure 139/42 - Labs CBC & Chem 7: 11/28/21 18:00 12/05/21 07:36 Labs: Abnormal Lab Results - Last 24 Hours (Table) 12/05/21 Range/Units 07:36 Sodium 133 L (137-145) mmol/L Potassium 5.2 H (3.5-5.1) mmol/L BUN 56 H (9-20) mg/dL Creatinine 6.02 H (0.66-1.25) mg/dL Glucose 108 H (74-99) mg/dL Calcium 8.0 L (8.4-10.2) mg/dL Creatine Kinase 1058 H* (55-170) U/L
[2021-12-06 08:17] VITALS: BP 114/59; PULSE 84; RESP 18; TEMP 98.7
[2021-12-06] MEDS: GABAPENTIN 100 MG CAP PO SCH (08:24)
[2021-12-06] MEDS: HEPARIN SODIUM,PORCINE/PF 5,000 UNIT/0.5 ML SYRINGE SQ SCH (08:24)
[2021-12-06] MEDS: FAMOTIDINE 20 MG/2 ML VIAL IV SCH (08:24)
[2021-12-06] MEDS: NICOTINE 21MG/24HR PATCH TRANSDERM SCH (08:26)
[2021-12-06] MEDS: TORSEMIDE 20 MG TAB PO SCH (08:26)
--- NOTE | 2021-12-06 10:35 | P.PN ---
Subjective Patient is seen in follow-up for acute kidney injury, currently hemodialysis dependent. CK levels trending down. Awake and alert. Denies chest pain or shortness of breath. Nonoliguric. On oral torsemide. No changes overnight. Vital signs are stable. General: Awake. No acute distress. HEENT: Head exam is unremarkable. LUNGS: Breath sounds decreased. HEART: Rate and Rhythm are regular. ABDOMEN: Soft, no distention. EXTREMITITES: 2+ edema. Scrotal edema noted. Objective - Vital Signs Vital signs: Vital Signs Temp 98.7 F 12/06/21 08:00 Pulse 84 12/06/21 08:00 Resp 18 12/06/21 08:00 BP 114/59 12/06/21 08:00 Pulse Ox 99 12/06/21 08:00 FiO2 Intake & Output 12/05/21 12/06/21 12/06/21 18:59 06:59 18:59 Intake Total 180 Output Total 2500 1250 Balance -2320 -1250 Weight 109.5 kg Intake: Oral 180 Output: Urine 1250 Uretheral (Collins) 200 Hemodialysis 2500 Other: Voiding Method Indwelling Catheter Urinal ABP, PAP, CO, CI - Last Documented Arterial Blood Pressure 139/42 - Labs CBC & Chem 7: 11/28/21 18:00 12/05/21 07:36 Assessment and Plan Plan: Assessment: 1. Acute kidney injury secondary to ATN secondary to rhabdomyolysis. Rule out GN. Started on hemodialysis November 22, 2021. Creatinine July 2018 was 0.79. No hydronephrosis noted on kidney ultrasound. Left kidney was not properly visualized. 2. Hyperkalemia secondary to acute kidney injury and metabolic acidosis. Improved postdialysis. 3. Hyponatremia secondary to acute kidney injury. Hypervolemic. Expect improvement post dialysis and ultrafiltration. Better. 4. Metabolic acidosis secondary to acute kidney injury and lactic acidosis. Better. 5. Hyperphosphatemia secondary to acute kidney injury. Phosphorus 5.8 dated 11/24/2021. Phosphorus level 4.3 dated 11/30/2021. 6. Hypocalcemia secondary to acute kidney injury. Replaced. Better. 7. IV drug abuse. 8. Rhabdomyolysis secondary to IV drug abuse and immobility. CK level greater than 160,000 initially. Trending down. 9. Transaminitis likely secondary to rhabdomyolysis. Improved. 10. Volume overload. Improving with ultrafiltration and diuresis. 11. Hep C IgG Ab reactive. GI not available in the hospital at this time. States hep C has not been treated. 12. Lower extremity weakness. Neurology following. Plan: Maintain torsemide 40 mg once daily. He extra treatment of hemodialysis yesterday. Another treatment today. Maintain on Thursday schedule. Continue to monitor renal function and urine output. [facility] for [facility] recovery [facility] Serologies have been negative. Will also consider kidney biopsy if no recovery of renal function. This was discussed with the patient. States he will consider. Outpatient dialysis set up by [facility].
--- NOTE | 2021-12-06 11:07 | P.PN ---
Subjective Progress Note Date: 12/06/21 The patient is seen at bedside and feels about the same. Denies any new neurological issue. Objective - Vital Signs Vital signs: Vital Signs Temp 98.7 F 12/06/21 08:00 Pulse 84 12/06/21 08:00 Resp 18 12/06/21 08:00 BP 114/59 12/06/21 08:00 Pulse Ox 99 12/06/21 08:00 FiO2 Intake & Output 12/05/21 12/06/21 12/06/21 18:59 06:59 18:59 Intake Total 180 Output Total 2500 1250 Balance -2320 -1250 Weight 109.5 kg Intake: Oral 180 Output: Urine 1250 Uretheral (Collins) 200 Hemodialysis 2500 Other: Voiding Method Indwelling Catheter Urinal ABP, PAP, CO, CI - Last Documented Arterial Blood Pressure 139/42 - Exam GENERAL: The patient is lying in bed and is not in acute distress. NEUROLOGICAL: Higher mental function: The patient is awake, alert, oriented to self, place and time. Patient is following commands. No aphasia and no neglect. Cranial nerves: The pupils are round, equal and reactive to light and accommoda tion. Visual syed are full to confrontation throughout. Extraocular movement is intact no nystagmus is noted. Facial sensation is normal to touch throughout. The facial strength is normal throughout. Tongue is midline and moved [id number] without any difficulty. No dysarthria is noted. Shoulder shrug is normal bilaterally. Motor: The strength is 5 over 5 throughout uppers. Right lower Is able to lift proximal and knee above gravity 3 while right ankle dorsiflexion and plantar flexion is 0-1, Able to wiggle some toes of the right foot. Left lower proximally is 2 and knee is 2 to very weak 3 with support of picking up thigh. Left ankle is 0. Decrease tone more on the left than right. Normal bulk. Sensation: Sensation is decrease to touch from the left knee down and right ankle to touch. Reflexes (right/left):2+ throughout except patellar are 2- 3+ and ankles are 0 bilaterally. Plantars are mute bilaterally. - Labs CBC & Chem 7: 11/28/21 18:00 12/05/21 07:36 Assessment and Plan Assessment: * Bilateral lower extremity weakness, distally and proximally, left more than right and patellar seems ?brisk: No myelopathy on imaging of his mid or lower back. MRI Thoracic and Lumbar w/o is unremarkable. * Prolonged episode of loss of consciousness (for hours) following IV drug use, resulting in rhabdomyolysis. * Acute renal failure due to rhabdomyolysis, on hemodialysis---CK trending down * Significant electrolyte imbalance--improving * Elevated cardiac enzymes, cardiology on board. * Hypothyroidism * Hepatitis C positive * Polysubstance abuse. * Transaminitis, improving Plan: * * Patient has bilateral leg weakness, left more than right. Appears to be due to acute muscle injury due to rhabdomyolysis. Knee reflexes are preserved. However ankle reflexes are absent. Possible some degree of lumbosacral plexopathy cannot be ruled out from prolonged extrinsic compression. Recommend EMG and nerve conductions of lower extremities as an outpatient. * MRI of the lumbar spine w/o is reported as correlate for possible anemia. No evident canal stenosis or sizable disc herniation. There is extensive artifact present. * MRI thoracic w/o: Was reported as slight scoliotic curvature otherwise unremarkable study. Spinal cord shows normal caliber without abnormal signal identified. I personally reviewed the MRI of the thoracic and I agree with the report. * CK level today is 3K (trending down). Recommend serial CK. * Patient has significant pain in bilateral lower limbs, especially with movement. On low-dose Neurontin 100 mg twice a day (adjusted for renal failure) to see if it helps with the pain. * Routine EEG ordered for prolonged episode of unresponsiveness: Is normal. * TSH: 7.07 (elevated) and free T4 1.44 (normal). Will defer management to Primary team. * PT and OT are consulted * Will defer electrolyte derangement correction to nephrology team. * Otherwise will defer the rest of medical management to the primary team. * Recommend patient to follow-up with neurologist as outpatient within 1-2 wee ks. The patient is discussed with patient and his nurse. No additional work-up is needed from neurological perspective. Please notify our team if any further concerns. Time with Patient: Less than 30
[2021-12-06 12:08] VITALS: BMI 31.8
--- NOTE | 2021-12-06 13:21 | P.DS ---
Providers Date of admission: 11/22/21 04:30 Expected date of discharge: 12/06/21 Attending physician: Cristina Tavera Consults: 11/22/21 05:38 Consult Physician Stat Consulting Provider: Sharla Solis Consult Reason/Comments: hyperkalemia, ERMA Do you want consulting provider notified?: Yes, Notify in am Placement Type Exists?: Yes 11/22/21 05:40 Consult Physician Stat Consulting Provider: Amrik Dowling Consult Reason/Comments: drug abuse Do you want consulting provider notified?: Yes, Notify in am Placement Type Exists?: Yes 11/22/21 07:44 Consult Physician Stat Consulting Provider: Zane Franco Consult Reason/Comments: Hemodialysis Catheter placement Do you want consulting provider notified?: Yes Placement Type Exists?: Yes 11/22/21 08:38 Consult Physician Urgent Consulting Provider: Vernon Miller Consult Reason/Comments: icu management Do you want consulting provider notified?: Yes Placement Type Exists?: Yes 11/25/21 07:30 Consult Physician Urgent Consulting Provider: Conor Inman Consult Reason/Comments: left lower ext swelling, rule out compartment syndrome Do you want consulting provider notified?: Yes Placement Type Exists?: Yes 11/30/21 13:55 Consult Physician Urgent Consulting Provider: Erin Frankel Consult Reason/Comments: b/l lower ext weakness Do you want consulting provider notified?: Already Contacted 12/05/21 11:50 Consult Physician Routine Consulting Provider: Alexi Scott Consult Reason/Comments: Inpatient physical therapy Do you want consulting provider notified?: Yes Primary care physician: Stated None Hospital Course: Final diagnosis -Acute renal failure secondary to acute tubal necrosis secondary to rhabdomyolysis, patient is undergoing hemodialysis and Has received his permacath Thursday/Thursday/Thursday -Hypokalemia improved at this times after hemodialysis -Metabolic acidosis secondary to acute renal failure -History of hepatitis C -Transaminitis: Secondary to chronic hep C. -Volume overload secondary to renal failure -History of heroine abuse and drug abuse patient was treated for withdrawals -DVT prophylaxis: Subcutaneous heparin -full code Discharge disposition Patient is being discharged in a stable condition with guarded prognosis to [place] . Patient will follow-up with in the outpatient setting upon discharge. Patient is to continue with hemodialysis as scheduled. Total time taken is greater than 35 minutes. Hospital course This is a 41-year-old male who was recently admitted with acute renal failure heroine withdrawal and drug abuse also known to have history of hepatitis C. Patient requiring emergency hemodialysis and permacath was placed and patient is maintained on torsemide. Patient was also having some acute rhabdomyolysis and also was known to be hyperkalemic. Patient continues with significant weakness and inability to walk and will require rehab. Given his history of drug abuse there is no excepting ECF locally in the area. Patient to go to [place] for continued rehab along with hemodialysis. Patient will need close outpatient follow-up with neurology for further EMG studies, nephrology in one week due to newly initiated dialysis, and to establish with a primary care provider. Patient was also arranged for outpatient dialysis in [place] and will follow- up with them. Currently no reports of chest pain, shortness of breath, or palpitations. Patient is afebrile. No reports of nausea or vomiting and patient is tolerating diet. Patient will be going to [facility] today. Guarded prognosis. Physical exam: Gen: This is a 41-year-old male awake, alert and oriented 2-3, well-developed, well-nourished. HEENT: Head is atraumatic, normocephalic. Pupils equal, round. Sclerae is anicteric. NECK: Supple. No JVD. No lymphadenopathy. No thyromegaly. LUNGS: Clear to auscultation. No wheezes or rhonchi. No intercostal retractions. HEART: Regular rate and rhythm. No murmur. ABDOMEN: Soft. Bowel sounds are present. No masses. No tenderness. EXTREMITIES: No pedal edema. No calf tenderness. NEUROLOGICAL: Patient is awake, alert and oriented x3. Cranial nerves 2 through 12 are grossly intact. Diffuse weakness noted Please refer to medication reconciliation sheet for a list of medications. The impression and plan of care has been dictated by Laura Millard, Nurse Practitioner as directed. Dr. Gopi MD I have performed a history and examination and MDM of this patient, discussed the same with the dictator, and agree with the dictator's assessment and plan as written ,documented as a scribe. Based on total visit time, I have performed more than 50% of the visit. Patient Condition at Discharge: Stable Plan - Discharge Summary Discharge Rx Participant: No New Discharge Prescriptions: New Torsemide [Demadex] 40 mg PO DAILY tab Nicotine 21Mg/24Hr Patch [Habitrol] 1 patch TRANSDERM DAILY patch Gabapentin [Neurontin] 100 mg PO BID #10 cap Heparin Sodium,Porcine [Heparin Sodium] 5,000 unit SQ Q12HR 30 Days #60 each Famotidine [Pepcid] 20 mg PO BID #60 tablet Ondansetron Odt [Zofran Odt] 4 mg PO Q8HR PRN #9 tab PRN Reason: Nausea Docusate [Colace] 100 mg PO BID PRN cap PRN Reason: Constipation Ergocalciferol [Vitamin D2 (1250 Mcg = 25163 Iu)] 1,250 mcg PO Q7D cap Melatonin 3 mg PO HS tab HYDROcodone/APAP 5-325MG [[place] 5-325] 1 tab PO Q6HR PRN 3 Days #6 tab PRN Reason: Pain Discharge Medication List Docusate [Colace] 100 mg PO BID PRN cap 12/02/21 [Rx] Ergocalciferol [Vitamin D2 (1250 Mcg = 87441 Iu)] 1,250 mcg PO Q7D cap 12/02/21 [Rx] Gabapentin [Neurontin] 100 mg PO BID #10 cap 12/02/21 [Rx] Nicotine 21Mg/24Hr Patch [Habitrol] 1 patch TRANSDERM DAILY patch 12/02/21 [Rx] Torsemide [Demadex] 40 mg PO DAILY tab 12/02/21 [Rx] Famotidine [Pepcid] 20 mg PO BID #60 tablet 12/06/21 [Rx] HYDROcodone/APAP 5-325MG [[place] 5-325] 1 tab PO Q6HR PRN 3 Days #6 tab 12/06/21 [Rx] Heparin Sodium,Porcine [Heparin Sodium] 5,000 unit SQ Q12HR 30 Days #60 each 12/06/21 [Rx] Melatonin 3 mg PO HS tab 12/06/21 [Rx] Ondansetron Odt [Zofran Odt] 4 mg PO Q8HR PRN #9 tab 12/06/21 [Rx] Follow up Appointment(s)/Referral(s): Rod Tompkins MD [STAFF PHYSICIAN] - 1 Week Brooks Schwarz DO [STAFF PHYSICIAN] - 1 Week Betty Howard MD [Medical Doctor] - 1 Week Activity/Diet/Wound Care/Special Instructions: Patient is going to [facility] Activity as tolerated Continue with hemodialysis Thursday/Thursday/Thursday Continue medications as prescribed Patient will need outpatient neurology evaluation with further studies including EMG Continue subcu heparin for DVT prophylaxis Continue on regular renal diet Discharge/Stand Alone Forms: Who Do I Call?, Community Resources, Outpatient Counseling, Inp Substance Abuse Facilities Discharge Disposition: TRANSFER TO SNF/ECF Plan of Treatment: Patient to follow up for dialysis at [facility] for a MWF at 2pm, patient;1:45pm for initial appointment, patient to bring ID and insurance cards to first visit.
== END 2021-12-06 15:51 | DRG 917 ==
LOC: EC 21:39 → 2SICU 11-22 04:30 → 3SCARD 11-26 20:49
PROVIDERS: ADMIT Hospitalist; ATTEND Hospitalist
PROC: 02HV33Z Insertion of Infusion Device into Superior Vena Cava, Percutaneous Approach (ICD-10-PCS; principal; 2021-11-22 10:45)
PROC: B5191ZZ Fluoroscopy of Inferior Vena Cava using Low Osmolar Contrast (ICD-10-PCS; 2021-11-24 07:03)
PROC: 5A1D70Z Performance of Urinary Filtration, Intermittent, Less than 6 Hours Per Day (ICD-10-PCS; 2021-12-01 12:00)
DX: T40.1X1A Poisoning by heroin, accidental (unintentional), initial encounter (principal); G92.8 Other toxic encephalopathy; N17.0 Acute kidney failure with tubular necrosis; M62.82 Rhabdomyolysis; E87.20 Acidosis, unspecified; F11.23 Opioid dependence with withdrawal; T82.41XA Breakdown (mechanical) of vascular dialysis catheter, initial encounter; E87.1 Hypo-osmolality and hyponatremia; B18.2 Chronic viral hepatitis C; E87.5 Hyperkalemia; D72.829 Elevated white blood cell count, unspecified; W10.9XXA Fall (on) (from) unspecified stairs and steps, initial encounter; E03.9 Hypothyroidism, unspecified; F15.159 Other stimulant abuse with stimulant-induced psychotic disorder, unspecified; F17.210 Nicotine dependence, cigarettes, uncomplicated; F25.9 Schizoaffective disorder, unspecified; N18.9 Chronic kidney disease, unspecified; F32.A Depression, unspecified; M41.9 Scoliosis, unspecified; N50.89 Other specified disorders of the male genital organs; S00.03XA Contusion of scalp, initial encounter; Y71.2 Prosthetic and other implants, materials and accessory cardiovascular devices associated with adverse incidents; Z79.899 Other long term (current) drug therapy
CPT/HCPCS: 36556; 36558; 36585; 70450; 71045; 71250; 72125; 72146; 72148; 72195; 73501; 74176; 75825; 76705; 76770; 76937; 77001; 80048; 80053; 80074; 80306; 81001; 82075; 82306; 82550; 82553; 82607; 82746; 83605; 83690; 83735; 84100; 84132; 84145; 84165; 84439; 84443; 84450; 84460; 84484; 85025; 85027; 85379; 85610; 85730; 86038; 86160; 86162; 86225; 86255; 86334; 86335; 87040; 87086; 87324; 90935; 93005; 93306; 93970; 95816; 96374; 96375; 99285

== ENCOUNTER 2021-12-06 18:39 | Observation (INO) | payer OTHER ==
--- NOTE | 2021-12-06 19:15 | ED ---
General Adult HPI - General Chief complaint: Recheck/Abnormal Lab/Rx Stated complaint: Rhabdomyolysis Time Seen by Provider: 12/06/21 18:44 Source: patient, EMS Mode of arrival: EMS Limitations: no limitations - History of Present Illness Initial comments: Dictation was produced using [email or web address] dictation software. please excuse any grammatical, word or spelling errors. Chief Complaint: 41-year-old male he was just admitted and discharged from our hospital. Patient was brought to emergency department after rehab facility refused them. History of Present Illness: Patient 41-year-old male whose recently admitted to our hospital for acute renal failure, rhabdomyolysis, hypokalemia, acute kidney injury. Patient was just discharged today at approximately 3 PM today. He was brought to the rehab facility in [place]. By the time he got there they realize he was hep C positive and that hemodialysis equipment at the rehab facility was not equipped to do dialysis for hepatitis C positive patient's. He was put back into the [facility] and brought back to our hospital. The ROS documented in this emergency department record has been reviewed and confirmed by me. Those systems with pertinent positive or negative responses have been documented in the HPI. All other systems are other negative and/or noncontributory. PHYSICAL EXAM: General Impression: Alert and oriented x3, not in acute distress HEENT: Normocephalic atraumatic, extra-ocular movements intact, pupils equal and reactive to light bilaterally, mucous membranes moist. Cardiovascular: Heart regular rate and rhythm Chest: Able to complete full sentences, no retractions, no tachypnea Abdomen: abdomen soft, non-tender, non-distended, no organomegaly Musculoskeletal: Pulses present and equal in all extremities, no peripheral edema Motor: no focal deficits noted Neurological: CN II-XII grossly intact, no focal motor or sensory deficits noted Skin: Intact with no visualized rashes Psych: Normal affect and mood ED course: 41-year-old male recently admitted to our hospital for multiple medical issues presents to ER after being refused for admission at a rehab facility due to inappropriate disposition. Vital signs upon arrival are within acceptable limits. Patient's well-appearing at the bedside. Patient be readmitted to [facility] with social work consultation for definitive placement. - Related Data Previous Rx's Medication Instructions Recorded Docusate [Colace] 100 mg PO BID PRN cap 12/02/21 Ergocalciferol [Vitamin D2 (1250 1,250 mcg PO Q7D cap 12/02/21 Mcg = 57669 Iu)] Gabapentin [Neurontin] 100 mg PO BID #10 cap 12/02/21 Nicotine 21Mg/24Hr Patch [Habitrol] 1 patch TRANSDERM DAILY patch 12/02/21 Torsemide [Demadex] 40 mg PO DAILY tab 12/02/21 Famotidine [Pepcid] 20 mg PO BID #60 tablet 12/06/21 HYDROcodone/APAP 5-325MG [[place] 1 tab PO Q6HR PRN 3 Days #6 tab 12/06/21 5-325] Heparin Sodium,Porcine [Heparin 5,000 unit SQ Q12HR 30 Days #60 12/06/21 Sodium] each Melatonin 3 mg PO HS tab 12/06/21 Ondansetron Odt [Zofran Odt] 4 mg PO Q8HR PRN #9 tab 12/06/21 Allergies Allergy/AdvReac Type Severity Reaction Status Date / Time amoxicillin Allergy Rash/Hives Verified 11/22/21 07:28 Review of Systems ROS Statement: Those systems with pertinent positive or pertinent negative responses have been documented in the HPI. ROS Other: All systems not noted in ROS Statement are negative. Past Medical History Past Medical History: No Reported History Additional Past Medical History / Comment(s): Depression, Drug abuse (heroin, methamphetamine) History of Any Multi-Drug Resistant Organisms: None Reported Additional Past Surgical History / Comment(s): cyst removed from chest Past Psychological History: No Psychological Hx Reported Smoking Status: Current every day smoker Past Alcohol Use History: Rare Past Drug Use History: Heroin, Methamphetamine, Opiates - Past Family History Mother Sister(s) Family Medical History: Cancer Additional Family Medical History / Comment(s): mother metastatic bone ca,. sister best away from breast, uterine ovarian 2014. Brother has colon CA General Exam Limitations: no limitations Course Vital Signs 12/06/21 18:51 Pulse Rate 76 Respiratory 16 Rate Blood Pressure 117/64 O2 Sat by Pulse 96 Oximetry Disposition Clinical Impression: Discharged to rehabilitation facility Disposition: ADMITTED IP TO THIS HOSP Condition: Fair Referrals: None,Stated [Primary Care Provider] - 1-2 days Decision Time: 19:19
[2021-12-06] MEDS ORDERED: NALOXONE 0.4 MG/ML 1 ML VIAL IV PRN (19:17)
[2021-12-06] MEDS: SODIUM CHLORIDE 0.9% 1,000 ML IV SCH (23:35)
[2021-12-07] MEDS: HYDROcodone/APAP 5-325MG 1 EACH TAB PO PRN ×4 (03:00→20:00)
[2021-12-07] MEDS ORDERED: ONDANSETRON ODT 4 MG TAB PO PRN (05:51)
[2021-12-07] MEDS: GABAPENTIN 100 MG CAP PO SCH (07:54)
[2021-12-07] MEDS: HEPARIN SODIUM,PORCINE/PF 5,000 UNIT/0.5 ML SYRINGE SQ SCH ×2 (07:54→20:02)
[2021-12-07] MEDS: TORSEMIDE 20 MG TAB PO SCH (07:54)
[2021-12-07] MEDS: NICOTINE 21MG/24HR PATCH TRANSDERM SCH (07:54)
[2021-12-07 08:04] LABS: Basophils % (A) 1 %; Eosinophils # (A) 0.1 k/uL (0-0.7); Eosinophils % (A) 2 %; Lymphocytes # (A) 1.1 k/uL (1.0-4.8); Lymphocytes % (A) 23 %; MCHC 34.3 g/dL (31.0-37.0); MCV 93.4 fL (80.0-100.0); Monocytes # (A) 0.4 k/uL (0-1.0); Monocytes % (A) 9 %; Neutrophils # (A) 3.1 k/uL (1.3-7.7); Neutrophils % (A) 64 %; RBC 2.99 m/uL (4.30-5.90); RDW 14.8 % (11.5-15.5); WBC 4.8 k/uL (3.8-10.6)
[2021-12-07 08:06] LABS: HGB 9.6 gm/dL (13.0-17.5)
[2021-12-07 08:07] LABS: Platelet Count 251 k/uL (150-450)
[2021-12-07 08:09] LABS: ALT 80 U/L (4-49); AST 53 U/L (17-59); African American GFR (CKD) 16 (>60 ml/min/1.73 sqM); Albumin/Globulin Ratio 1.3; Alkaline Phosphatase 38 U/L (38-126); Anion Gap 9 mmol/L; Blood Urea Nitrogen 41 mg/dL (9-20); Calcium 9.1 mg/dL (8.4-10.2); Carbon Dioxide 26 mmol/L (22-30); Chloride 99 mmol/L (98-107); Globulin 2.3 g/dL; Glucose 105 mg/dL (74-99); Non-African American GFR(CKD) 14 (>60 ml/min/1.73 sqM); Sodium 134 mmol/L (137-145); Total Bilirubin 0.8 mg/dL (0.2-1.3); Total Protein 5.3 g/dL (6.3-8.2)
[2021-12-07] MEDS ORDERED: FAMOTIDINE 20 MG TAB PO SCH (09:00)
[2021-12-07] MEDS ORDERED: HEPARIN SODIUM,PORCINE 5,000 UNIT/ML 1 ML VIAL SQ SCH (09:00)
--- NOTE | 2021-12-07 12:00 | P.HPIM ---
History of Present Illness 41-year-old male was discharged from my service as today comes back again as rehab facility refused him. Patient has known history of IV drug abuse and does have history of hepatitis C, patient was admitted for with rhabdomyolysis and acute renal failure, patient was initiated on hemodialysis during his last hospitalization. Had significant generalized weakness requiring subacute rehabitation was rejected by multiple nursing homes and rehab facilities around the town and subsequently was accepted by a subacute rehab in [place] area, was discharged yesterday to go to the subacute rehabilitation and he was rejected considering that he has hepatitis C. The facility is not equipped to do dialysis for hepatitis C patients. REVIEW OF SYSTEMS: CONSTITUTIONAL: No fever, no malaise, no fatigue. HEENT: No recent visual problems or hearing problems. Denied any sore throat. CARDIOVASCULAR: No chest pain, orthopnea, PND, no palpitations, no syncope. PULMONARY: No shortness of breath, no cough, no hemoptysis. GASTROINTESTINAL: No diarrhea, no nausea, no vomiting, no abdominal pain. NEUROLOGICAL: No headaches, no weakness, no numbness. HEMATOLOGICAL: Denies any bleeding or petechiae. GENITOURINARY: Denies any burning micturition, frequency, or urgency. MUSCULOSKELETAL/RHEUMATOLOGICAL: Denies any joint pain, swelling, or any muscle pain. ENDOCRINE: Denies any polyuria or polydipsia. The rest of the 14-point review of systems is negative. PHYSICAL EXAMINATION: GENERAL: The patient is alert and oriented x3, not in any acute distress. Well developed, well nourished. HEENT: Pupils are round and equally reacting to light. EOMI. No scleral icterus. No conjunctival pallor. Normocephalic, atraumatic. No pharyngeal erythema. No thyromegaly. CARDIOVASCULAR: S1 and S2 present. No murmurs, rubs, or gallops. PULMONARY: Chest is clear to auscultation, no wheezing or crackles. ABDOMEN: Soft, nontender, nondistended, normoactive bowel sounds. No palpable organomegaly. MUSCULOSKELETAL: No joint swelling or deformity. EXTREMITIES: No cyanosis, clubbing, or pedal edema. NEUROLOGICAL: Gross neurological examination did not reveal any focal deficits. SKIN: No rashes. Assessment and plan -Generalized weakness: Patient will be encouraged to walk around with help of the nursing staff hopefully he'll get the stronger and will be able to go home patient was rejected by multiple nursing homes. -Acute renal failure secondary to acute tubal necrosis from rhabdomyolysis was on hemodialysis patient is presently on scheduled hemodialysis -The chronic hepatitis C -History of her iron and intravenous drug use DVT prophylaxis: Subcutaneous heparin and ambulation Past Medical History Past Medical History: No Reported History Additional Past Medical History / Comment(s): Depression, Drug abuse (heroin, methamphetamine) History of Any Multi-Drug Resistant Organisms: None Reported Additional Past Surgical History / Comment(s): cyst removed from chest Past Psychological History: No Psychological Hx Reported Smoking Status: Former smoker Past Alcohol Use History: Rare Past Drug Use History: Heroin, Methamphetamine, Opiates - Past Family History Mother Sister(s) Family Medical History: Cancer Additional Family Medical History / Comment(s): mother metastatic bone ca,. sister best away from breast, uterine ovarian 2014. Brother has colon CA Medications and Allergies Home Medications Medication Instructions Recorded Confirmed Type Docusate [Colace] 100 mg PO BID PRN cap 12/02/21 12/06/21 Rx Gabapentin [Neurontin] 100 mg PO BID #10 cap 12/02/21 12/06/21 Rx Nicotine 21Mg/24Hr Patch [Habitrol] 1 patch TRANSDERM DAILY patch 12/02/21 12/06/21 Rx Torsemide [Demadex] 40 mg PO DAILY tab 12/02/21 12/06/21 Rx Ergocalciferol [Vitamin D2 (1250 1,250 mcg PO TU 12/06/21 12/06/21 History Mcg = 72045 Iu)] Famotidine [Pepcid] 20 mg PO BID #60 tablet 12/06/21 12/06/21 Rx HYDROcodone/APAP 5-325MG [[place] 1 tab PO Q6HR PRN 3 Days #6 tab 12/06/21 12/06/21 Rx 5-325] Heparin Sodium,Porcine [Heparin 5,000 unit SQ Q12HR 30 Days #60 12/06/21 12/06/21 Rx Sodium] each Melatonin 3 mg PO HS tab 12/06/21 12/06/21 Rx Ondansetron Odt [Zofran Odt] 4 mg PO Q8HR PRN #9 tab 12/06/21 12/06/21 Rx Allergies Allergy/AdvReac Type Severity Reaction Status Date / Time amoxicillin Allergy Rash/Hives Verified 12/06/21 19:40 Physical Exam Vitals: Vital Signs Temp Pulse Pulse Resp BP BP BP 12/07/21 07:00 98.1 F 80 16 127/70 12/07/21 02:52 98.8 F 83 17 126/72 12/07/21 01:36 85 19 12/06/21 22:50 98.1 F 85 19 137/92 12/06/21 18:51 76 16 117/64 Pulse Ox 12/07/21 07:00 100 12/07/21 02:52 98 12/07/21 01:36 12/06/21 22:50 100 12/06/21 18:51 96 Intake and Output 12/06/21 12/07/21 12/07/21 22:59 06:59 14:59 Intake Total 240 Output Total 600 600 Balance -600 -360 Intake: Oral 240 Output: Urine 600 600 Other: Voiding Method Urinal # Voids 0 Weight 99.79 kg Results CBC & Chem 7: 12/07/21 06:34 12/07/21 06:34 Labs: Abnormal Lab Results - Last 24 Hours (Table) 12/07/21 12/07/21 Range/Units 06:34 06:34 RBC 2.99 L (4.30-5.90) m/uL Hgb 9.6 L D (13.0-17.5) gm/dL Hct 28.0 L (39.0-53.0) % Sodium 134 L (137-145) mmol/L BUN 41 H (9-20) mg/dL Creatinine 4.87 H (0.66-1.25) mg/dL Glucose 105 H (74-99) mg/dL ALT 80 H (4-49) U/L Total Protein 5.3 L (6.3-8.2) g/dL Albumin 3.0 L (3.5-5.0) g/dL Thrombosis Risk Factor Assmnt - Choose All That Apply Each Factor Represents 1 point: Obesity (BMI >25) Other Risk Factors: No Other congenital or acquired thrombophilia - If yes, enter type in comment: No Thrombosis Risk Factor Assessment Total Risk Factor Score: 1 Thrombosis Risk Factor Assessment Level: Low Risk
[2021-12-07] MEDS: DOCUSATE 100 MG CAP PO PRN (18:24)
[2021-12-07] MEDS: MELATONIN 3 MG TABLET PO SCH (21:47)
[2021-12-08] MEDS: GABAPENTIN 100 MG CAP PO SCH ×3 (00:18→20:37)
[2021-12-08] MEDS: SODIUM CHLORIDE 0.9% 1,000 ML IV SCH ×2 (00:18→20:38)
[2021-12-08] MEDS: HYDROcodone/APAP 5-325MG 1 EACH TAB PO PRN ×4 (02:34→23:09)
[2021-12-08] MEDS: TORSEMIDE 20 MG TAB PO SCH (08:30)
[2021-12-08] MEDS: HEPARIN SODIUM,PORCINE/PF 5,000 UNIT/0.5 ML SYRINGE SQ SCH ×2 (08:31→20:38)
[2021-12-08] MEDS: FAMOTIDINE 20 MG TAB PO SCH (08:31)
[2021-12-08] MEDS: NICOTINE 21MG/24HR PATCH TRANSDERM SCH (08:32)
[2021-12-08 11:20] LABS: Basophils # (A) 0.06 X 10*3/uL (0.00-0.10); Basophils % (A) 1.5 %; Eosinophils # (A) 0.11 X 10*3/uL (0.04-0.35); Eosinophils % (A) 2.8 %; HGB 8.5 g/dL (13.0-17.0); Immature Grans, Automated 0.8 %; Lymphocytes # (A) 0.99 X 10*3/uL (0.90-5.00); Lymphocytes % (A) 25.1 %; MCH 30.6 pg (27.0-32.0); MCHC 32.7 g/dL (32.0-37.0); MCV 93.5 fL (80.0-97.0); Mean Platelet Volume 10.8 fL (9.5-12.2); Monocytes # (A) 0.36 X 10*3/uL (0.20-1.00); Monocytes % (A) 9.1 %; NRBC Per 100 WBC 0 /100 WBCS (0.0-0.0); Neutrophils % (A) 60.7 %; Platelet Count 309 X 10*3/uL (140-440); RBC 2.78 X 10*6/uL (4.40-5.60); RDW 15.1 % (11.5-14.5); WBC 3.95 X 10*3/uL (4.50-10.00)
--- NOTE | 2021-12-08 11:36 | P.NPCON ---
History of Present Illness - Reason for Consult acute renal failure - History of Present Illness Patient is a 41-year-old male who has a history of hepatitis C and history of drug abuse. Patient was admitted during his last admission with severe rhabdo my lysis and acute kidney injury. He was oliguric and started on dialysis. Patient apparently could not be dialyzed in the rehab due to hepatitis C and therefore he is readmitted to the hospital for placement. Patient has had decent urine output. His serum creatinine is staying around for now. It had been as high as 9.58. CK level was down to 1058 on 12/05/2021. Patient has a right IJ permacath. Patient had significant scrotal edema and volume overload which seems to have improved significantly. Review of Systems No history of fever chills nausea vomiting abdominal pain or diarrhea no cough. Past Medical History Past Medical History: No Reported History Additional Past Medical History / Comment(s): Depression, Drug abuse (heroin, methamphetamine) History of Any Multi-Drug Resistant Organisms: None Reported Additional Past Surgical History / Comment(s): cyst removed from chest Past Psychological History: No Psychological Hx Reported Smoking Status: Former smoker Past Alcohol Use History: Rare Past Drug Use History: Heroin, Methamphetamine, Opiates - Past Family History Mother Sister(s) Family Medical History: Cancer Additional Family Medical History / Comment(s): mother metastatic bone ca,. sister best away from breast, uterine ovarian 2014. Brother has colon CA Medications and Allergies Home Medications Medication Instructions Recorded Confirmed Type Docusate [Colace] 100 mg PO BID PRN cap 12/02/21 12/06/21 Rx Gabapentin [Neurontin] 100 mg PO BID #10 cap 12/02/21 12/06/21 Rx Nicotine 21Mg/24Hr Patch [Habitrol] 1 patch TRANSDERM DAILY patch 12/02/21 12/06/21 Rx Torsemide [Demadex] 40 mg PO DAILY tab 12/02/21 12/06/21 Rx Ergocalciferol [Vitamin D2 (1250 1,250 mcg PO TU 12/06/21 12/06/21 History Mcg = 48139 Iu)] Famotidine [Pepcid] 20 mg PO BID #60 tablet 12/06/21 12/06/21 Rx HYDROcodone/APAP 5-325MG [[place] 1 tab PO Q6HR PRN 3 Days #6 tab 12/06/21 12/06/21 Rx 5-325] Heparin Sodium,Porcine [Heparin 5,000 unit SQ Q12HR 30 Days #60 12/06/21 12/06/21 Rx Sodium] each Melatonin 3 mg PO HS tab 12/06/21 12/06/21 Rx Ondansetron Odt [Zofran Odt] 4 mg PO Q8HR PRN #9 tab 12/06/21 12/06/21 Rx Allergies Allergy/AdvReac Type Severity Reaction Status Date / Time amoxicillin Allergy Rash/Hives Verified 12/06/21 19:40 Physical Exam Vitals: Vital Signs Temp Pulse Resp BP BP Pulse Ox 12/08/21 07:00 98.3 F 88 16 121/71 100 12/08/21 02:00 98.3 F 83 16 120/61 100 12/08/21 01:48 16 12/07/21 20:00 90 16 12/07/21 19:55 98.2 F 90 18 143/79 100 12/07/21 15:00 98.7 F 94 16 126/74 100 Intake and Output 12/07/21 12/08/21 12/08/21 22:59 06:59 14:59 Intake Total 347 300 Output Total 150 1610 Balance 197 -1310 Intake: Oral 347 300 Output: Urine 150 1610 Other: Voiding Method Urinal Urinal Patient is awake, comfortable, not in any acute distress Examination of the heart S1 and S2 Examination of the lungs bilateral breath sounds are heard Abdomen is soft nontender Examination lower extremities shows trace edema Scrotal edema has improved but still present 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 Acute kidney injury, ATN initially oliguric currently nonoliguric secondary to rhabdo my lysis currently hemodialysis dependent. Urine output has improved and volume status has also improved. We will continue with hemodialysis for now and continue to monitor for recovery of renal function 2. Volume overload currently improved 3. Hyperkalemia associated with acute kidney injury metabolic acidosis and after my lysis now resolved 4. Hepatitis C with no previous history of treatment 5. Rhabdo my lysis associated with IV drug abuse and immobility. CK level greater than 1 60,000 initially and down to 1000 range on 12/05/2021 6. Hyperphosphatemia associated with acute kidney injury, improved Plan: Hemodialysis in a.m. Continue to avoid nephrotoxic agents Continue to monitor for recovery of renal function Continue with oral diuretics Thank you for the consultation. We'll continue to follow the patient with you during his hospitalization
[2021-12-08 12:20] LABS: African American GFR (CKD) 13.7 (60.0-200.0); Anion Gap 10.8 mmol/L (10.00-18.00); BUN/Creat Ratio 8.08 Ratio (12.00-20.00); Calcium 9.6 mg/dL (8.7-10.3); Carbon Dioxide 28.4 mmol/L (20.0-27.5); Non-African American GFR(CKD) 11.8 (60.0-200.0); Potassium 4.1 mmol/L (3.5-5.5)
--- NOTE | 2021-12-08 13:30 | P.PN ---
Subjective 41-year-old male was discharged from my service as today comes back again as rehab facility refused him. Patient has known history of IV drug abuse and does have history of hepatitis C, patient was admitted for with rhabdomyolysis and acute renal failure, patient was initiated on hemodialysis during his last hospitalization. Had significant generalized weakness requiring subacute rehabitation was rejected by multiple nursing homes and rehab facilities around the town and subsequently was accepted by a subacute rehab in [place] area, was discharged yesterday to go to the subacute rehabilitation and he was rejected considering that he has hepatitis C. The facility is not equipped to do dialysis for hepatitis C patients. 12/08/2021 -No overnight events patient will be continued on present care Constitutional: Denied any fatigue denied any fever. Cardio vascular: denied any chest pain, palpitations Gastrointestinal denied any nausea vomiting Pulmonary: Denied any shortness of breath cough Neurologic denied any new focal deficits All inpatient medications were reviewed and appropriate changes in these medications as dictated in the interval history and assessment and plan. PHYSICAL EXAMINATION: GENERAL: The patient is alert and oriented x3, not in any acute distress. Well developed, well nourished. HEENT: Pupils are round and equally reacting to light. EOMI. No scleral icterus. No conjunctival pallor. Normocephalic, atraumatic. No pharyngeal erythema. No thyromegaly. CARDIOVASCULAR: S1 and S2 present. No murmurs, rubs, or gallops. PULMONARY: Chest is clear to auscultation, no wheezing or crackles. ABDOMEN: Soft, nontender, nondistended, normoactive bowel sounds. No palpable organomegaly. MUSCULOSKELETAL: No joint swelling or deformity. EXTREMITIES: No cyanosis, clubbing, or pedal edema. NEUROLOGICAL: Gross neurological examination did not reveal any focal deficits. SKIN: No rashes. Assessment and plan -Generalized weakness: Patient will be encouraged to walk around with help of the nursing staff hopefully he'll get the stronger and will be able to go home patient was rejected by multiple nursing homes. -Acute renal failure secondary to acute tubal necrosis from rhabdomyolysis was on hemodialysis patient is presently on scheduled hemodialysis -The chronic hepatitis C -History of her iron and intravenous drug use DVT prophylaxis: Subcutaneous heparin and ambulation Objective - Vital Signs Vital signs: Vital Signs Temp 98.3 F 12/08/21 07:00 Pulse 88 12/08/21 07:00 Resp 16 12/08/21 07:00 BP 121/71 12/08/21 07:00 Pulse Ox 100 12/08/21 07:00 FiO2 Intake & Output 12/07/21 12/08/21 12/08/21 18:59 06:59 18:59 Intake Total 834 300 Output Total 1300 1760 750 Balance -636 -7117 -816 Intake: Oral 834 300 Output: Urine 1300 1760 750 Other: Voiding Method Urinal - Labs CBC & Chem 7: 12/08/21 07:49 12/08/21 07:49 Labs: Abnormal Lab Results - Last 24 Hours (Table) 12/08/21 12/08/21 Range/Units 07:49 07:49 WBC 3.95 L (4.50-10.00) X 10*3/uL RBC 2.78 L (4.40-5.60) X 10*6/uL Hgb 8.5 L (13.0-17.0) g/dL Hct 26.0 L (39.6-50.0) % RDW 15.1 H (11.5-14.5) % Carbon Dioxide 28.4 H (20.0-27.5) mmol/L BUN 45.0 H (9.0-27.0) mg/dL Creatinine 5.6 H (0.6-1.5) mg/dL Est GFR (CKD-EPI)AfAm 13.7 L (60.0-200.0) Est GFR (CKD-EPI)NonAf 11.8 L (60.0-200.0) BUN/Creatinine Ratio 8.08 L (12.00-20.00) Ratio
[2021-12-08] MEDS: DOCUSATE 100 MG CAP PO PRN (20:37)
[2021-12-08] MEDS: MELATONIN 3 MG TABLET PO SCH (20:37)
[2021-12-09] MEDS: HYDROcodone/APAP 5-325MG 1 EACH TAB PO PRN ×3 (07:57→18:10)
--- NOTE | 2021-12-09 10:10 | P.PN ---
Subjective Patient is seen for follow-up for acute kidney injury currently hemodialysis dependent. Renal function seems to be improving however patient had been significantly volume overloaded therefore he continues with hemodialysis for now. Currently with right IJ permacath Scrotal swelling has improved No complaints of chest pain or shortness of breath Patient is seen on hemodialysis today Objective - Vital Signs Vital signs: Vital Signs Temp 98.5 F 12/09/21 07:00 Pulse 87 12/09/21 07:00 Resp 14 12/09/21 07:00 BP 141/69 12/09/21 07:00 Pulse Ox 98 12/09/21 07:00 FiO2 Intake & Output 12/08/21 12/09/21 12/09/21 18:59 06:59 18:59 Intake Total 465 Output Total 2670 1400 950 Balance -5600 -1400 -994 Intake: Oral 465 Output: Urine 5256 1400 950 Other: Voiding Method Urinal Urinal # Bowel Movements 1 - Exam Awake, comfortable, no acute distress Examination of the heart S1 and S2 Examination of the lungs bilateral breath sounds are heard Abdomen is soft nontender Examination lower extremity shows trace edema bilaterally 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 Acute kidney injury, ATN initially oliguric currently nonoliguric secondary to rhabdo my lysis currently hemodialysis dependent. Urine output has improved and volume status has also improved. We will continue with hemodialysis for now and continue to monitor for recovery of renal function 2. Volume overload currently improved 3. Hyperkalemia associated with acute kidney injury metabolic acidosis and after my lysis now resolved 4. Hepatitis C with no previous history of treatment 5. Rhabdo my lysis associated with IV drug abuse and immobility. CK level greater than 1 60,000 initially and down to 1000 range on 12/05/2021 6. Hyperphosphatemia associated with acute kidney injury, improved Plan: Hemodialysis today Continue to monitor for recovery of renal function Continue with oral diuretics
[2021-12-09] MEDS: GABAPENTIN 100 MG CAP PO SCH ×2 (11:21→20:36)
[2021-12-09] MEDS: FAMOTIDINE 20 MG TAB PO SCH (11:21)
[2021-12-09] MEDS: TORSEMIDE 20 MG TAB PO SCH (11:21)
[2021-12-09] MEDS: NICOTINE 21MG/24HR PATCH TRANSDERM SCH (11:21)
[2021-12-09] MEDS: HEPARIN SODIUM,PORCINE/PF 5,000 UNIT/0.5 ML SYRINGE SQ SCH ×2 (11:21→20:36)
[2021-12-09] MEDS: SODIUM CHLORIDE 0.9% 1,000 ML IV SCH (18:49)
[2021-12-09] MEDS: MELATONIN 3 MG TABLET PO SCH (20:36)
[2021-12-10] MEDS: HYDROcodone/APAP 5-325MG 1 EACH TAB PO PRN ×2 (00:16→10:11)
[2021-12-10 04:22] VITALS: PULSE 77
[2021-12-10] MEDS ORDERED: HYDROcodone/APAP 5-325MG 1 EACH TAB PO STA (04:40)
--- NOTE | 2021-12-10 05:11 | P.CONS ---
History of Present Illness - Chief Complaint Medical debility - History of Present Illness I had the opportunity to see patient for inpatient rehab consultation with regard to medical debility. Patient is known to me from recent inpatient consultation same problem. He was admitted a history of heroin IV drug abuse and alcohol to [facility] and found to have rhabdomyolysis and acute kidney injury. Patient endurance limited and was transferred to SNF. SNF decline patient however because of hepatitis C and ongoing need of new hemodialysis. Admitted medically Dr. Nguyễn and seen by Dr. Solis. Has started therapy. PT reports moderate assistance for bed mobility, supervision to stand and minimal assistance for gait 10 feet with roller walker. OT reports independent with feeding, supervision for grooming and upper dressing, moderate assistance to person for lower dressing and minimal assistance for bathing. Minimal assistance functional ability and transfers. Previous functional history as elicited from patient: 41-year-old right-handed white male who is lives and 2 floor home. 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 Describes independent with standing shower, gait without device. They share the cooking and laundry. Review of Systems Review of systems: ENT: Denies sneezes or discharge. Eyes: Denies discharge or photophobia. Cardiac: Denies chest pain or palpitation. Pulmonary: Denies cough or shortness of breath. Gastrointestinal: Denies nausea, emesis, constipation, diarrhea. Genitourinary: Kidney failure requiring a new hemodialysis created by hepatitis C. Musculoskeletal: Improve swelling lower extremities. Neurologic: Ongoing weakness legs. Endocrine: Denies shakes or sweats. Oncology: Denies cancers. Dermatologic: Denies rash, itching, pruritus. ALLERGY/immunology: Denies sneezes, rashes. Past Medical History Past Medical History: No Reported History Additional Past Medical History / Comment(s): Depression, Drug abuse (heroin, methamphetamine) History of Any Multi-Drug Resistant Organisms: None Reported Additional Past Surgical History / Comment(s): cyst removed from chest Past Psychological History: No Psychological Hx Reported Smoking Status: Former smoker Past Alcohol Use History: Rare Past Drug Use History: Heroin, Methamphetamine, Opiates - Past Family History Mother Sister(s) Family Medical History: Cancer Additional Family Medical History / Comment(s): mother metastatic bone ca,. sister best away from breast, uterine ovarian 2014. Brother has colon CA Medications and Allergies Home Medications Medication Instructions Recorded Confirmed Type Docusate [Colace] 100 mg PO BID PRN cap 12/02/21 12/06/21 Rx Gabapentin [Neurontin] 100 mg PO BID #10 cap 12/02/21 12/06/21 Rx Nicotine 21Mg/24Hr Patch [Habitrol] 1 patch TRANSDERM DAILY patch 12/02/21 1 Rx Torsemide [Demadex] 40 mg PO DAILY tab 12/02/21 12/06/21 Rx Ergocalciferol [Vitamin D2 (1250 1,250 mcg PO TU 12/06/21 12/06/21 History Mcg = 04830 Iu)] Famotidine [Pepcid] 20 mg PO BID #60 tablet 12/06/21 12/06/21 Rx HYDROcodone/APAP 5-325MG [[place] 1 tab PO Q6HR PRN 3 Days #6 tab 12/06/21 12/06/21 Rx 5-325] Heparin Sodium,Porcine [Heparin 5,000 unit SQ Q12HR 30 Days #60 12/06/21 12/06/21 Rx Sodium] each Melatonin 3 mg PO HS tab 12/06/21 12/06/21 Rx Ondansetron Odt [Zofran Odt] 4 mg PO Q8HR PRN #9 tab 12/06/21 12/06/21 Rx Allergies Allergy/AdvReac Type Severity Reaction Status Date / Time amoxicillin Allergy Rash/Hives Verified 12/06/21 19:40 Physical Exam Vitals: Vital Signs Temp Pulse Resp BP BP Pulse Ox 12/10/21 00:15 98.7 F 77 20 133/71 99 12/09/21 21:41 99.4 F 98 17 134/78 96 12/09/21 13:39 98.3 F 97 14 131/70 100 12/09/21 12:21 97.8 F 71 20 146/79 12/09/21 07:00 98.5 F 87 14 141/69 98 Intake and Output 12/09/21 12/09/21 12/10/21 14:59 22:59 06:59 Intake Total 778 480 Output Total 4300 750 Balance -3522 -270 Intake: Oral 478 480 Hemodialysis 300 Output: Urine 1500 750 Hemodialysis 2800 Other: Voiding Method Urinal Urinal Skin: Good color, texture, turgor. General: Medium to overweight build and comfortable appearance. Head: Normocephalic, atraumatic. Eyes: Symmetric. Pupils equal round. Ears: Symmetric. Hearing within normal limits. Mouth: Clear. Neck: Supple. Carotid without bruit. Cardiac: Regular rate and rhythm. Lungs: Clear anteriorly and posteriorly. Abdomen: Soft active nontender. Extremities: Normal tone. Neurological: Mental status: Alert, cooperative, pleasant. Cranial nerves: Symmetric facial tone and trapezius. Motor: Normal strength and isolation arms. Legs poor. Sensation: Intact throughout. DTRs: Symmetric and equal throughout. Mobility: Will require physical assistance to sit up. Reports has been standing and using wheelchair for mobility but with assistance. Results CBC & Chem 7: 12/08/21 07:49 12/08/21 07:49 Assessment and Plan (1) ARF (acute renal failure) Current Visit: No Status: Acute Code(s): N17.9 - ACUTE KIDNEY FAILURE, UNSPECIFIED SNOMED Code(s): 53167712 (2) Methamphetamine abuse Current Visit: No Status: Acute Code(s): F15.10 - OTHER STIMULANT ABUSE, UNCOMPLICATED SNOMED Code(s): 737326586 (3) Rhabdomyolysis Current Visit: No Status: Acute Code(s): M62.82 - RHABDOMYOLYSIS SNOMED Code(s): 209045446 (4) Schizoaffective disorder Current Visit: No Status: Acute Code(s): F25.9 - SCHIZOAFFECTIVE DISORDER, UNSPECIFIED SNOMED Code(s): 35568074 (5) Swelling of left lower extremity Current Visit: No Status: Acute Code(s): M79.89 - OTHER SPECIFIED SOFT TISSUE DISORDERS SNOMED Code(s): 580009759 Plan: Comments and plan: At this time patient appears improved with regard to pain control and ability to tolerate and benefit from therapies. Have discussed inpatient rehab with patient and he seems agreeable. Discussed with him length of stay would be longer than 1 week. Will require insurance authorization.
--- NOTE | 2021-12-10 06:06 | P.PN ---
Subjective Progress Note Date: 12/09/21 41-year-old male was discharged from my service as today comes back again as rehab facility refused him. Patient has known history of IV drug abuse and does have history of hepatitis C, patient was admitted for with rhabdomyolysis and acute renal failure, patient was initiated on hemodialysis during his last hospitalization. Had significant generalized weakness requiring subacute rehabitation was rejected by multiple nursing homes and rehab facilities around the town and subsequently was accepted by a subacute rehab in [place] area, was discharged yesterday to go to the subacute rehabilitation and he was rejected considering that he has hepatitis C. The facility is not equipped to do dialysis for hepatitis C patients. 12/08/2021 -No overnight events patient will be continued on present care 12/09/2021 Patient is seen in follow-up today with nephrology following maintained on hemodialysis. Social work to follow-up in regards to ECF versus home with home care. Recommend PT/OT therapy daily and currently consulted and pending. Will consult DR. Scott for [facility] inpatient rehab. Afebrile and reports to feeling tired after hemodialysis today. Constitutional: Denied any fatigue denied any fever. Cardio vascular: denied any chest pain, palpitations Gastrointestinal denied any nausea vomiting Pulmonary: Denied any shortness of breath cough Neurologic denied any new focal deficits All inpatient medications were reviewed and appropriate changes in these medications as dictated in the interval history and assessment and plan. PHYSICAL EXAMINATION: GENERAL: The patient is alert and oriented x3, not in any acute distress. Well developed, well nourished. HEENT: Pupils are round and equally reacting to light. EOMI. No scleral icterus. No conjunctival pallor. Normocephalic, atraumatic. No pharyngeal erythema. No thyromegaly. CARDIOVASCULAR: S1 and S2 present. No murmurs, rubs, or gallops. PULMONARY: Chest is clear to auscultation, no wheezing or crackles. ABDOMEN: Soft, nontender, nondistended, normoactive bowel sounds. No palpable organomegaly. MUSCULOSKELETAL: No joint swelling or deformity. EXTREMITIES: No cyanosis, clubbing, or pedal edema. NEUROLOGICAL: Gross neurological examination did not reveal any focal deficits. SKIN: No rashes. Assessment and plan -Generalized weakness: Patient will be encouraged to walk around with help of the nursing staff hopefully he'll get the stronger in a few days. Will consult Dr. Scott for possible [facility] inpatient rehab. -Acute renal failure secondary to acute tubular necrosis from rhabdomyolysis was on hemodialysis patient is presently on scheduled hemodialysis -history of chronic hepatitis C -History of heroin and intravenous drug use -DVT prophylaxis: Subcutaneous heparin and ambulation Plan: Recommend to continue with current medications with nephrology following and maintained on hemodialysis Social work to follow up with patient in regards to ECF versus home with home care, consult to Dr. Scott for [facility] inpatient rehab Recommend PT/OT therapy daily Encouraged increase activity as tolerated The impression and plan of care has been dictated by Nurse Dre Pratt as directed. Dr. Gopi MD I have performed a history and examination and MDM of this patient, discussed the same with the dictator, and agree with the dictator's assessment and plan a s written ,documented as a scribe. Based on total visit time, I have performed more than 50% of the visit. Objective - Vital Signs Vital signs: Vital Signs Temp 98.5 F 12/09/21 07:00 Pulse 87 12/09/21 07:00 Resp 14 12/09/21 07:00 BP 141/69 12/09/21 07:00 Pulse Ox 98 12/09/21 07:00 FiO2 Intake & Output 12/08/21 12/09/21 12/09/21 18:59 06:59 18:59 Intake Total 465 Output Total 2675 1400 950 Balance -2210 1400 950 Intake: Oral 465 Output: Urine 2675 1400 950 Other: Voiding Method Urinal Urinal # Bowel Movements 1 - Labs CBC & Chem 7: 12/08/21 07:49 12/08/21 07:49 Labs: Abnormal Lab Results - Last 24 Hours (Table) 12/08/21 12/08/21 Range/Units 07:49 07:49 WBC 3.95 L (4.50-10.00) X 10*3/uL RBC 2.78 L (4.40-5.60) X 10*6/uL Hgb 8.5 L (13.0-17.0) g/dL Hct 26.0 L (39.6-50.0) % RDW 15.1 H (11.5-14.5) % Carbon Dioxide 28.4 H (20.0-27.5) mmol/L BUN 45.0 H (9.0-27.0) mg/dL Creatinine 5.6 H (0.6-1.5) mg/dL Est GFR (CKD-EPI)AfAm 13.7 L (60.0-200.0) Est GFR (CKD-EPI)NonAf 11.8 L (60.0-200.0) BUN/Creatinine Ratio 8.08 L (12.00-20.00) Ratio
[2021-12-10 07:57] VITALS: BP 132/78; RESP 18; TEMP 98.2
[2021-12-10] MEDS: HEPARIN SODIUM,PORCINE/PF 5,000 UNIT/0.5 ML SYRINGE SQ SCH (08:20)
[2021-12-10] MEDS: TORSEMIDE 20 MG TAB PO SCH (08:20)
[2021-12-10] MEDS: NICOTINE 21MG/24HR PATCH TRANSDERM SCH (08:20)
[2021-12-10] MEDS: GABAPENTIN 100 MG CAP PO SCH (08:20)
[2021-12-10] MEDS: FAMOTIDINE 20 MG TAB PO SCH (08:20)
[2021-12-10] MEDS ORDERED: ERGOCALCIFEROL 1,250 MCG (50,000 IU) CAPSULE PO SCH (09:00)
--- NOTE | 2021-12-10 12:05 | P.DS ---
Providers Date of admission: 12/06/21 19:17 Expected date of discharge: 12/10/21 Attending physician: Cristina Tavera Consults: 12/08/21 11:18 Consult Physician Routine Consulting Provider: Sharla Solis Consult Reason/Comments: ESRD Do you want consulting provider notified?: Yes 12/09/21 14:23 Consult Physician Urgent Consulting Provider: Alexi Scott Consult Reason/Comments: inpatient rehab, rhabdo, ESRD Do you want consulting provider notified?: Yes Primary care physician: Stated None Hospital Course: Final diagnosis Generalized weakness with gait dysfunction secondary to rhabdomyolysis Acute renal failure secondary to acute tubular necrosis from rhabdomyolysis acquiring hemodialysis, has received permanent catheter placement History of chronic hepatitis C History of heroin and IV drug abuse DVT prophylaxis Full code Discharge disposition Patient is being discharged in a stable condition with guarded prognosis to [facility] inpatient rehab for aggressive physical therapy. Patient will follow-up with Dr. Sanchez in the outpatient setting upon discharge to establish. Patient is to continue on hemodialysis as scheduled and also close outpatient follow-up with nephrology. Total time taken is greater than 35 minutes. Hospital course This is a 41-year-old male who was recently admitted with with gait dysfunction decreased mobility and rhabdomyolysis and was being closely monitored. Patient was recently hospitalized and discharged to a nursing facility out-of-town although was reported during the drop-off via EMS they are unable to perform hemodialysis on patients with hepatitis C history. Patient was immediately brought back to the hospital and admitted with social work consulted for ECF. Patient was reevaluated by Dr. Scott who is willing to accept the patient for physical therapy. Patient has been agreeable and working with physical therapy daily while hospitalized although this is only 1 time per day. Patient will need aggressive PT/OT therapy for strengthening mobility. Outpatient hemodialysis is also arranged out of the [place] which he will follow-up with once discharged from inpatient rehab. Currently no reports of chest pain, shortness of breath, or palpitations. Patient is afebrile. No reports of nausea or vomiting and patient is tolerating diet. Patient will be going to [facility] inpatient rehab today. Physical exam: Gen: This is a 41-year-old male awake, alert and oriented 3 well-developed, well-nourished HEENT: Head is atraumatic, normocephalic. Pupils equal, round. Sclerae is anicteric. NECK: Supple. No JVD. No lymphadenopathy. No thyromegaly. LUNGS: Clear to auscultation. No wheezes or rhonchi. No intercostal retractions. HEART: Regular rate and rhythm. No murmur. ABDOMEN: Soft. Bowel sounds are present. No masses. No tenderness. EXTREMITIES: No pedal edema. No calf tenderness. Generalized lower extremity edema noted bilaterally NEUROLOGICAL: Patient is awake, alert and oriented x3. Cranial nerves 2 through 12 are grossly intact. Diffusely weak Please refer to medication reconciliation sheet for a list of medications. The impression and plan of care has been dictated by Laura Millard, Nurse Practitioner as directed. Dr. Gopi MD I have performed a history and examination and MDM of this patient, discussed the same with the dictator, and agree with the dictator's assessment and plan as written ,documented as a scribe. Based on total visit time, I have performed more than 50% of the visit. Patient Condition at Discharge: Fair Plan - Discharge Summary Discharge Rx Participant: No New Discharge Prescriptions: Continue Torsemide [Demadex] 40 mg PO DAILY tab Nicotine 21Mg/24Hr Patch [Habitrol] 1 patch TRANSDERM DAILY patch Heparin Sodium,Porcine [Heparin Sodium] 5,000 unit SQ Q12HR 30 Days #60 each Famotidine [Pepcid] 20 mg PO BID #60 tablet Ondansetron Odt [Zofran ODT] 4 mg PO Q8HR PRN #9 tab PRN Reason: Nausea Docusate [Colace] 100 mg PO BID PRN cap PRN Reason: Constipation Melatonin 3 mg PO HS tab Ergocalciferol [Vitamin D2 (1250 Mcg = 70678 Iu)] 1,250 mcg PO TU HYDROcodone/APAP 5-325MG [[place] 5-325] 1 tab PO Q6HR PRN 3 Days #6 tab PRN Reason: Pain Changed Gabapentin [Neurontin] 100 mg PO TID #9 cap Discharge Medication List Docusate [Colace] 100 mg PO BID PRN cap 12/02/21 [Rx] Nicotine 21Mg/24Hr Patch [Habitrol] 1 patch TRANSDERM DAILY patch 12/02/21 [Rx] Torsemide [Demadex] 40 mg PO DAILY tab 10/24/22 [Rx] Ergocalciferol [Vitamin D2 (1250 Mcg = 37334 Iu)] 1,250 mcg PO TU 12/06/21 [History] Famotidine [Pepcid] 20 mg PO BID #60 tablet 12/06/21 [Rx] Heparin Sodium,Porcine [Heparin Sodium] 5,000 unit SQ Q12HR 30 Days #60 each 12/06/21 [Rx] Melatonin 3 mg PO HS tab 12/06/21 [Rx] Ondansetron Odt [Zofran ODT] 4 mg PO Q8HR PRN #9 tab 12/06/21 [Rx] Gabapentin [Neurontin] 100 mg PO TID #9 cap 12/10/21 [Rx] HYDROcodone/APAP 5-325MG [[place] 5-325] 1 tab PO Q6HR PRN 3 Days #6 tab 12/10/21 [Rx] Follow up Appointment(s)/Referral(s): Sayra Sanchez MD [STAFF PHYSICIAN] - 1-2 Days Activity/Diet/Wound Care/Special Instructions: Patient is going to [facility] for inpatient rehab Activity as tolerated Continue renal diet low potassium, low phosphorus, low sodium Continue medications as prescribed Continue with hemodialysis and close outpatient follow-up with nephrology in 1-2 weeks Patient to establish outpatient with primary care provider on discharge Discharge Disposition: OTHER INSTITUTION NOT DEFINED
--- NOTE | 2021-12-10 12:52 | P.PN ---
Subjective Patient is seen for follow-up for acute kidney injury currently hemodialysis dependent. Renal function seems to be improving however patient had been significantly volume overloaded therefore he continues with hemodialysis for now. Currently with right IJ permacath Scrotal swelling has improved No complaints of chest pain or shortness of breath Patient is working with physical therapy Objective - Vital Signs Vital signs: Vital Signs Temp 98.2 F 12/10/21 07:00 Pulse 77 12/10/21 07:00 Resp 18 12/10/21 08:20 BP 132/78 12/10/21 07:00 Pulse Ox 96 12/10/21 07:00 FiO2 Intake & Output 12/09/21 12/10/21 12/10/21 18:59 06:59 18:59 Intake Total 1258 Output Total 4300 1250 Balance -3042 -1250 Intake: Oral 958 Hemodialysis 300 Output: Urine 1500 1250 Hemodialysis 2800 Other: Voiding Method Urinal Urinal Urinal - Exam Awake, comfortable, no acute distress Examination lower extremity shows trace edema bilaterally [employer]ANGLE [employer]ER exam grossly intact - Labs CBC & Chem 7: 12/08/21 07:49 12/08/21 07:49 Assessment and Plan Assessment: 1. Acute kidney injury, ATN initially oliguric currently nonoliguric secondary to rhabdo my lysis currently hemodialysis dependent. Urine output has improved and volume status has also improved. We will continue with hemodialysis for now and continue to monitor for recovery of renal function. Serum creatinine remains elevated at about 5.6 mg/dL 2. Volume overload currently improved 3. Hyperkalemia associated with acute kidney injury metabolic acidosis and after my lysis now resolved 4. Hepatitis C with no previous history of treatment 5. Rhabdo my lysis associated with IV drug abuse and immobility. CK level greater than 1 60,000 initially and down to 1000 range on 12/05/2021 6. Hyperphosphatemia associated with acute kidney injury, improved Plan: Hemodialysis in a.m. Continue with oral diuretics Continue to monitor for recovery of renal function.
== END 2021-12-10 13:53 | disposition other institution (70) ==
LOC: EC 18:39 → 6NMEDSUR 19:17
PROVIDERS: ADMIT Hospitalist; ATTEND Hospitalist
DX: M62.82 Rhabdomyolysis (principal); R53.1 Weakness; R26.9 Unspecified abnormalities of gait and mobility; N17.0 Acute kidney failure with tubular necrosis; B18.2 Chronic viral hepatitis C; N18.6 End stage renal disease; F32.A Depression, unspecified; N50.89 Other specified disorders of the male genital organs; E87.70 Fluid overload, unspecified; E87.5 Hyperkalemia; E87.20 Acidosis, unspecified; E83.39 Other disorders of phosphorus metabolism; R53.81 Other malaise; F11.10 Opioid abuse, uncomplicated; F15.10 Other stimulant abuse, uncomplicated; F25.9 Schizoaffective disorder, unspecified; R22.42 Localized swelling, mass and lump, left lower limb; F17.200 Nicotine dependence, unspecified, uncomplicated; Z20.822 Contact with and (suspected) exposure to COVID-19; Z99.2 Dependence on renal dialysis; Z79.899 Other long term (current) drug therapy; Z88.0 Allergy status to penicillin
CPT/HCPCS: 96372 ×4; 99285; 97110; 97163; 97530; 97166; 80053; 80048; 85025 ×2; 87635; G0378 ×5; S4990 ×3; J1644 ×4; 90935